=== PATIENT | male | born 1960 | race Caucasian/White ===

== ENCOUNTER → 2016-12-04 | Outpatient (CLI) | payer OTHER ==
[2016-12-04 13:47] LABS: Basophils % (A) 0 %; CH 30.4; Eosinophils # (A) 0.1 k/uL (0-0.7); Eosinophils % (A) 1 %; HDW 2.24; HGB 17.5 gm/dL (13.0-17.5); Luc # (Auto) 0.09; Luc % (Auto) 1; Lymphocytes # (A) 1.7 k/uL (1.0-4.8); Lymphocytes % (A) 19 %; MCH 29.3 pg (25.0-35.0); MCHC 31.7 g/dL (31.0-37.0); MCV 92.3 fL (80.0-100.0); Mean Platelet Volume 7.5; Monocytes # (A) 0.5 k/uL (0-1.0); Monocytes % (A) 5 %; Neutrophils # (A) 6.7 k/uL (1.3-7.7); Neutrophils % (A) 74 %; RBC 5.96 m/uL (4.30-5.90); RDW 13.3 % (11.5-15.5); WBC 9.1 k/uL (3.8-10.6); WBC (Perox) 8.59
[2016-12-04 14:00] LABS: Anion Gap 13 mmol/L; Blood Urea Nitrogen 24 mg/dL (9-20); Calcium 10.1 mg/dL (8.4-10.2); Carbon Dioxide 24 mmol/L (22-30); Chloride 101 mmol/L (98-107); Glucose 130 mg/dL (74-99); Non-African American GFR(MDRD) >60 (>60 ml/min/1.73 sqM); Potassium 4.6 mmol/L (3.5-5.1); Sodium 138 mmol/L (137-145)
[2016-12-04 14:17] LABS: Partial Thromboplastin Time 22.2 sec (22.0-30.0)
== END | disposition home or self-care (01) ==
LOC: LABWHC1 12:57
PROVIDERS: ATTEND Orthopaedic Surgery
DX: Z01.812 Encounter for preprocedural laboratory examination (principal); D61.3 Idiopathic aplastic anemia; N39.0 Urinary tract infection, site not specified; Z79.01 Long term (current) use of anticoagulants
CPT/HCPCS: 36415; 80048; 85025; 85610; 85730

== ENCOUNTER 2017-05-18 13:16 | Inpatient (IN) | payer OTHER ==
[2017-05-18] MEDS ORDERED: NITROGLYCERIN OINT 1 INCH/GM PACKET TOPICAL STA (13:33)
[2017-05-18] MEDS ORDERED: NITROGLYCERIN SL TABS 0.4 MG TAB SUBLINGUAL STA ×2 (13:33)
[2017-05-18] MEDS ORDERED: ASPIRIN 81 MG CHEW PO STA (13:33)
--- NOTE | 2017-05-18 13:35 | ED ---
General Adult HPI - General Chief complaint: Chest Pain Stated complaint: chest pain Time Seen by Provider: 05/18/17 13:26 Source: patient, family, EMS, RN notes reviewed Mode of arrival: EMS Limitations: no limitations - History of Present Illness Initial comments: Patient is a pleasant 56-year-old male presenting to the emergency Department with chest discomfort. Patient had some mild dyspnea yesterday. Patient has been exertion chest discomfort since Saturday. Discomfort as pressure. There is some radiation towards his arms and maybe some towards the back. Discomfort was rated at 8/10 and improved is currently 5/10. No associated nausea or diaphoresis. Patient did take 2 nitroglycerin with improvement of symptoms. Patient also took aspirin. - Related Data Home Medications Medication Instructions Recorded Confirmed Omeprazole [PriLOSEC] 20 mg PO AC-BRKFST 08/19/14 05/18/17 Celecoxib [CeleBREX] 200 mg PO BID PRN 03/31/16 05/18/17 Gabapentin [Neurontin] 300 mg PO TID 03/31/16 05/18/17 Acetaminophen Tab [Tylenol] 1,000 mg PO Q6H PRN 06/21/16 05/18/17 Fluticasone Nasal [place] [Flonase 2 sprays EA NOSTRIL BID PRN 06/21/16 05/18/17 Nasal [place]] Aspirin EC [Ecotrin] 325 mg PO DAILY 05/18/17 05/18/17 Metoprolol Succinate [Toprol XL] 25 mg PO DAILY 05/18/17 05/18/17 Olmesartan/Hydrochlorothiazide 1 tab PO DAILY 05/18/17 05/18/17 [Benicar Hct 40-25 mg Tablet] Allergies Allergy/AdvReac Type Severity Reaction Status Date / Time amlodipine Allergy Severe Unknown Verified 05/18/17 13:47 venom-honey bee Allergy Anaphylaxis Verified 05/18/17 13:47 [bee venom (honey bee)] vancomycin AdvReac Rash/Hives Verified 05/18/17 13:47 Review of Systems ROS Statement: Those systems with pertinent positive or pertinent negative responses have been documented in the HPI. ROS Other: All systems not noted in ROS Statement are negative. Constitutional: Denies: fever Eyes: Denies: eye pain ENT: Denies: ear pain Respiratory: Reports: dyspnea. Denies: cough Cardiovascular: Reports: chest pain Endocrine: Denies: fatigue Gastrointestinal: Denies: abdominal pain, vomiting Genitourinary: Denies: urgency Musculoskeletal: Denies: arthralgia Skin: Denies: rash Neurological: Denies: weakness Past Medical History Past Medical History: Atrial Fibrillation, Cancer, GERD/Reflux, Hyperlipidemia, Hypertension, Prostate Disorder Additional Past Medical History / Comment(s): irregular heart rate, seasonal allergies kidney stones, benign lesion on nose, diverticulitis, problem with starting urinary stream seen urology doc and they scoped by bladder and found a kidney stone History of Any Multi-Drug Resistant Organisms: None Reported Past Surgical History: Back Surgery, Bowel Resection, Cholecystectomy, Joint Replacement, Orthopedic Surgery, Tonsillectomy Additional Past Surgical History / Comment(s): Diverticulitis; Right hip replacement Past Anesthesia/Blood Transfusion Reactions: No Reported Reaction Past Psychological History: No Psychological Hx Reported Smoking Status: Former smoker Past Alcohol Use History: None Reported Past Drug Use History: None Reported - Past Family History Mother History Unknown: Yes Family Medical History: Cancer Additional Family Medical History / Comment(s): breast cancer General Exam Limitations: no limitations General appearance: alert, in no apparent distress Head exam: Present: atraumatic Eye exam: Present: normal appearance, PERRL ENT exam: Present: normal oropharynx Neck exam: Present: normal inspection Respiratory exam: Present: normal lung sounds bilaterally. Absent: chest wall tenderness Cardiovascular Exam: Present: regular rate, normal rhythm Expanded Peripheral pulses: 2+: Radial (R), Radial (L), Dorsalis Pedis (R), Dorsalis Pedis (L) GI/Abdominal exam: Present: soft. Absent: tenderness Extremities exam: Present: normal inspection. Absent: pedal edema, calf tenderness Neurological exam: Present: alert Psychiatric exam: Present: normal affect, normal mood Skin exam: Present: normal color Course Vital Signs 05/18/17 05/18/17 05/18/17 13:22 13:59 14:04 Temperature 97.5 F L Pulse Rate 70 68 77 Respiratory 18 18 18 Rate Blood Pressure 165/101 162/102 149/81 O2 Sat by Pulse 97 98 97 Oximetry EKG Findings - EKG Comments: EKG Findings:: Sinus bradycardia 58. Normal intervals. Normal axis. Normal QRS. Normal ST-T. Medical Decision Making - Medical Decision Making Patient reevaluated and resting comfortably in bed. Patient symptom-free following one nitroglycerin in the ER. Patient and family are updated on results and plan. Case was discussed in detail with Dr. Mckeon, who will admit for Dr. Anderson. - Lab Data Result diagrams: 05/18/17 13:26 05/18/17 13:26 Lab Results 05/18/17 05/18/17 05/18/17 Range/Units 13:26 13:26 13:26 WBC 11.7 H (3.8-10.6) k/uL RBC 5.14 (4.30-5.90) m/uL Hgb 14.6 (13.0-17.5) gm/dL Hct 44.3 (39.0-53.0) % MCV 86.2 (80.0-100.0) fL MCH 28.4 (25.0-35.0) pg MCHC 33.0 (31.0-37.0) g/dL RDW 14.0 (11.5-15.5) % Plt Count 226 (150-450) k/uL Neutrophils % 77 % Lymphocytes % 14 % Monocytes % 6 % Eosinophils % 1 % Basophils % 0 % Neutrophils # 9.0 H (1.3-7.7) k/uL Lymphocytes # 1.7 (1.0-4.8) k/uL Monocytes # 0.7 (0-1.0) k/uL Eosinophils # 0.1 (0-0.7) k/uL Basophils # 0.0 (0-0.2) k/uL PT (9.0-12.0) sec INR (<1.1) APTT (22.0-30.0) sec D-Dimer (<0.60) mg/L FEU Sodium 138 (137-145) mmol/L Potassium 4.2 (3.5-5.1) mmol/L Chloride 105 (98-107) mmol/L Carbon Dioxide 21 L (22-30) mmol/L Anion Gap 12 mmol/L BUN 27 H (9-20) mg/dL Creatinine 1.17 (0.66-1.25) mg/dL Est GFR (MDRD) Af Amer >60 (>60 ml/min/1.73 sqM) Est GFR (MDRD) Non-Af >60 (>60 ml/min/1.73 sqM) Glucose 123 H (74-99) mg/dL Calcium 9.3 (8.4-10.2) mg/dL Magnesium 1.8 (1.6-2.3) mg/dL Total Bilirubin 0.7 (0.2-1.3) mg/dL AST 27 (17-59) U/L ALT 39 (21-72) U/L Alkaline Phosphatase 83 (38-126) U/L Total Creatine Kinase 222 H (55-170) U/L CK-MB (CK-2) 6.5 H* (0.0-2.4) ng/mL CK-MB (CK-2) Rel Index 2.9 Troponin I 0.028 (0.000-0.034) ng/mL Total Protein 6.6 (6.3-8.2) g/dL Albumin 4.0 (3.5-5.0) g/dL 05/18/17 Range/Units 13:26 WBC (3.8-10.6) k/uL RBC (4.30-5.90) m/uL Hgb (13.0-17.5) gm/dL Hct (39.0-53.0) % MCV (80.0-100.0) fL MCH (25.0-35.0) pg MCHC (31.0-37.0) g/dL RDW (11.5-15.5) % Plt Count (150-450) k/uL Neutrophils % % Lymphocytes % % Monocytes % % Eosinophils % % Basophils % % Neutrophils # (1.3-7.7) k/uL Lymphocytes # (1.0-4.8) k/uL Monocytes # (0-1.0) k/uL Eosinophils # (0-0.7) k/uL Basophils # (0-0.2) k/uL PT 10.6 (9.0-12.0) sec INR 1.1 (<1.1) APTT 22.5 (22.0-30.0) sec D-Dimer 0.37 (<0.60) mg/L FEU Sodium (137-145) mmol/L Potassium (3.5-5.1) mmol/L Chloride (98-107) mmol/L Carbon Dioxide (22-30) mmol/L Anion Gap mmol/L BUN (9-20) mg/dL Creatinine (0.66-1.25) mg/dL Est GFR (MDRD) Af Amer (>60 ml/min/1.73 sqM) Est GFR (MDRD) Non-Af (>60 ml/min/1.73 sqM) Glucose (74-99) mg/dL Calcium (8.4-10.2) mg/dL Magnesium (1.6-2.3) mg/dL Total Bilirubin (0.2-1.3) mg/dL AST (17-59) U/L ALT (21-72) U/L Alkaline Phosphatase (38-126) U/L Total Creatine Kinase (55-170) U/L CK-MB (CK-2) (0.0-2.4) ng/mL CK-MB (CK-2) Rel Index Troponin I (0.000-0.034) ng/mL Total Protein (6.3-8.2) g/dL Albumin (3.5-5.0) g/dL - Radiology Data Radiology results: image reviewed (Chest x-ray shows no acute process) Critical Care Time Critical Care Time: Yes Total Critical Care Time: 32 Disposition Clinical Impression: Unstable angina pectoris Disposition: ADMITTED IP TO THIS HOSP Referrals: Kathie Anderson III, MD [Primary Care Provider] - 1-2 days Time of Disposition: 14:47
[2017-05-18 13:49] LABS: Basophils % (A) 0 %; CH 29.1; CHCM 33.9; Eosinophils # (A) 0.1 k/uL (0-0.7); Eosinophils % (A) 1 %; HCT 44.3 % (39.0-53.0); HDW 2.76; HGB 14.6 gm/dL (13.0-17.5); Luc # (Auto) 0.19; Luc % (Auto) 2; Lymphocytes # (A) 1.7 k/uL (1.0-4.8); Lymphocytes % (A) 14 %; MCH 28.4 pg (25.0-35.0); MCV 86.2 fL (80.0-100.0); Monocytes # (A) 0.7 k/uL (0-1.0); Monocytes % (A) 6 %; Neutrophils % (A) 77 %; RBC 5.14 m/uL (4.30-5.90); WBC 11.7 k/uL (3.8-10.6); WBC (Perox) 11.24
[2017-05-18 14:00] LABS: ALT 39 U/L (21-72); AST 27 U/L (17-59); Alkaline Phosphatase 83 U/L (38-126); Anion Gap 12 mmol/L; Blood Urea Nitrogen 27 mg/dL (9-20); Calcium 9.3 mg/dL (8.4-10.2); Carbon Dioxide 21 mmol/L (22-30); Chloride 105 mmol/L (98-107); Glucose 123 mg/dL (74-99); Magnesium 1.8 mg/dL (1.6-2.3); Non-African American GFR(MDRD) >60 (>60 ml/min/1.73 sqM); Potassium 4.2 mmol/L (3.5-5.1); Sodium 138 mmol/L (137-145); Total Bilirubin 0.7 mg/dL (0.2-1.3); Total Protein 6.6 g/dL (6.3-8.2)
[2017-05-18 14:02] LABS: INR 1.1 (<1.1); Partial Thromboplastin Time 22.5 sec (22.0-30.0); Prothrombin Time 10.6 sec (9.0-12.0)
--- NOTE | 2017-05-18 14:02 | XR ---
EXAMINATION TYPE: XR chest 2V DATE OF EXAM: 05/18/2017 COMPARISON: 10/09/2015 TECHNIQUE: PA and lateral views submitted. HISTORY: Pain FINDINGS: The lungs are clear and there is no pneumothorax, pleural effusion, or focal pneumonia. Prominence the upper mediastinum likely vascular. Technique also likely contributes to the finding. Hyperinflati on suggests COPD there is hypertrophic changes of the spine. IMPRESSION: 1. No acute process. Upper mediastinal prominence likely is vascular and partially technical of the i mages somewhat apical lordotic.
[2017-05-18 14:23] LABS: Troponin I 0.028 ng/mL (0.000-0.034)
[2017-05-18 14:25] LABS: Creatine Kinase MB 6.5 ng/mL (0.0-2.4)
[2017-05-18] MEDS ORDERED: NITROGLYCERIN SL TABS 0.4 MG TAB SUBLINGUAL PRN (14:48)
[2017-05-18] MEDS ORDERED: HEPARIN SODIUM,PORCINE 5,000 UNIT/ML 1 ML VIAL IV ONE (14:48)
[2017-05-18] MEDS ORDERED: HEPARIN SODIUM,PORCINE/D5W PMX 25,000 UNIT in DEXTROSE/WATER 1 500ML.BAG IV SCH (15:00)
--- NOTE | 2017-05-18 15:42 | P.HPIM ---
History of Present Illness H&P Date: 05/18/17 Chief Complaint: chest pain This is a 56-year-old gentleman with history of hypertension, atrial fibrillation comes in to the hospital with complaints of chest pain that started this morning. Patient stated that he was sitting down when he noted midsternal chest pain radiating to his bilateral arms. It is pressure-like lasted until he came into the hospital patient had significant relief with 3 nitroglycerin sublingual tablets Patient's blood pressure at the time of the chest pain was around 160/74 however he did not immediately take his blood pressure at home Patient denies having any headaches blurry vision palpitations nausea vomiting or diarrhea No recent illnesses are reported Patient last had a stress test 2 years ago patient sees Dr. Torres on outpatient basis Patient has not been physically active in the recent times EKG reveals sinus bradycardia with no ST-T wave changes Review of Systems All systems: negative (Return in HPI) Past Medical History Past Medical History: Atrial Fibrillation, Cancer, GERD/Reflux, Hyperlipidemia, Hypertension, Prostate Disorder Additional Past Medical History / Comment(s): irregular heart rate, seasonal allergies kidney stones, benign lesion on nose, diverticulitis, problem with starting urinary stream seen urology doc and they scoped by bladder and found a kidney stone History of Any Multi-Drug Resistant Organisms: None Reported Past Surgical History: Back Surgery, Bowel Resection, Cholecystectomy, Joint Replacement, Orthopedic Surgery, Tonsillectomy Additional Past Surgical History / Comment(s): Diverticulitis; Right hip replacement Past Anesthesia/Blood Transfusion Reactions: No Reported Reaction Past Psychological History: No Psychological Hx Reported Smoking Status: Former smoker Past Alcohol Use History: None Reported Past Drug Use History: None Reported - Past Family History Mother History Unknown: Yes Family Medical History: Cancer Additional Family Medical History / Comment(s): breast cancer Medications and Allergies Home Medications Medication Instructions Recorded Confirmed Type Omeprazole [PriLOSEC] 20 mg PO AC-BRKFST 08/19/14 05/18/17 History Celecoxib [CeleBREX] 200 mg PO BID PRN 03/31/16 05/18/17 History Gabapentin [Neurontin] 300 mg PO TID 03/31/16 05/18/17 History Acetaminophen Tab [Tylenol] 1,000 mg PO Q6H PRN 06/21/16 05/18/17 History Fluticasone Nasal [place] [Flonase 2 sprays EA NOSTRIL BID PRN 06/21/16 05/18/17 History Nasal [place]] Aspirin EC [Ecotrin] 325 mg PO DAILY 05/18/17 05/18/17 History Metoprolol Succinate [Toprol XL] 25 mg PO DAILY 05/18/17 05/18/17 History Olmesartan/Hydrochlorothiazide 1 tab PO DAILY 05/18/17 05/18/17 History [Benicar Hct 40-25 mg Tablet] Allergies Allergy/AdvReac Type Severity Reaction Status Date / Time amlodipine Allergy Severe Unknown Verified 05/18/17 13:47 venom-honey bee Allergy Anaphylaxis Verified 05/18/17 13:47 [bee venom (honey bee)] vancomycin AdvReac Rash/Hives Verified 05/18/17 13:47 Physical Exam Vitals: Vital Signs Temp Pulse Resp BP Pulse Ox 05/18/17 15:12 97.3 F L 68 18 129/79 97 05/18/17 14:04 77 18 149/81 97 05/18/17 13:59 68 18 162/102 98 05/18/17 13:22 97.5 F L 70 18 165/101 97 Intake and Output 05/18/17 05/18/17 05/18/17 06:59 14:59 22:59 Other: Weight 106.594 kg Patient Weight 05/19/17 06:59 Weight 106.594 kg Physical exam Gen. appearance oriented 3 in no distress Neck is supple no JVD Lungs good air entry clear to auscultation no rhonchi or wheezing Heart S1-S2 heard regular rate and rhythm no murmurs appreciated Abdomen is soft nontender no organomegaly bowel sounds are intact Neurologically cranial nerves II-12 grossly intact no focal motor or sensory deficits noted Skin no abnormalities appreciated Results CBC & Chem 7: 05/18/17 13:26 05/18/17 13:26 Labs: Abnormal Lab Results - Last 24 Hours (Table) 05/18/17 05/18/17 05/18/17 Range/Units 13:26 13:26 13:26 WBC 11.7 H (3.8-10.6) k/uL Neutrophils # 9.0 H (1.3-7.7) k/uL Carbon Dioxide 21 L (22-30) mmol/L BUN 27 H (9-20) mg/dL Glucose 123 H (74-99) mg/dL Total Creatine Kinase 222 H (55-170) U/L CK-MB (CK-2) 6.5 H* (0.0-2.4) ng/mL Assessment and Plan Plan: 1 chest pain with some typical features #2 hypertension, controlled #3 atrial fibrillation currently in sinus rhythm #4 dyslipidemia #5 previous bilateral Achilles tendon ruptures #6 osteoarthritis Plan Cardiac enzymes 3 will be done we'll obtain echocardiogram continue with nitro patch Patient would benefit from workup as he does have risk factors. Will have cardiology evaluate the patient depending on the echocardiogram result we'll defer in regards to have an stress tests versus an invasive angiogram Blood pressures are stable Medications were reconciled
[2017-05-18 16:01] VITALS: BMI 27.2
[2017-05-18] MEDS: GABAPENTIN 300 MG CAP PO SCH ×2 (17:06→20:48)
[2017-05-18] MEDS: NITROGLYCERIN OINT 1 INCH/GM PACKET TOPICAL SCH ×2 (18:10→23:31)
[2017-05-18 19:49] LABS: Creatine Kinase MB 6.7 ng/mL (0.0-2.4); Troponin I 0.299 ng/mL (0.000-0.034)
[2017-05-18] MEDS: HEPARIN SODIUM,PORCINE 5,000 UNIT/ML 1 ML VIAL IV PRN (21:36)
[2017-05-19 02:36] LABS: Mean Platelet Volume 7.3
[2017-05-19 02:55] LABS: Cholesterol 175 mg/dL (<200); HDL Cholesterol 36 mg/dL (40-60); Triglycerides 170 mg/dL (<150)
[2017-05-19 03:09] LABS: Creatine Kinase MB 7.4 ng/mL (0.0-2.4); Troponin I 0.609 ng/mL (0.000-0.034)
[2017-05-19] MEDS: PANTOPRAZOLE 40 MG TABLET PO SCH (05:59)
[2017-05-19] MEDS: NITROGLYCERIN OINT 1 INCH/GM PACKET TOPICAL SCH ×2 (06:22→15:22)
[2017-05-19] MEDS ORDERED: NITROGLYCERIN SL TABS 0.4 MG TAB SUBLINGUAL PRN ×2 (08:03→13:43)
[2017-05-19] MEDS ORDERED: SODIUM CHLORIDE 0.9% 1,000 ML in EMPTY BAG 1 BAG IV ONE (08:03)
[2017-05-19] MEDS ORDERED: ATORVASTATIN 80 MG TAB PO STA (08:03)
[2017-05-19] MEDS ORDERED: ALPRAZolam 0.25 MG TAB PO PRN (08:03)
[2017-05-19] MEDS: ASPIRIN 325 MG TAB PO STA (08:09)
[2017-05-19] MEDS: FLECAINIDE 50 MG TAB PO SCH (08:09)
[2017-05-19] MEDS: METOPROLOL SUCCINATE (ER) 25 MG TAB.ER.24H PO SCH (08:10)
[2017-05-19] MEDS: GABAPENTIN 300 MG CAP PO SCH ×3 (08:10→21:31)
[2017-05-19] MEDS ORDERED: ASPIRIN 325 MG TAB PO SCH (09:00)
[2017-05-19] MEDS: HEPARIN SODIUM,PORCINE 5,000 UNIT/ML 1 ML VIAL IV PRN (11:12)
[2017-05-19] MEDS: ALPRAZolam 0.5 MG TAB PO PRN ×2 (11:13→19:07)
[2017-05-19] MEDS ORDERED: ACETAMINOPHEN TAB 325 MG TAB PO PRN (11:22)
[2017-05-19 11:48] LABS: Glucose,Whole Blood 114 mg/dL (75-99)
[2017-05-19] MEDS ORDERED: HEPARIN SODIUM 1,000 UNIT/ML VIAL ONE ×2 (11:51)
[2017-05-19] MEDS ORDERED: VERAPAMIL 2.5 MG/ML 2 ML AMP ONE (11:51)
[2017-05-19] MEDS ORDERED: fentaNYL (PF) 50 MCG/ML 2 ML AMP ONE (11:52)
[2017-05-19] MEDS ORDERED: fentaNYL (PF) 50 MCG/ML 2 ML AMP IVP ONE (12:12)
[2017-05-19] MEDS: LIDOCAINE 2% INJ 20 MG/ML SQ ONE ×2 (12:12→12:40)
[2017-05-19] MEDS ORDERED: SODIUM CHLORIDE 0.9% 1,000 ML IV ONE (12:13)
[2017-05-19] MEDS: VERAPAMIL SYRINGE (5 MG/10 ML) INTRAARTER ONE ×2 (12:14→12:26)
[2017-05-19] MEDS ORDERED: BIVALIRUDIN BOLUS 250 MG/50 ML IV ONE (12:35)
[2017-05-19] MEDS ORDERED: BIVALIRUDIN 250 MG in SODIUM CHLORIDE 0.9% 50 ML IV ONE ×2 (12:35→13:04)
[2017-05-19] MEDS ORDERED: CLOPIDOGREL 75 MG TAB ONE ×2 (12:37)
[2017-05-19] MEDS ORDERED: CLOPIDOGREL 75 MG TAB PO ONE (12:42)
[2017-05-19] MEDS: NITROGLYCERIN 1000MCG/10ML SYRINGE INTRACORON ONE ×3 (12:50→13:27)
--- NOTE | 2017-05-19 13:03 | P.PN ---
Subjective his is a 56-year-old gentleman with history of hypertension, atrial fibrillation comes in to the hospital with complaints of chest pain that started this morning. Patient stated that he was sitting down when he noted midsternal chest pain radiating to his bilateral arms. It is pressure-like lasted until he came into the hospital patient had significant relief with 3 nitroglycerin sublingual tablets Patient's blood pressure at the time of the chest pain was around 160/74 however he did not immediately take his blood pressure at home Patient denies having any headaches blurry vision palpitations nausea vomiting or diarrhea No recent illnesses are reported Patient last had a stress test 2 years ago patient sees Dr. Torres on outpatient basis Patient has not been physically active in the recent times EKG reveals sinus bradycardia with no ST-T wave changes 05/19/2017 Patient states that his symptoms are resolved States that he has a headache with the nitroglycerin Objective - Vital Signs Vital signs: Vital Signs Temp 97.7 F 05/19/17 12:00 Pulse 77 05/19/17 08:03 Resp 18 05/19/17 12:00 BP 132/78 05/19/17 12:00 Pulse Ox 96 05/19/17 12:00 Intake & Output 05/18/17 05/19/17 05/19/17 18:59 06:59 18:59 Intake Total 360 286.447 213.553 Balance 360 286.447 213.553 Weight 101.6 kg 109.9 kg Intake: Intake, IV Titration 286.447 213.553 Amount Heparin Sodium,Porcine/ 286.447 213.553 D5w Pmx 25,000 unit In Dextrose/Water 1 500ml. bag @ 9.4 UNITS/KG/HR 20. 03 mls/hr IV .Q24H [facility] Rx #:[id number] Oral 360 Other: Voiding Method Toilet Toilet Urinal Urinal # Voids 1 3 - Exam Physical exam Gen. appearance oriented 3 in no distress Neck is supple no JVD Lungs good air entry clear to auscultation no rhonchi or wheezing Heart S1-S2 heard regular rate and rhythm no murmurs appreciated Abdomen is soft nontender no organomegaly bowel sounds are intact Neurologically cranial nerves II-12 grossly intact no focal motor or sensory deficits noted Skin no abnormalities appreciated - Labs CBC & Chem 7: 05/19/17 02:11 05/18/17 13:26 Labs: Abnormal Lab Results - Last 24 Hours (Table) 05/18/17 05/18/17 05/18/17 Range/Units 13:26 13:26 13:26 WBC 11.7 H (3.8-10.6) k/uL Neutrophils # 9.0 H (1.3-7.7) k/uL APTT (22.0-30.0) sec Carbon Dioxide 21 L (22-30) mmol/L BUN 27 H (9-20) mg/dL Glucose 123 H (74-99) mg/dL POC Glucose (mg/dL) (75-99) mg/dL Total Creatine Kinase 222 H (55-170) U/L CK-MB (CK-2) 6.5 H* (0.0-2.4) ng/mL Troponin I (0.000-0.034) ng/mL Triglycerides (<150) mg/dL LDL Cholesterol, Calc (0-99) mg/dL HDL Cholesterol (40-60) mg/dL 05/18/17 05/19/17 05/19/17 Range/Units 19:02 02:11 02:11 WBC (3.8-10.6) k/uL Neutrophils # (1.3-7.7) k/uL APTT 43.0 H (22.0-30.0) sec Carbon Dioxide (22-30) mmol/L BUN (9-20) mg/dL Glucose (74-99) mg/dL POC Glucose (mg/dL) (75-99) mg/dL Total Creatine Kinase 179 H (55-170) U/L CK-MB (CK-2) 6.7 H* 7.4 H* (0.0-2.4) ng/mL Troponin I 0.299 H* 0.609 H* (0.000-0.034) ng/mL Triglycerides (<150) mg/dL LDL Cholesterol, Calc (0-99) mg/dL HDL Cholesterol (40-60) mg/dL 05/19/17 05/19/17 05/19/17 Range/Units 02:11 09:31 11:34 WBC (3.8-10.6) k/uL Neutrophils # (1.3-7.7) k/uL APTT 34.7 H (22.0-30.0) sec Carbon Dioxide (22-30) mmol/L BUN (9-20) mg/dL Glucose (74-99) mg/dL POC Glucose (mg/dL) 114 H (75-99) mg/dL Total Creatine Kinase (55-170) U/L CK-MB (CK-2) (0.0-2.4) ng/mL Troponin I (0.000-0.034) ng/mL Triglycerides 170 H (<150) mg/dL LDL Cholesterol, Calc 105 H (0-99) mg/dL HDL Cholesterol 36 L (40-60) mg/dL Assessment and Plan Plan: 1 chest pain with some typical features #2 hypertension, controlled #3 atrial fibrillation currently in sinus rhythm #4 dyslipidemia #5 previous bilateral Achilles tendon ruptures #6 osteoarthritis Plan Await cardiac catheterization today Continue monitoring overnight blood pressures are stable Appears to be in sinus rhythm
[2017-05-19] MEDS ORDERED: HYDROmorphone 2 MG/ML 1 ML SYRINGE ONE (13:23)
[2017-05-19] MEDS ORDERED: HYDROmorphone 2 MG/ML 1 ML SYRINGE IV ONE (13:24)
[2017-05-19] MEDS ORDERED: IOHEXOL 350 MG/ML 100 ML BOTTLE INJ ONE (13:33)
[2017-05-19] MEDS ORDERED: ATROPINE SULFATE 0.1 MG/ML 10ML SYRINGE IV PRN (13:43)
[2017-05-19] MEDS ORDERED: RX INFO: IV CONTRAST WAS GIVEN 1 EACH MISC MISCELLANE PRN (13:43)
[2017-05-19] MEDS ORDERED: MAG HYDROX/AL HYDROX/SIMETH 30 ML CUP PO PRN (13:43)
[2017-05-19] MEDS ORDERED: ZOLPIDEM 5 MG TAB PO PRN (13:43)
[2017-05-19] MEDS ORDERED: SODIUM CHLORIDE 0.9% 1,000 ML IV SCH (13:45)
[2017-05-19] MEDS ORDERED: LOSARTAN 50 MG TAB PO STA (15:26)
--- NOTE | 2017-05-19 16:05 | CONS ---
DATE OF CONSULTATION: ATTENDING: Dr. Anderson Mr. Solitario is 56-year-old male with known history of hypertension, hyperlipidemia, paroxysmal atrial fibrillation who presented with symptoms of chest discomfort. The discomfort was across the chest going down to both arms, on and off, yesterday. It got worse, came into the emergency room and subsequently admitted. At the time of my evaluation, his pain has resolved. Patient has a history of atrial fibrillation and has been placed on Tambocor and has been stable on that. His reasonably active. He has no significant dyspnea on exertion. No prior history of coronary artery disease. No chest pain with activity in the past. No PND, orthopnea. No peripheral edema. He has not had any significant palpitation. No syncope. His coronary risk factors are remarkable for prior history of smoking. He stopped many years ago, history of hypertension, hyperlipidemia, but he is off treatment at this time. He is nondiabetic. His medications include aspirin, Celebrex, Neurontin 300 mg 3 times a day, Toprol-XL 25 mg daily, Benicar HCT 40 to 25 mg daily, Prilosec, Tambocor 50 mg daily and Flonase. REVIEW OF SYSTEMS: RESPIRATORY SYSTEM: He has no recent wheezing. No cough. No history of documented obstructive lung disease. GI SYSTEM: No recent GI bleeding. No peptic ulcer disease. SYSTEM: No dysuria or hematuria. NERVOUS SYSTEM: No stroke or seizure. PHYSICAL EXAMINATION: A 56-year-old male, alert, oriented, in no apparent distress. Blood pressure 125/60 with a heart rate 70. HEAD: Normocephalic. EYES: Sclerae anicteric. NECK: Good upstroke. No bruit. No jugular venous distention. LUNGS: Clear to auscultation. HEART: Regular rate and rhythm. S1, S2, no S3, no S4, no murmur or rub. ABDOMEN: Soft, nontender, positive bowel sounds. No organomegaly. EXTREMITIES: No edema. Intact distal pulses. LAB DATA: EKG sinus mechanism, rate of 58, normal axis and intervals, early transition with minimal ST segment depression in the anterolateral leads. Lab data revealed a troponin of 0.028, 0.299 and 0.609. BUN and creatinine 27 and 1.17. Potassium 4.2. Hemoglobin of 14.6. Cholesterol of 170, LDL of 105. Chest x-ray revealed no evidence of infiltrate. IMPRESSION: 1. Chest discomfort with abnormal troponin consistent with non- ST elevation myocardial infarction. 2. Prior history of paroxysmal atrial fibrillation, remains in sinus mechanism. 3. History of hypertension. 4. Hyperlipidemia. 5. Diabetes mellitus. 6. History of arthritis. RECOMMENDATION: I have recommended proceeding with coronary angiography to assess his status and guide his treatment. The rationale behind the procedure as well as risk and complications were discussed with the patient, who is in full understanding and agreement. Thank you for this consult. We will follow with you.
[2017-05-20 03:06] VITALS: TEMP 96.9
[2017-05-20 05:04] VITALS: RESP 18
[2017-05-20] MEDS: PANTOPRAZOLE 40 MG TABLET PO SCH (06:37)
[2017-05-20 06:48] LABS: Mean Platelet Volume 6.9
[2017-05-20 06:55] LABS: Anion Gap 10 mmol/L; Blood Urea Nitrogen 19 mg/dL (9-20); Calcium 9.4 mg/dL (8.4-10.2); Carbon Dioxide 25 mmol/L (22-30); Chloride 103 mmol/L (98-107); Glucose 131 mg/dL (74-99); Non-African American GFR(MDRD) >60 (>60 ml/min/1.73 sqM); Potassium 4.2 mmol/L (3.5-5.1); Sodium 138 mmol/L (137-145)
--- NOTE | 2017-05-20 07:12 | PTCA ---
DATE OF SERVICE: Mr. Solitario is 56-year-old male with known history of hypertension, history of paroxysmal atrial fibrillation who presented with non-ST segment elevation myocardial infarction, underwent cardiac catheterization, was found to have critical stenosis involving the proximal and mid right coronary artery as well as mid and distal left circumflex. In view of that, recommendation made regarding angioplasty and stenting. The procedure as well as risks and complications were discussed with the patient who is in full understanding and agreement. PROCEDURE: A 6 [place] FR4 guiding catheter was introduced into the system. After cannulating the left main, 0.014 balanced medium weight J-wire was advanced across the lesion, positioned distally then a 2.5 x 12 mm Trek balloon was advanced and inflations at distal and mid segment were performed. Following that, a 2.5 x 15 mm Xience Alpine stent was deployed distally. It was dilated at 14 atmospheres. Following that, the balloon was removed and a 3.0 x 15 mm Xience Alpine stent was deployed in the mid lesion and postdilated at 16 atmospheres. After the last inflation, after appropriate wait, the balloon and the guidewire were withdrawn back in the guiding catheter. Images were obtained repeated. Those images revealed stable successful stenting. At that point the guiding catheter, the balloon and the guidewire were removed, and a 6 [place] FR4 guiding catheter into the system. After cannulating the right coronary ostium 0.014 balanced medium J-wire was advanced across the lesion, positioned distally. Then the 2.5 x 12 mm Trek balloon was advanced and inflations at proximal and mid lesion were done at a maximum of 10 atmospheres. Following that, the balloon was removed and a 3.0 x 15 mm Xience Alpine stent was deployed in the mid lesion and it was dilated at 16 atmospheres. Following that, the balloon was removed and a 3.5 x 18 mm Xience Alpine stent was deployed in the proximal lesion and was dilated at 14 atmospheres. Following that, the balloon was removed and a 3.0 x 8 Xience Alpine stent was deployed distal to the proximal stent and dilated at 16 atmospheres. After the last inflation, after appropriate wait, the balloon and the guidewire were withdrawn in the guiding catheter. Images were obtained and repeated. Those images reveal stable successful stenting. At that point the guiding catheter, the balloon and the guidewire were removed. The sheath was removed. Hemostasis was obtained with the deployment of an Angio-Seal and deployment of `TR band in the right radial artery. The patient had chest discomfort and EKG changes with the inflation that resolved at the end of the procedure. He received Angiomax per protocol as well as oral loading dose of Clopidogrel and received intra-arterial verapamil. There was no immediate complication. Duration of the procedure: 84 minutes. 1. RESULTS: Successful stenting of the mid left circumflex with reduction in stenosis from 85% to 0%. 2. Successful stenting of the distal left circumflex with reduction in stenosis from 99% to 0%. 3. Successful stenting of the proximal right coronary artery with reduction in stenosis from 95% to 0%. 4. Successful stenting of the mid right coronary artery with reduction in stenosis from 85% to 0%. RECOMMENDATION: Patient will be continued on Aspirin, Plavix, beta blockers, and angiotensin receptor norberto and statin. The importance of dual antiplatelet treatment were discussed with the patient and his family who is in full understanding and agreement.
--- NOTE | 2017-05-20 07:14 | LTR ---
May 19, 2017 RE: John Solitario Dear Dr. Anderson: I had the pleasure of performing cardiac catheterization on Mr. Solitario on the may. A fully copy of procedure note will be forwarded to you. In brief, he was found to have significant stenosis involving the left circumflex and right coronary artery. He underwent stenting of the vessel using a drug-eluting stents. I am hopeful that this procedure will stabilize his status and I would recommend to continue on dual antiplatelet treatment for at least one year without any interruption. Thank you again for allowing me to participate in his care. Please feel free to call for any questions Sincerely, DEJA MANE MD
--- NOTE | 2017-05-20 07:17 | CC ---
DATE OF SERVICE: Mr. Solitario a 56-year-old male with known history of hypertension, paroxysmal atrial fibrillation who presented with symptoms of chest discomfort and evidence consistent with non- ST segment elevation myocardial infarction. In view of that, recommendation was made regarding cardiac catheterization. The procedure as well as the risks and the complications were discussed with the patient who is in full understanding and agreement. PROCEDURE: Patient was brought to the collaborative physician in a fasting semi-sedated state. After receiving fentanyl and Benadryl and achieving moderate conscious sedated state, a 6 Palauan sheath was introduced in the right radial artery. The right coronary angiography was performed using 5 Palauan 3-1/2 Bend right and left Tuan catheter. Images of the right coronary artery were performed. Multiple attempts to cannulate the left main using a 5 Palauan 3-1/2 Bend left Tuan. 5 Palauan 4 bend left Tuan , Jose 6 Palauan catheter and a multipurpose 5 Palauan were not successful because of tortuosity in the subclavian area. In view of that, using Xylocaine anesthesia and Seldinger technique, a 6 Palauan was introduced in the right femoral artery and selective left coronary angiography was performed using 5 Palauan 4 bend left Tuan catheter. Images of the coronary arteries were obtained. Following that, catheter was removed. Images were reviewed. FINDINGS: LEFT MAIN: This is a large-size vessel bifurcating into the left circumflex, left anterior descending artery. Left main coronary artery is without any obstructive disease. LEFT ANTERIOR DESCENDING ARTERY: This is a large-size vessel reaching toward the apex with a wrap around apex segment, giving rise to a diagonal branch. Proximally the diagonal branch has an area of stenosis of about 90%, but the vessel is small in caliber. The LAD has mild intimal disease of 20% to 30% in the proximal segment. LEFT CIRCUMFLEX: This is a nondominant large size vessel, giving rise to 3 obtuse marginal branch. The first one is the largest, has mild intimal disease of 20% to 30%. After the takeoff of the second obtuse marginal branch, there is an area of haziness with stenosis up to 85% to 90% and after the takeoff of the third obtuse marginal branch, there is a 99% stenosis. Beyond that, the fourth obtuse marginal branch is small in caliber. RIGHT CORONARY ARTERY: This is a large dominant vessel, bifurcating distally into PDA and posterolateral segment and branches. The right coronary artery proximally has a 99% stenosis and in the mid segment has a lesion with appearance of a ruptured plaque with area of stenosis up to 90%. The rest of the vessel has intimal disease without any evidence of high-grade stenosis. LEFT VENTRICULOGRAM: Left ventriculogram was not performed. HEMODYNAMICS: There was no gradient across the aortic valve. The left ventricular end-diastolic pressure was 12 mmHg. CONCLUSION: 1. Critical stenosis involving the mid and distal left circumflex. 2. Critical stenosis involving the proximal and mid right coronary artery. 3. Mild disease in the left anterior descending artery with significant disease in the first diagonal branch that is small in caliber. 4. Normal left ventricular end-diastolic pressure. RECOMMENDATION: In view of the findings and the anatomy, I have recommended proceeding with angioplasty and stenting of the left circumflex in the right coronary artery. The rationale beyond the procedure as well as the risks and the complications were discussed with the patient who is in full understanding and agreement. NALLELY
[2017-05-20] MEDS: GABAPENTIN 300 MG CAP PO SCH (08:39)
[2017-05-20] MEDS: METOPROLOL SUCCINATE (ER) 25 MG TAB.ER.24H PO SCH (08:39)
[2017-05-20] MEDS: FLECAINIDE 50 MG TAB PO SCH (08:40)
[2017-05-20] MEDS ORDERED: ATORVASTATIN 40 MG TAB PO SCH (09:00)
[2017-05-20] MEDS ORDERED: LOSARTAN 50 MG TAB PO SCH (09:00)
[2017-05-20] MEDS ORDERED: ASPIRIN 81 MG CHEW PO SCH (09:00)
[2017-05-20] MEDS ORDERED: CLOPIDOGREL 75 MG TAB PO SCH (09:00)
--- NOTE | 2017-05-20 09:37 | PN ---
Mr. Solitario is a 56-year-old male with prior history of paroxysmal atrial fibrillation, history of hypertension, who presented to the hospital with symptoms of chest discomfort was diagnosed with non-ST segment elevation myocardial infarction, underwent cardiac catheterization and was found to have significant stenosis involving the left circumflex and the right coronary artery as well as a small diagonal branch, underwent stenting of the circumflex and the right coronary artery. He is doing quite well this morning. He has no chest pain. His breathing has been stable. He denies any dizziness or palpitation. He denies any nausea. He continued to be on aspirin once a day, Lipitor 40 mg daily, Plavix 75 mg daily, gabapentin, losartan 50 mg daily, metoprolol succinate 25 mg daily. PHYSICAL EXAMINATION: Blood pressure running in the 130s to 160s with the heart in the 70s. LUNGS: Clear. HEART: Regular rate and rhythm. S1, S2, no S3, no rub. ABDOMEN: Soft, nontender. EXTREMITIES: No edema. Right radial pulse intact. RIGHT GROIN: No hematoma. Lab data revealed a BUN and creatinine of 19 and 0.8. Potassium 4.2. His peak troponin is 0.6. IMPRESSION: 1. Status post non- ST-segment elevation myocardial infarction with 2-vessel stenting and disease in a small diagonal branch. 2. History of hypertension. 3. Hyperlipidemia. 4. Paroxysmal atrial fibrillation. RECOMMENDATION: Patient should be able to be discharged home today. I will review the results of his echocardiogram. He will follow up on a regular basis with Dr. Fu. He will resume his Benicar at home.
--- NOTE | 2017-05-20 10:28 | ECHOF ---
Referral Reason:chest pain MEASUREMENTS -------- HEIGHT: 188.0 cm WEIGHT: 108.4 kg BP: 158/91 IVSd: 1.2 cm (0.6 - 1.1) LVIDd: 3.2 cm (3.9 - 5.3) LVPWd: 1.3 cm (0.6 - 1.1) IVSs: 1.8 cm LVIDs: 1.6 cm LVPWs: 1.7 cm Ao Diam: 3.9 cm (2.0 - 3.7) AV Cusp: 2.5 cm (1.5 - 2.6) LA Diam: 3.7 cm (2.7 - 3.8) MV EXCURSION: 13.536 mm (> 18.000) MV EF SLOPE: 59 mm/s (70 - 150) EPSS: 0.4 cm MV E Matt: 0.55 m/s MV DecT: 181 ms MV A Matt: 0.45 m/s MV E/A Ratio: 1.22 RAP: 5.00 mmHg RVSP: 10.57 mmHg FINDINGS -------- Sinus rhythm. This was a technically good study. There is mild concentric left ventricular hypertrophy. Overall left ventricular systolic function is normal with, an EF between 55 - 60 %. The right ventricle is normal in size and function. The left atrium is normal in size. The right atrium is normal in size. The aortic valve is trileaflet, and appears structurally normal. No aortic stenosis or regurgitation. The mitral valve leaflets are mildly thickened. Mild mitral regurgitation is present. Mild tricuspid regurgitation present. The right ventricular systolic pressure, as measured by Doppler, is 10.57mmHg. Pulmonic valve appears structurally normal. The aortic root size is normal. The pericardium is normal. CONCLUSIONS -------- 1. Sinus rhythm. 2. Mild mitral regurgitation is present. 3. Mild tricuspid regurgitation present. 4. The right ventricular systolic pressure, as measured by Doppler, is 10.57mmHg. 5. Pulmonic valve appears structurally normal. 6. The aortic root size is normal. 7. The pericardium is normal. 8. This was a technically good study. 9. There is mild concentric left ventricular hypertrophy. 10. Overall left ventricular systolic function is normal with, an EF between 55 - 60 %. 11. The right ventricle is normal in size and function. 12. The left atrium is normal in size. 13. The right atrium is normal in size. 14. The aortic valve is trileaflet, and appears structurally normal. No aortic stenosis or regurgitation. 15. The mitral valve leaflets are mildly thickened. CARDIOLOGY FELLOW: Lata Dubon RDCS
[2017-05-20 11:22] VITALS: BP 141/83; PULSE 66
--- NOTE | 2017-05-20 18:19 | P.DS ---
Providers Date of admission: 05/19/17 16:13 Attending physician: Jalen Mckeon MD Consults: 05/18/17 14:48 Consult Physician Urgent Consulting Provider: Philip Fu Consult Reason/Comments: ua Do you want consulting provider notified?: Yes 05/19/17 13:44 Consult Physician Routine Consulting Provider: [facility] Consult Reason/Comments: Post Interventional patient Do you want consulting provider notified?: Already Contacted [facility]: ddendum entered and electronically signed by Jalen Mckeon MD 05/19/17 13:03: Non-Q wave RI , acute Original Note: Subjective his is a 56-year-old gentleman with history of hypertension, atrial fibrillation comes in to the hospital with complaints of chest pain that started this morning. Patient stated that he was sitting down when he noted midsternal chest pain radiating to his bilateral arms. It is pressure-like lasted until he came into the hospital patient had significant relief with 3 nitroglycerin sublingual tablets Patient's blood pressure at the time of the chest pain was around 160/74 however he did not immediately take his blood pressure at home Patient denies having any headaches blurry vision palpitations nausea vomiting or diarrhea No recent illnesses are reported Patient last had a stress test 2 years ago patient sees Dr. Torres on outpatient basis Patient has not been physically active in the recent times EKG reveals sinus bradycardia with no ST-T wave changes 05/19/2017 Patient states that his symptoms are resolved States that he has a headache with the nitroglycerin 05/20/17 doing well right wrist and right groin are appropriate no significant tenderness is appreciated no cp, melinda, nausea, vomiting, diarrhea reported - Exam Physical exam Gen. appearance oriented 3 in no distress Neck is supple no JVD Lungs good air entry clear to auscultation no rhonchi or wheezing Heart S1-S2 heard regular rate and rhythm no murmurs appreciated Abdomen is soft nontender no organomegaly bowel sounds are intact Neurologically cranial nerves II-12 grossly intact no focal motor or sensory deficits noted Skin no abnormalities appreciated Assessment and Plan Plan: 1 Non q wave RI, s/p PTCA to the RCA and left circumflex 5 stents #2 hypertension, controlled #3 atrial fibrillation currently in sinus rhythm #4 dyslipidemia #5 previous bilateral Achilles tendon ruptures #6 osteoarthritis DAPT, b- norberto continue flecainide losartan/HCTZ Plan - Discharge Summary New Discharge Prescriptions: New Clopidogrel [Plavix] 75 mg PO DAILY #30 tab Atorvastatin [Lipitor] 40 mg PO DAILY #30 tab Nitroglycerin Sl Tabs [Nitrostat] 0.4 mg SUBLINGUAL Q5M PRN #25 tab PRN Reason: Chest Pain Continue Omeprazole [PriLOSEC] 20 mg PO AC-BRKFST Gabapentin [Neurontin] 300 mg PO TID Acetaminophen Tab [Tylenol] 1,000 mg PO Q6H PRN PRN Reason: Pain Fluticasone Nasal Mesa [Flonase Nasal Mesa] 2 sprays EA NOSTRIL BID PRN PRN Reason: Allergy Symptoms Olmesartan/Hydrochlorothiazide [Benicar Hct 40-25 mg Tablet] 1 tab PO DAILY Aspirin EC [Ecotrin] 325 mg PO DAILY Metoprolol Succinate [Toprol XL] 25 mg PO DAILY Flecainide [Tambocor] 50 mg PO DAILY Discontinued Celecoxib [CeleBREX] 200 mg PO BID PRN PRN Reason: Pain Discharge Medication List Omeprazole [PriLOSEC] 20 mg PO AC-BRKFST 08/19/14 [History] Gabapentin [Neurontin] 300 mg PO TID 03/31/16 [History] Acetaminophen Tab [Tylenol] 1,000 mg PO Q6H PRN 06/21/16 [History] Fluticasone Nasal [place]a [Flonase Nasal [place]] 2 sprays EA NOSTRIL BID PRN [History] Aspirin EC [Ecotrin] 325 mg PO DAILY 05/18/17 [History] Flecainide [Tambocor] 50 mg PO DAILY 05/18/17 [History] Metoprolol Succinate [Toprol XL] 25 mg PO DAILY 05/18/17 [History] Olmesartan/Hydrochlorothiazide [Benicar Hct 40-25 mg Tablet] 1 tab PO DAILY [History] Atorvastatin [Lipitor] 40 mg PO DAILY #30 tab 05/20/17 [Rx] Clopidogrel [Plavix] 75 mg PO DAILY #30 tab 05/20/17 [Rx] Nitroglycerin Sl Tabs [Nitrostat] 0.4 mg SUBLINGUAL Q5M PRN #25 tab 05/20/17 [Rx ] Follow up Appointment(s)/Referral(s): Kathie Anderson III, MD [Primary Care Provider] - 05/22/17 8:45 am Philip Fu MD [STAFF PHYSICIAN] - 05/28/17 8:15 am Patient Instructions/Handouts: *Surgery [facility] - After Heart Catheterization - Head Of Sales Instructions Discharge Disposition: HOME SELF-CARE
== END 2017-05-20 13:53 | disposition home or self-care (01) | DRG 246 ==
LOC: EC 13:16 → 3OBS 14:48 → 6SEL 16:50 → OBSVTOIN 05-19 16:13
PROVIDERS: ADMIT Internal Medicine; ATTEND Internal Medicine
PROC: B2111ZZ Fluoroscopy of Multiple Coronary Arteries using Low Osmolar Contrast (ICD-10-PCS; principal; 2017-05-19 12:02)
PROC: 027137Z Dilation of Coronary Artery, Two Arteries with Four or More Drug-eluting Intraluminal Devices, Percutaneous Approach (ICD-10-PCS; 2017-05-19 12:02)
DX: I21.4 Non-ST elevation (NSTEMI) myocardial infarction (principal); I10 Essential (primary) hypertension; E11.9 Type 2 diabetes mellitus without complications; I48.0 Paroxysmal atrial fibrillation; E78.5 Hyperlipidemia, unspecified; J30.2 Other seasonal allergic rhinitis; M19.91 Primary osteoarthritis, unspecified site; N42.9 Disorder of prostate, unspecified; K21.9 Gastro-esophageal reflux disease without esophagitis; Z87.442 Personal history of urinary calculi; Z90.49 Acquired absence of other specified parts of digestive tract; Z96.641 Presence of right artificial hip joint; Z87.891 Personal history of nicotine dependence; Z79.82 Long term (current) use of aspirin; Z79.1 Long term (current) use of non-steroidal anti-inflammatories (NSAID); Z79.899 Other long term (current) drug therapy; Z88.8 Allergy status to other drugs, medicaments and biological substances; Z88.1 Allergy status to other antibiotic agents; Z91.030 Bee allergy status
CPT/HCPCS: 36415; 71020; 80048; 80053; 80061; 82550; 82553; 83735; 84484; 85025; 85049; 85347; 85379; 85610; 85730; 93005; 93306; 93458; 96365; 96366; 96374; 96375; 96376; 99291

== ENCOUNTER → 2017-06-05 | Outpatient (CLI) | payer OTHER | END | disposition home or self-care (01) | LOC: CPPFTMAIN 13:26 | PROVIDERS: ATTEND Family Medicine | DX: R06.02 Shortness of breath (principal); R06.2 Wheezing | CPT/HCPCS: 94060; 94726; 94729 ==

== ENCOUNTER → 2017-06-26 | Outpatient (CLI) | payer OTHER ==
--- NOTE | 2017-06-26 12:58 | US ---
EXAMINATION TYPE: US scrotum with doppler. Grayscale and color Doppler Duplex imaging performed of t he scrotum. DATE OF EXAM: 06/26/2017 COMPARISON: NONE CLINICAL HISTORY: N50.81 TESTICULAR PAIN. Left tenderness with palp exam by EXAM MEASUREMENTS: TESTICLES: Right Testicle: 5.4 x 2.5 x 4.0 cm Left Testicle: 4.5 x 1.9 x 3.3 cm EPIDIDYMIS HEAD: Right Epididymis: 3.3 x 1.3 cm Left Epididymis: 3.0 x 1.4 cm Doppler performed to assess for testicular vascularity; good bilateral color flow and waveforms are s een. There is no evidence of testicular torsion. Presence of hydroceles: no Presence of varicoceles: no Bilateral epididymis head cysts, right measuring 2.6 x 1.2 x 1.7cm and left measuring 2.9 x 1.8 x 1.2 cm. Diffusely heterogeneous echo pattern within the left testicle. ?Etiology Bilateral symmetrical color flow. The right testicle is a normal appearance. The left testicle is heterogenous but has normal flow. Thi s may represent edema. There are large, bilateral epididymal cysts. IMPRESSION: 1. DIFFUSELY HETEROGENOUS LEFT TESTICLE. UROLOGIC CONSULT WOULD BE SUGGESTED. 2. LARGE, BILATERAL EPIDIDYMAL CYSTS.
== END | disposition home or self-care (01) ==
LOC: RADUSWWP 12:18
PROVIDERS: ATTEND Family Medicine
DX: N50.3 Cyst of epididymis (principal)
CPT/HCPCS: 76870; 93975

== ENCOUNTER → 2017-07-02 | Outpatient (CLI) | payer OTHER ==
--- NOTE | 2017-07-02 21:28 | PN ---
This patient is 57 -year-old male patient coming in for yearly follow-up regarding obstructive sleep apnea. The patient has a mild obstructive sleep apnea with an AHI of 13 and the patient is using auto CPAP unit with minimal pressure of 5, maximum pressure of 15. On todays evaluation, the patient is still doing very good. His interval history is positive for an acute myocardial infarction back in May 2017. The patient had cardiac catheterization and five stents inserted. Since then, he has been doing well. No nocturnal chest pain. No nocturnal shortness of breath. His compliance data shows excellent CPAP use approaching 100% of the days over the past 30 days. His CPAP use for more than 4 hours is 27 out of 30. His average CPAP use is 5.6 hours per night. His P90 pressure is at 8.2. Leak factor is at 16. AHI while on treatment is down to 3.6. He is using a Dreamware nose pillow and he is interested in an alternative mask and I offered him the AirFit P10 which he liked. He is also interested in obtaining a portable CPAP unit knowing that he travels a lot and he is interested in obtaining one. BP is 109/70. Pulse 64. Respirations 16. Temperature 98.5. Saturation 95% on room air. BMI 28.8. Weight is 231. Height is 6 foot 3 inches. General appearance, calm, comfortable. HEENT: Short neck, crowding of posterior pharynx. There is no goiter. No neck masses. Lungs clear to auscultation. Heart sounds regular rate and rhythm. Normal S1, S2. Abdomen soft. Nontender. No organomegaly. Extremities no cyanosis, clubbing or edema. IMPRESSION: 1. Symptomatic obstructive sleep apnea, AHI 13. Still on CPAP. Auto CPAP with a minimum pressure of 5, maximum pressure of 15. 2. Hypersomnia, improved. 3. Coronary artery disease with recent myocardial infarction requiring coronary intervention and stenting. 4. Hypertension. PLAN: 1. Keep CPAP therapy with the same level of pressure. 2. Offer the patient AirFit P10 medium size. 3. Order for this patient a portable CPAP unit which will be set at a pressure of 9 cm water. 4. See me back in a years time or earlier if needed. Tight control of cardiovascular risk factors recommended. WALDEMARD
== END | disposition home or self-care (01) ==
LOC: SLEEP 14:16
PROVIDERS: ATTEND Internal Medicine Critical Care Medicine
DX: G47.33 Obstructive sleep apnea (adult) (pediatric) (principal); I25.10 Atherosclerotic heart disease of native coronary artery without angina pectoris; I10 Essential (primary) hypertension

== ENCOUNTER → 2018-02-10 | Outpatient (CLI) | payer OTHER ==
--- NOTE | 2018-02-10 23:27 | MR ---
EXAMINATION TYPE: MR lumbar spine wo/w con DATE OF EXAM: 02/10/2018 COMPARISON: NONE HISTORY: Low back pain previous surgery 2013, Gadavist 11.5 milliliters TECHNIQUE: Multiplanar, multisequence images of the lumbar spine were acquired utilizing 11.5 mL intravenous Jesse avist gadolinium contrast. Lumbar vertebra have fairly normal alignment. There is narrowing of the disc spaces throughout the natalie mbar spine more severe at L2-3 L4-5. There is no compression fracture. There is spurring of endplates throughout the lumbar spine. There is a few millimeter anterior subluxation of L4 in relation L5. I see no spondylolysis. There are small posterior disc herniations at L4-5 and L2-3 L1-2 and T12-L1. I see no focal bone destruction. There is apparent laminectomy of L2-L3 on the left side. The contrast images show no pathologic enhancement. There is no lumbar paraspinal mass. The visualize d sacroiliac joints appear intact. IMPRESSION: Multilevel spondylosis and multilevel posterior small disc herniations. No significant spinal stenos is. No fracture. Previous surgery. Mild degenerative first degree L4-5 spondylolisthesis.
== END | disposition home or self-care (01) ==
LOC: RADMRIMAIN 20:32
PROVIDERS: ATTEND Psychiatry & Neurology Neurology
DX: M51.26 Other intervertebral disc displacement, lumbar region (principal); M47.816 Spondylosis without myelopathy or radiculopathy, lumbar region; M43.16 Spondylolisthesis, lumbar region; Z88.1 Allergy status to other antibiotic agents; Z88.6 Allergy status to analgesic agent; Z88.8 Allergy status to other drugs, medicaments and biological substances; Z91.030 Bee allergy status
CPT/HCPCS: 72158; A9581

== ENCOUNTER → 2018-08-14 | Outpatient (CLI) | payer OTHER ==
--- NOTE | 2018-08-14 08:14 | US ---
EXAMINATION TYPE: US abdomen complete DATE OF EXAM: 08/14/2018 COMPARISON: Gallbladder ultrasound April 23, [address] abdomen and pelvis April 22, 2015 CLINICAL HISTORY: R74.8 ELEVATED LIVER ENZYMES. Gallbladder removed 2016, Hx Renal stones. EXAM MEASUREMENTS: Liver Length: 17.8 cm Gallbladder Wall: Surgically absent cm CBD: 0.4 cm Spleen: 10.0 cm Right Kidney: 13.1 x 5.1 x 4.3 cm Left Kidney: 13.4 x 6.0 x 4.7 cm Pancreas: Obscured by bowel gas Liver: Increased attenuation Gallbladder: Surgically absent Evidence for sonographic Reese's sign: No CBD: wnl Spleen: wnl Right Kidney: wnl Left Kidney: 7mm echogenic, nonshadowing area mid pole. Upper IVC: wnl Abd Aorta: wnl The visualized liver remains heterogeneously hyperechoic. No worrisome intrahepatic mass or hepatic d uctal dilatation is seen. The intrahepatic portion of the IVC and visualized abdominal aorta are with in normal limits. Gallbladder is surgically absent. Common bile duct is unremarkable. The pancreas is suboptimally evaluated on images saved secondary to shadowing from overlying bowel gas. The splee n is unremarkable. Kidneys are symmetric and free of hydronephrosis. No suspicious renal lesions ar e seen. Nonspecific 7 mm hyperechoic focus mid pole level left kidney can not rule out new nonobstruc ting calculus. IMPRESSION: Persistent heterogeneous hyperechoic appearance of liver is felt to reflect mild diffuse fatty infiltration not significantly changed from 2015 studies
== END | disposition home or self-care (01) ==
LOC: RADUSWWP 06:54
PROVIDERS: ATTEND Internal Medicine Rheumatology
DX: R74.8 Abnormal levels of other serum enzymes (principal)
CPT/HCPCS: 76700

== ENCOUNTER 2019-02-28 19:26 | Inpatient (IN) | payer OTHER ==
[~2019-02-28 19:26] MED LIST: SODIUM CHLORIDE 0.9% (PF) 10 ML VIAL ONE; niCARdipine 25 MG/10 ML VIAL ONE
[2019-02-28] MEDS: METOPROLOL TARTRATE 5 MG/5 ML VIAL IVP SCH ×5 (19:39→23:22)
[2019-02-28] MEDS ORDERED: NALOXONE 0.4 MG/ML 1 ML VIAL IV PRN (19:43)
[2019-02-28] MEDS: MORPHINE SULFATE 4 MG/ML SYRINGE IVP STA ×2 (19:48→23:20)
[2019-02-28 19:58] LABS: Basophils % (A) 1 %; Eosinophils # (A) 0.2 k/uL (0-0.7); Eosinophils % (A) 2 %; HCT 46.3 % (39.0-53.0); HGB 15.7 gm/dL (13.0-17.5); Lymphocytes # (A) 1.8 k/uL (1.0-4.8); Lymphocytes % (A) 23 %; MCH 30.3 pg (25.0-35.0); MCHC 33.8 g/dL (31.0-37.0); MCV 89.6 fL (80.0-100.0); Mean Platelet Volume 6.8; Monocytes # (A) 0.5 k/uL (0-1.0); Monocytes % (A) 6 %; Neutrophils # (A) 5.2 k/uL (1.3-7.7); Neutrophils % (A) 67 %; Platelet Count 231 k/uL (150-450); RBC 5.17 m/uL (4.30-5.90); RDW 13.3 % (11.5-15.5); WBC 7.9 k/uL (3.8-10.6)
--- NOTE | 2019-02-28 19:58 | ED ---
General Adult HPI - General Chief complaint: Chest Pain Stated complaint: Chest Pain Time Seen by Provider: 02/28/19 19:33 Source: patient, RN notes reviewed, old records reviewed Mode of arrival: ambulatory Limitations: no limitations - History of Present Illness Initial comments: 58-year-old male presenting with chief complaint of chest pain. Prehospital ventricular fibrillation arrest. EMS was initially called for patient with central chest pain after chasing a dog. Patient was ambulatory, awake and alert on scene. Upon arrival EMS placed patient in the ambulance and patient had ventricular fibrillation arrest. He was defibrillated with 200 J. He had return of spontaneous circulation, return to normal respirations and mentation. He is alert and oriented time my evaluation. He is complaining of central chest pain. He will take an aspirin and nitroglycerin at home prior to arrival. He is currently on second, metoprolol and Plavix. He was previous CAD with 5 stents. He has history of atrial fibrillation. - Related Data Home Medications Medication Instructions Recorded Confirmed Omeprazole [PriLOSEC] 20 mg PO AC-BRKFST 08/19/14 05/18/17 Gabapentin [Neurontin] 300 mg PO TID 03/31/16 05/18/17 Acetaminophen Tab [Tylenol] 1,000 mg PO Q6H PRN 06/21/16 05/18/17 Fluticasone Nasal [place] [Flonase 2 sprays EA NOSTRIL BID PRN 06/21/16 05/18/17 Nasal [place]] Aspirin EC [Ecotrin] 325 mg PO DAILY 05/18/17 05/18/17 Flecainide [Tambocor] 50 mg PO DAILY 05/18/17 05/18/17 Metoprolol Succinate [Toprol XL] 25 mg PO DAILY 05/18/17 05/18/17 Olmesartan/Hydrochlorothiazide 1 tab PO DAILY 05/18/17 05/18/17 [Benicar Hct 40-25 mg Tablet] Previous Rx's Medication Instructions Recorded Atorvastatin [Lipitor] 40 mg PO DAILY #30 tab 05/20/17 Clopidogrel [Plavix] 75 mg PO DAILY #30 tab 05/20/17 Nitroglycerin Sl Tabs [Nitrostat] 0.4 mg SUBLINGUAL Q5M PRN #25 tab 05/20/17 Allergies Allergy/AdvReac Type Severity Reaction Status Date / Time amlodipine Allergy Severe Unknown Verified 02/28/19 20:05 venom-honey bee Allergy Anaphylaxis Verified 02/28/19 20:05 [bee venom (honey bee)] vancomycin AdvReac Rash/Hives Verified 02/28/19 20:05 Review of Systems ROS Statement: Those systems with pertinent positive or pertinent negative responses have been documented in the HPI. ROS Other: All systems not noted in ROS Statement are negative. Past Medical History Past Medical History: Atrial Fibrillation, Cancer, Diabetes Mellitus, GERD/Reflux, Hyperlipidemia, Hypertension, Myocardial Infarction ([place]), Prostate Disorder Additional Past Medical History / Comment(s): irregular heart rate, seasonal allergies kidney stones, benign lesion on nose, diverticulitis, problem with starting urinary stream seen urology doc and they scoped by bladder and found a kidney stone History of Any Multi-Drug Resistant Organisms: None Reported Past Surgical History: Back Surgery, Bowel Resection, Cholecystectomy, Heart Catheterization With Stent, Joint Replacement, Orthopedic Surgery, Tonsillectomy Additional Past Surgical History / Comment(s): Diverticulitis; Right hip replacement Past Anesthesia/Blood Transfusion Reactions: No Reported Reaction Past Psychological History: No Psychological Hx Reported Smoking Status: Former smoker Past Alcohol Use History: None Reported Past Drug Use History: None Reported - Past Family History Father Family Medical History: Hypertension Mother History Unknown: Yes Family Medical History: Cancer Additional Family Medical History / Comment(s): breast cancer General Exam Limitations: no limitations General appearance: lethargic, in distress Head exam: Present: atraumatic, normocephalic Eye exam: Present: normal appearance, PERRL ENT exam: Present: mucous membranes dry Neck exam: Present: normal inspection. Absent: tenderness, meningismus Respiratory exam: Present: normal lung sounds bilaterally. Absent: respiratory distress, wheezes, rhonchi Cardiovascular Exam: Present: tachycardia, irregular rhythm GI/Abdominal exam: Present: soft. Absent: distended, tenderness, guarding Extremities exam: Present: normal inspection, normal capillary refill, other (Distal pulses intact) Neurological exam: Present: alert. Absent: motor sensory deficit Psychiatric exam: Present: anxious Skin exam: Present: warm, dry, intact. Absent: cyanosis, diaphoretic, pallor Course Vital Signs 02/28/19 02/28/19 02/28/19 19:27 19:28 19:30 Pulse Rate 126 H 121 H 117 H Respiratory 24 Rate Blood Pressure 130/108 130/108 130/108 O2 Sat by Pulse 96 96 Oximetry 02/28/19 02/28/19 19:40 19:50 Pulse Rate 101 H 106 H Respiratory Rate Blood Pressure 144/114 157/110 O2 Sat by Pulse 96 97 Oximetry EKG Findings - EKG Comments: EKG Findings:: EKG, poor baseline secondary to significant trauma on this patient. Atrial fibrillation with RVR, rate of 123, ST segment elevation in the inferior leads with depression in the precordial leads. QRS duration 122, QTC 498. Medical Decision Making - Medical Decision Making 58-year-old male presenting with V. fib arrest, acute inferior ST segment elevation with depression. Patient is in A. fib with rapid ventricular resp onse. He is given heparin, morphine, and metoprolol IV push in the emergency department. He has improved rate control with metoprolol. At the time of initial EKG, Music Therapy Specialist was activated. Discussed the case with Dr. Pruett, will take patient to the heart catheterization lab. All labs, x-ray pending Case discussed with Dr. Peña, will accept admission. - Lab Data Result diagrams: 02/28/19 19:36 02/28/19 19:36 Lab Results 02/28/19 02/28/19 02/28/19 Range/Units 19:36 19:36 19:36 WBC 7.9 (3.8-10.6) k/uL RBC 5.17 (4.30-5.90) m/uL Hgb 15.7 (13.0-17.5) gm/dL Hct 46.3 (39.0-53.0) % MCV 89.6 (80.0-100.0) fL MCH 30.3 (25.0-35.0) pg MCHC 33.8 (31.0-37.0) g/dL RDW 13.3 (11.5-15.5) % Plt Count 231 (150-450) k/uL Neutrophils % 67 % Lymphocytes % 23 % Monocytes % 6 % Eosinophils % 2 % Basophils % 1 % Neutrophils # 5.2 (1.3-7.7) k/uL Lymphocytes # 1.8 (1.0-4.8) k/uL Monocytes # 0.5 (0-1.0) k/uL Eosinophils # 0.2 (0-0.7) k/uL Basophils # 0.0 (0-0.2) k/uL PT 10.0 (9.0-12.0) sec INR 0.9 (<1.2) APTT 21.3 L (22.0-30.0) sec Sodium 138 (137-145) mmol/L Potassium 4.0 (3.5-5.1) mmol/L Chloride 106 (98-107) mmol/L Carbon Dioxide 23 (22-30) mmol/L Anion Gap 9 mmol/L BUN 25 H (9-20) mg/dL Creatinine 1.12 (0.66-1.25) mg/dL Est GFR (CKD-EPI)AfAm 82 (>60 ml/min/1.73 sqM) Est GFR (CKD-EPI)NonAf 71 (>60 ml/min/1.73 sqM) Glucose 158 H (74-99) mg/dL Calcium 9.5 (8.4-10.2) mg/dL Magnesium 1.5 L (1.6-2.3) mg/dL Total Bilirubin 0.6 (0.2-1.3) mg/dL AST 36 (17-59) U/L ALT 44 (21-72) U/L Alkaline Phosphatase 83 (38-126) U/L Troponin I (0.000-0.034) ng/mL Total Protein 5.9 L (6.3-8.2) g/dL Albumin 3.8 (3.5-5.0) g/dL 02/28/19 Range/Units 19:36 WBC (3.8-10.6) k/uL RBC (4.30-5.90) m/uL Hgb (13.0-17.5) gm/dL Hct (39.0-53.0) % MCV (80.0-100.0) fL MCH (25.0-35.0) pg MCHC (31.0-37.0) g/dL RDW (11.5-15.5) % Plt Count (150-450) k/uL Neutrophils % % Lymphocytes % % Monocytes % % Eosinophils % % Basophils % % Neutrophils # (1.3-7.7) k/uL Lymphocytes # (1.0-4.8) k/uL Monocytes # (0-1.0) k/uL Eosinophils # (0-0.7) k/uL Basophils # (0-0.2) k/uL PT (9.0-12.0) sec INR (<1.2) APTT (22.0-30.0) sec Sodium (137-145) mmol/L Potassium (3.5-5.1) mmol/L Chloride (98-107) mmol/L Carbon Dioxide (22-30) mmol/L Anion Gap mmol/L BUN (9-20) mg/dL Creatinine (0.66-1.25) mg/dL Est GFR (CKD-EPI)AfAm (>60 ml/min/1.73 sqM) Est GFR (CKD-EPI)NonAf (>60 ml/min/1.73 sqM) Glucose (74-99) mg/dL Calcium (8.4-10.2) mg/dL Magnesium (1.6-2.3) mg/dL Total Bilirubin (0.2-1.3) mg/dL AST (17-59) U/L ALT (21-72) U/L Alkaline Phosphatase (38-126) U/L Troponin I <0.012 (0.000-0.034) ng/mL Total Protein (6.3-8.2) g/dL Albumin (3.5-5.0) g/dL Critical Care Time Critical Care Time: Yes Total Critical Care Time: 35 Disposition Clinical Impression: ST elevation myocardial infarction (STEMI), Ventricular fibrillation Disposition: ADMITTED IP TO THIS [facility] Condition: Serious Is patient prescribed a controlled substance at d/c from ED?: No Decision to Admit Reason: Admit from EC Decision Date: 02/28/19 Decision Time: 19:58
[2019-02-28 20:02] LABS: Albumin 3.8 g/dL (3.5-5.0); Calcium 9.5 mg/dL (8.4-10.2); Magnesium 1.5 mg/dL (1.6-2.3); Total Bilirubin 0.6 mg/dL (0.2-1.3); Total Protein 5.9 g/dL (6.3-8.2)
[2019-02-28] MEDS ORDERED: LIDOCAINE 1% INJ 10MG/ML (20 ML MDV) ONE (20:07)
[2019-02-28] MEDS ORDERED: IV FLUID CONTINUATION 1,000 ML IV ONE ×2 (20:10)
[2019-02-28 20:15] LABS: INR 0.9 (<1.2)
[2019-02-28] MEDS ORDERED: MIDAZOLAM 2 MG/2 ML VIAL IV ONE (20:17)
[2019-02-28] MEDS ORDERED: LIDOCAINE 1% INJ 10MG/ML (20 ML MDV) SQ ONE (20:18)
[2019-02-28] MEDS: LIDOCAINE 1% INJ 10MG/ML (20 ML MDV) SQ ONE ×2 (20:18→20:57)
[2019-02-28] MEDS ORDERED: fentaNYL (PF) 50 MCG/ML 2 ML AMP IV ONE (20:19)
[2019-02-28 20:20] LABS: Partial Thromboplastin Time 21.3 sec (22.0-30.0)
[2019-02-28] MEDS ORDERED: fentaNYL (PF) 50 MCG/ML 2 ML AMP ONE (20:23)
[2019-02-28] MEDS ORDERED: TICAGRELOR 90 MG TAB PO ONE (20:24)
[2019-02-28] MEDS ORDERED: BIVALIRUDIN BOLUS 250 MG/50 ML IV ONE (20:26)
[2019-02-28] MEDS ORDERED: BIVALIRUDIN 250 MG in SODIUM CHLORIDE 0.9% 50 ML IV ONE (20:27)
[2019-02-28] MEDS ORDERED: DILTIAZEM 125 MG in SODIUM CHLORIDE 0.9% 100 ML IV SCH ×4 (20:30)
[2019-02-28] MEDS ORDERED: TICAGRELOR 90 MG TAB ONE (20:31)
[2019-02-28] MEDS ORDERED: LORazepam 2 MG/ML INJ IV STA (20:36)
[2019-02-28] MEDS ORDERED: HEPARIN SODIUM,PORCINE 5,000 UNIT/ML 1 ML VIAL IV STA (20:36)
[2019-02-28] MEDS ORDERED: NITROGLYCERIN 1000MCG/10ML SYRINGE INTRACORON ONE (20:37)
[2019-02-28] MEDS ORDERED: IOPAMIDOL-370 150ML BTL INJ ONE (20:55)
[2019-02-28] MEDS ORDERED: FLUTICASONE 50MCG/SPRAY NASAL 16GM EA NOSTRIL PRN (21:14)
[2019-02-28] MEDS ORDERED: NITROGLYCERIN SL TABS 0.4 MG TAB SUBLINGUAL PRN ×2 (21:14→21:15)
[2019-02-28] MEDS ORDERED: ACETAMINOPHEN TAB 500 MG TAB PO PRN (21:14)
[2019-02-28] MEDS ORDERED: SODIUM CHLORIDE 0.9% 1,000 ML IV SCH (21:15)
[2019-02-28] MEDS ORDERED: RX INFO: IV CONTRAST WAS GIVEN 1 EACH MISC MISCELLANE PRN (21:15)
[2019-02-28] MEDS ORDERED: ZOLPIDEM 5 MG TAB PO PRN (21:15)
[2019-02-28] MEDS ORDERED: MAG HYDROX/AL HYDROX/SIMETH 30 ML CUP PO PRN (21:15)
[2019-02-28] MEDS ORDERED: ATROPINE SULFATE 0.1 MG/ML 10ML SYRINGE IV PRN (21:15)
--- NOTE | 2019-02-28 21:28 | P.CRDCN ---
History of Present Illness Consult date: 02/28/19 Chief complaint: Chest pain History of present illness: This is a 58-year-old gentleman who sees Dr. Torres in the office as an outpatient with a past medical history significant for coronary artery disease and prior stenting of the right coronary artery as well as left circumflex coronary artery in 2017, hypertension, and dyslipidemia, was brought to the emergency room by ambulance after he sustained a cardiac arrest at home. The patient initially called EMS for chest discomfort. The chest discomfort started after he was chasing abdominal. EMS arrived and found the patient unresponsive was Nai lucas. He was shocked with 200 J and was brought into atrial fibrillation with RVR. The EKG at that point revealed inferior ST patient myocardial infarction and because of that an emergent heart catheterization was advised. The patient underwent a heart catheterization which revealed acute total occlusion of the right coronary artery which seems to be very late stent thrombosis. He underwent successful stenting of the RCA with a good ang iographic results and without any complication. Also he was found to have patent stents in the mid and distal left circumflex as well as severe disease involving the ramus intermedius and critical disease involving the first diagonal branch of the LAD. By the end of the procedure, the patient was chest pain-free and he was in normal sinus mechanism after he was converted from atrial fibrillation. No ST or T-wave abnormalities noted. Past Medical History Past Medical History: Atrial Fibrillation, Cancer, Diabetes Mellitus, GERD/Reflux, Hyperlipidemia, Hypertension, Myocardial Infarction ([place]), Prostate Disorder Additional Past Medical History / Comment(s): irregular heart rate, seasonal allergies kidney stones, benign lesion on nose, diverticulitis, problem with starting urinary stream seen urology doc and they scoped by bladder and found a kidney stone History of Any Multi-Drug Resistant Organisms: None Reported Past Surgical History: Back Surgery, Bowel Resection, Cholecystectomy, Heart Catheterization With Stent, Joint Replacement, Orthopedic Surgery, Tonsillectomy Additional Past Surgical History / Comment(s): Diverticulitis; Right hip r eplacement Past Anesthesia/Blood Transfusion Reactions: No Reported Reaction Past Psychological History: No Psychological Hx Reported Smoking Status: Former smoker Past Alcohol Use History: None Reported Past Drug Use History: None Reported - Past Family History Father Family Medical History: Hypertension Mother History Unknown: Yes Family Medical History: Cancer Additional Family Medical History / Comment(s): breast cancer Medications and Allergies Home Medications Medication Instructions Recorded Confirmed Type Omeprazole [PriLOSEC] 20 mg PO AC-BRKFST 08/19/14 05/18/17 History Gabapentin [Neurontin] 300 mg PO TID 03/31/16 05/18/17 History Acetaminophen Tab [Tylenol] 1,000 mg PO Q6H PRN 06/21/16 05/18/17 History Fluticasone Nasal [place] [Flonase 2 sprays EA NOSTRIL BID PRN 06/21/16 05/18/17 History Nasal [place]] Aspirin EC [Ecotrin] 325 mg PO DAILY 05/18/17 05/18/17 History Flecainide [Tambocor] 50 mg PO DAILY 05/18/17 05/18/17 History Metoprolol Succinate [Toprol XL] 25 mg PO DAILY 05/18/17 05/18/17 History Olmesartan/Hydrochlorothiazide 1 tab PO DAILY 05/18/17 05/18/17 History [Benicar Hct 40-25 mg Tablet] Atorvastatin [Lipitor] 40 mg PO DAILY #30 tab 05/20/17 Rx Clopidogrel [Plavix] 75 mg PO DAILY #30 tab 05/20/17 Rx Nitroglycerin Sl Tabs [Nitrostat] 0.4 mg SUBLINGUAL Q5M PRN #25 tab 05/20/17 Rx Allergies Allergy/AdvReac Type Severity Reaction Status Date / Time amlodipine Allergy Severe Unknown Verified 02/28/19 20:05 venom-honey bee Allergy Anaphylaxis Verified 02/28/19 20:05 [bee venom (honey bee)] vancomycin AdvReac Rash/Hives Verified 02/28/19 20:05 Physical Exam Vitals: Vital Signs Pulse Resp BP Pulse Ox 02/28/19 19:50 106 H 157/110 97 02/28/19 19:40 101 H 144/114 96 02/28/19 19:30 117 H 130/108 96 02/28/19 19:28 121 H 130/108 02/28/19 19:27 126 H 24 130/108 96 Intake and Output 02/28/19 02/28/19 02/28/19 06:59 14:59 22:59 Intake Total 236 Balance 236 Intake: IV 236 Other: Weight 102.058 kg - Constitutional General appearance: no acute distress - Respiratory Respiratory: bilateral: CTA - Cardiovascular Rhythm: regular Heart sounds: normal: S1, S2 Results 02/28/19 19:36 02/28/19 19:36 Cardiac Enzymes 02/28/19 02/28/19 Range/Units 19:36 19:36 AST 36 (17-59) U/L Troponin I <0.012 (0.000-0.034) ng/mL Coagulation 02/28/19 Range/Units 19:36 PT 10.0 (9.0-12.0) sec APTT 21.3 L (22.0-30.0) sec CBC 02/28/19 Range/Units 19:36 WBC 7.9 (3.8-10.6) k/uL RBC 5.17 (4.30-5.90) m/uL Hgb 15.7 (13.0-17.5) gm/dL Hct 46.3 (39.0-53.0) % Plt Count 231 (150-450) k/uL Comprehensive Metabolic Panel 02/28/19 Range/Units 19:36 Sodium 138 (137-145) mmol/L Potassium 4.0 (3.5-5.1) mmol/L Chloride 106 (98-107) mmol/L Carbon Dioxide 23 (22-30) mmol/L BUN 25 H (9-20) mg/dL Creatinine 1.12 (0.66-1.25) mg/dL Glucose 158 H (74-99) mg/dL Calcium 9.5 (8.4-10.2) mg/dL AST 36 (17-59) U/L ALT 44 (21-72) U/L Alkaline Phosphatase 83 (38-126) U/L Total Protein 5.9 L (6.3-8.2) g/dL Albumin 3.8 (3.5-5.0) g/dL Current Medications Generic Name Dose Route Start Last Admin Trade Name Freq PRN Reason Stop Dose Admin Acetaminophen 1,000 mg 02/28/19 21:14 Tylenol Tab PO Q6H PRN Pain Al Hydroxide/Mg Hydroxide 30 ml 02/28/19 21:15 Maalox PO Q4HR PRN Heartburn Aspirin 81 mg 03/01/19 09:00 Aspirin PO DAILY [facility] Atorvastatin Calcium 40 mg 03/01/19 09:00 Lipitor PO DAILY [facility] Atropine Sulfate 0.5 mg 02/28/19 21:15 Atropine IV ONCE PRN Symptomatic Bradycardia Flecainide Acetate 50 mg 03/01/19 09:00 Tambocor PO DAILY [facility] Fluticasone Propionate 2 spray 02/28/19 21:14 Flonase Nasal [place] EA NOSTRIL BID PRN Allergy Symptoms Gabapentin 300 mg 02/28/19 22:00 Neurontin PO TID [facility] Diltiazem HCl 125 mg/ Sodium 125 mls @ 5 mls/hr 02/28/19 20:30 Chloride IV .Q24H CADY 5 MG/HR Sodium Chloride 1,000 mls @ 100 mls/hr 02/28/19 21:15 Saline 0.9% IV 03/01/19 03:16 .Q10H [facility] Metoprolol Succinate 25 mg 03/01/19 09:00 Toprol Xl PO DAILY [facility] Miscellaneous Information 1 each 02/28/19 21:15 Rx Info: Iv Contrast Was Given MISCELLANE 03/02/19 21:16 DAILY PRN Per Protocol Naloxone HCl 0.2 mg 02/28/19 19:43 Narcan IV Q2M PRN Opioid Reversal Nitroglycerin 0.4 mg 02/28/19 21:14 Nitrostat SUBLINGUAL Q5M PRN Chest Pain Nitroglycerin 0.4 mg 02/28/19 21:15 Nitrostat SUBLINGUAL Q5M PRN Chest Pain Non-Formulary Medication 1 tab 03/01/19 09:00 Olmesartan/Hydrochlorothiazide [Benicar Hct 40-25 Mg Tablet] PO DAILY [facility] Non-Formulary Medication 20 mg 03/01/19 07:30 Omeprazole [Prilosec] PO AC-BRKFST [facility] Ticagrelor 90 mg 03/01/19 09:00 Brilinta PO BID [facility] Zolpidem Tartrate 5 mg 02/28/19 21:15 Ambien PO HS PRN Insomnia Intake and Output 02/28/19 02/28/19 02/28/19 06:59 14:59 22:59 Intake Total 236 Balance 236 Intake: IV 236 Other: Weight 102.058 kg Patient Weight 03/01/19 06:59 Weight 102.058 kg 02/28/19 19:36 02/28/19 19:36 Assessment and Plan Assessment: Assessment #[address] patient myocardial infarction #2 cardiac arrest secondary to the above #3 paroxysmal atrial fibrillation #4 known CAD and prior stenting as described above #5 multiple comorbid conditions Plan #1 DC Plavix and start the patient on Brilinta #2 aggressive cholesterol control #3 standard groin care #4 obtain an echocardiogram was Doppler #5 ICU admission #6 follow-up with the patient. Thank you for allowing us participate in his care
[2019-02-28 21:59] LABS: Glucose,Whole Blood 182 mg/dL (75-99)
[2019-02-28] MEDS: GABAPENTIN 300 MG CAP PO SCH (23:24)
[2019-02-28 23:50] LABS: Glucose,Whole Blood 111 mg/dL (75-99)
[2019-02-28] MEDS: INSULIN ASPART (NovoLOG) 100 UNIT/ML VIAL SQ SCH (23:53)
--- NOTE | 2019-03-01 01:12 | LTR ---
February 28, 2019 Enrique Anderson M.D. RE: John Shepardaryan Dear Dr. Anderson: Mr. John Solitario had a cardiac arrest at home and he was diagnosed subsequently with acute inferior ST-elevation myocardial infarction. He underwent an emergent heart catheterization and was found to have an acute total occlusion of the right coronary artery which was stented with good angiographic results. Thank you for allowing us for allowing us to participate in his care and please do not hesitate to call if you have any questions or concerns. Sincerely, Ramos Pruett M.D. ZONIA / KEVIN: [id number] /
--- NOTE | 2019-03-01 01:12 | CC ---
CARDIAC CATHETERIZATION REPORT DATE OF SERVICE: February 28, 2019. PERFORMING PHYSICIAN: Ramos Pruett MD, supervisor microbiology technologists. PROCEDURE PERFORMED: 1. Selective right and left coronary angiogram. 2. Aspiration thrombectomy from the right coronary artery. 3. Successful stenting of the mid right coronary artery using 3.25 x 15 mm Xience drug- eluting stent which was post dilated using 3.5 mm noncompliant balloon with an excellent angiographic result and reduction of stenosis from 100% to 0%. 4. Left heart catheterization. INDICATIONS: This is 58-year-old gentleman who sees Dr. Fu in the office as an outpatient with known history of coronary artery disease and prior stenting of the right coronary artery as well as left circumflex back in 2017. Did have a cardiac arrest at home was VFib. He was shocked and brought to normal sinus mechanism. Subsequently, he was found to have an acute inferior ST-elevation myocardial infarction and because of that an emergent heart catheterization was advised. APPROACH: Right common femoral artery. COMPLICATIONS: None. LEVEL OF SEDATION: Moderate with sedation length of 40 minutes. Door to balloon is 68 minutes. PROCEDURE DESCRIPTION: After obtaining an informed consent, the patient was brought to cardiac cathode maker. The right common femoral artery was cannulated using micropuncture technique and a micropuncture wire passed easily. Then I placed a 6-Gh[place]ian sheath in the right common femoral artery. I did selective right and left coronary angiogram using JR4 and JL4 catheters. Subsequently I did intervene on the right coronary artery. Please see a separate paragraph for that. After that I did left heart catheterization using 6-[place]ian pigtail catheter. The procedure was completed without any complication. SELECTIVE CORONARY ANGIOGRAM: 1. The right coronary artery is a large caliber vessel and it is a dominant vessel. The proximal RCA is angiographically normal. The mid RCA is stented with a very late stent thrombosis. The RCA has no flow distally. 2. The left main is a large caliber vessel and appeared to be angiographically normal. It bifurcates into left circumflex, ramus intermedius, and left anterior descending artery. 3. The left circumflex is a large caliber vessel and is a nondominant vessel. The proximal left circumflex appeared to have mild disease only with eccentric plaque. It gives rise into the first OM branch which has mild to moderate disease in the proximal portion. The mid left circumflex appeared to be stented and the stent is patent. The circumflex distally is stented and the stent is patent as well. The left circumflex distally gives rise into a second OM branch which appeared to be normal. 4. The ramus intermedius is a large caliber vessel with hazy plaque, appears to be in the range of 70%. 5. The proximal LAD appeared to have mild disease only and gives rise into the first diagonal branch which is a large caliber vessel with a critical lesion appeared to be in the range of 90 to 95 percent. The mid LAD appeared to have mild disease only. The mid to distal LAD has a long tubular lesion, seems to be in the range of 60%. PCI OF THE RCA: Anticoagulation was initiated using Angiomax. Subsequently I did engage the RCA using JR4 guide. I did cross the acute total occlusion using a run-through wire. After that I did aspiration thrombectomy with extraction of red thrombus from the RCA. After that, I did direct stenting of the lesion using 3.25 x 15 mm Xience drug-eluting stent where the stent was positioned under fluoroscopy guidance in the lesion and deployed under 16 atmospheres for 20 seconds. I post-dilated the stent using 3.5 mm NC balloon. The final angiogram showed good angiographic results with AMBER-3 flow. The procedure was completed without any complication. HEMODYNAMICS: The left ventricular end-diastolic pressure was 8 mmHg without significant gradient across the aortic valve. CONCLUSION: 1. Acute anterior ST-elevation myocardial infarction. 2. Very late stent thrombosis of the mid RCA. 3. Patent stent in the in the mid and distal left circumflex coronary artery. 4. Severe disease involving the proximal ramus intermedius. 5. Critical disease involving the first diagonal of the LAD. 6. Intermediate disease involving the mid to distal LAD. POSTPROCEDURE MANAGEMENT: 1. Dual anti-platelet therapy. I am going to change the patient from Plavix to Brilinta. 2. Aggressive cholesterol control. 3. An echocardiogram with Doppler. 4. Follow up with the patient. MMODL / IJN: [id number] /
[2019-03-01 05:30] LABS: Basophils % (A) 0 %; Eosinophils # (A) 0.1 k/uL (0-0.7); Eosinophils % (A) 2 %; HCT 46.6 % (39.0-53.0); HGB 15.6 gm/dL (13.0-17.5); Lymphocytes # (A) 1.4 k/uL (1.0-4.8); Lymphocytes % (A) 16 %; MCH 30.3 pg (25.0-35.0); MCHC 33.5 g/dL (31.0-37.0); MCV 90.4 fL (80.0-100.0); Mean Platelet Volume 7.1; Monocytes # (A) 0.6 k/uL (0-1.0); Monocytes % (A) 7 %; Neutrophils # (A) 6.3 k/uL (1.3-7.7); Neutrophils % (A) 74 %; Platelet Count 188 k/uL (150-450); RBC 5.16 m/uL (4.30-5.90); RDW 13.5 % (11.5-15.5); WBC 8.5 k/uL (3.8-10.6)
[2019-03-01 05:43] LABS: Anion Gap 8 mmol/L; Blood Urea Nitrogen 22 mg/dL (9-20); Calcium 9.3 mg/dL (8.4-10.2); Carbon Dioxide 22 mmol/L (22-30); Chloride 109 mmol/L (98-107); Glucose 127 mg/dL (74-99); Potassium 3.9 mmol/L (3.5-5.1); Sodium 139 mmol/L (137-145)
[2019-03-01] MEDS: INSULIN ASPART (NovoLOG) 100 UNIT/ML VIAL SQ SCH ×4 (07:16→20:43)
--- NOTE | 2019-03-01 08:46 | P.HPIM ---
History of Present Illness This is a pleasant 58 years old male with past medical history of coronary artery disease, status post 4 stents in 2017, diabetes mellitus, atrial fibrillation, hypertension, hyperlipidemia, kidney stones. Presents because of cardiac arrest. Patient developed chest pain for 15 minutes while he was walking his dog and sure after he became unresponsive with ventricular fibrillation, EMS arrived and they did cardiac shock . Multicompartment into atrial fibrillation's with RVR. EKG showed inferior ST elevation myocardial infarction. Patient underwent emergent cardiac cath showing acute total occlusion of the right coronary artery, patient underwent successful stenting of the RCA. Further patient has further blockages in the diagonal branch of the LAD and ramus intermedius. Patient transferred to the intensive care unit where he be further monitored Currently patient filling only mild chest discomfort, no dyspnea. No abdominal pain. No fever Review of Systems CONSTITUTIONAL: No fever, no malaise, no fatigue. HEENT: No recent visual problems or hearing problems. Denied any sore throat. CARDIOVASCULAR: No orthopnea, PND, no palpitations, no syncope. PULMONARY: No shortness of breath, no cough, no hemoptysis. GASTROINTESTINAL: No diarrhea, no nausea, no vomiting, no abdominal pain. Normoactive bowel sounds. NEUROLOGICAL: No headaches, no weakness, no numbness. HEMATOLOGICAL: Denies any bleeding or petechiae. GENITOURINARY: Denies any burning micturition, frequency, or urgency. MUSCULOSKELETAL/RHEUMATOLOGICAL: Denies any joint pain, swelling, or any muscle pain. ENDOCRINE: Denies any polyuria or polydipsia. Past Medical History Past Medical History: Atrial Fibrillation, Cancer, Diabetes Mellitus, GERD/Reflux, Hyperlipidemia, Hypertension, Myocardial Infarction ([place]), Prostate Disorder Additional Past Medical History / Comment(s): irregular heart rate, seasonal allergies kidney stones, benign lesion on nose, diverticulitis, problem with starting urinary stream seen urology doc and they scoped by bladder and found a kidney stone Last Myocardial Infarction Date:: 02/28/19 History of Any Multi-Drug Resistant Organisms: None Reported Past Surgical History: Back Surgery, Bowel Resection, Cholecystectomy, Heart Catheterization With Stent, Joint Replacement, Orthopedic Surgery, Tonsillectomy Additional Past Surgical History / Comment(s): Diverticulitis; Right hip replacement Past Anesthesia/Blood Transfusion Reactions: No Reported Reaction Date of Last Stent Placement:: 02/28/19 Past Psychological History: No Psychological Hx Reported Smoking Status: Former smoker Past Alcohol Use History: None Reported Past Drug Use History: None Reported - Past Family History Father Family Medical History: Hypertension Mother History Unknown: Yes Family Medical History: Cancer Additional Family Medical History / Comment(s): breast cancer Medications and Allergies Home Medications Medication Instructions Recorded Confirmed Type Omeprazole [PriLOSEC] 20 mg PO AC-BRKFST 08/19/14 05/18/17 History Gabapentin [Neurontin] 300 mg PO TID 03/31/16 05/18/17 History Acetaminophen Tab [Tylenol] 1,000 mg PO Q6H PRN 06/21/16 05/18/17 History Fluticasone Nasal [place] [Flonase 2 sprays EA NOSTRIL BID PRN 06/21/16 05/18/17 History Nasal [place]] Aspirin EC [Ecotrin] 325 mg PO DAILY 05/18/17 05/18/17 History Flecainide [Tambocor] 50 mg PO DAILY 05/18/17 05/18/17 History Metoprolol Succinate [Toprol XL] 25 mg PO DAILY 05/18/17 05/18/17 History Olmesartan/Hydrochlorothiazide 1 tab PO DAILY 05/18/17 05/18/17 History [Benicar Hct 40-25 mg Tablet] Atorvastatin [Lipitor] 40 mg PO DAILY #30 tab 05/20/17 Rx Clopidogrel [Plavix] 75 mg PO DAILY #30 tab 05/20/17 Rx Nitroglycerin Sl Tabs [Nitrostat] 0.4 mg SUBLINGUAL Q5M PRN #25 tab 05/20/17 Rx Allergies Allergy/AdvReac Type Severity Reaction Status Date / Time amlodipine Allergy Severe Unknown Verified 02/28/19 20:05 venom-honey bee Allergy Anaphylaxis Verified 02/28/19 20:05 [bee venom (honey bee)] vancomycin AdvReac Rash/Hives Verified 02/28/19 20:05 Physical Exam Vitals: Vital Signs Temp Pulse Resp BP Pulse Ox 03/01/19 07:00 67 15 147/98 98 03/01/19 06:00 69 14 160/97 98 03/01/19 05:00 66 16 151/99 98 03/01/19 04:00 98 F 67 17 148/95 98 03/01/19 03:00 70 19 136/98 98 03/01/19 02:00 79 12 143/91 98 03/01/19 01:00 71 17 140/89 97 03/01/19 00:01 71 14 146/100 97 02/28/19 23:00 77 18 148/100 97 02/28/19 22:00 98.1 F 94 18 124/85 97 02/28/19 19:50 106 H 157/110 97 02/28/19 19:40 101 H 144/114 96 02/28/19 19:30 117 H 130/108 96 02/28/19 19:28 121 H 130/108 02/28/19 19:27 126 H 24 130/108 96 Intake and Output 02/28/19 03/01/19 03/01/19 22:59 06:59 14:59 Intake Total 336 800 0 Output Total 850 750 0 Balance -514 50 0 Intake: IV 336 800 0 Sodium Chloride 0.9% 1, 100 800 0 000 ml @ 100 mls/hr IV . Q10H CADY Rx#:[id number] Output: Urine 850 750 0 Other: # Voids 2 1 0 Weight 102.058 kg 104.4 kg GENERAL: The patient is alert and oriented x3, not in any acute distress. Well developed, well nourished. HEENT: Pupils are round and equally reacting to light. EOMI. No scleral icterus. No conjunctival pallor. Normocephalic, atraumatic. No pharyngeal erythema. No thyromegaly. CARDIOVASCULAR: S1 and S2 present. No murmurs, rubs, or gallops. PULMONARY: Chest is clear to auscultation, no wheezing or crackles. ABDOMEN: Soft, nontender, nondistended, normoactive bowel sounds. No palpable organomegaly. MUSCULOSKELETAL: No joint swelling or deformity. EXTREMITIES: No cyanosis, clubbing, or pedal edema. NEUROLOGICAL: Gross neurological examination did not reveal any focal deficits. SKIN: No rashes. Results CBC & Chem 7: 03/01/19 04:41 03/01/19 04:41 Labs: Abnormal Lab Results - Last 24 Hours (Table) 02/28/19 02/28/19 02/28/19 Range/Units 19:36 19:36 21:58 APTT 21.3 L (22.0-30.0) sec Chloride (98-107) mmol/L BUN 25 H (9-20) mg/dL Glucose 158 H (74-99) mg/dL POC Glucose (mg/dL) 182 H (75-99) mg/dL Magnesium 1.5 L (1.6-2.3) mg/dL Total Protein 5.9 L (6.3-8.2) g/dL 02/28/19 03/01/19 Range/Units 23:49 04:41 APTT (22.0-30.0) sec Chloride 109 H (98-107) mmol/L BUN 22 H (9-20) mg/dL Glucose 127 H (74-99) mg/dL POC Glucose (mg/dL) 111 H (75-99) mg/dL Magnesium (1.6-2.3) mg/dL Total Protein (6.3-8.2) g/dL Thrombosis Risk Factor Assmnt - Choose All That Apply Any of the Below Risk Factors Present?: Yes Each Factor Represents 1 point: Acute AK, Age 41-60 years, Obesity (BMI >25) Other Risk Factors: No Other congenital or acquired thrombophilia - If yes, enter type in comment: No Thrombosis Risk Factor Assessment Total Risk Factor Score: 3 Thrombosis Risk Factor Assessment Level: Moderate Risk Assessment and Plan Assessment: ST elevation myocardial infarction, status post successful stenting of the right coronary artery. With further blockages of the diagonal branch of the LAD and ramus intermedius. Atrial fibrillation with RVR History of coronary artery disease, status post 4 stents in 2017 Diabetes mellitus Hypertension Hyperlipidemia Kidney stones Plan: This is a pleasant 58 years old male who presents with ST elevation myocardial infarction. Status post stenting of the RCA. Continue with aspirin, heart rate controlled with Cardizem. Continue with insulin. Labs and medication were reviewed.. Continue same treatment. Continue with symptomatic treatment. Resume home medication. Monitor lytes and vitals. DVT and GI prophylaxis. Further recommendations of the clinical course of the patient GI Prophylaxis:ppi Prognosis is guarded
[2019-03-01] MEDS ORDERED: FLECAINIDE 50 MG TAB PO SCH (09:00)
[2019-03-01] MEDS ORDERED: METOPROLOL SUCCINATE (ER) 25 MG TAB.ER.24H PO SCH (09:00)
[2019-03-01] MEDS ORDERED: ATORVASTATIN 40 MG TAB PO SCH (09:00)
[2019-03-01] MEDS ORDERED: LOSARTAN 50 MG TAB PO SCH (09:00)
[2019-03-01] MEDS ORDERED: METOPROLOL SUCCINATE (ER) 50 MG TAB.ER.24H PO SCH (09:15)
[2019-03-01] MEDS: TICAGRELOR 90 MG TAB PO SCH ×2 (09:20→20:44)
[2019-03-01] MEDS: PANTOPRAZOLE 40 MG TABLET PO SCH (09:21)
[2019-03-01] MEDS: GABAPENTIN 300 MG CAP PO SCH ×3 (09:21→20:43)
[2019-03-01] MEDS: ASPIRIN 81 MG PO SCH (09:23)
[2019-03-01] MEDS: HYDROCHLOROTHIAZIDE 25 MG TAB PO SCH (09:24)
[2019-03-01] MEDS: SPIRONOLACTONE 25 MG TAB PO SCH (10:02)
--- NOTE | 2019-03-01 10:57 | P.PN ---
Subjective Patient looks well. He is resting comfortably in bed. Yesterday he started experiencing angina and in the EMS when he had ventricular fibrillation and was successfully resuscitated. Subsequently coronary angiography revealed an occluded RCA and he underwent coronary stenting for this. However he also has multivessel coronary artery disease with significant stenosis in the LAD He presented with ST elevation RI anterior At this time he has no chest discomfort. No shortness of breath is not dizzy or lightheaded rhythm is regular. Occasional PVCs noted in sinus rhythm Blood pressure 160/97 and 147/98 mmHg pulse rate in the 80s Breath sounds are clear no rhonchi no crackles Normal heart sounds normal S1 normal S2 no murmurs or gallops or rub Labs are reviewed hemoglobin 15.6 BUN 22 creatinine 0.89 magnesium [address] Pruett Cardiac cath report reviewed Detailed discussion with the patient and his Impression VF arrest in the setting of an acute RI successfully resuscitated and successful Akil stenting of the RCA performed He does a multivessel coronary artery disease Hypertension History of atrial fibrillation Plan Stop flecainide completely. No more class I antiarrhythmic drug therapy Continue dual antiplatelet therapy and atorvastatin, increase atorvastatin to 80 mg by mouth daily. His home dose is 40 mg daily Lipid panel Add spironolactone 25 mg by mouth daily In view of the elevated blood pressures and was switched from metoprolol to carvedilol today Continue losartan 115 g by mouth daily Will discuss with Dr. Brian Rudd regarding further interventions Objective - Vital Signs Vital signs: Vital Signs Temp 97.7 F 03/01/19 09:00 Pulse 81 03/01/19 09:00 Resp 25 H 03/01/19 09:00 BP 165/104 03/01/19 09:00 Pulse Ox 99 03/01/19 09:00 Intake & Output 02/28/19 03/01/19 03/01/19 18:59 06:59 18:59 Intake Total 1136 0 Output Total 1600 0 Balance -464 0 Weight 104.4 kg Intake: IV 1136 0 Sodium Chloride 0.9% 1, 900 0 000 ml @ 100 mls/hr IV . Q10H CADY Rx#:[id number] Output: Urine 1600 0 Other: # Voids 1 0 - Labs CBC & Chem 7: 03/01/19 04:41 03/01/19 04:41 Labs: Abnormal Lab Results - Last 24 Hours (Table) 02/28/19 02/28/19 02/28/19 Range/Units 19:36 19:36 21:58 APTT 21.3 L (22.0-30.0) sec Chloride (98-107) mmol/L BUN 25 H (9-20) mg/dL Glucose 158 H (74-99) mg/dL POC Glucose (mg/dL) 182 H (75-99) mg/dL Magnesium 1.5 L (1.6-2.3) mg/dL Total Protein 5.9 L (6.3-8.2) g/dL 02/28/19 03/01/19 Range/Units 23:49 04:41 APTT (22.0-30.0) sec Chloride 109 H (98-107) mmol/L BUN 22 H (9-20) mg/dL Glucose 127 H (74-99) mg/dL POC Glucose (mg/dL) 111 H (75-99) mg/dL Magnesium (1.6-2.3) mg/dL Total Protein (6.3-8.2) g/dL
[2019-03-01 11:52] LABS: Glucose,Whole Blood 132 mg/dL (75-99)
[2019-03-01 16:52] LABS: Glucose,Whole Blood 116 mg/dL (75-99)
[2019-03-01] MEDS: CARVEDILOL 6.25 MG TAB PO SCH (18:12)
[2019-03-01 20:23] LABS: Glucose,Whole Blood 134 mg/dL (75-99)
[2019-03-02 06:02] LABS: Anion Gap 9 mmol/L; Blood Urea Nitrogen 14 mg/dL (9-20); Calcium 10.1 mg/dL (8.4-10.2); Carbon Dioxide 23 mmol/L (22-30); Chloride 105 mmol/L (98-107); Glucose 109 mg/dL (74-99); Sodium 137 mmol/L (137-145)
[2019-03-02 06:08] LABS: Basophils % (A) 0 %; Eosinophils # (A) 0.1 k/uL (0-0.7); Eosinophils % (A) 2 %; HCT 49.5 % (39.0-53.0); HGB 16.3 gm/dL (13.0-17.5); Lymphocytes # (A) 1.7 k/uL (1.0-4.8); Lymphocytes % (A) 18 %; MCH 29.7 pg (25.0-35.0); Mean Platelet Volume 6.9; Monocytes # (A) 0.7 k/uL (0-1.0); Monocytes % (A) 7 %; Neutrophils # (A) 6.8 k/uL (1.3-7.7); Neutrophils % (A) 72 %; Platelet Count 176 k/uL (150-450); RDW 13.4 % (11.5-15.5); WBC 9.5 k/uL (3.8-10.6)
[2019-03-02] MEDS: INSULIN ASPART (NovoLOG) 100 UNIT/ML VIAL SQ SCH ×4 (06:23→21:21)
[2019-03-02] MEDS: CARVEDILOL 6.25 MG TAB PO SCH ×2 (09:13→18:30)
[2019-03-02] MEDS: ASPIRIN 81 MG PO SCH (09:13)
[2019-03-02] MEDS: PANTOPRAZOLE 40 MG TABLET PO SCH (09:13)
[2019-03-02] MEDS: HYDROCHLOROTHIAZIDE 25 MG TAB PO SCH (09:14)
[2019-03-02] MEDS: ATORVASTATIN 80 MG TAB PO SCH (09:14)
[2019-03-02] MEDS: TICAGRELOR 90 MG TAB PO SCH ×2 (09:14→21:23)
[2019-03-02] MEDS: SPIRONOLACTONE 25 MG TAB PO SCH (09:14)
[2019-03-02] MEDS: GABAPENTIN 300 MG CAP PO SCH ×3 (09:14→21:23)
--- NOTE | 2019-03-02 09:43 | P.PN ---
Subjective This is a pleasant 58 years old male with past medical history of coronary artery disease, status post 4 stents in 2017, diabetes mellitus, atrial f ibrillation, hypertension, hyperlipidemia, kidney stones. Presents because of cardiac arrest. Patient developed chest pain for 15 minutes while he was walking his dog and sure after he became unresponsive with ventricular fibrillation, EMS arrived and they did cardiac shock . Multicompartment into atrial fibrillation's with RVR. EKG showed inferior ST elevation myocardial infarction. Patient underwent emergent cardiac cath showing acute total occlusion of the right coronary artery, patient underwent successful stenting of the RCA. Further patient has further blockages in the diagonal branch of the LAD and ramus intermedius. Patient transferred to the intensive care unit where he be further monitored Currently patient filling only mild chest discomfort, no dyspnea. No abdominal pain. No fever 03/02/2019 Patient remains in the ICU, is a stable currently. Patient denies chest balaji n/discomfort. No dyspnea. Vital signs stable and lives with no significant abnormality. Patient been followed closely by cardiology team may going to decide about of coronary artery disease like narrowing and LAD. Patient is status post stenting of the right coronary artery. However he has further blockage in the diagonal branch of the LAD and ramus intermedius. Objective - Vital Signs Vital signs: Vital Signs Temp 97.7 F 03/02/19 08:00 Pulse 83 03/02/19 08:00 Resp 16 03/02/19 08:00 BP 117/78 03/02/19 09:00 Pulse Ox 94 L 03/02/19 09:00 Intake & Output 03/01/19 03/02/19 03/02/19 18:59 06:59 18:59 Intake Total 1350 400 Output Total 2150 750 0 Balance -800 -350 0 Weight 104.4 kg 98.8 kg Intake: IV 0 100 Sodium Chloride 0.9% 1, 0 100 000 ml @ 100 mls/hr IV . Q10H CADY Rx#:[id number] Oral 1350 300 Output: Urine 2150 750 0 Other: # Voids 1 0 # Bowel Movements 1 - Exam GENERAL: The patient is alert and oriented x3, not in any acute distress. Well developed, well nourished. HEENT: Pupils are round and equally reacting to light. EOMI. No scleral icterus. No conjunctival pallor. Normocephalic, atraumatic. No pharyngeal erythema. No thyromegaly. CARDIOVASCULAR: S1 and S2 present. No murmurs, rubs, or gallops. PULMONARY: Chest is clear to auscultation, no wheezing or crackles. ABDOMEN: Soft, nontender, nondistended, normoactive bowel sounds. No palpable organomegaly. MUSCULOSKELETAL: No joint swelling or deformity. EXTREMITIES: No cyanosis, clubbing, or pedal edema. NEUROLOGICAL: Gross neurological examination did not reveal any focal deficits. SKIN: No rashes. - Labs CBC & Chem 7: 03/02/19 05:32 03/02/19 05:32 Labs: Abnormal Lab Results - Last 24 Hours (Table) 03/01/19 03/01/19 03/01/19 Range/Units 11:49 16:50 20:08 Glucose (74-99) mg/dL POC Glucose (mg/dL) 132 H 116 H 134 H (75-99) mg/dL 03/02/19 Range/Units 05:32 Glucose 109 H (74-99) mg/dL POC Glucose (mg/dL) (75-99) mg/dL Assessment and Plan Assessment: ST elevation myocardial infarction, status post successful stenting of the right coronary artery. With further blockages of the diagonal branch of the LAD and ramus intermedius. Atrial fibrillation with RVR History of coronary artery disease, status post 4 stents in 2017 Diabetes mellitus Hypertension Hyperlipidemia Kidney stones Plan: This is a pleasant 58 years old male who presents with ST elevation myocardial infarction. Status post stenting of the RCA. Continue with aspirin, heart rate controlled with Cardizem. Continue with insulin. Labs and medication were reviewed.. Continue same treatment. Continue with symptomatic treatment. Resume home medication. Monitor lytes and vitals. DVT and GI prophylaxis. Further recommendations of the clinical course of the patient GI Prophylaxis:ppi Prognosis is guarded
--- NOTE | 2019-03-02 10:32 | ECHOF ---
Referral Reason:Recent STEMI MEASUREMENTS -------- HEIGHT: 188.0 cm WEIGHT: 104.3 kg BP: RVIDd: 3.1 cm (< 3.3) IVSd: 1.3 cm (0.6 - 1.1) LVIDd: 3.4 cm (3.9 - 5.3) LVPWd: 1.4 cm (0.6 - 1.1) IVSs: 2.1 cm LVIDs: 2.5 cm LVPWs: 2.1 cm LAESV Index (A-L): 32.92 ml/m Ao Diam: 3.9 cm (2.0 - 3.7) AV Cusp: 2.0 cm (1.5 - 2.6) LA Diam: 3.5 cm (2.7 - 3.8) MV EXCURSION: 17.354 mm (> 18.000) MV EF SLOPE: 87 mm/s (70 - 150) EPSS: 0.4 cm MV E Matt: 0.69 m/s MV DecT: 229 ms MV A Matt: 0.45 m/s MV E/A Ratio: 1.51 RAP: 15.00 mmHg RVSP: 20.74 mmHg FINDINGS -------- Sinus rhythm. This was a technically good study. The left ventricular size is normal. There is mild concentric left ventricular hypertrophy. Overa ll left ventricular systolic function is normal with, an EF between 55 - 60 %. The right ventricle is normal in size. Normal LA size by volume 22+/-6 ml/m2. The right atrial size is normal. The aortic valve is trileaflet and appears structurally normal. The mitral valve leaflets are mildly thickened. Mild mitral regurgitation is present. Mild tricuspid regurgitation present. The right ventricular systolic pressure, as measured by Doppl er, is 20.74mmHg. Pulmonic valve appears structurally normal. The aortic root is dilated measuring 3.9 to 4.0 cm. The inferior vena cava is mildly dilated. There is no pericardial effusion. CONCLUSIONS -------- 1. Sinus rhythm. 2. This was a technically good study. 3. The left ventricular size is normal. 4. There is mild concentric left ventricular hypertrophy. 5. Overall left ventricular systolic function is normal with, an EF between 55 - 60 %. 6. The right ventricle is normal in size. 7. Normal LA size by volume 22+/-6 ml/m2. 8. The right atrial size is normal. 9. The aortic valve is trileaflet and appears structurally normal. 10. The mitral valve leaflets are mildly thickened. 11. Mild mitral regurgitation is present. 12. Mild tricuspid regurgitation present. 13. The right ventricular systolic pressure, as measured by Doppler, is 20.74mmHg. 14. Pulmonic valve appears structurally normal. 15. The aortic root is dilated measuring 3.9 to 4.0 cm. 16. The inferior vena cava is mildly dilated. 17. There is no pericardial effusion. CHURN DRILLER: Lata Dubon RDCS
[2019-03-02 11:53] LABS: Glucose,Whole Blood 105 mg/dL (75-99)
[2019-03-02] MEDS: LOSARTAN 50 MG TAB PO SCH (12:26)
[2019-03-02 17:44] LABS: Glucose,Whole Blood 105 mg/dL (75-99)
--- NOTE | 2019-03-02 17:50 | P.PN ---
Subjective Patient is doing well. His resting comfortably in bed. However she is very anxious about what happened and I spoke to him about it and try to calm him down He has no chest discomfort no dizziness lightheadedness very occasional PVCs 2-D echo shows mild left total hypertrophy with preserved systolic function ejection fraction 55-60% normal RV size mild MR and mild TR normal RVSP Spawning his blood pressure was low normal and therefore I reduced the dose of losartan to 100 mg daily while continuing carvedilol I called Dr. Rudd last electrical workers coronary angiography films to address his LAD stenosis and intermediate vessel stenosis Afebrile 98.1F pulse rate in the 80s, blood pressure 102/77 mmHg normal respirations Breath sounds are clear no rhonchi no crackles Abdomen soft nontender Normal S1 normal S2 no murmurs or gallop or rub No lower extremity edema No orthopnea Labs are reviewed at [facility] and normal renal functions normal hemoglobin 16.3 Impression Acute myocardial infarctions status post stenting and aspiration thrombectomy of the RCA lesion He also has multivessel coronary artery disease involving the LAD which is 9095% stenosis as well as the intermediate vessel which is a 70% hazy stenosis Dr. Rudd will evaluate this and get back to me In the interim antiplatelet therapy statins beta blockers and antihypertensive therapy to continue as outlined above Discussed with patient Objective - Vital Signs Vital signs: Vital Signs Temp 98.1 F 03/02/19 16:00 Pulse 81 03/02/19 16:00 Resp 16 03/02/19 16:00 BP 102/77 03/02/19 16:00 Pulse Ox 94 L 03/02/19 16:00 Intake & Output 03/01/19 03/02/19 03/02/19 18:59 06:59 18:59 Intake Total 1350 400 Output Total 2150 750 620 Balance -800 -350 -620 Weight 104.4 kg 98.8 kg Intake: IV 0 100 Sodium Chloride 0.9% 1, 0 100 000 ml @ 100 mls/hr IV . Q10H CADY Rx#:[id number] Oral 1350 300 Output: Urine 2150 750 620 Other: # Voids 1 0 # Bowel Movements 1 - Labs CBC & Chem 7: 03/02/19 05:32 03/02/19 05:32 Labs: Abnormal Lab Results - Last 24 Hours (Table) 03/01/19 03/02/19 03/02/19 Range/Units 20:08 05:32 11:42 Glucose 109 H (74-99) mg/dL POC Glucose (mg/dL) 134 H 105 H (75-99) mg/dL 03/02/19 Range/Units 17:32 Glucose (74-99) mg/dL POC Glucose (mg/dL) 105 H (75-99) mg/dL
[2019-03-02 23:19] LABS: Glucose,Whole Blood 159 mg/dL (75-99)
[2019-03-03 05:07] LABS: HCT 47.1 % (39.0-53.0); HGB 16.1 gm/dL (13.0-17.5); MCH 30.8 pg (25.0-35.0); MCHC 34.1 g/dL (31.0-37.0); MCV 90.5 fL (80.0-100.0); Mean Platelet Volume 7.1; Platelet Count 185 k/uL (150-450); RBC 5.21 m/uL (4.30-5.90); RDW 13.5 % (11.5-15.5); WBC 8.3 k/uL (3.8-10.6)
[2019-03-03 05:16] LABS: Anion Gap 8 mmol/L; Blood Urea Nitrogen 20 mg/dL (9-20); Calcium 9.9 mg/dL (8.4-10.2); Carbon Dioxide 23 mmol/L (22-30); Chloride 104 mmol/L (98-107); Glucose 114 mg/dL (74-99); Magnesium 1.4 mg/dL (1.6-2.3); Phosphorus 4.7 mg/dL (2.5-4.5); Potassium 3.9 mmol/L (3.5-5.1); Sodium 135 mmol/L (137-145)
[2019-03-03] MEDS ORDERED: Potassium Replacement Protocol 1 EACH MISC MISCELLANE PRN (05:42)
[2019-03-03] MEDS ORDERED: Magnesium Replacement Protocol 1 EACH MISC MISCELLANE PRN ×2 (05:42→17:25)
[2019-03-03] MEDS ORDERED: POTASSIUM CHLORIDE ER 20 MEQ TAB.ER PO SCH (06:00)
[2019-03-03] MEDS: MAGNESIUM SULFATE-D5W PMX 1 GM in DEXTROSE/WATER 1 100ML.BAG IVPB SCH ×5 (06:18→20:13)
[2019-03-03] MEDS: CARVEDILOL 6.25 MG TAB PO SCH ×2 (06:55→17:21)
[2019-03-03] MEDS: PANTOPRAZOLE 40 MG TABLET PO SCH (06:55)
[2019-03-03] MEDS: INSULIN ASPART (NovoLOG) 100 UNIT/ML VIAL SQ SCH ×4 (06:55→20:28)
[2019-03-03 07:06] LABS: Glucose,Whole Blood 115 mg/dL (75-99)
[2019-03-03] MEDS ORDERED: NITROGLYCERIN SL TABS 0.4 MG TAB SUBLINGUAL PRN (08:30)
[2019-03-03] MEDS ORDERED: ASPIRIN 325 MG TAB PO STA (08:30)
[2019-03-03] MEDS ORDERED: ATORVASTATIN 80 MG TAB PO STA (08:30)
[2019-03-03] MEDS ORDERED: SODIUM CHLORIDE 0.9% 1,000 ML in EMPTY BAG 1 BAG IV ONE (08:30)
[2019-03-03] MEDS ORDERED: ALPRAZolam 0.5 MG TAB PO PRN (08:30)
[2019-03-03] MEDS ORDERED: ALPRAZolam 0.25 MG TAB PO PRN (08:30)
[2019-03-03] MEDS: ASPIRIN 81 MG PO SCH (09:22)
[2019-03-03] MEDS: ATORVASTATIN 80 MG TAB PO SCH (09:22)
[2019-03-03] MEDS: GABAPENTIN 300 MG CAP PO SCH ×3 (09:23→22:15)
[2019-03-03] MEDS: TICAGRELOR 90 MG TAB PO SCH ×2 (09:24→20:16)
[2019-03-03] MEDS: LOSARTAN 50 MG TAB PO SCH (09:24)
[2019-03-03] MEDS: SPIRONOLACTONE 25 MG TAB PO SCH (09:24)
[2019-03-03] MEDS: HYDROCHLOROTHIAZIDE 25 MG TAB PO SCH (09:24)
--- NOTE | 2019-03-03 09:25 | P.PN ---
Subjective This is a pleasant 58 years old male with past medical history of coronary artery disease, status post 4 stents in 2017, diabetes mellitus, atrial f ibrillation, hypertension, hyperlipidemia, kidney stones. Presents because of cardiac arrest. Patient developed chest pain for 15 minutes while he was walking his dog and sure after he became unresponsive with ventricular fibrillation, EMS arrived and they did cardiac shock . Multicompartment into atrial fibrillation's with RVR. EKG showed inferior ST elevation myocardial infarction. Patient underwent emergent cardiac cath showing acute total occlusion of the right coronary artery, patient underwent successful stenting of the RCA. Further patient has further blockages in the diagonal branch of the LAD and ramus intermedius. Patient transferred to the intensive care unit where he be further monitored Currently patient filling only mild chest discomfort, no dyspnea. No abdominal pain. No fever 03/02/2019 Patient remains in the ICU, is a stable currently. Patient denies chest balaji n/discomfort. No dyspnea. Vital signs stable and lives with no significant abnormality. Patient been followed closely by cardiology team may going to decide about of coronary artery disease like narrowing and LAD. Patient is status post stenting of the right coronary artery. However he has further blockage in the diagonal branch of the LAD and ramus intermedius. 03/03/2019 Patient remains in the ICU, comfortable in bed, no more chest pain or dyspnea. Patient is not in distress. Cardiology team R following the patient and possible repeat cardiac cath for his other nodes coronary arteries and their branches. Patient also complaining of from right toe ulcers over the last 2 weeks. Patient states it started as a wart and he treated it locally and now it looks like an ulcer, patient does not feel it, there is shows some ulcers with surrounding callus tissue, but no pertinent discharge and or surrounding cellulitis. We will do x-ray of his right foot. Vitals monitored. Patient is hemodynamically stable Review of systems CONSTITUTIONAL: No fever, no malaise, no fatigue. HEENT: No recent visual problems or hearing problems. Denied any sore throat. CARDIOVASCULAR: No orthopnea, PND, no palpitations, no syncope. PULMONARY: No shortness of breath, no cough, no hemoptysis. GASTROINTESTINAL: No diarrhea, no nausea, no vomiting, no abdominal pain. Normoactive bowel sounds. NEUROLOGICAL: No headaches, no weakness, no numbness. HEMATOLOGICAL: Denies any bleeding or petechiae. GENITOURINARY: Denies any burning micturition, frequency, or urgency. MUSCULOSKELETAL/RHEUMATOLOGICAL: Denies any joint pain, swelling, or any muscle pain. ENDOCRINE: Denies any polyuria or polydipsia. Medication: Tylenol, Maalox, Xanax, aspirin, Lipitor, atropine, Coreg, Flonase, Neurontin, hydroureter cell, NovoLog insulin, Cozaar, nitroglycerin, Protonix, Aldactone, Ambien. Objective - Vital Signs Vital signs: Vital Signs Temp 97.8 F 03/03/19 08:00 Pulse 81 03/03/19 09:00 Resp 20 03/03/19 09:00 BP 101/72 03/03/19 09:00 Pulse Ox 94 L 03/03/19 09:00 Intake & Output 03/02/19 03/03/19 03/03/19 18:59 06:59 18:59 Intake Total 400 320 Output Total 620 1800 Balance -620 -1400 320 Weight 98.7 kg Intake: IV 200 Magnesium Sulfate-D5w Pmx 200 1 gm In Dextrose/Water 1 100ml.bag @ 100 mls/hr IVPB Q1H [facility] Rx#: [id number] Intake, IV Titration 100 Amount Magnesium Sulfate-D5w Pmx 100 1 gm In Dextrose/Water 1 100ml.bag @ 100 mls/hr IVPB Q1H [facility] Rx#: [id number] Oral 300 120 Output: Urine 620 1800 Other: Voiding Method Urinal - Exam GENERAL: The patient is alert and oriented x3, not in any acute distress. Well developed, well nourished. HEENT: Pupils are round and equally reacting to light. EOMI. No scleral icterus. No conjunctival pallor. Normocephalic, atraumatic. No pharyngeal erythema. No thyromegaly. CARDIOVASCULAR: S1 and S2 present. No murmurs, rubs, or gallops. PULMONARY: Chest is clear to auscultation, no wheezing or crackles. ABDOMEN: Soft, nontender, nondistended, normoactive bowel sounds. No palpable organomegaly. MUSCULOSKELETAL: No joint swelling or deformity. EXTREMITIES: No cyanosis, clubbing, or pedal edema. NEUROLOGICAL: Gross neurological examination did not reveal any focal deficits. SKIN: No rashes. - Labs CBC & Chem 7: 03/03/19 04:49 03/03/19 04:49 Labs: Abnormal Lab Results - Last 24 Hours (Table) 03/02/19 03/02/19 03/02/19 Range/Units 11:42 17:32 21:18 Sodium (137-145) mmol/L Glucose (74-99) mg/dL POC Glucose (mg/dL) 105 H 105 H 159 H (75-99) mg/dL Phosphorus (2.5-4.5) mg/dL Magnesium (1.6-2.3) mg/dL 03/03/19 03/03/19 Range/Units 04:49 06:54 Sodium 135 L (137-145) mmol/L Glucose 114 H (74-99) mg/dL POC Glucose (mg/dL) 115 H (75-99) mg/dL Phosphorus 4.7 H (2.5-4.5) mg/dL Magnesium 1.4 L (1.6-2.3) mg/dL Assessment and Plan Assessment: ST elevation myocardial infarction, status post successful stenting of the right coronary artery. With further blockages of the diagonal branch of the LAD and ramus intermedius. Atrial fibrillation with RVR Right toe ulcer, mostly diabetic foot ulcer History of coronary artery disease, status post 4 stents in 2017 Diabetes mellitus Hypertension Hyperlipidemia Kidney stones Plan: This is a pleasant 58 years old male who presents with ST elevation myocardial infarction. Status post stenting of the RCA. Continue with aspirin, heart rate controlled with Cardizem. Continue with insulin. X-ray of the right foods Labs and medication were reviewed.. Continue same treatment. Continue with symptomatic treatment. Resume home medication. Monitor lytes and vitals. DVT and GI prophylaxis. Further recommendations of the clinical course of the patient GI Prophylaxis:ppi Prognosis is guarded
--- NOTE | 2019-03-03 10:19 | XR ---
First toe right foot HISTORY: Nonhealing ulcer, diabetic foot ulcer 3 views of the first digit of the right foot There is soft tissue defect compatible with patient's history of nonhealing wound. Osteoarthritic makayla nges are noted incidentally. No evident periostitis. No radiopaque foreign body. IMPRESSION: Correlate for cellulitis. Bone scan or MRI may be of increased sensitivity to assess for osteomyelitis.
--- NOTE | 2019-03-03 11:59 | P.PN ---
Subjective Mr. Solitario is resting comfortably in bed. He has no chest discomfort dizziness lightheadedness or palpitations Vitals are stable blood pressure 104/67 mmHg pulse rate in the 70s afebrile 97.8F Sounds are clear no rhonchi no crackles Heart sounds S1 and S2 are normal no murmurs or gallop Abdomen soft Next 70s warm no edema Impression Patient presented with acute ST elevation [place] stress post stenting to the RCA He has multivessel coronary artery disease and is awaiting further interventions during this admission He had a VF arrest in the setting of ST elevation FL His LV function in follow-up is preserved on 2-D echo History of paroxysmal atrial fibrillation Impression Discussed with Dr. Dr. Rudd. He will proceed with coronary stenting within the next 24-48 hours History of dual antiplatelet therapy Continue beta blockers Continue losartan Stop hydrochlorothiazide since his blood pressure is low normal Since his LV function is normal I will also stop spironolactone Continue atorvastatin 80 mg by mouth daily Objective - Vital Signs Vital signs: Vital Signs Temp 97.8 F 03/03/19 08:00 Pulse 80 03/03/19 10:00 Resp 22 03/03/19 10:00 BP 104/71 03/03/19 10:00 Pulse Ox 93 L 03/03/19 10:00 Intake & Output 03/02/19 03/03/19 03/03/19 18:59 06:59 18:59 Intake Total 400 320 Output Total 620 1800 0 Balance -620 -1400 320 Weight 98.7 kg Intake: IV 200 Magnesium Sulfate-D5w Pmx 200 1 gm In Dextrose/Water 1 100ml.bag @ 100 mls/hr IVPB Q1H [facility] Rx#: [id number] Intake, IV Titration 100 Amount Magnesium Sulfate-D5w Pmx 100 1 gm In Dextrose/Water 1 100ml.bag @ 100 mls/hr IVPB Q1H [facility] Rx#: [id number] Oral 300 120 Output: Urine 620 1800 0 Other: Voiding Method Urinal - Labs CBC & Chem 7: 03/03/19 04:49 03/03/19 04:49 Labs: Abnormal Lab Results - Last 24 Hours (Table) 03/02/19 03/02/19 03/03/19 Range/Units 17:32 21:18 04:49 Sodium 135 L (137-145) mmol/L Glucose 114 H (74-99) mg/dL POC Glucose (mg/dL) 105 H 159 H (75-99) mg/dL Phosphorus 4.7 H (2.5-4.5) mg/dL Magnesium 1.4 L (1.6-2.3) mg/dL 03/03/19 Range/Units 06:54 Sodium (137-145) mmol/L Glucose (74-99) mg/dL POC Glucose (mg/dL) 115 H (75-99) mg/dL Phosphorus (2.5-4.5) mg/dL Magnesium (1.6-2.3) mg/dL
[2019-03-03 12:23] LABS: Glucose,Whole Blood 118 mg/dL (75-99)
[2019-03-03 16:41] LABS: Glucose,Whole Blood 137 mg/dL (75-99)
[2019-03-03 16:43] LABS: Magnesium 1.8 mg/dL (1.6-2.3); Potassium 4.3 mmol/L (3.5-5.1)
[2019-03-03] MEDS: METOPROLOL TARTRATE 25 MG TAB PO SCH ×2 (18:58→22:15)
[2019-03-03 20:22] LABS: Glucose,Whole Blood 155 mg/dL (75-99)
[2019-03-04 06:12] LABS: HCT 47.6 % (39.0-53.0); HGB 15.8 gm/dL (13.0-17.5); MCH 30.3 pg (25.0-35.0); MCHC 33.3 g/dL (31.0-37.0); MCV 90.9 fL (80.0-100.0); Mean Platelet Volume 7.4; Platelet Count 193 k/uL (150-450); RBC 5.24 m/uL (4.30-5.90); RDW 13.4 % (11.5-15.5); WBC 9.3 k/uL (3.8-10.6)
[2019-03-04 06:32] LABS: Potassium 4.1 mmol/L (3.5-5.1)
[2019-03-04 06:33] LABS: Calcium 9.8 mg/dL (8.4-10.2); Magnesium 1.9 mg/dL (1.6-2.3); Phosphorus 4.4 mg/dL (2.5-4.5)
[2019-03-04] MEDS: MAGNESIUM SULFATE-D5W PMX 1 GM in DEXTROSE/WATER 1 100ML.BAG IVPB SCH ×2 (06:53→08:00)
[2019-03-04] MEDS: PANTOPRAZOLE 40 MG TABLET PO SCH (06:53)
[2019-03-04] MEDS: INSULIN ASPART (NovoLOG) 100 UNIT/ML VIAL SQ SCH ×4 (07:14→20:38)
[2019-03-04 07:19] LABS: Glucose,Whole Blood 117 mg/dL (75-99)
[2019-03-04] MEDS: GABAPENTIN 300 MG CAP PO SCH ×3 (08:02→20:39)
[2019-03-04] MEDS: ASPIRIN 81 MG PO SCH (08:02)
[2019-03-04] MEDS: TICAGRELOR 90 MG TAB PO SCH ×2 (08:02→20:40)
[2019-03-04] MEDS: ATORVASTATIN 80 MG TAB PO SCH (08:02)
[2019-03-04] MEDS: METOPROLOL TARTRATE 25 MG TAB PO SCH ×2 (08:03→20:39)
[2019-03-04] MEDS: LOSARTAN 50 MG TAB PO SCH (11:56)
[2019-03-04 12:38] LABS: Glucose,Whole Blood 111 mg/dL (75-99)
[2019-03-04] MEDS ORDERED: SODIUM CHLORIDE 0.9% 1,000 ML in EMPTY BAG 1 BAG IV ONE (13:00)
[2019-03-04] MEDS ORDERED: LIDOCAINE 1% INJ 10MG/ML (20 ML MDV) ONE (13:52)
[2019-03-04] MEDS ORDERED: fentaNYL (PF) 50 MCG/ML 2 ML AMP ONE (13:52)
[2019-03-04] MEDS ORDERED: fentaNYL (PF) 50 MCG/ML 2 ML AMP IVP ONE (14:11)
[2019-03-04] MEDS ORDERED: LIDOCAINE 1% INJ 10MG/ML (20 ML MDV) SQ ONE (14:11)
[2019-03-04] MEDS ORDERED: BIVALIRUDIN BOLUS 250 MG/50 ML IV ONE (14:17)
[2019-03-04] MEDS ORDERED: BIVALIRUDIN 250 MG in SODIUM CHLORIDE 0.9% 38 ML IV ONE (14:18)
[2019-03-04] MEDS ORDERED: IV FLUID CONTINUATION 450 ML IV ONE (14:20)
[2019-03-04] MEDS ORDERED: IOPAMIDOL-370 100ML BTL INJ ONE ×2 (14:27→14:41)
[2019-03-04] MEDS ORDERED: RX INFO: IV CONTRAST WAS GIVEN 1 EACH MISC MISCELLANE PRN (14:50)
[2019-03-04] MEDS ORDERED: ATROPINE SULFATE 0.1 MG/ML 10ML SYRINGE IV PRN (14:50)
[2019-03-04] MEDS ORDERED: MAG HYDROX/AL HYDROX/SIMETH 30 ML CUP PO PRN (14:50)
[2019-03-04] MEDS ORDERED: NITROGLYCERIN SL TABS 0.4 MG TAB SUBLINGUAL PRN (14:50)
[2019-03-04] MEDS ORDERED: ZOLPIDEM 5 MG TAB PO PRN (14:50)
[2019-03-04] MEDS ORDERED: SODIUM CHLORIDE 0.9% 1,000 ML IV SCH (15:00)
[2019-03-04 17:06] LABS: Glucose,Whole Blood 94 mg/dL (75-99)
[2019-03-04 20:27] LABS: Glucose,Whole Blood 172 mg/dL (75-99)
[2019-03-04] MEDS: AMIODARONE 200 MG TAB PO SCH (20:39)
--- NOTE | 2019-03-04 20:44 | PTCA ---
PERCUTANEOUSTRANS CORORONARY ANGIOGRAPHY Mr. Solitario is a 58-year-old male with a known history of coronary artery disease status post percutaneous revascularization in 2017 who presented this past weekend with cardiac arrest and evidence of an acute inferior myocardial infarction, underwent stenting of his right coronary artery. At the same time, he was found to have significant obstructive disease involving the obtuse marginal branch 1 and the first diagonal branch. In view of that, he was brought in today electively to undergo stenting of those vessels. The procedure as well as risks and complications were discussed with the patient who is in full understanding and agreement. 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 Selective left coronary angiography was performed using 6-Kosovan 4 bend left Tuan catheter. After cannulating the left main, a 0.014 balanced medium weight J- wire was advanced across the first obtuse marginal branch and positioned distally. Following that a 2.25 x 12 mm Trek balloon was advanced and one inflation at 10 atmospheres was done. Following that, the balloon was removed and a 2.25 x 15 mm Xience Olesya stent was deployed, postdilated at 16 atmospheres. Following that, the balloon was removed. Images were obtained and repeated. Those images reveal stable successful stenting. At that point, the wire was introduced into the first diagonal branch and positioned distally. Then a 2.25 x 12 mm Trek balloon was advanced and one inflation at 10 atmospheres was done. Following that, the balloon was removed and a 2.25 x 15 mm Xience Olesya stent was advanced, deployed and was dilated at 16 atmospheres. After the last inflation, after appropriate wait, the balloon and the guidewire were withdrawn back in the guiding catheter. Images were obtained and repeated. Those images revealed stable successful stenting. At that point, the guiding catheter, the balloon and the guidewire were removed. The sheath was removed. Hemostasis was obtained with deployment of a TR band. There was no immediate complication. Patient is returned to his room in stable condition. Of note, the patient received Angiomax per protocol and was continued on Brilinta. RESULTS: 1. Successful stenting of the first obtuse marginal branch with reduction of stenosis from 99% to 0%. 2. Successful stenting of the first diagonal branch with reduction of stenosis from 99% to 0%. RECOMMENDATIONS: Patient will be continued on aspirin, Brilinta, beta norberto and statin. He will be evaluated regarding the need to undergo anticoagulation because of his episode of atrial fibrillation and if that is the case then Brilinta will be switched to Plavix and he will be initiated on anticoagulation. Those findings and recommendation were discussed with the patient and his family and they are in full understanding and agreement. Duration of procedure is 48 minutes. LIGIAL / DIOGENESN: [id number] / MTDSterling
--- NOTE | 2019-03-04 20:46 | P.PN ---
Subjective This is a pleasant 58 years old male with past medical history of coronary artery disease, status post 4 stents in 2017, diabetes mellitus, atrial f ibrillation, hypertension, hyperlipidemia, kidney stones. Presents because of cardiac arrest. Patient developed chest pain for 15 minutes while he was walking his dog and sure after he became unresponsive with ventricular fibrillation, EMS arrived and they did cardiac shock . Multicompartment into atrial fibrillation's with RVR. EKG showed inferior ST elevation myocardial infarction. Patient underwent emergent cardiac cath showing acute total occlusion of the right coronary artery, patient underwent successful stenting of the RCA. Further patient has further blockages in the diagonal branch of the LAD and ramus intermedius. Patient transferred to the intensive care unit where he be further monitored Currently patient filling only mild chest discomfort, no dyspnea. No abdominal pain. No fever 03/02/2019 Patient remains in the ICU, is a stable currently. Patient denies chest balaji n/discomfort. No dyspnea. Vital signs stable and lives with no significant abnormality. Patient been followed closely by cardiology team may going to decide about of coronary artery disease like narrowing and LAD. Patient is status post stenting of the right coronary artery. However he has further blockage in the diagonal branch of the LAD and ramus intermedius. 03/03/2019 Patient remains in the ICU, comfortable in bed, no more chest pain or dyspnea. Patient is not in distress. Cardiology team R following the patient and possible repeat cardiac cath for his other coronary arteries and their branches. Patient also complaining of from right toe ulcers over the last 2 weeks. Patient states it started as a wart and he treated it locally and now it looks like an ulcer, patient does not feel it, there is shows some ulcers with surrounding callus tissue, but no pertinent discharge and or surrounding cellulitis. We will do x-ray of his right foot. Vitals monitored. Patient is hemodynamically stable 03/04/2019 pt comfortable in bed , fully awake, no chest pain or dyspnea, cardiology are following the case , plan for repeat cardiac cath. for his right toe ulcer , his xray: suspicous osteomyiltis , called ID disease consult. pt little tachypneic and he is monitored in the icu, critical care pulmonary consult are following the case. Review of systems CONSTITUTIONAL: No fever, no malaise, no fatigue. HEENT: No recent visual problems or hearing problems. Denied any sore throat. CARDIOVASCULAR: No orthopnea, PND, no palpitations, no syncope. PULMONARY: No shortness of breath, no cough, no hemoptysis. GASTROINTESTINAL: No diarrhea, no nausea, no vomiting, no abdominal pain. Normoactive bowel sounds. NEUROLOGICAL: No headaches, no weakness, no numbness. HEMATOLOGICAL: Denies any bleeding or petechiae. GENITOURINARY: Denies any burning micturition, frequency, or urgency. MUSCULOSKELETAL/RHEUMATOLOGICAL: Denies any joint pain, swelling, or any muscle pain. ENDOCRINE: Denies any polyuria or polydipsia. Medication: Tylenol, Maalox, Xanax, aspirin, Lipitor, atropine, Coreg, Flonase, Neurontin, hydroureter cell, NovoLog insulin, Cozaar, nitroglycerin, Protonix, Aldactone, Ambien. Objective - Vital Signs Vital signs: Vital Signs Temp 97.8 F 03/04/19 20:00 Pulse 73 03/04/19 20:00 Resp 18 03/04/19 20:00 BP 111/72 03/04/19 20:00 Pulse Ox 95 03/04/19 20:00 Intake & Output 03/04/19 03/04/19 03/05/19 06:59 18:59 06:59 Intake Total 100 828 200 Output Total 825 0 Balance 100 3 200 Weight 100 kg Intake: IV 100 828 200 Magnesium Sulfate-D5w Pmx 100 100 1 gm In Dextrose/Water 1 100ml.bag @ 100 mls/hr IVPB Q1H [facility] Rx#: [id number] Magnesium Sulfate-D5w Pmx 100 1 gm In Dextrose/Water 1 100ml.bag @ 100 mls/hr IVPB Q1H [facility] Rx#: [id number] Sodium Chloride 0.9% 1, 400 200 000 ml @ 100 mls/hr IV . Q10H [facility] Rx#:[id number] Output: Urine 825 0 Other: Voiding Method Urinal Urinal Urinal # Voids 0 1 0 - Exam GENERAL: The patient is alert and oriented x3, not in any acute distress. Well developed, well nourished. HEENT: Pupils are round and equally reacting to light. EOMI. No scleral icterus. No conjunctival pallor. Normocephalic, atraumatic. No pharyngeal erythema. No thyromegaly. CARDIOVASCULAR: S1 and S2 present. No murmurs, rubs, or gallops. PULMONARY: Chest is clear to auscultation, no wheezing or crackles. ABDOMEN: Soft, nontender, nondistended, normoactive bowel sounds. No palpable organomegaly. MUSCULOSKELETAL: No joint swelling or deformity. EXTREMITIES: No cyanosis, clubbing, or pedal edema. NEUROLOGICAL: Gross neurological examination did not reveal any focal deficits. SKIN: No rashes. - Labs CBC & Chem 7: 03/04/19 05:16 03/04/19 05:16 Labs: Abnormal Lab Results - Last 24 Hours (Table) 03/04/19 03/04/19 03/04/19 Range/Units 05:16 07:07 12:26 Sodium 135 L (137-145) mmol/L BUN 24 H (9-20) mg/dL Glucose 126 H (74-99) mg/dL POC Glucose (mg/dL) 117 H 111 H (75-99) mg/dL 03/04/19 Range/Units 20:16 Sodium (137-145) mmol/L BUN (9-20) mg/dL Glucose (74-99) mg/dL POC Glucose (mg/dL) 172 H (75-99) mg/dL Assessment and Plan Assessment: ST elevation myocardial infarction, status post successful stenting of the right coronary artery. With further blockages of the diagonal branch of the LAD and ramus intermedius. Atrial fibrillation with RVR Right toe ulcer, mostly diabetic foot ulcer History of coronary artery disease, status post 4 stents in 2017 Diabetes mellitus Hypertension Hyperlipidemia Kidney stones Plan: This is a pleasant 58 years old male who presents with ST elevation myocardial infarction. Status post stenting of the RCA. Continue with aspirin, heart rate controlled with Cardizem. Continue with insulin. X-ray of the right foods Labs and medication were reviewed.. Continue same treatment. Continue with symptomatic treatment. Resume home medication. Monitor lytes and vitals. DVT and GI prophylaxis. Further recommendations of the clinical course of the patient GI Prophylaxis:ppi Prognosis is guarded
[2019-03-05 06:28] LABS: Basophils % (A) 0 %; Eosinophils # (A) 0.2 k/uL (0-0.7); Eosinophils % (A) 2 %; HGB 15.1 gm/dL (13.0-17.5); Lymphocytes # (A) 1.7 k/uL (1.0-4.8); Lymphocytes % (A) 19 %; MCH 30.2 pg (25.0-35.0); MCHC 33.7 g/dL (31.0-37.0); MCV 89.7 fL (80.0-100.0); Mean Platelet Volume 7.8; Monocytes # (A) 0.6 k/uL (0-1.0); Monocytes % (A) 6 %; Neutrophils # (A) 6.6 k/uL (1.3-7.7); Neutrophils % (A) 72 %; Platelet Count 201 k/uL (150-450); RBC 5.01 m/uL (4.30-5.90); RDW 13.7 % (11.5-15.5); WBC 9.2 k/uL (3.8-10.6)
[2019-03-05 06:52] LABS: Anion Gap 10 mmol/L; Blood Urea Nitrogen 24 mg/dL (9-20); Calcium 9.3 mg/dL (8.4-10.2); Carbon Dioxide 24 mmol/L (22-30); Chloride 104 mmol/L (98-107); Glucose 121 mg/dL (74-99); Potassium 4.3 mmol/L (3.5-5.1); Sodium 138 mmol/L (137-145)
[2019-03-05 07:12] LABS: Glucose,Whole Blood 143 mg/dL (75-99)
[2019-03-05] MEDS: INSULIN ASPART (NovoLOG) 100 UNIT/ML VIAL SQ SCH ×4 (08:18→21:12)
[2019-03-05] MEDS: PANTOPRAZOLE 40 MG TABLET PO SCH (08:19)
[2019-03-05] MEDS: TICAGRELOR 90 MG TAB PO SCH (08:19)
[2019-03-05] MEDS: ATORVASTATIN 80 MG TAB PO SCH (08:19)
[2019-03-05] MEDS: METOPROLOL TARTRATE 25 MG TAB PO SCH ×2 (08:19→21:15)
[2019-03-05] MEDS: ASPIRIN 81 MG PO SCH (08:19)
[2019-03-05] MEDS: GABAPENTIN 300 MG CAP PO SCH ×3 (08:19→21:18)
[2019-03-05] MEDS: LOSARTAN 50 MG TAB PO SCH (08:19)
[2019-03-05] MEDS: AMIODARONE 200 MG TAB PO SCH ×2 (08:19→21:15)
--- NOTE | 2019-03-05 09:38 | P.CONS ---
History of Present Illness - Reason for Consult Consult date: 03/05/19 Cellulitis right great toe - History of Present Illness This is a 58-year-old male known to ID service as he was treated in the past in 2009 requiring IV antibiotics. Patient presented to the hospital due to chest discomfort, had cardiac arrest in the ambulance and has been treated for acute ST elevated myocardial infarction with stenting of the RCA and a return to the labor economics teacher yesterday underwent stenting of the first obtuse marginal branch and first diagonal branch. Patient is also has episode of atrial fibrillation. This consult was requested regarding cellulitis of the right great toe. Patient states that he has been following at [facility] for several weeks with Dr. Dorantes. He states he had a toenail problem and a callus and then it was thought that he had a plantar wart and medication was applied to the area but then he had a blistering. He states his been open and raw for the past 1-2 weeks and has been applying antibiotic cream. He went back and had a debridement done and he has been using Betadine for the past 10 days. He has not had significant improvement and is now noted to have bleeding from the wound. Review of Systems All systems: negative Constitutional: Denies anorexia, Denies chills, Denies fatigue, Denies fever, Denies lethargy, Denies malaise, Denies poor appetite, Denies weakness Eyes: denies blurred vision, denies pain Ears, nose, mouth and throat: Denies dental pain, Denies headache, Denies mouth pain, Denies nasal congestion, Denies sore throat, Denies vertigo Cardiovascular: Denies chest pain, Denies dyspnea on exertion, Denies edema, Denies leg edema, Denies lightheadedness, Denies palpitations, Denies shortness of breath, Denies syncope Respiratory: Denies cough, Denies cough with sputum, Denies dyspnea, Denies excessive sputum, Denies hemoptysis, Denies home oxygen, Denies wheezing Gastrointestinal: Denies abdominal pain, Denies diarrhea, Denies loss of appetite, Denies nausea, Denies vomiting Genitourinary: Denies dysuria, Denies urinary retention Musculoskeletal: Denies frequent falls, Denies gait dysfunction, Denies muscle weakness, Denies myalgias Integumentary: Reports color changes, Reports darkening of skin, Reports wounds, Denies pruritus, Denies rash Neurological: Denies aphasia, Denies change in mentation, Denies confusion, Den ies gait dysfunction, Denies numbness, Denies weakness Psychiatric: Denies anxiety, Denies depression Endocrine: Denies fatigue, Denies weight change Past Medical History Past Medical History: Atrial Fibrillation, Cancer, Diabetes Mellitus, GERD/Reflux, Hyperlipidemia, Hypertension, Myocardial Infarction ([place]), Prostate Disorder Additional Past Medical History / Comment(s): irregular heart rate, seasonal allergies kidney stones, benign lesion on nose, diverticulitis, problem with s tarting urinary stream seen urology doc and they scoped by bladder and found a kidney stone Last Myocardial Infarction Date:: 02/28/19 History of Any Multi-Drug Resistant Organisms: None Reported Past Surgical History: Back Surgery, Bowel Resection, Cholecystectomy, Heart Catheterization With Stent, Joint Replacement, Orthopedic Surgery, Tonsillectomy Additional Past Surgical History / Comment(s): Diverticulitis; Right hip replacement Past Anesthesia/Blood Transfusion Reactions: No Reported Reaction Date of Last Stent Placement:: 02/28/19 Past Psychological History: No Psychological Hx Reported Smoking Status: Former smoker Past Alcohol Use History: None Reported Additional Past Alcohol Use History / Comment(s): Patient smokes cigars in the p ast but quit 20 years ago. He has used marijuana and street drugs in the past. He drinks alcohol rarely. 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 He lives home with his and 8-year-old adopted grandson. They have 3 dogs in the home. Past Drug Use History: None Reported - Past Family History Father Family Medical History: Hypertension Mother History Unknown: Yes Family Medical History: Cancer Additional Family Medical History / Comment(s): breast cancer Medications and Allergies Home Medications Medication Instructions Recorded Confirmed Type Olmesartan/Hydrochlorothiazide 1 tab PO DAILY 05/18/17 03/01/19 History [Benicar Hct 40-25 mg Tablet] Atorvastatin [Lipitor] 40 mg PO DAILY #30 tab 05/20/17 03/01/19 Rx Clopidogrel [Plavix] 75 mg PO DAILY #30 tab 05/20/17 03/01/19 Rx Allopurinol [Zyloprim] 300 mg PO DAILY 03/01/19 03/01/19 History Celecoxib [CeleBREX] 200 mg PO BID 03/01/19 03/01/19 History Aspirin [Adult Low Dose Aspirin EC] 81 mg PO DAILY 03/03/19 03/03/19 History Omeprazole Magnesium [PriLOSEC OTC] 20 mg PO DAILY 03/03/19 03/03/19 History Allergies Allergy/AdvReac Type Severity Reaction Status Date / Time amlodipine Allergy Severe Unknown Verified 02/28/19 20:05 venom-honey bee Allergy Anaphylaxis Verified 02/28/19 20:05 [bee venom (honey bee)] vancomycin AdvReac Rash/Hives Verified 02/28/19 20:05 Physical Exam Vitals: Vital Signs Temp Pulse Resp BP Pulse Ox 03/05/19 08:00 97.9 F 64 16 120/78 03/05/19 07:00 64 18 112/75 96 03/05/19 06:00 56 L 18 118/79 96 03/05/19 05:00 69 16 109/78 96 03/05/19 04:00 98.3 F 59 L 16 104/66 96 03/05/19 03:00 64 18 110/73 96 03/05/19 02:00 69 14 111/75 96 03/05/19 01:00 58 L 15 109/76 96 03/05/19 00:07 68 96 03/05/19 00:00 98 F 62 18 106/77 96 03/04/19 23:00 67 18 101/74 95 03/04/19 22:00 69 16 121/81 95 03/04/19 21:00 69 18 96 03/04/19 20:00 97.8 F 73 18 111/72 95 03/04/19 19:00 74 18 123/77 97 03/04/19 18:00 69 17 111/85 97 03/04/19 17:00 62 16 108/74 98 03/04/19 16:30 55 L 19 110/80 98 03/04/19 16:15 61 03/04/19 16:00 60 17 99/69 98 03/04/19 15:45 63 19 105/73 97 03/04/19 15:30 58 L 17 106/69 98 03/04/19 15:15 57 L 16 104/68 98 03/04/19 15:01 60 03/04/19 13:45 66 03/04/19 13:00 64 18 102/65 97 03/04/19 12:00 98.3 F 61 18 105/70 98 03/04/19 11:00 65 19 116/76 96 03/04/19 10:00 63 17 111/81 97 03/04/19 09:00 64 16 101/67 96 Intake and Output 03/04/19 03/05/19 03/05/19 22:59 06:59 14:59 Intake Total 800 300 100 Output Total 950 300 0 Balance -150 0 100 Intake: IV 800 300 0 Sodium Chloride 0.9% 1, 800 300 0 000 ml @ 100 mls/hr IV . Q10H [facility] Rx#:[id number] Oral 100 Output: Urine 950 300 0 Other: Voiding Method Urinal Urinal # Voids 1 0 0 # Bowel Movements 1 Weight 100.8 kg Gen: This is a 58-year-old male. He is sitting up in the ICU bed and appears to be comfortable and in no acute distress. HEENT: Head is atraumatic, normocephalic. Pupils equal, round. Sclerae is anicteric. Oral mucous members are moist. Oropharynx shows no erythema or edema. NECK: Supple. No JVD. No lymphadenopathy. No thyromegaly. LUNGS: Clear to auscultation. No wheezes or rhonchi. No intercostal retr actions. HEART: Regular rate and rhythm. No murmur. ABDOMEN: Soft. Bowel sounds are present. No masses. No tenderness. EXTREMITIES: No pedal edema. No calf tenderness. Dorsalis pedis +2 bilaterall y. There is an ulcer on the distal right great toe with mild sanguinous drainage. Mild erythema and edema. No foul odor. NEUROLOGICAL: Patient is awake, alert and oriented x3. Cranial nerves 2 through 12 are grossly intact. Results Results: Laboratory Results WBC 9.2 k/uL (3.8-10.6) 03/05/19 04:57 RBC 5.01 m/uL (4.30-5.90) 03/05/19 04:57 Hgb 15.1 gm/dL (13.0-17.5) 03/05/19 04:57 Hct 45.0 % (39.0-53.0) 03/05/19 04:57 MCV 89.7 fL (80.0-100.0) 03/05/19 04:57 MCH 30.2 pg (25.0-35.0) 03/05/19 04:57 MCHC 33.7 g/dL (31.0-37.0) 03/05/19 04:57 RDW 13.7 % (11.5-15.5) 03/05/19 04:57 Plt Count 201 k/uL (150-450) 03/05/19 04:57 Neutrophils % 72 % 03/05/19 04:57 Lymphocytes % 19 % 03/05/19 04:57 Monocytes % 6 % 03/05/19 04:57 Eosinophils % 2 % 03/05/19 04:57 Basophils % 0 % 03/05/19 04:57 Neutrophils # 6.6 k/uL (1.3-7.7) 03/05/19 04:57 Lymphocytes # 1.7 k/uL (1.0-4.8) 03/05/19 04:57 Monocytes # 0.6 k/uL (0-1.0) 03/05/19 04:57 Eosinophils # 0.2 k/uL (0-0.7) 03/05/19 04:57 Basophils # 0.0 k/uL (0-0.2) 03/05/19 04:57 PT 10.0 sec (9.0-12.0) 02/28/19 19:36 INR 0.9 (<1.2) 02/28/19 19:36 APTT 21.3 sec (22.0-30.0) L 02/28/19 19:36 Sodium 138 mmol/L (137-145) 03/05/19 04:57 Potassium 4.3 mmol/L (3.5-5.1) 03/05/19 04:57 Chloride 104 mmol/L (98-107) 03/05/19 04:57 Carbon Dioxide 24 mmol/L (22-30) 03/05/19 04:57 Anion Gap 10 mmol/L 03/05/19 04:57 BUN 24 mg/dL (9-20) H 03/05/19 04:57 Creatinine 1.04 mg/dL (0.66-1.25) 03/05/19 04:57 Est GFR (CKD-EPI)AfAm >90 (>60 ml/min/1.73 sqM) 03/05/19 04:57 Est GFR (CKD-EPI)NonAf 78 (>60 ml/min/1.73 sqM) 03/05/19 04:57 Glucose 121 mg/dL (74-99) H 03/05/19 04:57 POC Glucose (mg/dL) 143 mg/dL (75-99) H 03/05/19 07:00 POC Glu Linux Admin ID Rae Velez 03/05/19 07:00 Calcium 9.3 mg/dL (8.4-10.2) 03/05/19 04:57 Phosphorus 4.4 mg/dL (2.5-4.5) 03/04/19 05:16 Magnesium 1.9 mg/dL (1.6-2.3) 03/04/19 05:16 Total Bilirubin 0.6 mg/dL (0.2-1.3) 02/28/19 19:36 AST 36 U/L (17-59) 02/28/19 19:36 ALT 44 U/L (21-72) 02/28/19 19:36 Alkaline Phosphatase 83 U/L (38-126) 02/28/19 19:36 Troponin I <0.012 ng/mL (0.000-0.034) 02/28/19 19:36 Total Protein 5.9 g/dL (6.3-8.2) L 02/28/19 19:36 Albumin 3.8 g/dL (3.5-5.0) 02/28/19 19:36 CBC & Chem 7: 03/05/19 04:57 03/05/19 04:57 Labs: Abnormal Lab Results - Last 24 Hours (Table) 03/04/19 03/04/19 03/05/19 Range/Units 12:26 20:16 04:57 BUN 24 H (9-20) mg/dL Glucose 121 H (74-99) mg/dL POC Glucose (mg/dL) 111 H 172 H (75-99) mg/dL 03/05/19 Range/Units 07:00 BUN (9-20) mg/dL Glucose (74-99) mg/dL POC Glucose (mg/dL) 143 H (75-99) mg/dL Assessment and Plan Plan: This is a 58-year-old male presented to the hospital with acute myocardial infarction, status post cardiac arrest. Patient has had ongoing problem with ulcer to the distal right toe. Wound culture to be obtained. Local wound care and antibiotics will be addressed. Follow-up will be arranged. Continue supportive care. Further recommendations as patient presses. The above dictated assessment and findings were discussed with Dr. Keith. The impression and plan of care have been directed as dictated. Lavern Biggs nurse practitioner acting as scribe for Dr. Keith.
[2019-03-05] MEDS: CLOPIDOGREL 75 MG TAB PO SCH (11:15)
[2019-03-05 12:09] LABS: Glucose,Whole Blood 102 mg/dL (75-99)
[2019-03-05 13:17] VITALS: BMI 27.0
--- NOTE | 2019-03-05 16:25 | P.PN ---
Subjective This is a pleasant 58 years old male with past medical history of coronary artery disease, status post 4 stents in 2017, diabetes mellitus, atrial f ibrillation, hypertension, hyperlipidemia, kidney stones. Presents because of cardiac arrest. Patient developed chest pain for 15 minutes while he was walking his dog and sure after he became unresponsive with ventricular fibrillation, EMS arrived and they did cardiac shock . Multicompartment into atrial fibrillation's with RVR. EKG showed inferior ST elevation myocardial infarction. Patient underwent emergent cardiac cath showing acute total occlusion of the right coronary artery, patient underwent successful stenting of the RCA. Further patient has further blockages in the diagonal branch of the LAD and ramus intermedius. Patient transferred to the intensive care unit where he be further monitored Currently patient filling only mild chest discomfort, no dyspnea. No abdominal pain. No fever 03/02/2019 Patient remains in the ICU, is a stable currently. Patient denies chest balaji n/discomfort. No dyspnea. Vital signs stable and lives with no significant abnormality. Patient been followed closely by cardiology team may going to decide about of coronary artery disease like narrowing and LAD. Patient is status post stenting of the right coronary artery. However he has further blockage in the diagonal branch of the LAD and ramus intermedius. 03/03/2019 Patient remains in the ICU, comfortable in bed, no more chest pain or dyspnea. Patient is not in distress. Cardiology team R following the patient and possible repeat cardiac cath for his other coronary arteries and their branches. Patient also complaining of from right toe ulcers over the last 2 weeks. Patient states it started as a wart and he treated it locally and now it looks like an ulcer, patient does not feel it, there is shows some ulcers with surrounding callus tissue, but no pertinent discharge and or surrounding cellulitis. We will do x-ray of his right foot. Vitals monitored. Patient is hemodynamically stable 03/04/2019 pt comfortable in bed , fully awake, no chest pain or dyspnea, cardiology are following the case , plan for repeat cardiac cath. for his right toe ulcer , his xray: suspicous osteomyiltis , called ID disease consult. pt little tachypneic and he is monitored in the icu, critical care pulmonary consult are following the case. 03/05/19 pt is lying in bed , not in distress or chest pain , no change in urine or bowel habits, pt had carediac cath today ( second one) , where he underwent successful stenting of the first obtuse marginal branch and the diagonal branch. He's also been evaluated by infectious disease team for possible toe osteomyelitis. And the recommended bone scan which is pending results. Review of systems CONSTITUTIONAL: No fever, no malaise, no fatigue. HEENT: No recent visual problems or hearing problems. Denied any sore throat. CARDIOVASCULAR: No orthopnea, PND, no palpitations, no syncope. PULMONARY: No shortness of breath, no cough, no hemoptysis. GASTROINTESTINAL: No diarrhea, no nausea, no vomiting, no abdominal pain. Nor moactive bowel sounds. NEUROLOGICAL: No headaches, no weakness, no numbness. HEMATOLOGICAL: Denies any bleeding or petechiae. GENITOURINARY: Denies any burning micturition, frequency, or urgency. MUSCULOSKELETAL/RHEUMATOLOGICAL: Denies any joint pain, swelling, or any muscle pain. ENDOCRINE: Denies any polyuria or polydipsia. Medication: Tylenol, Maalox, Xanax, aspirin, Lipitor, atropine, Coreg, Flonase, Neurontin, hydroureter cell, NovoLog insulin, Cozaar, nitroglycerin, Protonix, Aldactone, Ambien. Objective - Vital Signs Vital signs: Vital Signs Temp 97.9 F 03/05/19 08:00 Pulse 57 L 03/05/19 12:00 Resp 16 03/05/19 12:00 BP 117/81 03/05/19 12:00 Pulse Ox 99 03/05/19 12:00 Intake & Output 03/04/19 03/05/19 03/05/19 18:59 06:59 18:59 Intake Total 828 700 200 Output Total 825 1250 0 Balance 3 -550 200 Weight 100.8 kg 100.8 kg Intake: IV 828 700 0 Magnesium Sulfate-D5w Pmx 100 1 gm In Dextrose/Water 1 100ml.bag @ 100 mls/hr IVPB Q1H [facility] Rx#: [id number] Magnesium Sulfate-D5w Pmx 100 1 gm In Dextrose/Water 1 100ml.bag @ 100 mls/hr IVPB Q1H [facility] Rx#: [id number] Sodium Chloride 0.9% 1, 400 700 0 000 ml @ 100 mls/hr IV . Q10H [facility] Rx#:[id number] Oral 200 Output: Urine 825 1250 0 Other: Voiding Method Urinal Urinal Urinal # Voids 1 0 2 # Bowel Movements 1 - Exam GENERAL: The patient is alert and oriented x3, not in any acute distress. Well developed, well nourished. HEENT: Pupils are round and equally reacting to light. EOMI. No scleral icterus. No conjunctival pallor. Normocephalic, atraumatic. No pharyngeal erythema. No thyromegaly. CARDIOVASCULAR: S1 and S2 present. No murmurs, rubs, or gallops. PULMONARY: Chest is clear to auscultation, no wheezing or crackles. ABDOMEN: Soft, nontender, nondistended, normoactive bowel sounds. No palpable organomegaly. MUSCULOSKELETAL: No joint swelling or deformity. EXTREMITIES: No cyanosis, clubbing, or pedal edema. NEUROLOGICAL: Gross neurological examination did not reveal any focal deficits. SKIN: No rashes. - Labs CBC & Chem 7: 03/05/19 04:57 03/05/19 04:57 Labs: Abnormal Lab Results - Last 24 Hours (Table) 03/04/19 03/05/19 03/05/19 Range/Units 20:16 04:57 07:00 BUN 24 H (9-20) mg/dL Glucose 121 H (74-99) mg/dL POC Glucose (mg/dL) 172 H 143 H (75-99) mg/dL 03/05/19 Range/Units 11:57 BUN (9-20) mg/dL Glucose (74-99) mg/dL POC Glucose (mg/dL) 102 H (75-99) mg/dL Microbiology - Last 24 Hours (Table) 03/05/19 10:00 Wound Culture - Preliminary Toe - Right First Assessment and Plan Assessment: ST elevation myocardial infarction, status post successful stenting of the right coronary artery. With further blockages of the diagonal branch of the LAD and ramus intermedius. Atrial fibrillation with RVR Right toe ulcer, mostly diabetic foot ulcer History of coronary artery disease, status post 4 stents in 2017 Diabetes mellitus Hypertension Hyperlipidemia Kidney stones Plan: This is a pleasant 58 years old male who presents with ST elevation myocardial infarction. Status post stenting of the RCA. Continue with aspirin, heart rate controlled with Cardizem. Continue with insulin. X-ray of the right foods Labs and medication were reviewed.. Continue same treatment. Continue with symptomatic treatment. Resume home medication. Monitor lytes and vitals. DVT and GI prophylaxis. Further recommendations of the clinical course of the patient GI Prophylaxis:ppi Prognosis is guarded
[2019-03-05 16:40] LABS: Glucose,Whole Blood 101 mg/dL (75-99)
[2019-03-05] MEDS ORDERED: RIVAROXABAN 15 MG TAB PO SCH (17:30)
[2019-03-05] MEDS: MUPIROCIN 2% OINT 22 GM TUBE TOPICAL SCH ×2 (17:41→21:15)
--- NOTE | 2019-03-05 17:59 | NM ---
EXAMINATION TYPE: NM bone 3 phase DATE OF EXAM: 03/05/2019 COMPARISON: Right great toe radiographs for 03/03/2019 at 9:39 AM HISTORY: Pain, symptoms and signs of infection TECHNIQUE: Department protocol. Triple phase bone scintigraphy was performed following the injection of 21.5 mCi Tc 99m MDP. Immediate images and 3 hours post injection images acquired. FINDINGS: The radionuclide angiogram phase of imaging demonstrates ipsilateral hyperperfusion to the right foot and ankle and, specifically, the right great toe. The soft tissue blood pool phase of imaging demonstrates ipsilateral increased radiopharmaceutical ac tivity throughout the soft tissues of the great toe, with distal great toe activity being greater alexander n proximal activity. The delayed bone phase of imaging demonstrates persistent increased activity throughout the right gre at toe, extending from the distal phalanx to the first MTP. IMPRESSION: SCINTIGRAPHIC FINDINGS CONSISTENT WITH OSTEOMYELITIS. Note: Further anatomic specificity can be provided with CT or forefoot MRI without and with contrast
--- NOTE | 2019-03-05 19:04 | P.PN ---
Subjective Patient is doing well. Yesterday he underwent stenting of the LAD as well as to the intermediate vessel. He has not had any further chest discomfort no dizziness lightheadedness or palpitations This morning he was switched from [place] Plavix since he has atrial fibrillation, paroxysmal and needs anticoagulation. No chest discomfort dizziness lightheadedness or palpitations resting comfortably in bed Blood pressure 112/85 mmHg pulse rate in the 50s and 60s Heart sounds S1 and S2 are normal no murmurs or gallops no rub Breath sounds are clear no rhonchi no crackles Groins of healed well no hematoma No edema in the lower extremities No JVD Impression Patient presented with a VF arrest in the setting of an acute ST elevation LA he underwent Akil stenting to the RCA Subsequently Akil stenting to the intermedius vessel and the diagonal vessel was performed yesterday but Dr. Rudd for significant lesions History of paroxysmal atrial fibrillation Suggest No more flecainide Short-term oral amiodarone to suppress atrial fibrillation for the next month to 6 weeks Xarelto 15 mg by mouth daily Aspirin and Plavix at this time After one month we will discontinue triple therapy and switch to dual therapy with 15 mg Xarelto and 75 mg of Plavix Electrolytes and normal renal function is normal hemoglobin is normal Discharge planning for tomorrow Objective - Vital Signs Vital signs: Vital Signs Temp 97.9 F 03/05/19 08:00 Pulse 67 03/05/19 16:00 Resp 16 03/05/19 16:00 BP 112/85 03/05/19 16:00 Pulse Ox 98 03/05/19 16:00 Intake & Output 03/05/19 03/05/19 03/06/19 06:59 18:59 06:59 Intake Total 700 400 Output Total 1250 0 Balance -550 400 Weight 100.8 kg 100.8 kg Intake: IV 700 0 Sodium Chloride 0.9% 1, 700 0 000 ml @ 100 mls/hr IV . Q10H [facility] Rx#:[id number] Oral 400 Output: Urine 1250 0 Other: Voiding Method Urinal Urinal # Voids 0 2 # Bowel Movements 1 - Labs CBC & Chem 7: 03/05/19 04:57 03/05/19 04:57 Labs: Abnormal Lab Results - Last 24 Hours (Table) 04/03/19 04/04/19 04/04/19 Range/Units 20:16 04:57 07:00 BUN 24 H (9-20) mg/dL Glucose 121 H (74-99) mg/dL POC Glucose (mg/dL) 172 H 143 H (75-99) mg/dL 03/05/19 03/05/19 Range/Units 11:57 16:29 BUN (9-20) mg/dL Glucose (74-99) mg/dL POC Glucose (mg/dL) 102 H 101 H (75-99) mg/dL Microbiology - Last 24 Hours (Table) 03/05/19 10:00 Wound Culture - Preliminary Toe - Right First
[2019-03-05 19:49] LABS: Hemoglobin A1C 6.4 % (4.0-6.0)
[2019-03-05 20:38] LABS: Glucose,Whole Blood 111 mg/dL (75-99)
--- NOTE | 2019-03-05 22:27 | P.CON ---
Consult Note - . Consult date: 03/05/19 Assessment/Plan:: This is a 58-year-old male known to ID service as he was treated in the past in 2009 requiring IV antibiotics. 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 Patient is also has episode of atrial fibrillation. This consult was requested regarding cellulitis of the right great toe. Patient states that he has been following at [place] [facility] for several weeks with Dr. Dorantes. He states he had a toenail problem and a callus and then it was thought that he had a plantar wart and medication was applied to the area but then he had a blistering. He states his been open and raw for the past 1-2 weeks and has been applying antibiotic cream. He went back and had a debridement done and he has been using Betadine for the past 10 days. He has not had significant improvement and is now noted to have bleeding from the wound. Please see the consult note is dictated by nurse practitioner Mrs. Lavern Biggs. 58-year-old male who presents to hospital with acute myocardial infarction and what appears to be cardiac arrest in route. Acute ST elevated myocardial infarction was noted and he has had stenting. 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 At this time further evaluations will be performed to ensure there is not underlying osteomyelitis. Bone scan is requested. Local wound care requested with sloane that can be changed daily for now. Elevate the limb at rest. Wound culture is in process. Baseline inflammatory laboratories also requested. Findings of the imaging studies will help determine the course of antibiotic therapy at the time of this discharge. She is having a significant improvement of his cardiac status. I agree with evaluation, assessment and plan is dictated by nurse practitioner Mrs. Lavern Biggs.
[2019-03-06 05:03] VITALS: PULSE 51
[2019-03-06] MEDS: INSULIN ASPART (NovoLOG) 100 UNIT/ML VIAL SQ SCH ×2 (07:11→12:16)
[2019-03-06 07:22] LABS: Glucose,Whole Blood 120 mg/dL (75-99)
[2019-03-06] MEDS: LOSARTAN 50 MG TAB PO SCH (09:33)
[2019-03-06] MEDS: PANTOPRAZOLE 40 MG TABLET PO SCH (09:33)
[2019-03-06] MEDS: ATORVASTATIN 80 MG TAB PO SCH (09:33)
[2019-03-06] MEDS: METOPROLOL TARTRATE 25 MG TAB PO SCH (09:33)
[2019-03-06] MEDS: AMIODARONE 200 MG TAB PO SCH (09:34)
[2019-03-06] MEDS: MUPIROCIN 2% OINT 22 GM TUBE TOPICAL SCH (09:34)
[2019-03-06] MEDS: ASPIRIN 81 MG PO SCH (09:34)
[2019-03-06] MEDS: CLOPIDOGREL 75 MG TAB PO SCH (09:34)
[2019-03-06] MEDS: GABAPENTIN 300 MG CAP PO SCH (09:34)
[2019-03-06] MEDS ORDERED: AMPICILLIN-SULBACTAM 3 GM in SODIUM CHLORIDE 0.9% 100 ML IVPB SCH (10:00)
[2019-03-06 12:12] LABS: Glucose,Whole Blood 92 mg/dL (75-99)
[2019-03-06 12:15] VITALS: BP 117/70; RESP 18; TEMP 97.6
--- NOTE | 2019-03-06 13:52 | P.PN ---
Subjective Patient is doing well from a chronic standpoint he has no chest discomfort dizziness lightheadedness or palpitations Breath sounds are clear no rhonchi no crackles Heart sounds are normal normal S1 normal S2 no murmur gallop or rub Abdomen soft nontender extended is warm He has a stimulators in his toe and is being treated with IV antibiotics Procardia standpoint he's been very well following intervention for a non-ST elevation LA on the RCA followed by interventions on the diagonal vessel as well as intermedius vessel subsequently Groins of healed well Impression Acute anterior wall LA Coronary artery disease status post stenting, multivessel, stage procedures Paroxysmal atrial fibrillation RVR Suggest Continue current cardiac medications including statins Continue aspirin and Plavix and anticoagulant and later switched to Plavix +15 mg Xarelto after one month Continue beta blockers continue antihypertensive therapy From a cardiac standpoint patient to go home Discontinue class I antiarrhythmic drug therapy. Discussed the patient Objective - Vital Signs Vital signs: Vital Signs Temp 97.6 F 03/06/19 12:00 Pulse 51 L 03/06/19 12:00 Resp 18 03/06/19 12:00 BP 117/70 03/06/19 12:00 Pulse Ox 97 03/06/19 12:00 Intake & Output 03/05/19 03/06/19 03/06/19 18:59 06:59 18:59 Intake Total 400 115 Output Total 0 Balance 400 115 Weight 100.8 kg Intake: IV 0 Sodium Chloride 0.9% 1, 0 000 ml @ 100 mls/hr IV . Q10H CADY Rx#:[id number] Oral 400 115 Output: Urine 0 Other: Voiding Method Urinal Toilet Toilet # Voids 2 1 1 - Labs CBC & Chem 7: 03/05/19 04:57 03/05/19 04:57 Labs: Abnormal Lab Results - Last 24 Hours (Table) 03/05/19 03/05/19 03/05/19 Range/Units 04:47 16:29 20:25 POC Glucose (mg/dL) 101 H 111 H (75-99) mg/dL Hemoglobin A1c 6.4 H (4.0-6.0) % C-Reactive Protein (<10.0) mg/L 03/06/19 03/06/19 Range/Units 04:10 07:09 POC Glucose (mg/dL) 120 H (75-99) mg/dL Hemoglobin A1c (4.0-6.0) % C-Reactive Protein 12.7 H (<10.0) mg/L Microbiology - Last 24 Hours (Table) 03/05/19 10:00 Gram Stain - Preliminary Toe - Right First Wound Culture - Preliminary
--- NOTE | 2019-03-19 07:47 | P.DS ---
Providers Date of admission: 02/28/19 19:43 Expected date of discharge: 03/06/19 Attending physician: Guilherme Farias Consults: 02/28/19 19:43 Consult Physician Stat Consulting Provider: Ramos Pruett Consult Reason/Comments: Acute WA, V. fib arrest Do you want consulting provider notified?: Already Contacted 02/28/19 21:16 Consult Physician Routine Consulting Provider: [facility] Consult Reason/Comments: Post Interventional patient Do you want consulting provider notified?: Already Contacted 03/04/19 14:50 Consult Physician Routine Consulting Provider: [facility] Consult Reason/Comments: Post Interventional patient Do you want consulting provider notified?: Already Contacted 03/04/19 17:05 Consult Physician Urgent Consulting Provider: Dannie Keith Consult Reason/Comments: cellulitis R Great toe Do you want consulting provider notified?: Yes Primary care physician: Kathie [facility] Course: 58 years old male with past medical history of coronary artery disease, status post 4 stents in 2017, diabetes mellitus, atrial fibrillation, hypertension, hyperlipidemia, kidney stones. Presents because of cardiac arrest. Patient developed chest pain for 15 minutes while he was walking his dog and sure after he became unresponsive with ventricular fibrillation, EMS arrived and they did cardiac shock . Multicompartment into atrial fibrillation's with RVR. EKG showed inferior ST elevation myocardial infarction. Patient underwent emergent cardiac cath showing acute total occlusion of the right coronary artery, patient underwent successful stenting of the RCA. Further patient has further blockages in the diagonal branch of the LAD and ramus intermedius. Patient transferred to the intensive care unit where he be further monitored Currently patient filling only mild chest discomfort, no dyspnea. No abdominal pain. No fever 03/02/2019 Patient remains in the ICU, is a stable currently. Patient denies chest pain/discomfort. No dyspnea. Vital signs stable and lives with no significant abnormality. Patient been followed closely by cardiology team may going to decide about of coronary artery disease like narrowing and LAD. Patient is status post stenting of the right coronary artery. However he has further blockage in the diagonal branch of the LAD and ramus intermedius. 03/03/2019 Patient remains in the ICU, comfortable in bed, no more chest pain or dyspnea. Patient is not in distress. Cardiology team R following the patient and possible repeat cardiac cath for his other coronary arteries and their br anches. Patient also complaining of from right toe ulcers over the last 2 weeks. Patient states it started as a wart and he treated it locally and now it looks like an ulcer, patient does not feel it, there is shows some ulcers with surrounding callus tissue, but no pertinent discharge and or surrounding cellulitis. We will do x-ray of his right foot. Vitals monitored. Patient is hemodynamically stable 03/04/2019 pt comfortable in bed , fully awake, no chest pain or dyspnea, cardiology are following the case , plan for repeat cardiac cath. for his right toe ulcer , his xray: suspicous osteomyiltis , called ID disease consult. pt little tachypneic and he is monitored in the icu, critical care pulmonary consult are following the case. 03/05/19 pt is lying in bed , not in distress or chest pain , no change in urine or bowel habits, pt had carediac cath today ( second one) , where he underwent successful stenting of the first obtuse marginal branch and the diagonal branch. He's also been evaluated by infectious disease team for possible toe osteomyelitis. And the recommended bone scan which is pending results. Patient is doing well from a chronic standpoint he has no chest discomfort dizziness lightheadedness or palpitations Breath sounds are clear no rhonchi no crackles Heart sounds are normal normal S1 normal S2 no murmur gallop or rub Abdomen soft nontender extended is warm He has a stimulators in his toe and is being treated with IV antibiotics Procardia standpoint he's been very well following intervention for a non-ST elevation WA on the RCA followed by interventions on the diagonal vessel as well as intermedius vessel subsequently Groins of healed well Impression Acute anterior wall WA Coronary artery disease status post stenting, multivessel, stage procedures Paroxysmal atrial fibrillation RVR Suggest Continue current cardiac medications including statins Continue aspirin and Plavix and anticoagulant and later switched to Plavix +15 mg Xarelto after one month Continue beta blockers continue antihypertensive therapy From a cardiac standpoint patient to go home Discontinue class I antiarrhythmic drug therapy. Patient Condition at Discharge: Serious Plan - Discharge Summary Discharge Rx Participant: Yes New Discharge Prescriptions: New Ertapenem [INVanz] 1 gm IM DAILY #42 vial Amiodarone [Cordarone] 400 mg PO BID #60 tab Metoprolol Tartrate [Lopressor] 25 mg PO BID #60 tab Rivaroxaban [Xarelto] 15 mg PO W/SUPPER #30 tab Losartan [Cozaar] 100 mg PO DAILY #30 tab Nitroglycerin Sl Tabs [Nitrostat] 0.4 mg SUBLINGUAL Q5M PRN #30 tab PRN Reason: Chest Pain Continue Clopidogrel [Plavix] 75 mg PO DAILY #30 tab Atorvastatin [Lipitor] 40 mg PO DAILY #30 tab Allopurinol [Zyloprim] 300 mg PO DAILY Aspirin [Adult Low Dose Aspirin EC] 81 mg PO DAILY Omeprazole Magnesium [PriLOSEC OTC] 20 mg PO DAILY Discontinued Olmesartan/Hydrochlorothiazide [Benicar Hct 40-25 mg Tablet] 1 tab PO DAILY Celecoxib [CeleBREX] 200 mg PO BID Discharge Medication List Atorvastatin [Lipitor] 40 mg PO DAILY #30 tab 05/20/17 [Rx] Clopidogrel [Plavix] 75 mg PO DAILY #30 tab 05/20/17 [Rx] Allopurinol [Zyloprim] 300 mg PO DAILY 03/01/19 [History] Aspirin [Adult Low Dose Aspirin EC] 81 mg PO DAILY 03/03/19 [History] Omeprazole Magnesium [PriLOSEC OTC] 20 mg PO DAILY 03/03/19 [History] Amiodarone [Cordarone] 400 mg PO BID #60 tab 03/06/19 [Rx] Ertapenem [INVanz] 1 gm IM DAILY #42 vial 03/06/19 [Rx] Losartan [Cozaar] 100 mg PO DAILY #30 tab 03/06/19 [Rx] Metoprolol Tartrate [Lopressor] 25 mg PO BID #60 tab 03/06/19 [Rx] Nitroglycerin Sl Tabs [Nitrostat] 0.4 mg SUBLINGUAL Q5M PRN #30 tab 03/06/19 [Rx] Rivaroxaban [Xarelto] 15 mg PO W/SUPPER #30 tab 03/06/19 [Rx] Follow up Appointment(s)/Referral(s): Kathie Anderson III, MD [Primary Care Provider] - 1-2 days Dannie Keith MD [STAFF PHYSICIAN] - 1 Week (in Wound Center) [facility] [NON-STAFF] - 03/07/19 10:00 am Philip Fu MD [STAFF PHYSICIAN] - 2 Weeks Ambulatory/Diagnostic Orders: Basic Metabolic Panel [LAB.AMB] Location: None Selected C Reactive Protein [LAB.AMB] Location: None Selected Complete Blood Count w/diff [LAB.AMB] Location: None Selected Erythrocyte Sedimentation Rate [LAB.AMB] Location: None Selected Patient Instructions/Handouts: Heart Attack (DC), Osteomyelitis (DC), Coronary Intravascular Stent Placement (DC) Activity/Diet/Wound Care/Special Instructions: [employer] is the company insurance requires patient to go through for diabetic supplies, they can be reached at . Discharge Disposition: HOME SELF-CARE
== END 2019-03-06 18:21 | disposition home or self-care (01) | DRG 246 ==
LOC: EC 19:26 → 2SICU 19:43
PROVIDERS: ADMIT Hospitalist; ATTEND Hospitalist
PROC: 027034Z Dilation of Coronary Artery, One Artery with Drug-eluting Intraluminal Device, Percutaneous Approach (ICD-10-PCS; 2019-02-28)
PROC: B2111ZZ Fluoroscopy of Multiple Coronary Arteries using Low Osmolar Contrast (ICD-10-PCS; 2019-02-28)
PROC: B2151ZZ Fluoroscopy of Left Heart using Low Osmolar Contrast (ICD-10-PCS; 2019-02-28)
PROC: 4A023N7 Measurement of Cardiac Sampling and Pressure, Left Heart, Percutaneous Approach (ICD-10-PCS; principal; 2019-02-28 20:03)
PROC: 027135Z Dilation of Coronary Artery, Two Arteries with Two Drug-eluting Intraluminal Devices, Percutaneous Approach (ICD-10-PCS; 2019-03-04)
PROC: 05HF33Z Insertion of Infusion Device into Left Cephalic Vein, Percutaneous Approach (ICD-10-PCS; 2019-03-06)
DX: I21.19 ST elevation (STEMI) myocardial infarction involving other coronary artery of inferior wall (principal); I49.01 Ventricular fibrillation; M86.171 Other acute osteomyelitis, right ankle and foot; E11.621 Type 2 diabetes mellitus with foot ulcer; E11.69 Type 2 diabetes mellitus with other specified complication; I08.1 Rheumatic disorders of both mitral and tricuspid valves; L97.519 Non-pressure chronic ulcer of other part of right foot with unspecified severity; Z95.5 Presence of coronary angioplasty implant and graft; I48.0 Paroxysmal atrial fibrillation; K21.9 Gastro-esophageal reflux disease without esophagitis; I25.2 Old myocardial infarction; I10 Essential (primary) hypertension; E78.5 Hyperlipidemia, unspecified; N42.9 Disorder of prostate, unspecified; I25.10 Atherosclerotic heart disease of native coronary artery without angina pectoris; J30.2 Other seasonal allergic rhinitis; E66.9 Obesity, unspecified; L03.031 Cellulitis of right toe; Z68.27 Body mass index [BMI] 27.0-27.9, adult; Z79.899 Other long term (current) drug therapy; Z79.82 Long term (current) use of aspirin; Z79.02 Long term (current) use of antithrombotics/antiplatelets; Z90.49 Acquired absence of other specified parts of digestive tract; Z87.442 Personal history of urinary calculi; Z96.641 Presence of right artificial hip joint; Z87.891 Personal history of nicotine dependence; Z86.74 Personal history of sudden cardiac arrest; Z85.9 Personal history of malignant neoplasm, unspecified; Z88.8 Allergy status to other drugs, medicaments and biological substances; Z88.1 Allergy status to other antibiotic agents; Z91.030 Bee allergy status; Z82.49 Family history of ischemic heart disease and other diseases of the circulatory system; Z80.3 Family history of malignant neoplasm of breast
CPT/HCPCS: 36410; 36415; 76937; 78315; 80048; 80053; 83036; 83735; 84100; 84132; 84484; 85025; 85027; 85347; 85610; 85652; 85730; 86140; 87070; 87205; 93005; 93306; 93458; 96374; 96375; 99291; C1874

== ENCOUNTER → 2019-04-07 | Outpatient (CLI) | payer OTHER | END | disposition home or self-care (01) | LOC: LABWHC1 11:21 | PROVIDERS: ATTEND Internal Medicine Cardiovascular Disease | DX: E78.2 Mixed hyperlipidemia (principal) | CPT/HCPCS: 36415; 80061; 84443; 84450; 84460 ==

== ENCOUNTER 2019-07-04 15:41 | Emergency (ER) | payer OTHER ==
[2019-07-04 15:45] VITALS: BP 128/78; PULSE 65; RESP 16; TEMP 97.5
[2019-07-04] MEDS ORDERED: RABIES IMMUNE GLOB 300 UNIT/ML 5 ML VIAL IM ONE (16:19)
[2019-07-04] MEDS ORDERED: RABIES VACCINE (PCEC) 2.5 UNIT KIT IM ONE (16:19)
--- NOTE | 2019-07-04 16:28 | ED ---
Animal Bite HPI - General Chief Complaint: Animal Bite Stated Complaint: bat bite Time Seen by Provider: 07/04/19 15:54 Source: patient Mode of arrival: ambulatory Limitations: no limitations - History of Present Illness Initial Comments: Patient is a 59-year-old male presenting to emergency Department with a chief complaint of a bat bite. Patient reports that he attempted to displace and injured bat, he covered it with a cloth but it bit him on the distal phalanges of his right second digit. Patient denies pain, bleeding or limited range of motion in the finger. Patient is concern for rabies and wants to get immunized. Patient reports his tetanus is up-to-date. Patient did not take any medication to alleviate the symptoms. - Related Data Home Medications Medication Instructions Recorded Confirmed Allopurinol [Zyloprim] 300 mg PO DAILY 03/01/19 03/20/19 Aspirin [Adult Low Dose Aspirin EC] 81 mg PO DAILY 03/03/19 03/20/19 Omeprazole Magnesium [PriLOSEC OTC] 20 mg PO DAILY 03/03/19 03/20/19 Amiodarone [Cordarone] 200 mg PO BID 03/20/19 03/20/19 Previous Rx's Medication Instructions Recorded Atorvastatin [Lipitor] 40 mg PO DAILY #30 tab 05/20/17 Clopidogrel [Plavix] 75 mg PO DAILY #30 tab 05/20/17 Ertapenem [INVanz] 1 gm IM DAILY #42 vial 03/06/19 Losartan [Cozaar] 100 mg PO DAILY #30 tab 03/06/19 Metoprolol Tartrate [Lopressor] 25 mg PO BID #60 tab 03/06/19 Nitroglycerin Sl Tabs [Nitrostat] 0.4 mg SUBLINGUAL Q5M PRN #30 tab 03/06/19 Rivaroxaban [Xarelto] 15 mg PO W/SUPPER #30 tab 03/06/19 Allergies Allergy/AdvReac Type Severity Reaction Status Date / Time amlodipine Allergy Severe LEG Verified 07/04/19 15:45 SWELLING AND RUPTURE OF ACHILLES venom-honey bee Allergy Anaphylaxis Verified 07/04/19 15:45 [bee venom (honey bee)] vancomycin AdvReac RED MAN Verified 07/04/19 15:45 SYNDROME Review of Systems ROS Statement: Those systems with pertinent positive or pertinent negative responses have been documented in the HPI. ROS Other: All systems not noted in ROS Statement are negative. Past Medical History Past Medical History: Atrial Fibrillation, Coronary Artery Disease (CAD), Cancer, GERD/Reflux, Hyperlipidemia, Hypertension, Myocardial Infarction (HI), Prostate Disorder Additional Past Medical History / Comment(s): RT BIG TOE WOUND, seasonal allergies, kidney stones, benign lesion on nose, diverticulitis, GOUT Last Myocardial Infarction Date:: 02/28/19 History of Any Multi-Drug Resistant Organisms: None Reported Past Surgical History: Back Surgery, Bowel Resection, Cholecystectomy, Heart Catheterization With Stent, Joint Replacement, Orthopedic Surgery, Tonsillectomy Additional Past Surgical History / Comment(s): TOTAL OF 8 STENTS, Diverticulitis; Right hip replacement Past Anesthesia/Blood Transfusion Reactions: No Reported Reaction Date of Last Stent Placement:: [id number] Past Psychological History: No Psychological Hx Reported Smoking Status: Former smoker - Past Family History Father Family Medical History: Hypertension Mother History Unknown: Yes Family Medical History: Cancer Additional Family Medical History / Comment(s): breast cancer General Exam - General Exam Comments Initial Comments: General: Well-developed well-nourished distress HEENT: Normocephalic/atraumatic, PERLL, pharynx erythema, swallowing well, EAC no erythema, no exudates, TM clear, no cervical lymph nodes Neck: Supple, nontender, trachea midline Chest/Lungs: Normal respirations, no signs of respiratory distress clear to auscultation bilaterally no wheezes, rales, rhonchi Cardiac: Regular rate and rhythm, normal S1-S2, no murmurs rubs or gallops Abdomen/GI: Soft nontender, bowel sounds equal or quadrant x4, no guarding, no rebound no CVA tenderness Musculoskeletal: Bite to the distal end of the right second digit, limited range of motion in the right index finger, the bite site could not be visualized, no active bleeding, +2 ulnar radial pulses bilaterally, normal capillary refill. Skin: Warmth, no rashes or lesions, no cyanosis or diaphoresis Neurologic: AAO x 3, CN 2-12 intact, Psychiatric: Mood and affect normal, judgment normal Limitations: no limitations Course Vital Signs 07/04/19 15:43 Temperature 97.5 F L Pulse Rate 65 Respiratory 16 Rate Blood Pressure 128/78 O2 Sat by Pulse 97 Oximetry Medical Decision Making - Medical Decision Making Patient is 59-year-old male presenting to emergency Department with a chief complaint of a bat bite. Patient given immunoglobulin and rabies vaccine. Patient advised to return for additional vaccinations on days 3, 7 and 14. Patient advised to follow-up with primary care. Strict return parameters were thoroughly discussed the patient was understanding and agreeable. Case discussed with physician. Disposition Clinical Impression: Bat bite of finger Disposition: HOME SELF-CARE Condition: Stable Instructions (If sedation given, give patient instructions): Animal Bite (ED) Additional Instructions: Please follow up for repeat vaccinations a day 3, 7 and 11. Please follow with primary care. Please return to emergency department if symptoms worsen. Is patient prescribed a controlled substance at d/c from ED?: No Referrals: Kathie Anderson III, MD [Primary Care Provider] - 1-2 days Time of Disposition: 16:28
== END 2019-07-04 17:16 | disposition home or self-care (01) ==
LOC: EC 15:41
DX: S61.250A Open bite of right index finger without damage to nail, initial encounter (principal); K21.9 Gastro-esophageal reflux disease without esophagitis; I25.10 Atherosclerotic heart disease of native coronary artery without angina pectoris; I48.91 Unspecified atrial fibrillation; M10.9 Gout, unspecified; I25.2 Old myocardial infarction; Z23 Encounter for immunization; Z20.3 Contact with and (suspected) exposure to rabies; Z87.891 Personal history of nicotine dependence; Z79.82 Long term (current) use of aspirin; Z79.899 Other long term (current) drug therapy; Z88.8 Allergy status to other drugs, medicaments and biological substances; Z88.1 Allergy status to other antibiotic agents; Z91.030 Bee allergy status; Z95.5 Presence of coronary angioplasty implant and graft; Z96.641 Presence of right artificial hip joint; W55.81XA Bitten by other mammals, initial encounter
CPT/HCPCS: 90375; 90471; 90675; 96372; 99283

== ENCOUNTER → 2019-07-22 | Outpatient (CLI) | payer OTHER ==
--- NOTE | 2019-07-22 08:05 | MR ---
EXAMINATION TYPE: MR lumbar spine wo con DATE OF EXAM: 07/22/2019 COMPARISON: Prior MRI lumbar spine February 10, 2018 HISTORY: Spondylolisthesis and other intervertebral disc degeneration per order. Back pain for 1.5 ye ars into right buttocks and thigh per patient. TECHNIQUE: Multiplanar, multisequence imaging of the lumbar spine is performed without IV contrast. FINDINGS: Coronal images redemonstrate dextroconvex scoliosis centered upper to mid lumbar spine. The re is persistent multilevel spondylolisthesis or grade 1 retrolisthesis T12 on L1, L1 on L2, and L2 o n L3 are all redemonstrated. Sagittal images of the lumbar spine show vertebral body height to remain satisfactory. Multilevel disc desiccation is redemonstrated with multilevel disc space narrowing alexander t is advanced in appearance left L2-L3 level. Moderate multilevel anterior spurring redemonstrated pr ominent upper to mid lumbar spine. The conus medullaris remains normal in position and signal. The b one marrow signal intensity is within normal limits. Axial images at T12-L1 level redemonstrates mild/moderate broad-based disc bulge effacing the anterio r thecal sac, bilateral neural foramina are patent. Axial images at L1-L2 level redemonstrated [id number] broad disc bulge with right paracentral/f oraminal disc protrusion component effacing anterior thecal sac and causing mild right-sided inferior neural foraminal narrowing. No significant change from prior. Axial images at L2-L3 level shows severe broad disc bulge with right paracentral disc protrusion comp onent effacing the anterior thecal sac with mild facet degenerative changes bilaterally causing moder ate to severe left-sided neural foraminal narrowing seen by sagittal image 6. No significant change f rom prior. Axial images at the L3-L4 level show moderate to advanced facet degenerative changes bilaterally. The re is moderate broad-based disc bulge effacing anterior thecal sac. There is moderate left greater th an right bilateral inferior neural foraminal narrowing. Axial images at the L4-L5 level show moderate to advanced facet degenerative changes bilaterally. The re is vacuum disc phenomenon with moderate to advanced broad-based disc bulge that has prominent righ t foraminal disc protrusion component. There is effacement anterior thecal sac. There is moderate lef t-sided inferior neural foraminal narrowing encroaching along the inferior margin left L4 nerve sagit maicol image 3 and moderate to severe right-sided neural foraminal narrowing encroaching inferior right L4 nerve sagittal image 14. Subtle spondylolisthesis is redemonstrated. Axial images at L5-S1 level show moderate facet degenerative changes and ligamentum flavum hypertroph y. Mild broad disc bulge is seen with spinal canal is preserved. Bilateral neural foramina are patent . IMPRESSION: Multilevel spondylolisthesis and fairly significant degenerative changes as detailed abov e most prominent L4-L5 level.
== END | disposition home or self-care (01) ==
LOC: RADMRIMAIN 06:14
PROVIDERS: ATTEND Family Medicine
DX: M43.16 Spondylolisthesis, lumbar region (principal); M47.816 Spondylosis without myelopathy or radiculopathy, lumbar region
CPT/HCPCS: 72148

== ENCOUNTER 2019-08-20 00:10 | Emergency (ER) | payer OTHER ==
[2019-08-20 00:16] VITALS: RESP 18
--- NOTE | 2019-08-20 01:09 | XR ---
EXAMINATION TYPE: XR chest 2V DATE OF EXAM: 08/20/2019 COMPARISON: 05/18/2017 HISTORY: Chest pain TECHNIQUE: Frontal and lateral views of the chest are obtained. FINDINGS: Heart and mediastinum are normal. Lungs are clear. Diaphragm is normal. There are chest le ads. Bony thorax is intact. IMPRESSION: No active cardiopulmonary disease. Normal heart. No change.
[2019-08-20 01:15] LABS: Basophils % (A) 0 %; Eosinophils # (A) 0.3 k/uL (0-0.7); Eosinophils % (A) 4 %; HCT 45.3 % (39.0-53.0); HGB 14.6 gm/dL (13.0-17.5); Lymphocytes # (A) 1.7 k/uL (1.0-4.8); Lymphocytes % (A) 25 %; MCH 27.7 pg (25.0-35.0); MCHC 32.3 g/dL (31.0-37.0); MCV 85.8 fL (80.0-100.0); Mean Platelet Volume 7.5; Monocytes # (A) 0.5 k/uL (0-1.0); Monocytes % (A) 7 %; Neutrophils # (A) 4.2 k/uL (1.3-7.7); Neutrophils % (A) 62 %; Platelet Count 165 k/uL (150-450); RBC 5.29 m/uL (4.30-5.90); RDW 13.6 % (11.5-15.5); WBC 6.9 k/uL (3.8-10.6)
[2019-08-20 01:26] LABS: ALT 39 U/L (21-72); AST 40 U/L (17-59); African American GFR (CKD) >90 (>60 ml/min/1.73 sqM); Alkaline Phosphatase 100 U/L (38-126); Anion Gap 11 mmol/L; Blood Urea Nitrogen 27 mg/dL (9-20); Calcium 9.5 mg/dL (8.4-10.2); Carbon Dioxide 22 mmol/L (22-30); Chloride 105 mmol/L (98-107); Glucose 154 mg/dL (74-99); Magnesium 1.9 mg/dL (1.6-2.3); Potassium 3.4 mmol/L (3.5-5.1); Sodium 138 mmol/L (137-145); Total Bilirubin 0.5 mg/dL (0.2-1.3); Total Protein 6.4 g/dL (6.3-8.2)
[2019-08-20 01:30] LABS: D-Dimer 0.27 mg/L FEU (<0.60); INR 1.1 (<1.2); Partial Thromboplastin Time 29.1 sec (22.0-30.0); Prothrombin Time 11.5 sec (9.0-12.0)
--- NOTE | 2019-08-20 02:05 | ED ---
Chest Pain HPI - General Chief Complaint: Chest Pain Stated Complaint: Chest Pain Time Seen by Provider: 08/20/19 00:17 Source: patient Mode of arrival: wheelchair Limitations: physical limitation - History of Present Illness Initial Comments: This patient is a 59-year-old man who presents to be evaluated for pain located at the right anterior axillary line. He noticed it while he was lying down, attempting to sleep. The patient denies any associated symptoms. He describes it as dull, mild to moderate, and he had not noted worsening or relieving factors. The patient states that the symptoms lasted probably around 5 minutes and have resolved. Patient states he has had previous stents, but states this pain does not remind him of the chest pain he was having at that time. MD Complaint: chest pain -: hour(s) Onset: during rest Pain Location: right chest Pain Radiation: none Severity: moderate Quality: dull Consistency: constant Improves With: nothing Worsens With: nothing Treatments Prior to Arrival: none - Related Data Home Medications Medication Instructions Recorded Confirmed Allopurinol [Zyloprim] 300 mg PO DAILY 03/01/19 07/17/19 Aspirin [Adult Low Dose Aspirin EC] 81 mg PO DAILY 03/03/19 07/17/19 Omeprazole Magnesium [PriLOSEC OTC] 20 mg PO DAILY 03/03/19 07/17/19 Amiodarone [Cordarone] 200 mg PO BID 03/20/19 07/17/19 Previous Rx's Medication Instructions Recorded Atorvastatin [Lipitor] 40 mg PO DAILY #30 tab 05/20/17 Clopidogrel [Plavix] 75 mg PO DAILY #30 tab 05/20/17 Ertapenem [INVanz] 1 gm IM DAILY #42 vial 03/06/19 Losartan [Cozaar] 100 mg PO DAILY #30 tab 03/06/19 Metoprolol Tartrate [Lopressor] 25 mg PO BID #60 tab 03/06/19 Nitroglycerin Sl Tabs [Nitrostat] 0.4 mg SUBLINGUAL Q5M PRN #30 tab 03/06/19 Rivaroxaban [Xarelto] 15 mg PO W/SUPPER #30 tab 03/06/19 Allergies Allergy/AdvReac Type Severity Reaction Status Date / Time amlodipine Allergy Severe LEG Verified 08/20/19 00:16 SWELLING AND RUPTURE OF ACHILLES venom-honey bee Allergy Anaphylaxis Verified 08/20/19 00:16 [bee venom (honey bee)] vancomycin AdvReac RED MAN Verified 08/20/19 00:16 SYNDROME Review of Systems ROS Statement: Those systems with pertinent positive or pertinent negative responses have been documented in the HPI. ROS Other: All systems not noted in ROS Statement are negative. Constitutional: Denies: fever, chills Respiratory: Denies: cough, dyspnea Cardiovascular: Reports: as per HPI, chest pain. Denies: palpitations, dyspnea on exertion, orthopnea, edema, syncope Gastrointestinal: Denies: abdominal pain, nausea, vomiting Genitourinary: Denies: dysuria, hematuria Musculoskeletal: Denies: back pain Skin: Denies: rash Neurological: Denies: headache, weakness, numbness Past Medical History Past Medical History: Atrial Fibrillation, Coronary Artery Disease (CAD), Cancer, GERD/Reflux, Hyperlipidemia, Hypertension, Myocardial Infarction (MS), Prostate Disorder Additional Past Medical History / Comment(s): RT BIG TOE WOUND, seasonal allergies, kidney stones, benign lesion on nose, diverticulitis, GOUT Last Myocardial Infarction Date:: 02/28/19 History of Any Multi-Drug Resistant Organisms: None Reported Past Surgical History: Back Surgery, Bowel Resection, Cholecystectomy, Heart Catheterization With Stent, Joint Replacement, Orthopedic Surgery, Tonsillectomy Additional Past Surgical History / Comment(s): TOTAL OF 8 STENTS, Diverticulitis; Right hip replacement Past Anesthesia/Blood Transfusion Reactions: No Reported Reaction Date of Last Stent Placement:: [id number] Past Psychological History: No Psychological Hx Reported Smoking Status: Former smoker - Past Family History Father Family Medical History: Hypertension Mother History Unknown: Yes Family Medical History: Cancer Additional Family Medical History / Comment(s): breast cancer General Exam Limitations: physical limitation General appearance: alert, in no apparent distress Head exam: Present: atraumatic, normocephalic Eye exam: Present: normal appearance. Absent: scleral icterus, conjunctival injection ENT exam: Present: normal oropharynx Neck exam: Present: normal inspection Respiratory exam: Present: normal lung sounds bilaterally. Absent: respiratory distress, wheezes, rales, rhonchi, stridor, chest wall tenderness, accessory muscle use Cardiovascular Exam: Present: regular rate, normal rhythm, normal heart sounds. Absent: systolic murmur, diastolic murmur, rubs, gallop GI/Abdominal exam: Present: soft. Absent: distended, tenderness, guarding, rebound, rigid, mass Extremities exam: Present: normal inspection, normal capillary refill. Absent: pedal edema, calf tenderness Back exam: Present: normal inspection Skin exam: Present: warm, dry, intact, normal color. Absent: rash Course Vital Signs 08/20/19 08/20/19 08/20/19 00:13 00:29 02:26 Temperature 97.7 F 98 F Pulse Rate 62 50 L Pulse Rate [ 57 L Pulse Oximetery ] Respiratory 18 18 Rate Blood Pressure 132/79 110/65 O2 Sat by Pulse 97 97 Oximetry Chest Pain [facility] Patient is 59-year-old man presenting with some atypical right-sided chest pain. His workup here is negative. Given his previous history did recommend that he have second set of troponin at least, and preferably admission for monitoring as well as serial troponins with cardiology consult. The patient states that he understands the importance of this but he cannot stay now. He does agree to return should the symptoms recur, or should he develop any other chest symptoms. Disposition Clinical Impression: Chest pain Disposition: HOME SELF-CARE Instructions (If sedation given, give patient instructions): Chest Pain (ED) Is patient prescribed a controlled substance at d/c from ED?: No Referrals: Kathie Anderson III, MD [Primary Care Provider] - 1-2 days
[2019-08-20 02:27] VITALS: BP 110/65; PULSE 50; TEMP 98
== END 2019-08-20 02:28 | disposition home or self-care (01) ==
LOC: EC 00:10
DX: R07.89 Other chest pain (principal); I25.10 Atherosclerotic heart disease of native coronary artery without angina pectoris; K21.9 Gastro-esophageal reflux disease without esophagitis; I25.2 Old myocardial infarction; I48.91 Unspecified atrial fibrillation; M10.9 Gout, unspecified; Z79.82 Long term (current) use of aspirin; Z79.899 Other long term (current) drug therapy; Z88.8 Allergy status to other drugs, medicaments and biological substances; Z88.1 Allergy status to other antibiotic agents; Z91.030 Bee allergy status; Z87.891 Personal history of nicotine dependence; Z95.5 Presence of coronary angioplasty implant and graft; Z96.641 Presence of right artificial hip joint
CPT/HCPCS: 36415; 71046; 80053; 83735; 84484; 85025; 85379; 85610; 85730; 93005; 99285

== ENCOUNTER → 2019-11-16 | Outpatient (CLI) | payer OTHER ==
[2019-11-16 08:10] LABS: Basophils # (A) 0.1 k/uL (0-0.2); Basophils % (A) 1 %; Eosinophils # (A) 0.2 k/uL (0-0.7); Eosinophils % (A) 3 %; HCT 50.9 % (39.0-53.0); HGB 16.7 gm/dL (13.0-17.5); Lymphocytes # (A) 1.7 k/uL (1.0-4.8); Lymphocytes % (A) 24 %; MCH 28.3 pg (25.0-35.0); MCHC 32.9 g/dL (31.0-37.0); MCV 86.1 fL (80.0-100.0); Mean Platelet Volume 7.7; Monocytes # (A) 0.5 k/uL (0-1.0); Monocytes % (A) 7 %; Neutrophils # (A) 4.6 k/uL (1.3-7.7); Neutrophils % (A) 63 %; Platelet Count 201 k/uL (150-450); RBC 5.91 m/uL (4.30-5.90); RDW 13.3 % (11.5-15.5); WBC 7.3 k/uL (3.8-10.6)
[2019-11-16 13:04] LABS: Hemoglobin A1C 6.3 % (4.0-6.0)
[2019-11-16 17:47] LABS: Chol/HDL Ratio 4.84; LDL Cholesterol,Calculated 78.2 mg/dL (0.0-131.0); VLDL Calculation 40.8 mg/dL (5.00-40.00)
[2019-11-16 17:48] LABS: African American GFR (CKD) 68.3 (60.0-200.0); Albumin 4.4 g/dL (3.80-4.90); Albumin/Globulin Ratio 2.75 (1.60-3.17); Anion Gap 8.9 mmol/L (4.00-12.00); BUN/Creat Ratio 16.92 Ratio (12.00-20.00); Calcium 9.5 mg/dL (8.7-10.3); Carbon Dioxide 25.1 mmol/L (21.6-31.8); Globulin 1.6 g/dL (1.6-3.3); Non-African American GFR(CKD) 58.9 (60.0-200.0); Potassium 3.8 mmol/L (3.5-5.5); Total Bilirubin 1.2 mg/dL (0.2-1.2)
== END ==
LOC: LABWHC1 07:57
PROVIDERS: ATTEND Family Medicine
DX: I10 Essential (primary) hypertension (principal); I25.10 Atherosclerotic heart disease of native coronary artery without angina pectoris; E11.9 Type 2 diabetes mellitus without complications; E78.2 Mixed hyperlipidemia; I48.0 Paroxysmal atrial fibrillation
CPT/HCPCS: 36415; 80053; 80061; 83036; 85025

== ENCOUNTER 2020-02-07 22:46 | Inpatient (IN) | payer OTHER ==
--- NOTE | 2020-02-07 23:35 | ED ---
General Adult HPI - General Chief complaint: Chest Pain Stated complaint: CVA issues Time Seen by Provider: 02/07/20 22:59 Source: patient, RN notes reviewed, old records reviewed Mode of arrival: ambulatory Limitations: no limitations - History of Present Illness Initial comments: 59-year-old male history of atrial fibrillation, history of CAD with multiple stents. Patient is currently on Xarelto, Plavix, amiodarone. Patient is presenting today with chest tightness. This is central and left-sided chest tightness. No associated diaphoresis. No cough. Mild dyspnea. Patient denies vomiting. Denies abdominal pain. He has been compliant with his medications. He has history of hypercholesterolemia and is currently on statin therapy. He is a nonsmoker. He is a borderline diabetic. - Related Data Home Medications Medication Instructions Recorded Confirmed Allopurinol [Zyloprim] 300 mg PO DAILY 03/01/19 07/17/19 Aspirin [Adult Low Dose Aspirin EC] 81 mg PO DAILY 03/03/19 07/17/19 Omeprazole Magnesium [PriLOSEC OTC] 20 mg PO DAILY 03/03/19 07/17/19 Amiodarone [Cordarone] 200 mg PO BID 03/20/19 07/17/19 Previous Rx's Medication Instructions Recorded Atorvastatin [Lipitor] 40 mg PO DAILY #30 tab 05/20/17 Clopidogrel [Plavix] 75 mg PO DAILY #30 tab 05/20/17 Ertapenem [INVanz] 1 gm IM DAILY #42 vial 03/06/19 Losartan [Cozaar] 100 mg PO DAILY #30 tab 03/06/19 Metoprolol Tartrate [Lopressor] 25 mg PO BID #60 tab 03/06/19 Nitroglycerin Sl Tabs [Nitrostat] 0.4 mg SUBLINGUAL Q5M PRN #30 tab 03/06/19 Rivaroxaban [Xarelto] 15 mg PO W/SUPPER #30 tab 03/06/19 Allergies Allergy/AdvReac Type Severity Reaction Status Date / Time amlodipine Allergy Severe LEG Verified 02/07/20 22:52 SWELLING AND RUPTURE OF ACHILLES venom-honey bee Allergy Anaphylaxis Verified 02/07/20 22:52 [bee venom (honey bee)] vancomycin AdvReac RED MAN Verified 02/07/20 22:52 SYNDROME Review of Systems ROS Statement: Those systems with pertinent positive or pertinent negative responses have been documented in the HPI. ROS Other: All systems not noted in ROS Statement are negative. Past Medical History Past Medical History: Atrial Fibrillation, Coronary Artery Disease (CAD), Cancer, GERD/Reflux, Hyperlipidemia, Hypertension, Myocardial Infarction ([place]), Prostate Disorder Additional Past Medical History / Comment(s): RT BIG TOE WOUND, seasonal allergies, kidney stones, benign lesion on nose, diverticulitis, GOUT Last Myocardial Infarction Date:: 02/28/19 History of Any Multi-Drug Resistant Organisms: None Reported Past Surgical History: Back Surgery, Bowel Resection, Cholecystectomy, Heart Catheterization With Stent, Joint Replacement, Orthopedic Surgery, Tonsillectomy Additional Past Surgical History / Comment(s): TOTAL OF 8 STENTS, Diverticulitis; Right hip replacement Past Anesthesia/Blood Transfusion Reactions: No Reported Reaction Date of Last Stent Placement:: [id number] Past Psychological History: No Psychological Hx Reported Smoking Status: Former smoker Past Alcohol Use History: None Reported Past Drug Use History: None Reported - Past Family History Father Family Medical History: Hypertension Mother History Unknown: Yes Family Medical History: Cancer Additional Family Medical History / Comment(s): breast cancer General Exam Limitations: no limitations General appearance: alert, in no apparent distress Head exam: Present: atraumatic, normocephalic Eye exam: Present: normal appearance, PERRL ENT exam: Present: normal exam Neck exam: Present: normal inspection. Absent: tenderness, meningismus Respiratory exam: Present: normal lung sounds bilaterally. Absent: respiratory distress, wheezes Cardiovascular Exam: Present: regular rate, normal rhythm GI/Abdominal exam: Present: soft. Absent: distended, tenderness Extremities exam: Present: normal inspection, normal capillary refill. Absent: pedal edema Neurological exam: Present: alert, oriented X3, CN II-XII intact. Absent: motor sensory deficit Psychiatric exam: Present: normal affect, normal mood Skin exam: Present: warm, dry, intact. Absent: cyanosis, diaphoretic Course Vital Signs 02/07/20 02/08/20 22:50 00:00 Temperature 97.5 F L Pulse Rate 68 60 Respiratory 20 16 Rate Blood Pressure 156/86 136/85 O2 Sat by Pulse 99 Oximetry EKG Findings - EKG Comments: EKG Findings:: EKG: Sinus bradycardia, with sinus arrhythmia, rate of 59, DE interval 164, QRS duration 102, QTC 419, no ST segment elevation. Medical Decision Making - Medical Decision Making 59-year-old male history of CAD presenting with chest tightness, fatigue. No active chest pain at the time my evaluation. EKG is sinus with no ST segment elevation. Chest x-ray negative for acute cardiopulmonary disease. Patient has a normal CBC, normal CMP, negative initial troponin. Given the patient's risk factors history of significant coronary artery disease and will be kept for serial cardiac enzymes, cardiology consultation. He is anticoagulated on Xarelto, this medication will be continued. - Lab Data Result diagrams: 02/07/20 23:20 02/07/20 23:20 Lab Results 02/07/20 02/07/20 02/07/20 Range/Units 23:20 23:20 23:20 WBC 6.3 (3.8-10.6) k/uL RBC 5.22 (4.30-5.90) m/uL Hgb 15.2 (13.0-17.5) gm/dL Hct 44.3 (39.0-53.0) % MCV 84.9 (80.0-100.0) fL MCH 29.1 (25.0-35.0) pg MCHC 34.3 (31.0-37.0) g/dL RDW 13.6 (11.5-15.5) % Plt Count 189 (150-450) k/uL Neutrophils % 56 % Lymphocytes % 28 % Monocytes % 8 % Eosinophils % 5 % Basophils % 0 % Neutrophils # 3.5 (1.3-7.7) k/uL Lymphocytes # 1.8 (1.0-4.8) k/uL Monocytes # 0.5 (0-1.0) k/uL Eosinophils # 0.3 (0-0.7) k/uL Basophils # 0.0 (0-0.2) k/uL PT 10.2 (9.0-12.0) sec INR 1.0 (<1.2) APTT 25.1 (22.0-30.0) sec Sodium 136 L (137-145) mmol/L Potassium 3.7 (3.5-5.1) mmol/L Chloride 105 (98-107) mmol/L Carbon Dioxide 25 (22-30) mmol/L Anion Gap 6 mmol/L BUN 23 H (9-20) mg/dL Creatinine 1.06 (0.66-1.25) mg/dL Est GFR (CKD-EPI)AfAm 88 (>60 ml/min/1.73 sqM) Est GFR (CKD-EPI)NonAf 76 (>60 ml/min/1.73 sqM) Glucose 168 H (74-99) mg/dL Calcium 9.3 (8.4-10.2) mg/dL Magnesium 1.6 (1.6-2.3) mg/dL Total Bilirubin 0.5 (0.2-1.3) mg/dL AST 39 (17-59) U/L ALT 31 (4-49) U/L Alkaline Phosphatase 102 (38-126) U/L Troponin I (0.000-0.034) ng/mL NT-Pro-B Natriuret Pep pg/mL Total Protein 6.3 (6.3-8.2) g/dL Albumin 3.9 (3.5-5.0) g/dL Lipase 318 H (23-300) U/L 02/07/20 02/07/20 Range/Units 23:20 23:20 WBC (3.8-10.6) k/uL RBC (4.30-5.90) m/uL Hgb (13.0-17.5) gm/dL Hct (39.0-53.0) % MCV (80.0-100.0) fL MCH (25.0-35.0) pg MCHC (31.0-37.0) g/dL RDW (11.5-15.5) % Plt Count (150-450) k/uL Neutrophils % % Lymphocytes % % Monocytes % % Eosinophils % % Basophils % % Neutrophils # (1.3-7.7) k/uL Lymphocytes # (1.0-4.8) k/uL Monocytes # (0-1.0) k/uL Eosinophils # (0-0.7) k/uL Basophils # (0-0.2) k/uL PT (9.0-12.0) sec INR (<1.2) APTT (22.0-30.0) sec Sodium (137-145) mmol/L Potassium (3.5-5.1) mmol/L Chloride (98-107) mmol/L Carbon Dioxide (22-30) mmol/L Anion Gap mmol/L BUN (9-20) mg/dL Creatinine (0.66-1.25) mg/dL Est GFR (CKD-EPI)AfAm (>60 ml/min/1.73 sqM) Est GFR (CKD-EPI)NonAf (>60 ml/min/1.73 sqM) Glucose (74-99) mg/dL Calcium (8.4-10.2) mg/dL Magnesium (1.6-2.3) mg/dL Total Bilirubin (0.2-1.3) mg/dL AST (17-59) U/L ALT (4-49) U/L Alkaline Phosphatase (38-126) U/L Troponin I 0.012 (0.000-0.034) ng/mL NT-Pro-B Natriuret Pep 70 pg/mL Total Protein (6.3-8.2) g/dL Albumin (3.5-5.0) g/dL Lipase (23-300) U/L Disposition Clinical Impression: Chest pain Disposition: ADMITTED IP TO THIS [facility] Condition: Stable Is patient prescribed a controlled substance at d/c from ED?: No Decision to Admit Reason: Admit from EC Decision Date: 02/08/20 Decision Time: 00:13
[2020-02-07 23:43] LABS: Basophils % (A) 0 %; Eosinophils # (A) 0.3 k/uL (0-0.7); Eosinophils % (A) 5 %; HCT 44.3 % (39.0-53.0); HGB 15.2 gm/dL (13.0-17.5); Lymphocytes # (A) 1.8 k/uL (1.0-4.8); Lymphocytes % (A) 28 %; MCH 29.1 pg (25.0-35.0); MCHC 34.3 g/dL (31.0-37.0); MCV 84.9 fL (80.0-100.0); Mean Platelet Volume 7.7; Monocytes # (A) 0.5 k/uL (0-1.0); Monocytes % (A) 8 %; Neutrophils # (A) 3.5 k/uL (1.3-7.7); Neutrophils % (A) 56 %; Platelet Count 189 k/uL (150-450); RBC 5.22 m/uL (4.30-5.90); RDW 13.6 % (11.5-15.5); WBC 6.3 k/uL (3.8-10.6)
[2020-02-07 23:58] LABS: Partial Thromboplastin Time 25.1 sec (22.0-30.0); Prothrombin Time 10.2 sec (9.0-12.0)
[2020-02-08 00:03] LABS: Albumin 3.9 g/dL (3.5-5.0); Calcium 9.3 mg/dL (8.4-10.2); Magnesium 1.6 mg/dL (1.6-2.3); Potassium 3.7 mmol/L (3.5-5.1); Total Bilirubin 0.5 mg/dL (0.2-1.3); Total Protein 6.3 g/dL (6.3-8.2)
[2020-02-08] MEDS ORDERED: NALOXONE 0.4 MG/ML 1 ML VIAL IV PRN (00:17)
[2020-02-08] MEDS ORDERED: MORPHINE SULFATE 4 MG/ML SYRINGE IV PRN (00:17)
[2020-02-08] MEDS ORDERED: NITROGLYCERIN SL TABS 0.4 MG TAB SUBLINGUAL PRN (00:21)
--- NOTE | 2020-02-08 00:26 | XR ---
EXAMINATION TYPE: XR chest 2V DATE OF EXAM: 02/07/2020 COMPARISON: 08/20/2019 HISTORY: Wrist pain TECHNIQUE: FINDINGS: Heart is normal. Lungs are clear. Costophrenic angles are clear. There are no hilar masses. There are chest leads. Bony thorax is intact. IMPRESSION: Normal chest. No change.
[2020-02-08] MEDS: CLOPIDOGREL 75 MG TAB PO SCH (08:00)
[2020-02-08] MEDS: ASPIRIN 81 MG PO SCH (08:00)
[2020-02-08] MEDS ORDERED: AMIODARONE 200 MG TAB PO SCH (09:00)
[2020-02-08] MEDS ORDERED: ATORVASTATIN 40 MG TAB PO SCH (09:00)
[2020-02-08] MEDS: LOSARTAN 50 MG TAB PO SCH (09:44)
[2020-02-08] MEDS: METOPROLOL TARTRATE 25 MG TAB PO SCH ×2 (09:44→19:57)
--- NOTE | 2020-02-08 10:07 | CONS ---
CONSULTATION CHIEF COMPLAINT: Chest pain. This is a 59-year-old gentleman with history of coronary artery disease, status post prior multivessel angioplasty including circumflex coronary artery and right coronary artery, paroxysmal atrial fibrillation, who presented to hospital complaining of chest pain. He complains of intermittent episodes of precordial chest pressure associated with shortness of breath. The symptoms are similar to the symptoms he had prior to his cardiac arrest last year. There is no history of leg edema, PND or orthopnea. His predominant symptom is in the form of chest tightness which is mild to moderate intensity related to exertion, but there is no diaphoresis. At the time of my evaluation, he is comfortable at rest and is free of symptoms. An EKG on him shows sinus rhythm with evidence of prior inferior wall myocardial infarction. Since being admitted he is pain-free and hemodynamically stable. Has had 2 sets of cardiac enzymes that are negative. His hemoglobin is normal at 15.2, platelet count is 189, potassium is 3.7 creatinine is 1. Patient has atrial fibrillation and has last taken Xarelto yesterday. Given his symptoms of unstable angina, I am advising the patient to undergo cardiac catheterization for further evaluation. He had a stress test in November that did not reveal any ischemia, but showed evidence of prior inferior wall myocardial infarction. PAST MEDICAL HISTORY: Significant for CAD, status post multivessel angioplasty, paroxysmal atrial fibrillation, dyslipidemia. CURRENT MEDICATIONS: Include Narcan, Lopressor, Plavix, Lipitor, aspirin, Cordarone, and Tylenol. ALLERGIES: To AMLODIPINE. FAMILY HISTORY: Negative for premature coronary artery disease. SOCIAL HISTORY: Negative for current smoking, EtOH abuse, or drug abuse. REVIEW OF SYSTEMS: HEENT: Unremarkable. CARDIAC: As described above. RESPIRATORY: As described above. GI: Negative. GENITOURINARY: Negative. ALLERGY/IMMUNOLOGY: Negative. SKIN: Negative. MUSCULOSKELETAL: Significant for arthritis. PSYCHOSOCIAL: Negative. ENDOCRINE: Negative. DERM: Negative. CONSTITUTIONAL: Negative. ONCOLOGICAL: Negative. CRUSHER FEEDER: Negative. Rest of the system review is not relevant. PHYSICAL EXAMINATION: On exam, patient is afebrile. Heart rate is 50 beats per minute. Blood pressure is 126/70, respirations 18, O2 sat is 97% on room air. There is no jugular venous distention. Carotid upstroke is normal. There is no bruit. Chest exam reveals good air entry bilaterally. Heart exam reveals first and second heart sounds. No gallop. No murmur. No rub. Abdomen is soft, nontender. Exam of the extremities did not reveal any edema. Peripheral pulses are felt. CRUSHER FEEDER exam did not reveal focal neurological deficits. ASSESSMENT: 1. Unstable angina. 2. Paroxysmal atrial fibrillation. PLAN: I advised the patient to undergo cardiac catheterization tomorrow. I will decide on further course of action based on cath findings. MMODL / IJN: [id number] /
[2020-02-08] MEDS: ACETAMINOPHEN TAB 325 MG TAB PO PRN (11:17)
--- NOTE | 2020-02-08 16:37 | P.HPIM ---
History of Present Illness This is a pleasant 59 years old male with past medical history of coronary artery disease, atrial fibrillation, GERD, hyperlipidemia, hypertension, prostate disorder. Presents because of chest pain for 2 weeks on and off, felt like mild discomfort rather than pain, central, nonradiating it like down with no associated cough or dyspnea He denies smoking, alcohol or illicit tracts, he drinks alcohol occasionally. He follows with Dr. Fu as an outpatient Patient hemodynamically stable, unremarkable cbc, bmp, inr is 1.0, serial cardiac troponins were negative. chest x-ray: no acute process. ekg showing sinus bradycardia at [address]-t changes, Patient has been evaluated by fruit raiser with plan for cardiac cath tomorrow Review of Systems CONSTITUTIONAL: No fever, no malaise, no fatigue. HEENT: No recent visual problems or hearing problems. Denied any sore throat. CARDIOVASCULAR: No orthopnea, PND, no palpitations, no syncope. PULMONARY: No shortness of breath, no cough, no hemoptysis. GASTROINTESTINAL: No diarrhea, no nausea, no vomiting, no abdominal pain. Nor moactive bowel sounds. NEUROLOGICAL: No headaches, no weakness, no numbness. HEMATOLOGICAL: Denies any bleeding or petechiae. GENITOURINARY: Denies any burning micturition, frequency, or urgency. MUSCULOSKELETAL/RHEUMATOLOGICAL: Denies any joint pain, swelling, or any muscle pain. ENDOCRINE: Denies any polyuria or polydipsia. Past Medical History Past Medical History: Atrial Fibrillation, Coronary Artery Disease (CAD), Cancer, GERD/Reflux, Hyperlipidemia, Hypertension, Myocardial Infarction ([place]), Prostate Disorder Additional Past Medical History / Comment(s): RT BIG TOE WOUND, seasonal allergies, kidney stones, benign lesion on nose, diverticulitis, GOUT Last Myocardial Infarction Date:: 02/28/19 History of Any Multi-Drug Resistant Organisms: None Reported Past Surgical History: Back Surgery, Bowel Resection, Cholecystectomy, Heart Catheterization With Stent, Joint Replacement, Orthopedic Surgery, Tonsillectomy Additional Past Surgical History / Comment(s): TOTAL OF 8 STENTS, Diverticulitis; Right hip replacement Past Anesthesia/Blood Transfusion Reactions: No Reported Reaction Date of Last Stent Placement:: 03/2019 Past Psychological History: No Psychological Hx Reported Smoking Status: Former smoker Past Alcohol Use History: None Reported Additional Past Alcohol Use History / Comment(s): QUIT SMOKING 1998, SMOKED CIGARS. Past Drug Use History: None Reported - Past Family History Father Family Medical History: Hypertension Mother History Unknown: Yes Family Medical History: Cancer Additional Family Medical History / Comment(s): breast cancer Medications and Allergies Home Medications Medication Instructions Recorded Confirmed Type Atorvastatin [Lipitor] 40 mg PO DAILY #30 tab 05/20/17 02/08/20 Rx Clopidogrel [Plavix] 75 mg PO DAILY #30 tab 05/20/17 02/08/20 Rx Allopurinol [Zyloprim] 300 mg PO DAILY 03/01/19 02/08/20 History Aspirin [Adult Low Dose Aspirin EC] 81 mg PO DAILY 03/03/19 02/08/20 History Omeprazole Magnesium [PriLOSEC OTC] 20 mg PO DAILY 03/03/19 02/08/20 History Metoprolol Tartrate [Lopressor] 25 mg PO BID #60 tab 03/06/19 02/08/20 Rx Nitroglycerin Sl Tabs [Nitrostat] 0.4 mg SUBLINGUAL Q5M PRN #30 tab 03/06/19 02/08/20 Rx Rivaroxaban [Xarelto] 15 mg PO W/SUPPER #30 tab 03/06/19 02/08/20 Rx Amiodarone [Cordarone] 50 mg PO DAILY 02/08/20 02/08/20 History EPINEPHrine (Auto Inject) [Epipen] 0.3 mg IM ONCE PRN 02/08/20 02/08/20 History Fluticasone Nasal [place] [Flonase 1 spr EA NOSTRIL BID PRN 02/08/20 02/08/20 History Nasal [place]] Hydrochlorothiazide 25 mg PO DAILY 02/08/20 02/08/20 History Losartan Potassium [Cozaar] 50 mg PO BID 02/08/20 02/08/20 History Allergies Allergy/AdvReac Type Severity Reaction Status Date / Time amlodipine Allergy Severe LEG Verified 02/08/20 11:48 SWELLING AND RUPTURE OF ACHILLES venom-honey bee Allergy Anaphylaxis Verified 02/08/20 11:48 [bee venom (honey bee)] vancomycin AdvReac RED MAN Verified 02/08/20 11:48 SYNDROME Physical Exam Vitals: Vital Signs Temp Pulse Pulse Resp BP BP Pulse Ox 02/08/20 16:00 18 02/08/20 12:00 18 02/08/20 11:18 98 F 50 L 18 156/78 98 02/08/20 08:00 18 02/08/20 07:48 97.4 F L 51 L 18 151/75 96 02/08/20 06:00 97.6 F 16 L 16 126/72 97 02/08/20 02:00 98.1 F 59 L 18 127/75 97 02/08/20 00:00 60 16 136/85 02/07/20 22:50 97.5 F L 68 20 156/86 99 Intake and Output 02/08/20 02/08/20 02/08/20 06:59 14:59 22:59 Intake Total 480 Balance 480 Intake: Oral 480 Other: # Voids 2 Weight 106.594 kg GENERAL: The patient is alert and oriented x3, not in any acute distress. Well developed, well nourished. HEENT: Pupils are round and equally reacting to light. EOMI. No scleral icterus. No conjunctival pallor. Normocephalic, atraumatic. No pharyngeal erythema. No thyromegaly. CARDIOVASCULAR: S1 and S2 present. No murmurs, rubs, or gallops. PULMONARY: Chest is clear to auscultation, no wheezing or crackles. ABDOMEN: Soft, nontender, nondistended, normoactive bowel sounds. No palpable organomegaly. MUSCULOSKELETAL: No joint swelling or deformity. EXTREMITIES: No cyanosis, clubbing, or pedal edema. NEUROLOGICAL: Gross neurological examination did not reveal any focal deficits. SKIN: No rashes. No petechiae Results CBC & Chem 7: 02/07/20 23:20 02/07/20 23:20 Labs: Abnormal Lab Results - Last 24 Hours (Table) 02/07/20 Range/Units 23:20 Sodium 136 L (137-145) mmol/L BUN 23 H (9-20) mg/dL Glucose 168 H (74-99) mg/dL Lipase 318 H (23-300) U/L Thrombosis Risk Factor Assmnt - Choose All That Apply Any of the Below Risk Factors Present?: No Each Risk Factor Represents 2 Points: Age 61-74 years Thrombosis Risk Factor Assessment Total Risk Factor Score: 2 Thrombosis Risk Factor Assessment Level: Low Risk Assessment and Plan Assessment: Chest pain, suspicious for unstable angina. Paroxysmal atrial fibrillation GERD Hypertension Hyperlipidemia Prostate disorder Plan: This is a pleasant 59 years old male who presents with chest pain suspicious for unstable angina, fruit raiser recommended cardiac cath tomorrow Labs and medication were reviewed.. Continue same treatment. Continue with symptomatic treatment. Resume home medication. Monitor lytes and vitals. DVT and GI prophylaxis. Further recommendations of the clinical course of the patient DVT prophylaxis: Subcutaneous heparin GI Prophylaxis: Pepcid Prognosis is guarded
[2020-02-08] MEDS ORDERED: FLUTICASONE 50MCG/SPRAY NASAL 16GM EA NOSTRIL PRN (16:44)
[2020-02-08] MEDS ORDERED: RIVAROXABAN 15 MG TAB PO SCH (17:30)
[2020-02-08] MEDS: ALLOPURINOL 300 MG TAB PO SCH (18:38)
[2020-02-08] MEDS: FAMOTIDINE 20 MG/2 ML VIAL IV SCH (19:57)
[2020-02-08] MEDS: HEPARIN SODIUM,PORCINE 5,000 UNIT/ML 1 ML VIAL SQ SCH (19:57)
[2020-02-08] MEDS: ATORVASTATIN 40 MG TAB PO SCH (19:57)
[2020-02-09] MEDS: ASPIRIN 81 MG PO SCH (05:59)
[2020-02-09] MEDS ORDERED: SODIUM CHLORIDE 0.9% 1,000 ML in EMPTY BAG 1 BAG IV ONE (06:00)
[2020-02-09] MEDS: FAMOTIDINE 20 MG/2 ML VIAL IV SCH (06:00)
[2020-02-09] MEDS ORDERED: ASPIRIN 325 MG TAB PO ONE (06:00)
[2020-02-09] MEDS: LOSARTAN 50 MG TAB PO SCH (06:01)
[2020-02-09] MEDS: AMIODARONE 50 MG TAB PO SCH (06:01)
[2020-02-09] MEDS: HYDROCHLOROTHIAZIDE 25 MG TAB PO SCH (06:02)
[2020-02-09] MEDS: PANTOPRAZOLE 40 MG TABLET PO SCH (06:02)
[2020-02-09] MEDS: CLOPIDOGREL 75 MG TAB PO SCH (06:02)
[2020-02-09] MEDS: HEPARIN SODIUM,PORCINE 5,000 UNIT/ML 1 ML VIAL SQ SCH ×3 (06:02→20:08)
[2020-02-09] MEDS: ALLOPURINOL 300 MG TAB PO SCH (06:02)
[2020-02-09] MEDS: METOPROLOL TARTRATE 25 MG TAB PO SCH ×2 (06:06→20:08)
--- NOTE | 2020-02-09 06:55 | P.PN ---
Subjective This is a pleasant 59 years old male with past medical history of coronary artery disease, atrial fibrillation, GERD, hyperlipidemia, hypertension, prostate disorder. Presents because of chest pain for 2 weeks on and off, felt like mild discomfort rather than pain, central, nonradiating it like down with no associated cough or dyspnea He denies smoking, alcohol or illicit tracts, he drinks alcohol occasionally. He follows with Dr. Fu as an outpatient Patient hemodynamically stable, unremarkable cbc, bmp, inr is 1.0, serial cardiac troponins were negative. chest x-ray: no acute process. ekg showing sinus bradycardia at [address]-t changes, Patient has been evaluated by soft work wrapper layer and examiner with plan for cardiac cath tomorrow 02/09/2020 Patient lying comfortable in bed, no chest pain or dyspnea. His heparin drip was stopped this morning for coronary angiogram by cardiology team today. Blood pressure 135/79, heart rate 56, afebrile. Review of Systems CONSTITUTIONAL: No fever, no malaise, no fatigue. HEENT: No recent visual problems or hearing problems. Denied any sore throat. CARDIOVASCULAR: No orthopnea, PND, no palpitations, no syncope. PULMONARY: No shortness of breath, no cough, no hemoptysis. GASTROINTESTINAL: No diarrhea, no nausea, no vomiting, no abdominal pain. Normoactive bowel sounds. NEUROLOGICAL: No headaches, no weakness, no numbness. HEMATOLOGICAL: Denies any bleeding or petechiae. GENITOURINARY: Denies any burning micturition, frequency, or urgency. MUSCULOSKELETAL/RHEUMATOLOGICAL: Denies any joint pain, swelling, or any muscle pain. ENDOCRINE: Denies any polyuria or polydipsia. Objective - Vital Signs Vital signs: Vital Signs Temp 98.1 F 02/09/20 04:00 Pulse 56 L 02/09/20 04:00 Resp 18 02/09/20 04:00 BP 135/79 02/09/20 04:00 Pulse Ox 99 02/09/20 04:00 Intake & Output 02/08/20 02/08/20 02/09/20 06:59 18:59 06:59 Intake Total 480 800 Balance 480 800 Weight 106.594 kg Intake: Intake, IV Titration 800 Amount Sodium Chloride 0.9% 1, 800 000 ml In Empty Bag 1 bag @ 1 ML/KG/HR 106.594 mls /hr IV .[id number] ONE Rx#: [id number] Oral 480 Other: # Voids 2 1 - Labs CBC & Chem 7: 02/07/20 23:20 02/07/20 23:20 Assessment and Plan Assessment: Chest pain, suspicious for unstable angina. Paroxysmal atrial fibrillation GERD Hypertension Hyperlipidemia Prostate disorder Plan: This is a pleasant 59 years old male who presents with chest pain suspicious for unstable angina, soft work wrapper layer and examiner recommended cardiac cath this morning Labs and medication were reviewed.. Continue same treatment. Continue with symptomatic treatment. Resume home medication. Monitor lytes and vitals. DVT and GI prophylaxis. Further recommendations of the clinical course of the patient DVT prophylaxis: Subcutaneous heparin GI Prophylaxis: Pepcid Prognosis is guarded
[2020-02-09] MEDS ORDERED: fentaNYL (PF) 50 MCG/ML 2 ML AMP ONE (07:30)
[2020-02-09] MEDS ORDERED: LIDOCAINE 1% INJ 10MG/ML (20 ML MDV) ONE (07:30)
[2020-02-09] MEDS ORDERED: MIDAZOLAM 2 MG/2 ML VIAL IVP ONE (07:46)
[2020-02-09] MEDS ORDERED: IV FLUID CONTINUATION 200 ML IV ONE (07:46)
[2020-02-09] MEDS ORDERED: fentaNYL (PF) 50 MCG/ML 2 ML AMP IV ONE (07:46)
[2020-02-09] MEDS ORDERED: LIDOCAINE 1% INJ 10MG/ML (20 ML MDV) SQ ONE (07:49)
[2020-02-09] MEDS ORDERED: BIVALIRUDIN BOLUS 250 MG/50 ML IV ONE (08:17)
[2020-02-09] MEDS ORDERED: BIVALIRUDIN 250 MG in SODIUM CHLORIDE 0.9% 50 ML IV ONE (08:18)
[2020-02-09] MEDS ORDERED: IOPAMIDOL-370 125ML BTL INJ ONE (08:38)
[2020-02-09] MEDS ORDERED: IOPAMIDOL-370 50ML BTL INJ ONE (08:39)
[2020-02-09] MEDS ORDERED: MAG HYDROX/AL HYDROX/SIMETH 30 ML CUP PO PRN (08:49)
[2020-02-09] MEDS ORDERED: NITROGLYCERIN SL TABS 0.4 MG TAB SUBLINGUAL PRN (08:49)
[2020-02-09] MEDS ORDERED: ZOLPIDEM 5 MG TAB PO PRN (08:49)
[2020-02-09] MEDS ORDERED: ATROPINE SULFATE 0.1 MG/ML 10ML SYRINGE IV PRN (08:49)
[2020-02-09] MEDS ORDERED: RX INFO: IV CONTRAST WAS GIVEN 1 EACH MISC MISCELLANE PRN (08:49)
[2020-02-09] MEDS ORDERED: SODIUM CHLORIDE 0.9% 1,000 ML IV SCH (09:00)
--- NOTE | 2020-02-09 09:23 | PTCA ---
PERCUTANEOUSTRANS CORORONARY ANGIOGRAPHY Mr. Solitario is a 59-year-old male with a known history of coronary artery disease status post multivessel stenting in the past who presented with symptoms of angina pectoris without any significant enzymatic changes. In view of that, he underwent cardiac catheterization by Dr. Fu and was found to have critical in-stent restenosis of very proximal first obtuse marginal branch. Recommendation was made regarding coronary angioplasty and stenting. The procedure as well as the risks and complications were discussed with the patient who is in full understanding and agreement. PROCEDURE: A 6-[place] FR4 guiding catheter introduced in the system. After cannulating the left main, a 0.014 balanced medium weight J-wire was advanced in the first obtuse marginal branch and positioned distally. Subsequently another 0.014 balanced medium weight J- wire was advanced and positioned distal left circumflex. Subsequently, a 2.5 x 12 mm Trek balloon was advanced and inflation in the obtuse marginal branch stent were performed. Following that, the balloon was removed and a 2.5 x 15 mm Xience Olesya stent was deployed postdilated at 16 atmospheres. After the last inflation, after appropriate wait, the balloon and the guidewire were withdrawn back in the guiding catheter. Images were obtained, repeated. Those images reveal stable successful stenting. At that point, the guiding catheter, the balloon and the guidewire were removed. The sheath was removed. Hemostasis was obtained by deployment of an Angio- Seal. There was no immediate complication. Patient was returned to his room in stable condition. Of note, the patient had mild chest discomfort with the inflation without significant EKG changes. He received Angiomax per protocol and continued on Plavix. RESULTS: Successful stenting of the first obtuse marginal branch with reduction of stenosis from 99% to 0%. RECOMMENDATION: Patient will be continued on aspirin, Plavix, beta blockers, PATTI inhibitor and statin. The aspirin can be dropped in 4 weeks and he will be continued on the Plavix and Xarelto. Those findings and recommendation were discussed with the patient and in full understanding and agreement. Duration of procedure is 20 minutes. MMKENYONL / DIOGENESN: [id number] /
--- NOTE | 2020-02-09 09:26 | LTR ---
February 09, 2020 Re: John Shepardmichel Dear Dr. Anderson: I had the opportunity to perform coronary angioplasty and stenting on Mr. Solitario at [facility] on the 08 of February and a full copy of the procedure note will be forwarded to you. In brief, he underwent successful stenting of his first obtuse marginal branch using a drug-eluting stent. I am hopeful that this procedure will stabilize his status. Thank you again for allowing me the opportunity to participate in his care. Please feel free to call for any questions. Sincerely yours, MD LIGIA JainL / DIOGENESN: [id number] /
[2020-02-09] MEDS: ACETAMINOPHEN TAB 325 MG TAB PO PRN (16:21)
[2020-02-09 17:11] LABS: Glucose,Whole Blood 103 mg/dL (75-99)
[2020-02-09] MEDS: ATORVASTATIN 40 MG TAB PO SCH (20:08)
[2020-02-09 21:13] LABS: Glucose,Whole Blood 111 mg/dL (75-99)
[2020-02-10] MEDS: ACETAMINOPHEN TAB 325 MG TAB PO PRN ×2 (00:31→06:55)
[2020-02-10 06:11] LABS: Glucose,Whole Blood 138 mg/dL (75-99)
[2020-02-10] MEDS: PANTOPRAZOLE 40 MG TABLET PO SCH (06:56)
[2020-02-10 07:26] LABS: African American GFR (CKD) >90 (>60 ml/min/1.73 sqM); Anion Gap 8 mmol/L; Blood Urea Nitrogen 18 mg/dL (9-20); Calcium 9.2 mg/dL (8.4-10.2); Carbon Dioxide 24 mmol/L (22-30); Chloride 103 mmol/L (98-107); Glucose 136 mg/dL (74-99); Non-African American GFR(CKD) 84 (>60 ml/min/1.73 sqM); Potassium 3.9 mmol/L (3.5-5.1); Sodium 135 mmol/L (137-145)
[2020-02-10 08:32] VITALS: RESP 16; TEMP 97.3
[2020-02-10] MEDS: ALLOPURINOL 300 MG TAB PO SCH (08:44)
[2020-02-10] MEDS: METOPROLOL TARTRATE 25 MG TAB PO SCH (08:44)
[2020-02-10] MEDS: ASPIRIN 81 MG PO SCH (08:44)
[2020-02-10] MEDS: HYDROCHLOROTHIAZIDE 25 MG TAB PO SCH (08:44)
[2020-02-10] MEDS: CLOPIDOGREL 75 MG TAB PO SCH (08:44)
[2020-02-10] MEDS: LOSARTAN 50 MG TAB PO SCH (08:44)
[2020-02-10] MEDS: HEPARIN SODIUM,PORCINE 5,000 UNIT/ML 1 ML VIAL SQ SCH (08:44)
[2020-02-10] MEDS: AMIODARONE 50 MG TAB PO SCH (08:44)
--- NOTE | 2020-02-10 10:52 | PN ---
PROGRESS NOTE Mr. Solitario is a 59-year-old male with known history of coronary artery disease, paroxysmal atrial fibrillation, status post multivessel stenting, who presented with symptoms of chest discomfort, underwent cardiac catheterization by Dr. Fu and was found to have significant restenosis involving the obtuse marginal branch one. He underwent stenting of that vessel. He is doing well this morning. His breathing is stable. He is denying any dizziness or palpitation. He denies any nausea. He is ambulating without difficulty. He continues to be on amiodarone 50 mg daily, aspirin 81 mg daily. Lipitor 40 mg daily, Plavix 75 mg daily, hydrochlorothiazide 25 mg daily, losartan 100 mg daily, metoprolol tartrate 25 mg twice a day. PHYSICAL EXAMINATION: Blood pressure 132/80 with a heart rate in the 60s. LUNGS: Clear. HEART: Regular rate and rhythm. S1, S2. No S3 with systolic murmur. No diastolic murmur. No rub. ABDOMEN: Soft, nontender. Right groin, no hematoma. LAB DATA: Lab data revealed BUN creatinine 18 and 0.98, potassium 3.9. EKG revealed no acute changes. IMPRESSION: 1. Status post stenting of the first obtuse marginal branch. 2. Multivessel stenting. 3. Hyperlipidemia. 4. Paroxysmal atrial fibrillation. RECOMMENDATIONS: Patient should be able to be discharged home today. I will continue on the aspirin and Plavix and Xarelto for 4 weeks, then I will stop the aspirin and continue on Xarelto and Plavix. He will follow with Dr. Fu next week. MMODL / IJN: [id number] /
[2020-02-10 11:25] VITALS: BMI 28.4
[2020-02-10 12:22] LABS: Glucose,Whole Blood 104 mg/dL (75-99)
[2020-02-10 12:25] VITALS: BP 139/83; PULSE 55
--- NOTE | 2020-02-10 16:02 | P.DS ---
Providers Date of admission: 02/09/20 13:50 Attending physician: Guilherme Farias Consults: 02/08/20 00:18 Consult Physician Routine Consulting Provider: Theresa Rudd Consult Reason/Comments: CP Do you want consulting provider notified?: Yes 02/09/20 08:49 Consult Physician Routine Consulting Provider: Cardiology Pavan Consult Reason/Comments: Post Interventional patient Do you want consulting provider notified?: Already Contacted Primary care physician: Kathie Anderson [place] Hospital Course: Diagnoses: Chest pain, secondary to unstable angina. Status post coronary angiogram on 02/08 and status post stent placement in the first obtuse marginal artery Paroxysmal atrial fibrillation GERD Chronic left shoulder pain Hypertension Hyperlipidemia Prostate disorder Hospital course: This is a pleasant 59 years old male with past medical history of coronary artery disease, atrial fibrillation, GERD, hyperlipidemia, hypertension, prostate disorder. Presents because of chest pain for 2 weeks on and off, felt like mild discomfort rather than pain, central, nonradiating it like down with no associated cough or dyspnea. Patient has been evaluated by knitting demonstrator and he underwent cardiac cath with status post stent placement in the first obtuse marginal artery Post-procedure patient feels better with no chest pain or dyspnea, he has still chronic left shoulder pain. Patient is continued on aspirin and Plavix as before and also is on Zestril. For his paroxysmal atrial fibrillation, risk of bleeding explained for him including but not limited to bleeding into the brain or formal testing and he verbalized understanding and acceptance to continue with the medication as recommended Day of discharge. Denies other symptoms, no chest pain or dyspnea, no abdominal pain, no nausea vomiting, no change in urine or bowel habits. No fever Patient was cleared by cardiology team for discharge Problems and management plan were discussed with the patient and he verbalized understanding and acceptance Patient was found stable and can be discharged home however he needs follow-up as an outpatient. Patient was instructed to follow up with PCP within one week and patient agrees Patient was instructed to take aspirin , plavix and xarelto for one month or 4 weeks and then stop aspirin and continue with xarelto and plavix , pt agrees and states he is been taking aspirin Plavix and Xarelto for long time and is going to discuss it again with his knitting demonstrator Dr. Fu, patient agrees with Dr. Fu's appointment on 02/[address] Anderson appointment on 02/14 and their timing and stated he will follow-up patient states that he has is on medicines of aspirin, Plavix and Xarelto and he did not want scripts Gen: patient is a AAOx3, no distress CVS: S1-S2, RRR, no murmur Lungs: B/L CTA, no wheezing Abdomen: soft, no distention, no tenderness, positive bowel sounds Extremity: no leg edema or induration Time spent more than 35 minutes Patient Condition at Discharge: Stable Plan - Discharge Summary Discharge Rx Participant: No New Discharge Prescriptions: New Acetaminophen Tab [Tylenol] 650 mg PO Q6HR PRN tab PRN Reason: Mild Pain Or Fever > 100.5 Continue Clopidogrel [Plavix] 75 mg PO DAILY #30 tab Atorvastatin [Lipitor] 40 mg PO DAILY #30 tab Allopurinol [Zyloprim] 300 mg PO DAILY Omeprazole Magnesium [PriLOSEC OTC] 20 mg PO DAILY Metoprolol Tartrate [Lopressor] 25 mg PO BID #60 tab Rivaroxaban [Xarelto] 15 mg PO W/SUPPER #30 tab Amiodarone [Cordarone] 50 mg PO DAILY Fluticasone Nasal [place] [Flonase Nasal [place]] 1 spr EA NOSTRIL BID PRN PRN Reason: Allergy Symptoms Hydrochlorothiazide 25 mg PO DAILY Losartan Potassium [Cozaar] 50 mg PO BID Aspirin [Adult Low Dose Aspirin EC] 81 mg PO DAILY 30 Days #30 Nitroglycerin Sl Tabs [Nitrostat] 0.4 mg SUBLINGUAL Q5M PRN #30 tab PRN Reason: Chest Pain Discontinued EPINEPHrine (Auto Inject) [Epipen] 0.3 mg IM ONCE PRN PRN Reason: Anaphylaxis Discharge Medication List Atorvastatin [Lipitor] 40 mg PO DAILY #30 tab 05/20/17 [Rx] Clopidogrel [Plavix] 75 mg PO DAILY #30 tab 05/20/17 [Rx] Allopurinol [Zyloprim] 300 mg PO DAILY 03/01/19 [History] Omeprazole Magnesium [PriLOSEC OTC] 20 mg PO DAILY 03/03/19 [History] Metoprolol Tartrate [Lopressor] 25 mg PO BID #60 tab 03/06/19 [Rx] Rivaroxaban [Xarelto] 15 mg PO W/SUPPER #30 tab 03/06/19 [Rx] Amiodarone [Cordarone] 50 mg PO DAILY 02/08/20 [History] Fluticasone Nasal [place] [Flonase Nasal [place]] 1 spr EA NOSTRIL BID PRN 02/08/20 [History] Hydrochlorothiazide 25 mg PO DAILY 02/08/20 [History] Losartan Potassium [Cozaar] 50 mg PO BID 02/08/20 [History] Acetaminophen Tab [Tylenol] 650 mg PO Q6HR PRN tab 02/10/20 [Rx] Aspirin [Adult Low Dose Aspirin EC] 81 mg PO DAILY 30 Days #30 02/10/20 [Rx] Nitroglycerin Sl Tabs [Nitrostat] 0.4 mg SUBLINGUAL Q5M PRN #30 tab 02/10/20 [Rx] Follow up Appointment(s)/Referral(s): [facility],Cardiac [NON-STAFF] - 1 Week (After discharge, you will follow- up with your knitting demonstrator. Once you have obtained a prescription for cardiac rehab, please call [phone] to set up an evaluation.) Kahtie Anderson III, MD [Primary Care Provider] - 02/15/20 10:30 am (Saturday) Philip Fu MD [STAFF PHYSICIAN] - 02/16/20 4:30 pm (Saturday) Patient Instructions/Handouts: *Surgery [facility] - After Heart Catheterization - Hands Assembler Instructions, Heart Healthy Diet (DC), Cardiac Rehabilitation (DC) Activity/Diet/Wound Care/Special Instructions: Cardiac diet, heart healthy diet Limited activity until you see your doctor Discharge instructions: take aspirin , plavix and xarelto for one month or 4 weeks and then stop aspirin and continue with xarelto and plavix Discharge Disposition: HOME SELF-CARE
--- NOTE | 2020-03-17 15:53 | CC ---
CARDIAC CATHETERIZATION REPORT INDICATION: Unstable angina. PROCEDURE NOTE: After obtaining informed consent, left heart catheterization, coronary angiogram are performed via the right femoral artery using standard Tuan catheters. Patient tolerated the procedure well without any obvious immediate complications. FINDINGS: 1. HEMODYNAMICS: Left ventricular end-diastolic pressure is 14 mm. There is no significant gradient across the aortic valve. 2. LEFT VENTRICULOGRAM: Left ventriculogram is not performed. 3. ANGIOGRAPHIC DATA: LEFT MAIN CORONARY ARTERY: Left main coronary artery is a normal-sized vessel and is free of stenosis. Divides into left anterior descending coronary artery and circumflex coronary artery. LAD shows mild nonobstructive disease involving mid portion. CIRCUMFLEX CORONARY ARTERY: Circumflex coronary artery also shows mild disease. A high OM branch shows a 95% stenosis. Right coronary artery shows a patent stent. CONCLUSION: Patent stent within the right coronary artery, high OM branch has a 95% stenosis. PLAN: Patient will undergo angioplasty with stent placement of the same. MMODL / IJN: [id number] /
== END 2020-02-10 16:34 | disposition home or self-care (01) | DRG 247 ==
LOC: EC 22:46 → 1SOBS 02-08 00:17 → 3SCARD 02-09 08:35 → OBSVTOIN 02-09 13:50 → 3SCARD 02-09 15:03
PROVIDERS: ADMIT Hospitalist; ATTEND Hospitalist
PROC: 027034Z Dilation of Coronary Artery, One Artery with Drug-eluting Intraluminal Device, Percutaneous Approach (ICD-10-PCS; principal; 2020-02-09 07:30)
PROC: 4A023N7 Measurement of Cardiac Sampling and Pressure, Left Heart, Percutaneous Approach (ICD-10-PCS; 2020-02-09 07:30)
PROC: B2111ZZ Fluoroscopy of Multiple Coronary Arteries using Low Osmolar Contrast (ICD-10-PCS; 2020-02-09 07:30)
DX: T82.855A Stenosis of coronary artery stent, initial encounter (principal); I25.110 Atherosclerotic heart disease of native coronary artery with unstable angina pectoris; E78.00 Pure hypercholesterolemia, unspecified; I48.0 Paroxysmal atrial fibrillation; K21.9 Gastro-esophageal reflux disease without esophagitis; E78.5 Hyperlipidemia, unspecified; I10 Essential (primary) hypertension; I25.2 Old myocardial infarction; R73.03 Prediabetes; G89.29 Other chronic pain; M25.512 Pain in left shoulder; N42.9 Disorder of prostate, unspecified; M10.9 Gout, unspecified; Z79.82 Long term (current) use of aspirin; Z79.02 Long term (current) use of antithrombotics/antiplatelets; Z79.01 Long term (current) use of anticoagulants; Z79.899 Other long term (current) drug therapy; Z95.5 Presence of coronary angioplasty implant and graft; Z86.74 Personal history of sudden cardiac arrest; Z87.891 Personal history of nicotine dependence; Z87.19 Personal history of other diseases of the digestive system; Z90.49 Acquired absence of other specified parts of digestive tract; Z96.641 Presence of right artificial hip joint; Z87.442 Personal history of urinary calculi; Z86.018 Personal history of other benign neoplasm; Z98.890 Other specified postprocedural states; Z88.8 Allergy status to other drugs, medicaments and biological substances; Z88.1 Allergy status to other antibiotic agents; Z91.030 Bee allergy status; Z91.048 Other nonmedicinal substance allergy status; Z82.49 Family history of ischemic heart disease and other diseases of the circulatory system; Z80.3 Family history of malignant neoplasm of breast; Y84.0 Cardiac catheterization as the cause of abnormal reaction of the patient, or of later complication, without mention of misadventure at the time of the procedure
CPT/HCPCS: 36415; 71046; 80048; 80053; 83690; 83735; 83880; 84484; 85025; 85610; 85730; 93005; 93458; 99285

== ENCOUNTER 2020-06-22 21:34 | Emergency (ER) | payer OTHER ==
[2020-06-22 21:46] VITALS: RESP 18; TEMP 97.8
--- NOTE | 2020-06-22 22:24 | ED ---
Chest Pain HPI - General Chief Complaint: Chest Pain Stated Complaint: Chest Pain Time Seen by Provider: 06/22/20 22:00 Source: patient, RN notes reviewed Mode of arrival: ambulatory Limitations: no limitations - History of Present Illness Initial Comments: This is a 60-year-old male history of heart disease and 8 stents with the last one being placed in January of this year who states he had the onset of sharp left-sided chest pain after moving a heavy basketball net earlier today. He states it was intermittent perhaps as bad as 2-3/10 severity he did take 2 aspirins and nitro without any relief. He believes it may get somewhat worse with movement or deep breathing. He points to the left costochondral region. MD Complaint: chest pain - Related Data Home Medications Medication Instructions Recorded Confirmed allopurinoL [Zyloprim] 300 mg PO DAILY 03/01/19 02/08/20 Omeprazole Magnesium [PriLOSEC OTC] 20 mg PO DAILY 03/03/19 02/08/20 Amiodarone [Cordarone] 50 mg PO DAILY 02/08/20 02/08/20 Fluticasone Nasal [place] [Flonase 1 spr EA NOSTRIL BID PRN 02/08/20 02/08/20 Nasal [place]] Losartan Potassium [Cozaar] 50 mg PO BID 02/08/20 02/08/20 hydroCHLOROthiazide 25 mg PO DAILY 02/08/20 02/08/20 [Hydrochlorothiazide] Previous Rx's Medication Instructions Recorded Atorvastatin [Lipitor] 40 mg PO DAILY #30 tab 05/20/17 Clopidogrel [Plavix] 75 mg PO DAILY #30 tab 05/20/17 Metoprolol Tartrate [Lopressor] 25 mg PO BID #60 tab 03/06/19 Rivaroxaban [Xarelto] 15 mg PO W/SUPPER #30 tab 03/06/19 Acetaminophen Tab [Tylenol] 650 mg PO Q6HR PRN tab 02/10/20 Aspirin [Adult Low Dose Aspirin EC] 81 mg PO DAILY 30 Days #30 02/10/20 Nitroglycerin Sl Tabs [Nitrostat] 0.4 mg SUBLINGUAL Q5M PRN #30 tab 02/10/20 Allergies Allergy/AdvReac Type Severity Reaction Status Date / Time amlodipine Allergy Severe LEG Verified 06/22/20 21:46 SWELLING AND RUPTURE OF ACHILLES venom-honey bee Allergy Anaphylaxis Verified 06/22/20 21:46 [bee venom (honey bee)] vancomycin AdvReac RED MAN Verified 06/22/20 21:46 SYNDROME Review of Systems ROS Statement: Those systems with pertinent positive or pertinent negative responses have been documented in the HPI. ROS Other: All systems not noted in ROS Statement are negative. EKG Findings - EKG Results: EKG: interpreted by ERMD, sinus rhythm (Sinus rhythm rate of 43 IL interval 158 QRS duration 112 QT since QTC 476/402) Past Medical History Past Medical History: Atrial Fibrillation, Coronary Artery Disease (CAD), Cancer, GERD/Reflux, Hyperlipidemia, Hypertension, Myocardial Infarction (DC), Prostate Disorder Additional Past Medical History / Comment(s): RT BIG TOE WOUND, seasonal allergies, kidney stones, benign lesion on nose, diverticulitis, GOUT Last Myocardial Infarction Date:: 02/28/19 History of Any Multi-Drug Resistant Organisms: None Reported Past Surgical History: Back Surgery, Bowel Resection, Cholecystectomy, Heart Catheterization With Stent, Joint Replacement, Orthopedic Surgery, Tonsillectomy Additional Past Surgical History / Comment(s): TOTAL OF 8 STENTS, Diverticulitis; Left hip replacement, Right knee Past Anesthesia/Blood Transfusion Reactions: No Reported Reaction Date of Last Stent Placement:: 03/2019 Past Psychological History: No Psychological Hx Reported Smoking Status: Current some day smoker Past Alcohol Use History: None Reported Past Drug Use History: Marijuana - Past Family History Father Family Medical History: Hypertension Mother History Unknown: Yes Family Medical History: Cancer Additional Family Medical History / Comment(s): breast cancer General Exam - General Exam Comments Initial Comments: This is a well-developed well-nourished awake alert oriented 3 male Limitations: no limitations General appearance: alert, in no apparent distress Head exam: Present: atraumatic, normocephalic, normal inspection Eye exam: Present: normal appearance, PERRL, EOMI. Absent: scleral icterus, conjunctival injection, periorbital swelling ENT exam: Present: normal exam, mucous membranes moist Neck exam: Present: normal inspection. Absent: tenderness, meningismus, lymphadenopathy Respiratory exam: Present: normal lung sounds bilaterally. Absent: respiratory distress, wheezes, rales, rhonchi, stridor Cardiovascular Exam: Present: normal rhythm, bradycardia, normal heart sounds. Absent: systolic murmur, diastolic murmur, rubs, gallop, clicks GI/Abdominal exam: Present: soft, normal bowel sounds. Absent: distended, tenderness, guarding, rebound, rigid Extremities exam: Present: normal inspection, full ROM, normal capillary refill. Absent: tenderness, pedal edema, joint swelling, calf tenderness Back exam: Present: normal inspection Neurological exam: Present: alert, oriented X3, CN II-XII intact Psychiatric exam: Present: normal affect, normal mood Skin exam: Present: warm, dry, intact, normal color. Absent: rash Course Vital Signs 06/22/20 06/22/20 06/22/20 21:40 22:01 23:00 Temperature 97.8 F Pulse Rate 51 L 47 L 48 L Respiratory 18 18 18 Rate Blood Pressure 131/81 130/82 133/98 O2 Sat by Pulse 98 97 98 Oximetry Chest Pain MDM - MDM I did review the imaging and report no acute findings. The patient was reevaluated he is had no further issues. He again reiterated that the pain was easily with certain movements or deep breathing. This juncture the pain appears be musculoskeletal origin. We did have a long discussion he would like to go home and will follow-up if any problems we did discuss return parameters. Disposition Clinical Impression: Costochondritis, Chest wall syndrome Disposition: HOME SELF-CARE Condition: Good Instructions (If sedation given, give patient instructions): Costochondritis (ED) Is patient prescribed a controlled substance at d/c from ED?: No Referrals: Kathie Anderson III, MD [Primary Care Provider] - 1-2 days
[2020-06-22 22:26] LABS: Basophils % (A) 1 %; Eosinophils # (A) 0.2 k/uL (0-0.7); Eosinophils % (A) 3 %; HCT 49.6 % (39.0-53.0); HGB 16.2 gm/dL (13.0-17.5); Lymphocytes # (A) 1.9 k/uL (1.0-4.8); Lymphocytes % (A) 26 %; MCH 29.7 pg (25.0-35.0); MCHC 32.7 g/dL (31.0-37.0); MCV 90.9 fL (80.0-100.0); Mean Platelet Volume 7.4; Monocytes # (A) 0.5 k/uL (0-1.0); Monocytes % (A) 7 %; Neutrophils # (A) 4.6 k/uL (1.3-7.7); Neutrophils % (A) 62 %; Platelet Count 184 k/uL (150-450); RBC 5.45 m/uL (4.30-5.90); RDW 13.2 % (11.5-15.5); WBC 7.4 k/uL (3.8-10.6)
[2020-06-22 22:32] LABS: Albumin 4.4 g/dL (3.5-5.0); Calcium 9.9 mg/dL (8.4-10.2); INR 1.2 (<1.2); Partial Thromboplastin Time 30.2 sec (22.0-30.0); Potassium 3.8 mmol/L (3.5-5.1); Prothrombin Time 12.4 sec (9.0-12.0); Total Bilirubin 0.8 mg/dL (0.2-1.3); Total Protein 6.5 g/dL (6.3-8.2)
--- NOTE | 2020-06-22 22:42 | XR ---
EXAMINATION TYPE: XR chest 2V DATE OF EXAM: 06/22/2020 COMPARISON: 02/07/2020 HISTORY: Chest pain TECHNIQUE: FINDINGS: Heart is normal. Lungs are clear of infiltrate. There are chest leads. Costophrenic angles are clear. There are no hilar masses. Bony thorax appears intact. IMPRESSION: No active cardiopulmonary disease. Normal heart. No change.
[2020-06-22 22:44] LABS: Magnesium 1.9 mg/dL (1.6-2.3)
[2020-06-22 23:02] VITALS: BP 133/98; PULSE 48
== END 2020-06-22 23:31 | disposition home or self-care (01) ==
LOC: EC 21:34
DX: M94.0 Chondrocostal junction syndrome [Tietze] (principal); I48.91 Unspecified atrial fibrillation; I25.2 Old myocardial infarction; I25.10 Atherosclerotic heart disease of native coronary artery without angina pectoris; K21.9 Gastro-esophageal reflux disease without esophagitis; I10 Essential (primary) hypertension; F17.200 Nicotine dependence, unspecified, uncomplicated; Z79.899 Other long term (current) drug therapy; Z88.1 Allergy status to other antibiotic agents; Z88.8 Allergy status to other drugs, medicaments and biological substances; Z91.030 Bee allergy status; Z95.5 Presence of coronary angioplasty implant and graft; Z96.642 Presence of left artificial hip joint
CPT/HCPCS: 36415; 71046; 80053; 82550; 83735; 84484; 85025; 85610; 85730; 93005; 99285

== ENCOUNTER → 2020-09-14 | Outpatient (CLI) | payer OTHER ==
[2020-09-14 21:56] LABS: Chol/HDL Ratio 3.7
== END | disposition home or self-care (01) ==
LOC: LABWHC1 11:17
PROVIDERS: ATTEND Internal Medicine Cardiovascular Disease
DX: E78.2 Mixed hyperlipidemia (principal)
CPT/HCPCS: 36415; 80061; 84450; 84460

== ENCOUNTER 2021-04-06 23:02 | Observation (INO) | payer OTHER ==
--- NOTE | 2021-04-06 23:46 | ED ---
Chest Pain HPI - General Chief Complaint: Chest Pain Stated Complaint: Chest Pain Time Seen by Provider: 04/06/21 23:10 Source: patient Mode of arrival: wheelchair Limitations: no limitations - History of Present Illness Initial Comments: 60-year-old male with history of A. fib, hypertension, dyslipidemia, CAD, CO presenting to the emergency department with chief complaint of chest pain. States his symptoms began last night while he was sitting. States he has midsternal sharp pains last few seconds with occasional radiation to the left upper extremity. States they have periodically throughout the day. Usually they occur while he is resting. He denies any associated shortness of breath, lightheadedness but he does report some dizziness. Denies any diaphoretic episodes. Patient states he took 4 tablets of baby aspirin and 1 sublingual nitro prior to ED arrival. - Related Data Home Medications Medication Instructions Recorded Confirmed allopurinoL [Zyloprim] 300 mg PO DAILY 03/01/19 02/08/20 Omeprazole Magnesium [PriLOSEC OTC] 20 mg PO DAILY 03/03/19 02/08/20 Amiodarone [Cordarone] 50 mg PO DAILY 02/08/20 02/08/20 Fluticasone Nasal [place] [Flonase 1 spr EA NOSTRIL BID PRN 02/08/20 02/08/20 Nasal [place]] Losartan Potassium [Cozaar] 50 mg PO BID 02/08/20 02/08/20 hydroCHLOROthiazide 25 mg PO DAILY 02/08/20 02/08/20 Previous Rx's Medication Instructions Recorded Atorvastatin [Lipitor] 40 mg PO DAILY #30 tab 05/20/17 Clopidogrel [Plavix] 75 mg PO DAILY #30 tab 05/20/17 Metoprolol Tartrate [Lopressor] 25 mg PO BID #60 tab 03/06/19 Rivaroxaban [Xarelto] 15 mg PO W/SUPPER #30 tab 03/06/19 Acetaminophen Tab [Tylenol] 650 mg PO Q6HR PRN tab 02/10/20 Aspirin [Adult Low Dose Aspirin EC] 81 mg PO DAILY 30 Days #30 02/10/20 Nitroglycerin Sl Tabs [Nitrostat] 0.4 mg SUBLINGUAL Q5M PRN #30 tab 02/10/20 Allergies Allergy/AdvReac Type Severity Reaction Status Date / Time amlodipine Allergy Severe LEG Verified 04/06/21 23:06 SWELLING AND RUPTURE OF ACHILLES venom-honey bee Allergy Anaphylaxis Verified 04/06/21 23:06 [bee venom (honey bee)] vancomycin AdvReac RED MAN Verified 04/06/21 23:06 SYNDROME Review of Systems ROS Statement: Those systems with pertinent positive or pertinent negative responses have been documented in the HPI. ROS Other: All systems not noted in ROS Statement are negative. Past Medical History Past Medical History: Atrial Fibrillation, Coronary Artery Disease (CAD), Cancer, GERD/Reflux, Hyperlipidemia, Hypertension, Myocardial Infarction ([place]), Prostate Disorder Additional Past Medical History / Comment(s): RT BIG TOE WOUND, seasonal allergies, kidney stones, benign lesion on nose, diverticulitis, GOUT Last Myocardial Infarction Date:: 02/28/19 History of Any Multi-Drug Resistant Organisms: None Reported Past Surgical History: Back Surgery, Bowel Resection, Cholecystectomy, Heart Catheterization With Stent, Joint Replacement, Orthopedic Surgery, Tonsillectomy Additional Past Surgical History / Comment(s): TOTAL OF 8 STENTS, Diverticulitis; Left hip replacement, Right knee Past Anesthesia/Blood Transfusion Reactions: No Reported Reaction Date of Last Stent Placement:: 03/2019 Past Psychological History: No Psychological Hx Reported Smoking Status: Current some day smoker Past Alcohol Use History: None Reported Past Drug Use History: Marijuana - Past Family History Father Family Medical History: Hypertension Mother History Unknown: Yes Family Medical History: Cancer Additional Family Medical History / Comment(s): breast cancer General Exam Limitations: no limitations General appearance: alert, in no apparent distress Head exam: Present: atraumatic, normocephalic, normal inspection Eye exam: Present: normal appearance, PERRL, EOMI Pupils: Present: normal accommodation ENT exam: Present: normal exam, normal oropharynx, mucous membranes moist, TM's normal bilaterally, normal external ear exam Neck exam: Present: normal inspection, full ROM. Absent: tenderness Respiratory exam: Present: normal lung sounds bilaterally. Absent: respiratory distress Cardiovascular Exam: Present: regular rate, normal rhythm, normal heart sounds. Absent: systolic murmur Extremities exam: Present: normal inspection, full ROM, normal capillary refill. Absent: tenderness, pedal edema, joint swelling Back exam: Present: normal inspection, full ROM. Absent: tenderness, CVA tenderness (R), CVA tenderness (L) Neurological exam: Present: alert, oriented X3 Psychiatric exam: Present: normal affect, normal mood Skin exam: Present: warm, dry, intact, normal color Course Vital Signs 04/06/21 23:03 Temperature 97.8 F Pulse Rate 51 L Respiratory 16 Rate Blood Pressure 140/81 O2 Sat by Pulse 98 Oximetry Chest Pain MDM - MDM 60-year-old male with history of A. fib, hypertension, dyslipidemia, CAD, CO presenting to the emergency department with chief complaint of chest pain. CBC unremarkable. Elevated INR of 1.3.CMP reveals mild hypokalemia of 3.4. He was given a dinner 20 meq. Chest x-ray is unremarkable. Considering the patient's history, he will be admitted for cardiac observation. Information was discussed with patient. He is understanding and agreeable. Case discussed with Admitting Dr Peña Cardiology on consult Disposition Clinical Impression: Chest pain Disposition: ADMITTED IP TO THIS HOSP Condition: Stable Instructions (If sedation given, give patient instructions): Chest Pain (ED) Is patient prescribed a controlled substance at d/c from ED?: No Referrals: Kathie Anderson III, MD [Primary Care Provider] - 1-2 days Time of Disposition: 01:35
--- NOTE | 2021-04-07 00:13 | XR ---
EXAMINATION TYPE: XR chest 2V DATE OF EXAM: 04/07/2021 COMPARISON: 06/22/2020 HISTORY: Chest pain TECHNIQUE: FINDINGS: Heart is normal. Lungs are clear of consolidation. There are no hilar masses. Thoracic aort a is tortuous. There is no pleural effusion. There are chest leads. Bony thorax is intact. IMPRESSION: No active cardiopulmonary disease. No change.
[2021-04-07 00:18] LABS: Basophils % (A) 0 %; Eosinophils # (A) 0.2 k/uL (0-0.7); Eosinophils % (A) 2 %; HCT 50.3 % (39.0-53.0); HGB 16.9 gm/dL (13.0-17.5); Lymphocytes # (A) 2.1 k/uL (1.0-4.8); Lymphocytes % (A) 26 %; MCH 29.9 pg (25.0-35.0); MCHC 33.5 g/dL (31.0-37.0); MCV 89.2 fL (80.0-100.0); Mean Platelet Volume 7.6; Monocytes # (A) 0.4 k/uL (0-1.0); Monocytes % (A) 5 %; Neutrophils # (A) 5.2 k/uL (1.3-7.7); Neutrophils % (A) 65 %; Platelet Count 159 k/uL (150-450); RBC 5.65 m/uL (4.30-5.90); RDW 13.4 % (11.5-15.5)
[2021-04-07 00:29] LABS: Albumin 3.8 g/dL (3.5-5.0); Calcium 9.7 mg/dL (8.4-10.2); Magnesium 1.7 mg/dL (1.6-2.3); Potassium 3.4 mmol/L (3.5-5.1); Total Bilirubin 0.8 mg/dL (0.2-1.3)
[2021-04-07 00:35] LABS: INR 1.3 (<1.2); Partial Thromboplastin Time 29.4 sec (22.0-30.0); Prothrombin Time 13.4 sec (9.0-12.0)
[2021-04-07] MEDS ORDERED: POTASSIUM CHLORIDE ER 20 MEQ TAB.ER PO STA (01:32)
[2021-04-07] MEDS ORDERED: NITROGLYCERIN SL TABS 0.4 MG TAB SUBLINGUAL PRN ×2 (01:35→08:04)
[2021-04-07] MEDS ORDERED: methocarbamoL 500 MG TAB PO PRN (08:04)
[2021-04-07] MEDS ORDERED: FLUTICASONE 50MCG/SPRAY NASAL 16GM EA NOSTRIL PRN (08:04)
--- NOTE | 2021-04-07 08:59 | P.HPIM ---
History of Present Illness Patient is 60-year-old male came in with comments of chest pain on the left side of the chest started last night nonexertional midsternal and left-sided of the chest radiating to the left upper extremity moderate severity on and off throughout the day denied any associated shortness of breath lightheadedness or dizziness. Patient denied any diaphoresis patient chest pain is nonpleuritic not associated with food. Patient did take 4 tablets of baby aspirin sublingual nitroglycerin. Patient had a history of coronary disease multiple stents in the past. any fever chills, chest x-ray did not show any significant abnormal ity EKG showed sinus rhythm with no new acute ST-T wave changes. Patient had stress test in month of July which was negative. Patient is presently on dual antiplatelet therapy. Review of Systems REVIEW OF SYSTEMS: CONSTITUTIONAL: No fever, no malaise, no fatigue. HEENT: No recent visual problems or hearing problems. Denied any sore throat. CARDIOVASCULAR: No orthopnea, PND, no palpitations, no syncope. PULMONARY: No shortness of breath, no cough, no hemoptysis. GASTROINTESTINAL: No diarrhea, no nausea, no vomiting, no abdominal pain. NEUROLOGICAL: No headaches, no weakness, no numbness. HEMATOLOGICAL: Denies any bleeding or petechiae. GENITOURINARY: Denies any burning micturition, frequency, or urgency. MUSCULOSKELETAL/RHEUMATOLOGICAL: Denies any joint pain, swelling, or any muscle pain. ENDOCRINE: Denies any polyuria or polydipsia. The rest of the 14-point review of systems is negative. Past Medical History Past Medical History: Atrial Fibrillation, Coronary Artery Disease (CAD), Cancer, GERD/Reflux, Hyperlipidemia, Hypertension, Myocardial Infarction ([place]), Prostate Disorder Additional Past Medical History / Comment(s): rt toe issues(gout?), skin cancer seasonal allergies, kidney stones, benign lesion on nose, diverticulitis, covid in october Last Myocardial Infarction Date:: 02/28/19 History of Any Multi-Drug Resistant Organisms: None Reported Past Surgical History: Back Surgery, Bowel Resection, Cholecystectomy, Heart Catheterization With Stent, Joint Replacement, Orthopedic Surgery, Tonsillectomy Additional Past Surgical History / Comment(s): TOTAL OF 8 STENTS, Diverticulitis; Left hip replacement, Right knee Past Anesthesia/Blood Transfusion Reactions: No Reported Reaction Date of Last Stent Placement:: 03/2019 Past Psychological History: No Psychological Hx Reported Smoking Status: Former smoker Past Alcohol Use History: None Reported Additional Past Alcohol Use History / Comment(s): QUIT SMOKING 1998, SMOKED CIGARS. Past Drug Use History: Marijuana - Past Family History Father Family Medical History: Hypertension Mother History Unknown: Yes Family Medical History: Cancer Additional Family Medical History / Comment(s): breast cancer Medications and Allergies Home Medications Medication Instructions Recorded Confirmed Type Clopidogrel [Plavix] 75 mg PO DAILY #30 tab 05/20/17 04/07/21 Rx allopurinoL [Zyloprim] 300 mg PO DAILY 03/01/19 04/07/21 History Metoprolol Tartrate [Lopressor] 25 mg PO BID #60 tab 03/06/19 04/07/21 Rx Amiodarone [Cordarone] 50 mg PO DAILY 02/08/20 04/07/21 History Fluticasone Nasal [place] [Flonase 1 spr EA NOSTRIL BID PRN 02/08/20 04/07/21 History Nasal [place]] Losartan Potassium [Cozaar] 50 mg PO BID 02/08/20 04/07/21 History hydroCHLOROthiazide 25 mg PO DAILY 02/08/20 04/07/21 History Nitroglycerin Sl Tabs [Nitrostat] 0.4 mg SUBLINGUAL Q5M PRN #30 tab 02/10/20 04/07/21 Rx Atorvastatin [Lipitor] 80 mg PO HS 04/07/21 04/07/21 History Cholecalciferol (Vitamin D3) 125 mcg PO DAILY 04/07/21 04/07/21 History [Vitamin D3 (5000 Iu)] Empagliflozin [Jardiance] 10 mg PO DAILY 04/07/21 04/07/21 History Fenofibrate 54 mg PO DAILY 04/07/21 04/07/21 History Pantoprazole Sodium [Protonix] 40 mg PO DAILY 04/07/21 04/07/21 History Rivaroxaban [Xarelto] 20 mg PO W/SUPPER 04/07/21 04/07/21 History methocarbamoL [Methocarbamol] 500 mg PO TID PRN 04/07/21 04/07/21 History Allergies Allergy/AdvReac Type Severity Reaction Status Date / Time amlodipine Allergy Severe LEG Verified 04/07/21 07:20 SWELLING AND RUPTURE OF ACHILLES venom-honey bee Allergy Anaphylaxis Verified 04/07/21 07:20 [bee venom (honey bee)] vancomycin AdvReac RED MAN Verified 04/07/21 07:20 SYNDROME Physical Exam Vitals: Vital Signs Temp Pulse Pulse Resp BP BP Pulse Ox 04/07/21 04:04 97.7 F 54 L 17 120/76 97 04/07/21 03:42 98.0 F 66 18 118/69 98 04/07/21 01:45 64 18 119/73 99 04/06/21 23:03 97.8 F 51 L 16 140/81 98 Intake and Output 04/06/21 04/07/21 04/07/21 22:59 06:59 14:59 Other: Voiding Method Toilet Weight 96.1 kg PHYSICAL EXAMINATION: GENERAL: The patient is alert and oriented x3, not in any acute distress. Well developed, well nourished. HEENT: Pupils are round and equally reacting to light. EOMI. No scleral icterus. No conjunctival pallor. Normocephalic, atraumatic. No pharyngeal erythema. No thyromegaly. CARDIOVASCULAR: S1 and S2 present. No murmurs, rubs, or gallops. PULMONARY: Chest is clear to auscultation, no wheezing or crackles. ABDOMEN: Soft, nontender, nondistended, normoactive bowel sounds. No palpable organomegaly. MUSCULOSKELETAL: No joint swelling or deformity. EXTREMITIES: No cyanosis, clubbing, or pedal edema. NEUROLOGICAL: Gross neurological examination did not reveal any focal deficits. SKIN: No rashes. Results CBC & Chem 7: 04/06/21 23:39 04/06/21 23:39 Labs: Abnormal Lab Results - Last 24 Hours (Table) 04/06/21 04/06/21 Range/Units 23:39 23:39 PT 13.4 H (9.0-12.0) sec INR 1.3 H (<1.2) Sodium 134 L (137-145) mmol/L Potassium 3.4 L (3.5-5.1) mmol/L BUN 29 H (9-20) mg/dL Glucose 124 H (74-99) mg/dL Total Protein 6.0 L (6.3-8.2) g/dL Thrombosis Risk Factor Assmnt - Choose All That Apply Each Risk Factor Represents 2 Points: Age 61-74 years Thrombosis Risk Factor Assessment Total Risk Factor Score: 2 Thrombosis Risk Factor Assessment Level: Low Risk Assessment and Plan Plan: Chest pain: Rule out a concurrent syndromes, patient has significant history of coronary artery disease patient is presently in dual antiplatelet therapy. Cardiology will evaluate the patient further decision regarding stress test or cardiac catheterization as per the patient and cardiology. -Proximal atrial fibrillation: Patient is probably sinus rhythm patient is an immigrant metoprolol which will continue patient is on Xarelto which is being held at this time until evaluated by cardiology -Coronary artery disease -gastroesophageal reflux disease -Hyperlipidemia -Hypertension next and-benign prostatic hypertrophy Above-mentioned chronic medical problems patient will be resumed on appropriate home medications.
[2021-04-07] MEDS ORDERED: AMIODARONE 50 MG TAB PO SCH (09:00)
[2021-04-07] MEDS ORDERED: METOPROLOL TARTRATE 25 MG TAB PO SCH (09:00)
[2021-04-07] MEDS ORDERED: FENOFIBRATE 54 MG TAB PO SCH (09:00)
[2021-04-07] MEDS ORDERED: CHOLECALCIFEROL 25 MCG (1000 IU) TABLET PO SCH (09:00)
[2021-04-07] MEDS ORDERED: allopurinoL 300 MG TAB PO SCH (09:00)
[2021-04-07] MEDS ORDERED: CLOPIDOGREL 75 MG TAB PO SCH (09:00)
[2021-04-07] MEDS ORDERED: AMIODARONE 100 MG TAB PO SCH (09:00)
[2021-04-07] MEDS ORDERED: PATIENT'S OWN (Empagliflozin [Jardiance] 10 MG Tablet) PO SCH (09:00)
[2021-04-07] MEDS ORDERED: LOSARTAN 50 MG TAB PO SCH (09:00)
[2021-04-07] MEDS ORDERED: PANTOPRAZOLE 40 MG TABLET PO SCH (09:00)
--- NOTE | 2021-04-07 09:38 | P.DS ---
Providers Date of admission: 04/07/21 03:20 Attending physician: Irais Peña Consults: 04/07/21 01:35 Consult Physician Urgent Consulting Provider: Theresa Rudd Consult Reason/Comments: Chest pain Do you want consulting provider notified?: Yes Primary care physician: Kathie Anderson [facility] Course: Patient was later evaluated by ext js developer. 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 Cardiology did not recommend any cardiac catheterization or stress test at this time patient will be discharged today. Patient blood pressure is fairly stable and normal without had a thiazide because of the hyponatremia and discontinue hydrocodone thiazide patient will be discharged home and follow with his ext js developer and Dr. Andersno, PCP as an outpatient. The please refer to HPI for further details Patient Condition at Discharge: Stable Plan - Discharge Summary Discharge Rx Participant: No New Discharge Prescriptions: Continue Clopidogrel [Plavix] 75 mg PO DAILY #30 tab allopurinoL [Zyloprim] 300 mg PO DAILY Metoprolol Tartrate [Lopressor] 25 mg PO BID #60 tab Amiodarone [Cordarone] 50 mg PO DAILY Fluticasone Nasal [place] [Flonase Nasal [place]] 1 spr EA NOSTRIL BID PRN PRN Reason: Allergy Symptoms Losartan Potassium [Cozaar] 50 mg PO BID Nitroglycerin Sl Tabs [Nitrostat] 0.4 mg SUBLINGUAL Q5M PRN #30 tab PRN Reason: Chest Pain Pantoprazole Sodium [Protonix] 40 mg PO DAILY Atorvastatin [Lipitor] 80 mg PO HS Rivaroxaban [Xarelto] 20 mg PO W/SUPPER Fenofibrate 54 mg PO DAILY Empagliflozin [Jardiance] 10 mg PO DAILY methocarbamoL [Methocarbamol] 500 mg PO TID PRN PRN Reason: Muscle Pain Cholecalciferol (Vitamin D3) [Vitamin D3 (5000 Iu)] 125 mcg PO DAILY Discontinued hydroCHLOROthiazide 25 mg PO DAILY Discharge Medication List Clopidogrel [Plavix] 75 mg PO DAILY #30 tab 05/20/17 [Rx] allopurinoL [Zyloprim] 300 mg PO DAILY 03/01/19 [History] Metoprolol Tartrate [Lopressor] 25 mg PO BID #60 tab 03/06/19 [Rx] Amiodarone [Cordarone] 50 mg PO DAILY 02/08/20 [History] Fluticasone Nasal [place] [Flonase Nasal [place]] 1 spr EA NOSTRIL BID PRN 02/08/20 [History] Losartan Potassium [Cozaar] 50 mg PO BID 02/08/20 [History] Nitroglycerin Sl Tabs [Nitrostat] 0.4 mg SUBLINGUAL Q5M PRN #30 tab 02/10/20 [Rx] Atorvastatin [Lipitor] 80 mg PO HS 04/07/21 [History] Cholecalciferol (Vitamin D3) [Vitamin D3 (5000 Iu)] 125 mcg PO DAILY 04/07/21 [History] Empagliflozin [Jardiance] 10 mg PO DAILY 04/07/21 [History] Fenofibrate 54 mg PO DAILY 04/07/21 [History] Pantoprazole Sodium [Protonix] 40 mg PO DAILY 04/07/21 [History] Rivaroxaban [Xarelto] 20 mg PO W/SUPPER 04/07/21 [History] methocarbamoL [Methocarbamol] 500 mg PO TID PRN 04/07/21 [History] Follow up Appointment(s)/Referral(s): Kathie Anderson III, MD [Primary Care Provider] - 3 Days Philip Fu MD [STAFF PHYSICIAN] - 1 Week Patient Instructions/Handouts: Chest Pain (ED) Discharge Disposition: HOME SELF-CARE
[2021-04-07 11:00] VITALS: BP 107/71; PULSE 58; RESP 16; TEMP 97.8
--- NOTE | 2021-04-07 12:22 | P.CRDCN ---
History of Present Illness History of present illness: HISTORY OF PRESENTING ILLNESS This is a pleasant 60-year-old male past medical history significant for myocardial infarction 2018, coronary artery disease s/p multiple stent placements, paroxysmal atrial fibrillation on Xarelto, hypertention, type 2 diabetes, chronic tobacco use. He follows in the office with Dr. Fu. We have been asked to see in consultation for chest pain. Patient is seen and examined at bedside, no acute distress. States he started having sharp left sided chest pain Saturday night that continued into . Pain started when he was sleeping in the chair, woke him up. Pain is nonexertional. Radiating to left arm and left shoulder. Shoulder pain is throbbing. Arm pain does not worsen with activity and movement. States it only lasts a few seconds. Became more frequent so he decided to present to the emergency department. Left arm pain is reprodu cible. He denies palpitations, lower extremity edema, fatigue, lightheadedness or syncope. He took 4 aspirins and a nitroglycerin and it did not relieve his pain fully. Resting makes the pain better. Moving his left arm makes the pain worse. He does have not have symptoms of PND or orthopnea. EKG revealed sinus bradycardia, heart rate 59, no significant ST-T wave abnormalities, no significant changes from previous EKGs. Laboratory data reviewed,CBC unremarkable, troponin negative 3, sodium 134, potassium 3.4 (has been replaced), serum creatinine 1.12, BUN 29, COVID-19 negative Vital signs blood pressure 107/71, heart rate 58, afebrile, oxygen saturation is 99% on room air. Current home cardiac medications include Xarelto 20 mg daily, metoprolol tartrate 25 mg twice a day, losartan 50 mg twice a day, fenofibrate 54 mg daily, Plavix 75 mg daily, statin 80 mg nightly, amiodarone 50 mg daily. DIAGNOSTICS Lexiscan Stress Test- 07/28/2020: revealed a normal EF, no reversible ischemia. 05/2017- Patient presented with NSTEMI underwent cardiac cath with PCI x 4 to mid left circumflex, distal left circumflex, proximal RCA, and mid RCA 03/2019- Patient presented with cardiac arrest evidence of acute inferior myocardial infarction with PCI x 2 of the first obtuse marginal branch, and fi rst diagonal branch 01/2020- Patient presented with NSTEMI underwent cardiac cath which revealed re -stenosis and PCI of the first obtuse marginal branch Telemetry tracings indicate sinus mechanism HR 50-60s Chest xray no acute cardiopulmonary process REVIEW OF SYSTEMS At the time of my exam: CONSTITUTIONAL: Denies fever or chills. CARDIOVASCULAR: +left sided chest pain, +left sided arm pain Denies shortness of breath, orthopnea, PND or palpitations. RESPIRATORY: Denies cough. GASTROINTESTINAL: Denies abdominal pain, diarrhea, constipation, nausea or vomiting. MUSCULOSKELETAL: Denies myalgias. NEUROLOGIC: Denies numbness, tingling, headacbe or weakness. ENDOCRINE: Denies fatigue, weight change, polydipsia or polyurina. GENITOURINARY: Denies burning, hematuria or urgency with micturation. HEMATOLOGIC: Denies history of anemia or bleeding. PHYSICAL EXAMINATION CONSTITUTIONAL: No apparent distress. HEENT: Head is normocephalic. Pupils are equal, round. Sclerae anicteric. Mucous membranes of the mouth are moist. No JVD. No carotid bruit. CHEST EXAMINATION: Lungs are clear to auscultation. +Tenderness to left side of chest with palpation and movement HEART EXAMINATION: Regular rate and rhythm. S1, S2 heard. No murmurs, gallops or rub. ABDOMEN: Soft, nontender. Positive bowel sounds. EXTREMITIES: 2+ peripheral pulses, no lower extremity edema and no calf tenderness. MSK: Left shoulder and arm pain with movement and against resistance SKIN: intact NEUROLOGIC EXAMINATION: Patient is awake, alert and oriented x3. ASSESSMENT Chest pain, atypical. Left arm pain and chest pain is reproducible. Appears musculoskeletal in nature. Acute coronary syndrome has been ruled out, with negative cardiac enzymes and no signs of ischemia on EKG. Patient with a negative stress test in 07/28/2020. Coronary artery disease s/p multiple stent placements with details noted above Paroxysmal atrial fibrillation on Xarelto Hypertention Type 2 diabetes Chronic tobacco use PLAN An acute coronary event has been ruled out with no EKG evidence of ischemia and negative cardiac enzymes. From cardiology perspective, no need for further testing at this time. Continue home cardiac medications Smoking cessation discussed and highly recommended. Follow up with Dr. Fu within 2 weeks Thank you kindly for this consultation. Nurse Practitioner note has been reviewed, I agree with a documented findings and plan of care. Patient was seen and examined. Past Medical History Past Medical History: Atrial Fibrillation, Coronary Artery Disease (CAD), Cancer, GERD/Reflux, Hyperlipidemia, Hypertension, Myocardial Infarction ([place]), Prostate Disorder Additional Past Medical History / Comment(s): rt toe issues(gout?), skin cancer seasonal allergies, kidney stones, benign lesion on nose, diverticulitis, covid in october Last Myocardial Infarction Date:: 02/28/19 History of Any Multi-Drug Resistant Organisms: None Reported Past Surgical History: Back Surgery, Bowel Resection, Cholecystectomy, Heart Catheterization With Stent, Joint Replacement, Orthopedic Surgery, Tonsillectomy Additional Past Surgical History / Comment(s): TOTAL OF 8 STENTS, Diverticulitis; Left hip replacement, Right knee Past Anesthesia/Blood Transfusion Reactions: No Reported Reaction Date of Last Stent Placement:: 03/2019 Past Psychological History: No Psychological Hx Reported Smoking Status: Former smoker Past Alcohol Use History: None Reported Additional Past Alcohol Use History / Comment(s): QUIT SMOKING 1998, SMOKED CIGARS. Past Drug Use History: Marijuana - Past Family History Father Family Medical History: Hypertension Mother History Unknown: Yes Family Medical History: Cancer Additional Family Medical History / Comment(s): breast cancer Medications and Allergies Home Medications Medication Instructions Recorded Confirmed Type Clopidogrel [Plavix] 75 mg PO DAILY #30 tab 05/20/17 04/07/21 Rx allopurinoL [Zyloprim] 300 mg PO DAILY 03/01/19 04/07/21 History Metoprolol Tartrate [Lopressor] 25 mg PO BID #60 tab 03/06/19 04/07/21 Rx Amiodarone [Cordarone] 50 mg PO DAILY 02/08/20 04/07/21 History Fluticasone Nasal [place] [Flonase 1 spr EA NOSTRIL BID PRN 02/08/20 04/07/21 History Nasal [place]] Losartan Potassium [Cozaar] 50 mg PO BID 02/08/20 04/07/21 History Nitroglycerin Sl Tabs [Nitrostat] 0.4 mg SUBLINGUAL Q5M PRN #30 tab 02/10/20 04/07/21 Rx Atorvastatin [Lipitor] 80 mg PO HS 04/07/21 04/07/21 History Cholecalciferol (Vitamin D3) 125 mcg PO DAILY 04/07/21 04/07/21 History [Vitamin D3 (5000 Iu)] Empagliflozin [Jardiance] 10 mg PO DAILY 04/07/21 04/07/21 History Fenofibrate 54 mg PO DAILY 04/07/21 04/07/21 History Pantoprazole Sodium [Protonix] 40 mg PO DAILY 04/07/21 04/07/21 History Rivaroxaban [Xarelto] 20 mg PO W/SUPPER 04/07/21 04/07/21 History methocarbamoL [Methocarbamol] 500 mg PO TID PRN 04/07/21 04/07/21 History Allergies Allergy/AdvReac Type Severity Reaction Status Date / Time amlodipine Allergy Severe LEG Verified 04/07/21 07:20 SWELLING AND RUPTURE OF ACHILLES venom-honey bee Allergy Anaphylaxis Verified 04/07/21 07:20 [bee venom (honey bee)] vancomycin AdvReac RED MAN Verified 04/07/21 07:20 SYNDROME Physical Exam Vitals: Vital Signs Temp Pulse Pulse Resp BP BP Pulse Ox 04/07/21 04:04 97.7 F 54 L 17 120/76 97 04/07/21 03:42 98.0 F 66 18 118/69 98 04/07/21 01:45 64 18 119/73 99 04/06/21 23:03 97.8 F 51 L 16 140/81 98 Intake and Output 04/06/21 04/07/21 04/07/21 22:59 06:59 14:59 Other: Voiding Method Toilet Weight 96.1 kg Results 04/06/21 23:39 04/06/21 23:39 Cardiac Enzymes 04/06/21 04/06/21 04/07/21 Range/Units 23:39 23:39 02:31 AST 40 (17-59) U/L Troponin I <0.012 <0.012 (0.000-0.034) ng/mL 04/07/21 Range/Units 05:09 AST (17-59) U/L Troponin I <0.012 (0.000-0.034) ng/mL Coagulation 04/06/21 Range/Units 23:39 PT 13.4 H (9.0-12.0) sec APTT 29.4 (22.0-30.0) sec CBC 04/06/21 Range/Units 23:39 WBC 8.0 (3.8-10.6) k/uL RBC 5.65 (4.30-5.90) m/uL Hgb 16.9 (13.0-17.5) gm/dL Hct 50.3 (39.0-53.0) % Plt Count 159 (150-450) k/uL Comprehensive Metabolic Panel 04/06/21 Range/Units 23:39 Sodium 134 L (137-145) mmol/L Potassium 3.4 L (3.5-5.1) mmol/L Chloride 105 (98-107) mmol/L Carbon Dioxide 22 (22-30) mmol/L BUN 29 H (9-20) mg/dL Creatinine 1.12 (0.66-1.25) mg/dL Glucose 124 H (74-99) mg/dL Calcium 9.7 (8.4-10.2) mg/dL AST 40 (17-59) U/L ALT 34 (4-49) U/L Alkaline Phosphatase 90 (38-126) U/L Total Protein 6.0 L (6.3-8.2) g/dL Albumin 3.8 (3.5-5.0) g/dL Current Medications Generic Name Dose Route Start Last Admin Trade Name Freq PRN Reason Stop Dose Admin Aspirin 325 mg 04/08/21 09:00 Aspirin 325 Mg Tab PO DAILY CADY Nitroglycerin 0.4 mg 04/07/21 01:35 Nitroglycerin Sl Tabs 0.4 Mg Tab SUBLINGUAL Q5M PRN Chest Pain Intake and Output 04/06/21 04/07/21 04/07/21 22:59 06:59 14:59 Other: Voiding Method Toilet Weight 96.1 kg 04/06/21 23:39 04/06/21 23:39
[2021-04-07] MEDS ORDERED: ATORVASTATIN 80 MG TAB PO SCH (21:00)
[2021-04-08] MEDS ORDERED: ASPIRIN 325 MG TAB PO SCH (09:00)
[2021-04-08] MEDS ORDERED: ASPIRIN 81 MG PO SCH (09:00)
== END 2021-04-07 11:34 | disposition home or self-care (01) ==
LOC: EC 23:02 → 3SCARD 04-07 03:20
PROVIDERS: ADMIT Internal Medicine; ATTEND Internal Medicine
DX: R07.9 Chest pain, unspecified (principal); I48.0 Paroxysmal atrial fibrillation; I25.10 Atherosclerotic heart disease of native coronary artery without angina pectoris; K21.9 Gastro-esophageal reflux disease without esophagitis; E78.5 Hyperlipidemia, unspecified; I10 Essential (primary) hypertension; I25.2 Old myocardial infarction; N42.9 Disorder of prostate, unspecified; E87.6 Hypokalemia; E87.1 Hypo-osmolality and hyponatremia; E11.9 Type 2 diabetes mellitus without complications; R79.1 Abnormal coagulation profile; F17.200 Nicotine dependence, unspecified, uncomplicated; K57.92 Diverticulitis of intestine, part unspecified, without perforation or abscess without bleeding; M25.512 Pain in left shoulder; M79.602 Pain in left arm; M10.9 Gout, unspecified; N40.0 Benign prostatic hyperplasia without lower urinary tract symptoms; Z79.899 Other long term (current) drug therapy; Z79.84 Long term (current) use of oral hypoglycemic drugs; Z79.82 Long term (current) use of aspirin; Z79.02 Long term (current) use of antithrombotics/antiplatelets; Z79.01 Long term (current) use of anticoagulants; Z91.030 Bee allergy status; Z88.1 Allergy status to other antibiotic agents; Z88.8 Allergy status to other drugs, medicaments and biological substances; Z20.822 Contact with and (suspected) exposure to COVID-19; Z86.16 Personal history of COVID-19; Z87.442 Personal history of urinary calculi; Z90.49 Acquired absence of other specified parts of digestive tract; Z85.828 Personal history of other malignant neoplasm of skin; Z96.642 Presence of left artificial hip joint; Z95.5 Presence of coronary angioplasty implant and graft; Z80.3 Family history of malignant neoplasm of breast; Z82.49 Family history of ischemic heart disease and other diseases of the circulatory system
CPT/HCPCS: 99285; 36415; 93005; 80053; 83735; 84484; 85025; 85610; 85730; 87636; 71046; G0378

== ENCOUNTER 2021-04-26 05:43 | Day surgery (SDC) | payer OTHER ==
[2021-04-26] MEDS ORDERED: SODIUM CHLORIDE 0.9% 1,000 ML in EMPTY BAG 1 BAG IV ONE (05:52)
[2021-04-26] MEDS ORDERED: NITROGLYCERIN SL TABS 0.4 MG TAB SUBLINGUAL PRN ×2 (05:52→09:24)
[2021-04-26] MEDS ORDERED: ALPRAZolam 0.5 MG TAB PO PRN (05:52)
[2021-04-26] MEDS ORDERED: ALPRAZolam 0.25 MG TAB PO PRN (05:52)
[2021-04-26 06:42] LABS: Glucose,Whole Blood 101 mg/dL (75-99)
[2021-04-26] MEDS ORDERED: ASPIRIN 325 MG TAB PO ONE (07:00)
[2021-04-26] MEDS ORDERED: HEPARIN SODIUM,PORCINE 2,500 UNIT in SODIUM CHLORIDE 0.9% 250 ML IRRIGATION PRN (07:00)
[2021-04-26] MEDS ORDERED: ATORVASTATIN 80 MG TAB PO ONE (07:00)
[2021-04-26] MEDS ORDERED: HEPARIN SODIUM,PORCINE 10,000 UNIT in SODIUM CHLORIDE 0.9% 1,000 ML IRRIGATION PRN (07:00)
[2021-04-26] MEDS ORDERED: fentaNYL (PF) 50 MCG/ML 2 ML AMP ONE (07:25)
[2021-04-26] MEDS ORDERED: LIDOCAINE 1% INJ 10MG/ML (20 ML MDV) ONE (07:26)
[2021-04-26] MEDS ORDERED: MIDAZOLAM 2 MG/2 ML VIAL IV ONE (07:30)
[2021-04-26] MEDS ORDERED: fentaNYL (PF) 50 MCG/ML 2 ML AMP IV ONE (07:30)
[2021-04-26] MEDS ORDERED: LIDOCAINE 1% INJ 10MG/ML (20 ML MDV) SQ ONE (07:39)
[2021-04-26] MEDS ORDERED: HEPARIN SODIUM 1,000 UN/ML (10ML VL) ONE ×2 (07:58→08:42)
[2021-04-26] MEDS ORDERED: IOPAMIDOL-370 125ML BTL INJ ONE (08:38)
[2021-04-26] MEDS ORDERED: IOPAMIDOL-370 100ML BTL INJ ONE (09:04)
--- NOTE | 2021-04-26 09:09 | LTR ---
April 26, 2021 Re: John Solitario Dear Abilio: I performed cardiac catheterization on John Solitario. A detailed catheterization note is enclosed for your records. He developed significant restenoses in the circumflex coronary artery and right coronary artery and we will attempt angioplasty of both these vessels. Thank you as always for giving us the privilege to participate in the care of your patient. Sincerely, MD ZONIA Deleon / KEVIN: [id number] /
--- NOTE | 2021-04-26 09:09 | CC ---
CARDIAC CATHETERIZATION REPORT INDICATION: Unstable angina. This is a 60-year-old gentleman with history of coronary artery disease, status post prior multivessel angioplasty, who presented to me with symptoms of unstable angina and was advised to undergo cardiac catheterization. He has been explained of risks, benefits and alternatives, understood and accepted. PROCEDURE NOTE: After obtaining informed consent, left heart catheterization and coronary angiogram were performed via the right femoral artery using standard Tuan catheters. The patient tolerated the procedure well without any obvious immediate complications. Patient received moderate conscious sedation and total sedation time was 14 minutes. FINDINGS: 1. HEMODYNAMICS: Left ventricular end-diastolic pressure is 10 mm. There is no significant gradient across the aortic valve. 2. LEFT VENTRICULOGRAM: Left ventriculogram is not performed. 3. ANGIOGRAPHIC DATA: Left Main Coronary Artery: Left main coronary artery appears calcified but is free of significant stenosis. Divides into left anterior descending coronary artery, ramus intermedius and circumflex coronary artery. There is a 95% focal stenosis in the circumflex coronary artery that involves an area that is in between 2 stents. The previously stented ramus intermedius appears patent. The LAD was previously stented and the stents appear patent. Right coronary artery is a large dominant vessel that has a 70% to 80% in-stent restenosis in the proximal part. CONCLUSIONS: Multivessel coronary artery disease with critical stenosis involving circumflex coronary artery and right coronary artery. PLAN: Patient will undergo angioplasty of these [address] Rudd. MMESTRELLA / KEVIN: [id number] /
[2021-04-26] MEDS ORDERED: RX INFO: IV CONTRAST WAS GIVEN 1 EACH MISC MISCELLANE PRN (09:24)
[2021-04-26] MEDS ORDERED: ATROPINE SULFATE 0.1 MG/ML 10ML SYRINGE IV PRN (09:24)
[2021-04-26] MEDS ORDERED: MAG HYDROX/AL HYDROX/SIMETH 30 ML CUP PO PRN (09:24)
[2021-04-26] MEDS ORDERED: ZOLPIDEM 5 MG TAB PO PRN (09:24)
[2021-04-26] MEDS ORDERED: FLUTICASONE 50MCG/SPRAY NASAL 16GM EA NOSTRIL PRN (09:25)
[2021-04-26] MEDS ORDERED: methocarbamoL 500 MG TAB PO PRN (09:25)
[2021-04-26] MEDS ORDERED: GABAPENTIN 300 MG CAP PO PRN (09:25)
[2021-04-26] MEDS ORDERED: SODIUM CHLORIDE 0.9% 1,000 ML IV SCH (09:30)
--- NOTE | 2021-04-26 09:54 | LTR ---
April 26, 2021 Re: John Kassi Dear Dr. Anderson: I had opportunity to perform angioplasty and stenting on Mr. Solitario at [facility] on the 26 of April and a full copy of the procedure note will be forwarded to you. In brief, he underwent successful stenting of his mid left circumflex and mid right coronary artery. I am hopeful that this procedure will stabilize his status. Thank you again for allowing me the opportunity to participate in his care. Please feel free to call for any questions. Sincerely yours, Theresa Rudd MD [email or web address] / DIOGENESN: [id number] /
--- NOTE | 2021-04-26 09:54 | PTCA ---
PERCUTANEOUSTRANS CORORONARY ANGIOGRAPHY Mr. Solitario is a 60-year-old male with a known history of coronary artery disease, status post multivessel stenting in the past who presents with symptoms of angina pectoris. He was evaluated by Dr. Fu and was found to have critical stenosis in the mid left circumflex and the right coronary artery. In view of that, recommendation was made regarding angioplasty and stenting, the procedure as well as the risks and the complications were discussed with the patient who is in full understanding and agreement. PROCEDURE: A 6-Thai FR4 guiding catheter introduced in the system. After cannulating the left main a 0.014 balanced medium weight J-wire was advanced across the lesion, positioned distal left circumflex. Attempts to advance a 2.5 x 12 mm NC Trek balloon were unsuccessful. That balloon was removed and another 0.014 balanced medium weight J-wire was advanced next to the first one in a fabiola fashion and positioned distally. Subsequently a 1.5 x 8 mm Trek balloon was advanced and 2 inflations at 14 atmospheres in the proximal segment of the left circumflex were performed. Following that, the balloon was removed and a 2.5 x 12 mm NC Trek balloon was advanced and one inflation in the mid left circumflex was performed at 12 atmospheres. Following that, the balloon was removed and a 2.75 x 15 mm Xience Olesya stent was advanced, deployed and post dilated at 16 atmospheres. After the last inflation, after appropriate wait, the balloon and the guidewire were withdrawn back in the guiding catheter. Images were obtained and repeated. Those images reveal stable successful stenting. At that point, the guiding catheter, the balloon and the guidewire were removed and a 6-Thai FR4 guiding catheter introduced in the system. After cannulating the right coronary ostium a 0.014 balanced medium weight J-wire was advanced across the lesion, positioned distally then a 3.0 x 15 mm NC Trek balloon was advanced and 2 inflations maximum of 12 atmospheres were done. Following that, the balloon was removed and a 3.25 x 23 mm Xience Olesya stent was deployed, post dilated at 16 atmospheres. Following that the balloon was removed and a 3.5 x 15 mm NC Trek balloon was advanced and multiple inflations in the right coronary artery were performed at maximum 14 atmospheres. After the last inflation, after appropriate wait, the balloon and the guidewire were withdrawn back in the guiding catheter. Images were obtained and repeated. Those images reveal successful stenting. At that point, the guiding catheter, the balloon and the guidewire removed. The sheath was removed. Hemostasis was obtained with deployment of Angio-Seal. There was no immediate complication. Patient was returned to his room in stable condition. Of note, the patient received a total of 9000 units of intravenous heparin throughout the procedure, his ACT was followed. He was continued on clopidogrel. He had chest discomfort with the inflation that resolved at the end of the procedure. He had no EKG changes. RESULTS: 1. Successful stenting of the mid left circumflex with reduction of stenosis from 99% to 0%. 2. Successful stenting of the mid right coronary artery with reduction of stenosis from 90% to 0%. RECOMMENDATION: Patient will be continued on aspirin, Plavix and statin. The importance of dual antiplatelet treatment were discussed with the patient and his family and they are in full understanding and agreement. Duration of procedure is 50 minutes. MMESTRELLA / DIOGENESN: [id number] / NALLELY
[2021-04-26] MEDS: METOPROLOL TARTRATE 25 MG TAB PO SCH (20:20)
[2021-04-26] MEDS: LOSARTAN 50 MG TAB PO SCH (20:20)
[2021-04-26] MEDS ORDERED: ATORVASTATIN 80 MG TAB PO SCH (21:00)
[2021-04-27 06:22] LABS: African American GFR (CKD) 81 (>60 ml/min/1.73 sqM); Anion Gap 7 mmol/L; Blood Urea Nitrogen 19 mg/dL (9-20); Calcium 9.6 mg/dL (8.4-10.2); Carbon Dioxide 28 mmol/L (22-30); Chloride 103 mmol/L (98-107); Glucose 85 mg/dL (74-99); Non-African American GFR(CKD) 70 (>60 ml/min/1.73 sqM); Sodium 138 mmol/L (137-145)
[2021-04-27 07:54] VITALS: BP 123/73; PULSE 54; RESP 18; TEMP 97.5
[2021-04-27] MEDS: METOPROLOL TARTRATE 25 MG TAB PO SCH (08:19)
[2021-04-27] MEDS: LOSARTAN 50 MG TAB PO SCH (08:19)
[2021-04-27] MEDS ORDERED: allopurinoL 300 MG TAB PO SCH (09:00)
[2021-04-27] MEDS ORDERED: AMIODARONE 50 MG TAB PO SCH (09:00)
[2021-04-27] MEDS ORDERED: ASPIRIN 81 MG PO SCH (09:00)
[2021-04-27] MEDS ORDERED: NON FORMULARY DRUG (Empagliflozin [Jardiance] 10 MG Tablet) PO SCH (09:00)
[2021-04-27] MEDS ORDERED: FENOFIBRATE 54 MG TAB PO SCH (09:00)
[2021-04-27] MEDS ORDERED: PANTOPRAZOLE 40 MG TABLET PO SCH (09:00)
[2021-04-27 13:28] VITALS: BMI 25.7
[2021-04-28] MEDS ORDERED: CLOPIDOGREL 75 MG TAB PO SCH (09:00)
== END 2021-04-27 11:20 | disposition home or self-care (01) ==
LOC: CATHCVL 05:43 → 6NMEDSUR 09:05 → CATHCVL 04-27 11:20
PROVIDERS: ATTEND Internal Medicine Cardiovascular Disease
DX: I25.110 Atherosclerotic heart disease of native coronary artery with unstable angina pectoris (principal); T82.855A Stenosis of coronary artery stent, initial encounter; Y83.9 Surgical procedure, unspecified as the cause of abnormal reaction of the patient, or of later complication, without mention of misadventure at the time of the procedure; E78.5 Hyperlipidemia, unspecified; I10 Essential (primary) hypertension; Z82.49 Family history of ischemic heart disease and other diseases of the circulatory system; Z79.899 Other long term (current) drug therapy; Z79.02 Long term (current) use of antithrombotics/antiplatelets; Z79.01 Long term (current) use of anticoagulants; Z79.82 Long term (current) use of aspirin; Z88.8 Allergy status to other drugs, medicaments and biological substances; Z88.1 Allergy status to other antibiotic agents; Z91.030 Bee allergy status; Z20.822 Contact with and (suspected) exposure to COVID-19
CPT/HCPCS: 93458; 80048; 84132; 87635; C9600 ×2; C1769 ×3; C1760; C1887 ×2; C1725 ×3; C1894; C1874; J2250; J2001; J3010; J1644; Q9967 ×2

== ENCOUNTER 2021-11-04 12:15 | Observation (INO) | payer OTHER ==
[2021-11-04 13:31] LABS: Basophils % (A) 1 %; Eosinophils # (A) 0.4 k/uL (0-0.7); Eosinophils % (A) 8 %; HCT 50.1 % (39.0-53.0); HGB 17.1 gm/dL (13.0-17.5); Lymphocytes # (A) 1.3 k/uL (1.0-4.8); Lymphocytes % (A) 23 %; MCH 31.1 pg (25.0-35.0); MCHC 34.1 g/dL (31.0-37.0); MCV 91.1 fL (80.0-100.0); Mean Platelet Volume 7.8; Monocytes # (A) 0.4 k/uL (0-1.0); Monocytes % (A) 7 %; Neutrophils # (A) 3.4 k/uL (1.3-7.7); Neutrophils % (A) 60 %; Platelet Count 160 k/uL (150-450); RDW 12.8 % (11.5-15.5); WBC 5.6 k/uL (3.8-10.6)
[2021-11-04 13:41] LABS: Partial Thromboplastin Time 24.9 sec (22.0-30.0); Prothrombin Time 10.7 sec (9.0-12.0)
[2021-11-04 13:43] LABS: Albumin 4.1 g/dL (3.5-5.0); Magnesium 1.8 mg/dL (1.6-2.3); Potassium 4.4 mmol/L (3.5-5.1); Total Bilirubin 0.7 mg/dL (0.2-1.3); Total Protein 6.7 g/dL (6.3-8.2)
--- NOTE | 2021-11-04 14:16 | ED ---
General Adult HPI - General Chief complaint: Chest Pain Stated complaint: shoulder & chest pain Time Seen by Provider: 11/04/21 14:02 Source: patient, RN notes reviewed, old records reviewed Mode of arrival: ambulatory Limitations: no limitations - History of Present Illness Initial comments: 61-year-old male presenting for evaluation of intermittent chest pain and left shoulder pain. Patient has multiple stents. He is currently on ELIQUIS. He had a heart catheterization in April requiring 2 stents of thrombosed previous stents. He states his pain today is similar to those episodes. This is left- sided chest pain described as a sharp in nature. He had left shoulder pain but states he does have osteoarthritis in the left shoulder and this was worse with movement. No diaphoresis. No vomiting. - Related Data Home Medications Medication Instructions Recorded Confirmed allopurinoL [Zyloprim] 300 mg PO QAM 03/01/19 04/26/21 Amiodarone [Cordarone] 50 mg PO QAM 02/08/20 04/26/21 Fluticasone Nasal [place] [Flonase 1 spr EA NOSTRIL BID PRN 02/08/20 04/26/21 Nasal [place]] Losartan Potassium [Cozaar] 50 mg PO BID 02/08/20 04/26/21 Atorvastatin [Lipitor] 80 mg PO HS 04/07/21 04/26/21 Empagliflozin [Jardiance] 10 mg PO QAM 04/07/21 04/26/21 Fenofibrate 54 mg PO QAM 04/07/21 04/26/21 Pantoprazole Sodium [Protonix] 40 mg PO QAM 04/07/21 04/26/21 Rivaroxaban [Xarelto] 20 mg PO W/SUPPER 04/07/21 04/26/21 methocarbamoL [Methocarbamol] 500 mg PO TID PRN 04/07/21 04/26/21 Gabapentin 300 mg PO TID PRN 04/21/21 04/26/21 Multivitamins, Thera [Multivitamin 1 tab PO DAILY 04/21/21 04/26/21 (formulary)] hydroCHLOROthiazide 25 mg PO QAM 04/21/21 04/26/21 Previous Rx's Medication Instructions Recorded Clopidogrel [Plavix] 75 mg PO DAILY #30 tab 05/20/17 Metoprolol Tartrate [Lopressor] 25 mg PO BID #60 tab 03/06/19 Nitroglycerin Sl Tabs [Nitrostat] 0.4 mg SUBLINGUAL Q5M PRN #30 tab 02/10/20 Allergies Allergy/AdvReac Type Severity Reaction Status Date / Time amlodipine Allergy Severe LEG Verified 11/04/21 12:23 SWELLING AND RUPTURE OF ACHILLES venom-honey bee Allergy Anaphylaxis Verified 11/04/21 12:23 [bee venom (honey bee)] Review of Systems ROS Statement: Those systems with pertinent positive or pertinent negative responses have been documented in the HPI. ROS Other: All systems not noted in ROS Statement are negative. Past Medical History Past Medical History: Atrial Fibrillation, Coronary Artery Disease (CAD), Cancer, GERD/Reflux, Hyperlipidemia, Hypertension, Myocardial Infarction (SC), Prostate Disorder Additional Past Medical History / Comment(s): CURRENT: TIGHTNESS IN CHEST. Rt toe issues(gout?). skin cancer. seasonal allergies. kidney stones. diverticulitis. covid in october. PFIZER VACCINE. Last Myocardial Infarction Date:: 02/28/19 History of Any Multi-Drug Resistant Organisms: None Reported Past Surgical History: Back Surgery, Bowel Resection, Cholecystectomy, Heart Catheterization With Stent, Joint Replacement, Orthopedic Surgery, Tonsillectomy Additional Past Surgical History / Comment(s): TOTAL OF 11 STENTS Left hip replacement. Right knee Past Anesthesia/Blood Transfusion Reactions: No Reported Reaction Date of Last Stent Placement:: 03/2019 Past Psychological History: No Psychological Hx Reported Smoking Status: Former smoker Past Alcohol Use History: None Reported Past Drug Use History: None Reported - Past Family History Father Family Medical History: Hypertension Mother History Unknown: Yes Family Medical History: Cancer Additional Family Medical History / Comment(s): breast cancer General Exam Limitations: no limitations General appearance: alert, in no apparent distress Head exam: Present: atraumatic, normocephalic Eye exam: Present: normal appearance, PERRL ENT exam: Present: normal exam Neck exam: Present: normal inspection. Absent: tenderness, meningismus Respiratory exam: Present: normal lung sounds bilaterally. Absent: respiratory distress, wheezes Cardiovascular Exam: Present: regular rate, normal rhythm GI/Abdominal exam: Present: soft. Absent: distended, tenderness, guarding Extremities exam: Present: normal inspection, normal capillary refill. Absent: pedal edema Neurological exam: Present: alert, oriented X3, CN II-XII intact. Absent: motor sensory deficit Psychiatric exam: Present: normal affect, normal mood Skin exam: Present: warm, dry, intact. Absent: cyanosis, diaphoretic Course Vital Signs 11/04/21 12:23 Temperature 98 F Pulse Rate 59 L Respiratory 17 Rate Blood Pressure 150/98 O2 Sat by Pulse 99 Oximetry EKG Findings - EKG Comments: EKG Findings:: EKG: Sinus bradycardia, rate 51, NV interval 166, QRS duration 108, QTC 423, no ST segment elevation. Medical Decision Making - Medical Decision Making 61-year-old male history of CAD presenting with chest pain. Pain is atypical but the patient states similar to previous SC. 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 Patient will be placed in observation for serial cardiac enzymes, telemetry, cardiology consultation. Dr. Peña who will accept the admission. Initial workup including EKG, chest x-ray, laboratory testing is unremarkable. First troponin is negative. - Lab Data Result diagrams: 11/04/21 12:38 11/04/21 12:38 Lab Results 11/04/21 11/04/21 11/04/21 Range/Units 12:38 12:38 12:38 WBC 5.6 (3.8-10.6) k/uL RBC 5.50 (4.30-5.90) m/uL Hgb 17.1 (13.0-17.5) gm/dL Hct 50.1 (39.0-53.0) % MCV 91.1 (80.0-100.0) fL MCH 31.1 (25.0-35.0) pg MCHC 34.1 (31.0-37.0) g/dL RDW 12.8 (11.5-15.5) % Plt Count 160 (150-450) k/uL MPV 7.8 Neutrophils % 60 % Lymphocytes % 23 % Monocytes % 7 % Eosinophils % 8 % Basophils % 1 % Neutrophils # 3.4 (1.3-7.7) k/uL Lymphocytes # 1.3 (1.0-4.8) k/uL Monocytes # 0.4 (0-1.0) k/uL Eosinophils # 0.4 (0-0.7) k/uL Basophils # 0.0 (0-0.2) k/uL PT 10.7 (9.0-12.0) sec INR 1.0 (<1.2) APTT 24.9 (22.0-30.0) sec Sodium 139 (137-145) mmol/L Potassium 4.4 (3.5-5.1) mmol/L Chloride 107 (98-107) mmol/L Carbon Dioxide 24 (22-30) mmol/L Anion Gap 8 mmol/L BUN 38 H (9-20) mg/dL Creatinine 1.39 H (0.66-1.25) mg/dL Est GFR (CKD-EPI)AfAm 62 (>60 ml/min/1.73 sqM) Est GFR (CKD-EPI)NonAf 54 (>60 ml/min/1.73 sqM) Glucose 102 H (74-99) mg/dL Calcium 10.0 (8.4-10.2) mg/dL Magnesium 1.8 (1.6-2.3) mg/dL Total Bilirubin 0.7 (0.2-1.3) mg/dL AST 51 (17-59) U/L ALT 45 (4-49) U/L Alkaline Phosphatase 84 (38-126) U/L Troponin I (0.000-0.034) ng/mL Total Protein 6.7 (6.3-8.2) g/dL Albumin 4.1 (3.5-5.0) g/dL 11/04/21 Range/Units 12:38 WBC (3.8-10.6) k/uL RBC (4.30-5.90) m/uL Hgb (13.0-17.5) gm/dL Hct (39.0-53.0) % MCV (80.0-100.0) fL MCH (25.0-35.0) pg MCHC (31.0-37.0) g/dL RDW (11.5-15.5) % Plt Count (150-450) k/uL MPV Neutrophils % % Lymphocytes % % Monocytes % % Eosinophils % % Basophils % % Neutrophils # (1.3-7.7) k/uL Lymphocytes # (1.0-4.8) k/uL Monocytes # (0-1.0) k/uL Eosinophils # (0-0.7) k/uL Basophils # (0-0.2) k/uL PT (9.0-12.0) sec INR (<1.2) APTT (22.0-30.0) sec Sodium (137-145) mmol/L Potassium (3.5-5.1) mmol/L Chloride (98-107) mmol/L Carbon Dioxide (22-30) mmol/L Anion Gap mmol/L BUN (9-20) mg/dL Creatinine (0.66-1.25) mg/dL Est GFR (CKD-EPI)AfAm (>60 ml/min/1.73 sqM) Est GFR (CKD-EPI)NonAf (>60 ml/min/1.73 sqM) Glucose (74-99) mg/dL Calcium (8.4-10.2) mg/dL Magnesium (1.6-2.3) mg/dL Total Bilirubin (0.2-1.3) mg/dL AST (17-59) U/L ALT (4-49) U/L Alkaline Phosphatase (38-126) U/L Troponin I <0.012 (0.000-0.034) ng/mL Total Protein (6.3-8.2) g/dL Albumin (3.5-5.0) g/dL Disposition Clinical Impression: Chest pain Disposition: ADMITTED IP TO THIS [facility] Condition: Stable Is patient prescribed a controlled substance at d/c from ED?: No Referrals: Kathie Anderson III, MD [Primary Care Provider] - 1-2 days Decision to Admit Reason: Admit from EC Decision Date: 11/04/21 Decision Time: 15:26
--- NOTE | 2021-11-04 14:28 | XR ---
INDICATION: Patient age:Male; 61 years old; Reason for study: Chest Pain; PHH. COMPARISON: Multiple radiographs, with the most recent on 04/07/2021. TECHNIQUE: Frontal and lateral views of the chest. FINDINGS: Lungs/Pleura: There is no evidence of pleural effusion, focal consolidation, or pneumothorax. Pulmonary vascularity: Unremarkable. Heart/mediastinum: Cardiomediastinal silhouette is unremarkable. Musculoskeletal: No acute osseous pathology. IMPRESSION: No acute cardiopulmonary disease/process.
[2021-11-04] MEDS ORDERED: MORPHINE SULFATE 4 MG/ML SYRINGE IV PRN (15:24)
[2021-11-04] MEDS ORDERED: NALOXONE 0.4 MG/ML 1 ML VIAL IV PRN (15:24)
[2021-11-04] MEDS ORDERED: ACETAMINOPHEN TAB 325 MG TAB PO PRN (15:24)
[2021-11-04] MEDS ORDERED: NITROGLYCERIN SL TABS 0.4 MG TAB SUBLINGUAL PRN (15:25)
[2021-11-04] MEDS ORDERED: methocarbamoL 500 MG TAB PO PRN (18:42)
[2021-11-04] MEDS ORDERED: GABAPENTIN 300 MG CAP PO PRN (18:42)
[2021-11-04] MEDS: METOPROLOL TARTRATE 25 MG TAB PO SCH (20:28)
[2021-11-04] MEDS: APIXABAN 5 MG TAB PO SCH (20:28)
[2021-11-04] MEDS ORDERED: ATORVASTATIN 80 MG TAB PO SCH (21:00)
[2021-11-04] MEDS ORDERED: allopurinoL 100 MG TAB PO SCH (21:00)
[2021-11-04] MEDS ORDERED: SODIUM CHLORIDE 0.9% 1,000 ML IV SCH (22:15)
[2021-11-04] MEDS: HYDROXYCHLOROQUINE SULFATE 200 MG TAB PO SCH (22:40)
[2021-11-04] MEDS: CHOLECALCIFEROL 125 MCG (5000 IU) TABLET PO SCH (22:45)
--- NOTE | 2021-11-04 23:50 | P.HPIM ---
History of Present Illness H&P Date: 11/04/21 Chief Complaint: Chest Pain Patient is a 61-year-old male with a known history of coronary artery disease with multiple stent placement most recent in April 2021, atrial fibrillation paroxysmal on anticoagulation with Eliquis, hypertension, hyperlipidemia, GERD, history of MN/cardiopulmonary stent 2019, previous history of smoking and other multiple medical problems came to ER with complaints of chest pain. Patient states that for the past 2 to 4 weeks patient has been having sharp pains in the left retrosternal region and resolving by itself. For the last 2 days patient has been having left shoulder pain and also jaw pain also felt numbness in the left upper extremity. Patient had similar symptoms of back pain when she had stent placement previously. Patient's advised him to come to ER. Patient took aspirin which seemed to relieve his pain. Denied any dizziness or lightheadedness. No cough or sputum production. No nausea vomiting abdominal pain or diarrhea. No dysuria. No diaphoresis. 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 Patient states that he does have history of bone spurs in the shoulder. Chest x-ray showed no acute cardiopulmonary process EKG showed sinus bradycardia. Laboratory data showed WBC 5.6 hemoglobin 17.1, platelets 160 Sodium 139 potassium 4.4 chloride 107 BUN 38 and creatinine 1.39, previous creatinine was 1.1 in April 2021. Troponin x3 -. Review of Systems Constitutional: Patient denies any fever or chills . No generalized weakness or weight loss. Abdomen: Patient denied nausea vomiting and diarrhea and abdominal pain. Cardiovascular: Patient denies any chest pain or short of breath no palpitations. Respiratory: patient denied any cough or sputum production. No shortness of breath Neurologic: Patient denied any numbness or tingling headache. Musculoskeletal: Patient denies any complaints of joint swelling or deformity. Skin: Negative Psychiatric: Negative Endocrine: No heat or cold intolerance. No recent weight gain. Genitourinary: No dysuria or hematuria. All other 14 point ROS negative except the above Past Medical History Past Medical History: Atrial Fibrillation, Coronary Artery Disease (CAD), Cancer, GERD/Reflux, Hyperlipidemia, Hypertension, Myocardial Infarction (MN), Prostate Disorder Additional Past Medical History / Comment(s): CURRENT: TIGHTNESS IN CHEST. Rt toe issues(gout?). skin cancer. seasonal allergies. kidney stones. dive rticulitis. covid in october. PFIZER VACCINE. Last Myocardial Infarction Date:: 02/28/19 History of Any Multi-Drug Resistant Organisms: None Reported Past Surgical History: Back Surgery, Bowel Resection, Cholecystectomy, Heart Catheterization With Stent, Joint Replacement, Orthopedic Surgery, Tonsillectomy Additional Past Surgical History / Comment(s): TOTAL OF 11 STENTS Left hip replacement. Right knee Past Anesthesia/Blood Transfusion Reactions: No Reported Reaction Date of Last Stent Placement:: 03/2019 Past Psychological History: No Psychological Hx Reported Smoking Status: Former smoker Past Alcohol Use History: None Reported Additional Past Alcohol Use History / Comment(s): QUIT SMOKING 1998, SMOKED CIGARS. Past Drug Use History: None Reported - Past Family History Father Family Medical History: Hypertension Mother History Unknown: Yes Family Medical History: Cancer Additional Family Medical History / Comment(s): breast cancer Medications and Allergies Home Medications Medication Instructions Recorded Confirmed Type Clopidogrel [Plavix] 75 mg PO DAILY #30 tab 05/20/17 11/04/21 Rx allopurinoL [Zyloprim] 300 mg PO DAILY 03/01/19 11/04/21 History Metoprolol Tartrate [Lopressor] 25 mg PO BID #60 tab 03/06/19 11/04/21 Rx Amiodarone [Cordarone] 50 mg PO DAILY 02/08/20 11/04/21 History Fluticasone Nasal [place] [Flonase 2 spr EA NOSTRIL DAILY 02/08/20 11/04/21 History Nasal [place]] Nitroglycerin Sl Tabs [Nitrostat] 0.4 mg SUBLINGUAL Q5M PRN #30 tab 02/10/20 11/04/21 Rx Atorvastatin [Lipitor] 80 mg PO HS 04/07/21 11/04/21 History Empagliflozin [Jardiance] 10 mg PO DAILY 04/07/21 11/04/21 History Fenofibrate 54 mg PO DAILY 04/07/21 11/04/21 History Pantoprazole Sodium [Protonix] 40 mg PO DAILY 04/07/21 11/04/21 History methocarbamoL [Methocarbamol] 500 mg PO TID PRN 04/07/21 11/04/21 History Gabapentin 300 mg PO BID PRN 04/21/21 11/04/21 History hydroCHLOROthiazide 25 mg PO DAILY 04/21/21 11/04/21 History Allopurinol [Zyloprim] 100 mg PO HS 11/04/21 11/04/21 History Apixaban [Eliquis] 5 mg PO BID 11/04/21 11/04/21 History Aspirin EC [Ecotrin Low Dose] 324 mg PO ONCE PRN 11/04/21 11/04/21 History Cholecalciferol [Vitamin D3 (125 125 mcg PO SUTUTHSA 11/04/21 11/04/21 History Mcg = 5000 Iu)] EPINEPHrine (Auto Inject) [Epipen] 0.3 mg IM ONCE PRN 11/04/21 11/04/21 History Hydroxychloroquine Sulfate 200 mg PO BID 11/04/21 11/04/21 History [Plaquenil] Olmesartan Medoxomil 40 mg PO DAILY 11/04/21 11/04/21 History Allergies Allergy/AdvReac Type Severity Reaction Status Date / Time amlodipine Allergy Severe LEG Verified 11/04/21 15:54 SWELLING AND RUPTURE OF ACHILLES venom-honey bee Allergy Anaphylaxis Verified 11/04/21 15:54 [bee venom (honey bee)] Physical Exam Vitals: Vital Signs Temp Pulse Pulse Resp BP BP Pulse Ox 11/04/21 20:00 97.8 F 54 L 18 147/75 100 11/04/21 17:52 97.6 F 51 L 16 149/87 98 11/04/21 15:54 57 L 18 140/97 99 11/04/21 15:00 54 L 18 11/04/21 12:23 98 F 59 L 17 150/98 99 Intake and Output 11/04/21 11/04/21 11/04/21 06:59 14:59 22:59 Intake Total 460 Balance 460 Intake: Oral 460 Other: Weight 97.522 kg 97.522 kg PHYSICAL EXAMINATION: Patient is lying in the bed comfortably, no acute distress, awake alert and oriented.. HEENT: Normocephalic. Neck is supple. Pupils reactive. Nostrils clear. Oral cavity is moist. Neck reveals no JVD, carotid bruits, or thyromegaly. CHEST EXAMINATION: Trachea is central. Symmetrical expansion. Lung tony clear to auscultation and percussion. CARDIAC: Normal S1, S2 with no gallops. No murmurs ABDOMEN: Soft. Bowel sounds normal. No organomegaly. No abdominal bruits. Extremities: reveal no edema. No clubbing or cyanosis Neurologically awake, alert, oriented x3 with well-coordinated movements. No focal deficits noted Skin: No rash or skin lesions. Psychiatric: Cooperative. Nonsuicidal Musculoskeletal: No joint swelling or deformity. Normal range of motion. Results CBC & Chem 7: 11/04/21 12:38 11/04/21 12:38 Labs: Abnormal Lab Results - Last 24 Hours (Table) 11/04/21 Range/Units 12:38 BUN 38 H (9-20) mg/dL Creatinine 1.39 H (0.66-1.25) mg/dL Glucose 102 H (74-99) mg/dL Thrombosis Risk Factor Assmnt - DVT/VTE Prophylaxis DVT/VTE Prophylaxis: Pharmacologic Prophylaxis ordered - Choose All That Apply Each Factor Represents 1 point: Acute MN Other Risk Factors: Yes Each Risk Factor Represents 2 Points: Age 61-74 years Thrombosis Risk Factor Assessment Total Risk Factor Score: 3 Thrombosis Risk Factor Assessment Level: Moderate Risk Assessment and Plan Assessment: Chest pain with history of severe coronary artery disease multiple stents. Rule out ACS. Acute kidney injury with creatinine level 1.39. Baseline 1.1 Paroxysmal atrial fibrillation on anticoagulation with Eliquis and also on amiodarone. GERD Hypertension Hyperlipidemia History of MN Previous history of smoking DVT prophylaxis patient is already on Eliquis Plan: Patient will be continued on telemetry monitoring. Serial EKG and troponin x3. Continue with anticoagulation with Eliquis and other home blood pressure medications including amiodarone. Cardiology was consulted for evaluation. Pain management. Continue to follow closely. Time with Patient: Greater than 30
[2021-11-05] MEDS ORDERED: PANTOPRAZOLE 40 MG TABLET PO SCH (07:30)
[2021-11-05 07:57] VITALS: BP 139/78; PULSE 55; RESP 15; TEMP 97.6
[2021-11-05] MEDS ORDERED: AMIODARONE 100 MG TAB PO SCH (09:00)
[2021-11-05] MEDS ORDERED: LOSARTAN 50 MG TAB PO SCH (09:00)
[2021-11-05] MEDS ORDERED: FENOFIBRATE 54 MG TAB PO SCH (09:00)
[2021-11-05] MEDS ORDERED: NON FORMULARY DRUG (Empagliflozin [Jardiance] 10 MG Tablet) PO SCH (09:00)
[2021-11-05] MEDS ORDERED: allopurinoL 300 MG TAB PO SCH (09:00)
[2021-11-05] MEDS ORDERED: CLOPIDOGREL 75 MG TAB PO SCH (09:00)
[2021-11-05] MEDS ORDERED: FLUTICASONE 50MCG/SPRAY NASAL 16GM EA NOSTRIL SCH (09:00)
[2021-11-05] MEDS: APIXABAN 5 MG TAB PO SCH (09:37)
[2021-11-05] MEDS: METOPROLOL TARTRATE 25 MG TAB PO SCH (09:37)
[2021-11-05] MEDS: HYDROXYCHLOROQUINE SULFATE 200 MG TAB PO SCH (09:39)
[2021-11-05 09:49] LABS: African American GFR (CKD) 74.1 (60.0-200.0); BUN/Creat Ratio 24.33 Ratio (12.00-20.00); Blood Urea Nitrogen 29.2 mg/dL (9.0-27.0); Calcium 9.7 mg/dL (8.7-10.3)
[2021-11-05] MEDS: CHOLECALCIFEROL 125 MCG (5000 IU) TABLET PO SCH (12:30)
--- NOTE | 2021-11-05 13:26 | CONS ---
CONSULTATION CHIEF COMPLAINT: Chest pain. HISTORY OF PRESENT ILLNESS: John is a 61-year-old gentleman with history of coronary artery disease status post multiple prior angioplasties, paroxysmal atrial fibrillation, rheumatoid arthritis, dyslipidemia and [id number] diabetes, who presented to hospital complaining of chest pain. He had an episode of chest discomfort that was sharp, two episodes that happened about almost a month ago while he was at work just standing and not doing anything. He has had subsequent episodes of chest discomfort. One of them involved his left shoulder, 1 involved the right shoulder and he had to take sublingual nitroglycerin a few times. He came to the emergency room yesterday and underwent an EKG that showed sinus bradycardia without significant ST-T wave changes. He has had 3 sets of troponins that are all within normal limits. His creatinine is slightly elevated at 1.3 but this morning is down to 1.2. The patient had a cardiac catheterization in April of 2021 when he presented with symptoms of unstable angina and it showed focal 95% stenosis involving circumflex coronary artery. The previously stented ramus intermedius was patent. LAD was stented that was patent and there was a 70-80 percent restenoses in the right coronary artery. The patient underwent angioplasty with stent placement of the circ and right coronary artery and he has done fairly well over the last 6 months until these symptoms. At the time of my evaluation, he appears comfortable at rest and is free of symptoms. I talked to him about his treatment options including staying here for another day and getting a cardiac catheterization done tomorrow versus discharge him home and arrange an outpatient cath and angioplasty. He is going to think over this and let me know. PAST MEDICAL HISTORY: Significant for coronary artery disease status post multivessel angioplasty, paroxysmal atrial fibrillation, hypertension, diabetes, dyslipidemia and arthritis. MEDICATIONS: Medications at home include: Zyloprim, Protonix, sublingual nitroglycerin, Lopressor, Plaquenil, fenofibrate, Jardiance, Plavix, aspirin, Lipitor, and Eliquis along with amiodarone 50 mg daily. ALLERGIC: AMLODIPINE. FAMILY HISTORY: Negative for premature coronary artery disease. SOCIAL HISTORY: Negative for smoking, EtOH abuse or drug abuse. REVIEW OF SYSTEMS: HEENT is unremarkable. CARDIAC as described above. RESPIRATORY negative. GI negative. negative. ALLERGY/IMMUNOLOGY: Negative. SKIN negative. ENDOCRINE negative. MUSCULOSKELETAL exam significant for arthritis psychosocial negative. ONCOLOGICAL negative. 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 Rest of the system review is not relevant. EXAM: Comfortable at rest. Vital signs are stable. There is no jugular venous distention. Carotid upstroke is normal. There is no bruit. CHEST exam reveals good air entry bilaterally. HEART exam reveals first and second heart sounds. No gallop. No murmur. No rub. ABDOMEN is soft, nontender. Examination of EXTREMITIES did not reveal any edema. Peripheral pulses are felt. ASSESSMENT: Precordial chest pain, rule out significant obstructive CAD in a patient with known CAD status post multivessel angioplasty. PLAN: Patient is comfortable this morning. Optimal medical therapy. Once we make the decision whether to stay and get catheterization done or go home, I will decide on further course of action. MMODL / IJN: [id number] /
== END 2021-11-05 15:20 | disposition home or self-care (01) ==
LOC: EC 12:15 → 6NMEDSUR 15:24
PROVIDERS: ADMIT Internal Medicine; ATTEND Internal Medicine
DX: R07.2 Precordial pain (principal); N17.9 Acute kidney failure, unspecified; I25.10 Atherosclerotic heart disease of native coronary artery without angina pectoris; I48.0 Paroxysmal atrial fibrillation; I10 Essential (primary) hypertension; I25.2 Old myocardial infarction; M19.012 Primary osteoarthritis, left shoulder; K21.9 Gastro-esophageal reflux disease without esophagitis; E78.5 Hyperlipidemia, unspecified; R00.1 Bradycardia, unspecified; T82.855A Stenosis of coronary artery stent, initial encounter; K57.90 Diverticulosis of intestine, part unspecified, without perforation or abscess without bleeding; R68.84 Jaw pain; R20.0 Anesthesia of skin; M54.9 Dorsalgia, unspecified; M77.8 Other enthesopathies, not elsewhere classified; J30.2 Other seasonal allergic rhinitis; N42.9 Disorder of prostate, unspecified; E11.9 Type 2 diabetes mellitus without complications; M06.9 Rheumatoid arthritis, unspecified; Z79.01 Long term (current) use of anticoagulants; Z79.84 Long term (current) use of oral hypoglycemic drugs; Z79.02 Long term (current) use of antithrombotics/antiplatelets; Z79.899 Other long term (current) drug therapy; Z95.5 Presence of coronary angioplasty implant and graft; Z88.8 Allergy status to other drugs, medicaments and biological substances; Z91.030 Bee allergy status; Z85.828 Personal history of other malignant neoplasm of skin; Z87.442 Personal history of urinary calculi; Z86.16 Personal history of COVID-19; Z90.49 Acquired absence of other specified parts of digestive tract; Z98.890 Other specified postprocedural states; Z96.642 Presence of left artificial hip joint; Z87.891 Personal history of nicotine dependence; Z82.49 Family history of ischemic heart disease and other diseases of the circulatory system; Z80.3 Family history of malignant neoplasm of breast
CPT/HCPCS: 99285; 36415; 93005; 80053; 80048; 83735; 84484; 85025; 85610; 85730; 71046; G0378 ×2

== ENCOUNTER 2021-11-08 06:16 | Day surgery (SDC) | payer OTHER ==
[2021-11-07 13:36] VITALS: BMI 26.5
[~2021-11-08 06:16] MED LIST changes: +ALPRAZolam 0.25 MG TAB PO PRN; +ALPRAZolam 0.5 MG TAB PO PRN; +NITROGLYCERIN SL TABS 0.4 MG TAB SUBLINGUAL PRN; -SODIUM CHLORIDE 0.9% (PF) 10 ML VIAL ONE; +SODIUM CHLORIDE 0.9% 1,000 ML in EMPTY BAG 1 BAG IV SCH; -niCARdipine 25 MG/10 ML VIAL ONE
[2021-11-08] MEDS ORDERED: ASPIRIN 325 MG TAB PO ONE (07:00)
[2021-11-08] MEDS ORDERED: HEPARIN SODIUM,PORCINE 2,500 UNIT in SODIUM CHLORIDE 0.9% 250 ML IRRIGATION PRN (07:00)
[2021-11-08] MEDS ORDERED: HEPARIN SODIUM,PORCINE 10,000 UNIT in SODIUM CHLORIDE 0.9% 1,000 ML IRRIGATION PRN (07:00)
[2021-11-08 07:09] LABS: Glucose,Whole Blood 109 mg/dL (75-99)
[2021-11-08] MEDS ORDERED: HEPARIN SODIUM 1,000 UN/ML (10ML VL) ONE (07:14)
[2021-11-08] MEDS ORDERED: VERAPAMIL 2.5 MG/ML 2 ML AMP ONE (07:15)
[2021-11-08] MEDS ORDERED: LIDOCAINE 1% INJ 10MG/ML (20 ML MDV) ONE (07:17)
[2021-11-08] MEDS ORDERED: MIDAZOLAM 2 MG/2 ML VIAL IV ONE (07:37)
[2021-11-08] MEDS ORDERED: fentaNYL (PF) 50 MCG/ML 5 ML AMP IV ONE (07:38)
[2021-11-08] MEDS ORDERED: LIDOCAINE 1% INJ 10MG/ML (20 ML MDV) SQ ONE (07:40)
[2021-11-08] MEDS ORDERED: VERAPAMIL SYRINGE (5 MG/10 ML) INTRAARTER ONE (07:47)
[2021-11-08] MEDS ORDERED: HEPARIN SODIUM 1,000 UN/ML (10ML VL) IV ONE (07:55)
[2021-11-08] MEDS ORDERED: IOPAMIDOL-370 125ML BTL INJ ONE (08:18)
[2021-11-08] MEDS ORDERED: RX INFO: IV CONTRAST WAS GIVEN 1 EACH MISC MISCELLANE PRN (08:31)
[2021-11-08 08:43] VITALS: RESP 16
[2021-11-08] MEDS ORDERED: SODIUM CHLORIDE 0.9% 1,000 ML IV SCH (08:45)
--- NOTE | 2021-11-08 09:57 | CC ---
CARDIAC CATHETERIZATION REPORT INDICATION: Unstable angina. PROCEDURE NOTE: After obtaining informed consent, left heart catheterization and coronary angiogram were performed via the right radial artery using size 4 Tuan catheters. Patient tolerated the procedure well without any obvious immediate complications. Patient received moderate sedation. Total sedation time was 23 minutes. A TR band was used per standard protocol for hemostasis and adequate pulse ox was documented. Radial artery access was obtained using modified Seldinger technique and patient was given 5 mg of intravenous verapamil and 4000 units of heparin. He tolerated the procedure well without any obvious immediate complications. FINDINGS: HEMODYNAMICS: Left ventricular end-diastolic pressure is 6 mm. There is no significant gradient across the aortic valve. LEFT VENTRICULOGRAM: Left ventriculogram was not performed. ANGIOGRAPHIC DATA: The left main coronary artery. Left main coronary artery is a normal-sized vessel and is free of stenosis. It divides into left anterior descending coronary artery and circumflex coronary artery and ramus intermedius. The patient had angioplasty of ramus, LAD and the circumflex coronary artery. Circumflex coronary artery in the previously stented segment appears patent. Ramus intermedius had about a 50% stenosis, mostly in the ostial portion. LAD stent appears patent. Right coronary artery shows a 40% stenosis in the mid portion. CONCLUSIONS: Patent stents within the right coronary artery, LAD, ramus intermedius and the circumflex coronary artery. There is a 40% to 50% stenosis in the ramus intermedius and a 40% stenosis in the mid RCA. His management is going to be with optimal medical therapy. He is on Eliquis, which will be resumed tomorrow morning. MMODL / IJN: [id number] /
[2021-11-08 14:17] VITALS: BP 108/66; PULSE 54
== END 2021-11-08 12:38 | disposition home or self-care (01) ==
LOC: CATHCVL 06:16
PROVIDERS: ATTEND Internal Medicine Cardiovascular Disease
DX: I25.10 Atherosclerotic heart disease of native coronary artery without angina pectoris (principal); I48.0 Paroxysmal atrial fibrillation; E78.5 Hyperlipidemia, unspecified; E11.9 Type 2 diabetes mellitus without complications; M06.9 Rheumatoid arthritis, unspecified; Z79.899 Other long term (current) drug therapy; Z88.8 Allergy status to other drugs, medicaments and biological substances; Z79.82 Long term (current) use of aspirin; Z79.01 Long term (current) use of anticoagulants; Z95.5 Presence of coronary angioplasty implant and graft; Z79.02 Long term (current) use of antithrombotics/antiplatelets
CPT/HCPCS: 93458; 87635; J2250; J2001; J3010; J1644; Q9967

== ENCOUNTER → 2022-07-03 | Outpatient (CLI) | payer OTHER ==
[2022-07-03 14:48] LABS: African American GFR (CKD) 81.8 (60.0-200.0); Albumin 4.3 g/dL (3.8-4.9); Albumin/Globulin Ratio 1.95 (1.60-3.17); Anion Gap 11.8 mmol/L (10.00-18.00); BUN/Creat Ratio 19.55 Ratio (12.00-20.00); Blood Urea Nitrogen 21.5 mg/dL (9.0-27.0); Carbon Dioxide 22.2 mmol/L (20.0-27.5); Globulin 2.2 g/dL (1.6-3.3); Non-African American GFR(CKD) 70.6 (60.0-200.0); Potassium 3.8 mmol/L (3.5-5.5); Total Bilirubin 0.6 mg/dL (0.30-1.20); Total Protein 6.5 g/dL (6.2-8.2)
== END | disposition home or self-care (01) ==
LOC: LABWHC1 09:02
PROVIDERS: ATTEND Internal Medicine Cardiovascular Disease
DX: I48.0 Paroxysmal atrial fibrillation (principal)
CPT/HCPCS: 36415; 80053; 84443

== ENCOUNTER 2022-08-03 08:18 | Day surgery (SDC) | payer OTHER ==
[2022-08-01 15:19] VITALS: BMI 25.2
[~2022-08-03 08:18] MED LIST changes: +ACETAMINOPHEN TAB 500 MG TAB PO PRN; -ALPRAZolam 0.25 MG TAB PO PRN; -ALPRAZolam 0.5 MG TAB PO PRN; +DEXAMETHASONE SOD PHOSPHATE 10 MG/ML 1 ML VIAL IV PRN; +DOCUSATE 100 MG CAP PO PRN; +FAMOTIDINE 20 MG/2 ML VIAL IVP PRN; +HYDROmorphone 0.5 MG/0.5 ML SYRINGE IVP PRN; +KETOROLAC 15 MG/ML 1 ML VIAL IVP PRN; +MIDAZOLAM 2 MG/2 ML VIAL IV PRN; -NITROGLYCERIN SL TABS 0.4 MG TAB SUBLINGUAL PRN; +ONDANSETRON 4 MG/2 ML VIAL IVP PRN; +ROPIVACAINE/EPI/CLONIDINE/KET 50 ML SYRINGE MISCELLANE PRN; -SODIUM CHLORIDE 0.9% 1,000 ML in EMPTY BAG 1 BAG IV SCH; +TRANEXAMIC ACID IN NACL,ISO-OS 1,000 MG in SALINE 1 100ML.BAG IVPB PRN; +oxyCODONE ER 10 MG TAB.ER.12H PO PRN
[2022-08-03] MEDS: LACTATED RINGERS 1,000 ML IV SCH ×3 (08:34→20:00)
[2022-08-03] MEDS ORDERED: MIDAZOLAM 2 MG/2 ML VIAL IVP ONE (09:56)
--- NOTE | 2022-08-03 10:07 | P.ANPRN ---
Procedure Note - Anesthesia - Nerve Block Performed Right Erector Spinae Single Time Out Performed: Yes Date of Procedure: 08/03/22 Procedure Start Time: 09:55 Procedure Stop Time: 10:03 Location of Patient: PreOp Indication: Acute Post-Operative Pain, Requested by Surgeon Sedation Type: Sedate with meaningful contact maintained Preparation: Sterile Prep, Sterile Dressing Position: Prone Catheter: None Needle Types: Facet Needle Gauge: 20 Ultrasound used to visualize needle placement: Yes Ultrasound used to observe medication spread: Yes Injectate: 0.5% Ropivacaine (see comment for volume) (30 ml + decadron 4 mg) Blood Aspirated: No Pain Paresthesia on Injection Noted: No Resistance on Injection: Normal Image Stored and Saved: Yes Events: Uneventful and Well Tolerated
[2022-08-03] MEDS ORDERED: fentaNYL (PF) 50 MCG/ML 2 ML AMP ONE (10:40)
[2022-08-03] MEDS ORDERED: LIDOCAINE 2% INJ 20 MG/ML (2 ML VIAL) ONE (10:40)
[2022-08-03] MEDS ORDERED: NEOSTIGMINE 1 MG/ML 10 ML VIAL ONE (10:40)
[2022-08-03] MEDS ORDERED: WATER FOR INJECTION, STERILE 10 ML VIAL IV ONE (10:40)
[2022-08-03] MEDS ORDERED: DEXAMETHASONE SOD PHOSPHATE 4 MG/ML 1 ML VIAL ONE (10:40)
[2022-08-03] MEDS ORDERED: TRANEXAMIC ACID IN NACL,ISO-OS 1,000 MG/100 ML BAG ONE (10:40)
[2022-08-03] MEDS ORDERED: MIDAZOLAM 2 MG/2 ML VIAL ONE (10:40)
[2022-08-03] MEDS ORDERED: ROCURONIUM 10 MG/ML (5 ML VIAL) IV ONE (10:40)
[2022-08-03] MEDS ORDERED: GLYCOPYRROLATE 0.2 MG/ML 2 ML VIAL ONE (10:40)
[2022-08-03] MEDS ORDERED: PROPOFOL 10 MG/ML 20 ML VIAL IV ONE (10:40)
[2022-08-03] MEDS ORDERED: ePHEDrine 50 MG/ML 1 ML VIAL ONE (10:40)
[2022-08-03] MEDS ORDERED: HYDROmorphone (PF) 1 MG/ML ONE (10:40)
[2022-08-03] MEDS ORDERED: PHENYLEPHRINE-0.9% NACL SYG 1,000 MCG/10 ML SYRINGE ONE (10:40)
[2022-08-03] MEDS ORDERED: ROPIVACAINE 5 MG/ML 30 ML VIAL ONE (10:40)
[2022-08-03] MEDS ORDERED: TRANEXAMIC ACID 1,000 MG in SODIUM CHLORIDE 0.9% 100 ML IVPB ONE (10:43)
--- NOTE | 2022-08-03 12:45 | FL ---
EXAMINATION TYPE: FL guided pain mgmt statistic DATE OF EXAM: 08/03/2022 HISTORY: Fluoroscopy time 43 seconds of fluoroscopy provided. IMPRESSION: 1. Fluoroscopy time.
--- NOTE | 2022-08-03 12:48 | XR ---
EXAMINATION TYPE: XR Hip Limited RT DATE OF EXAM: 08/03/2022 COMPARISON: NONE HISTORY: Postop TECHNIQUE: One view submitted. FINDINGS: There is postsurgical change in near anatomic alignment. There is soft tissue edema and emphysema. IMPRESSION: 1. Postoperative change. Appears in near-anatomic alignment.
[2022-08-03] MEDS ORDERED: HYDROmorphone 0.5 MG/0.5 ML SYRINGE IVP PRN ×2 (13:04)
[2022-08-03] MEDS ORDERED: HYDROmorphone 1 MG/ML 1 ML SYRINGE IVP PRN (13:04)
[2022-08-03] MEDS ORDERED: hydrOXYzine pamoate 25 MG CAP PO PRN (13:04)
[2022-08-03] MEDS ORDERED: NALOXONE 0.4 MG/ML 1 ML VIAL IV PRN (13:04)
[2022-08-03] MEDS ORDERED: HYDROcodone/APAP 5-325MG 1 EACH TAB PO PRN (13:04)
--- NOTE | 2022-08-03 13:07 | P.OP ---
Date of Procedure: 08/03/22 Preoperative Diagnosis: 1. Severe right hip osteoarthritis 2. Prior left total hip arthroplasty by another surgeon with resultant leg length discrepancy (right long compared to left) 3. Coronary artery disease status post multiple stents on Plavix 4. Atrial fibrillation on Eliquis Postoperative Diagnosis: Same Procedure(s) Performed: Left direct anterior total hip arthroplasty Implants: 1. [place] Trident II Acetabular Cup, Size #62 2. [place] Insignia Size #9 Femoral Stem, High Offset 3. Biolox delta femoral head, 36, - 5mm neck Anesthesia: GETA Surgeon: Vasu Snow Hydroelectric Production Technician #1: Goldie Boyce Estimated Blood Loss (ml): 200 IV fluids (ml): 1,000 Pathology: none sent Condition: stable Disposition: PACU Indications for Procedure: I had a long discussion with the patient in the office on the potential risks and complications of an elective total hip replacement through a direct anterior approach. The patient had a previous left total hip replacement by another surgeon. The hip center was elevated through the cup resulting in a leg length discrepancy, with the right leg significantly longer than the left. We discussed that due to stability issues I could not shorten his right hip during surgery. The patient voiced his understanding of this. Risks discussed include, but are certainly not limited to, risks from anesthesia, superficial infection requiring local wound care or antibiotics, deep jailene-prosthetic joint infection and the treatment required to eradicate infection, intraoperative fracture, postoperative periprosthetic fracture, damage to local blood vessels or nerves particularly the lateral femoral cutaneous nerve, delayed wound healing requiring local wound care or possibly surgical debridement, hip dislocation, leg length discrepancy, soft tissue irritation around the total hip implant such as iliopsoas tendinitis or trochanteric bursitis, wear and osteolysis from the implants, squeaking or audible noises, groin pain, thigh pain, heterotopic ossification, stiffness, aseptic loosening of the implants, dissatisfaction with surgical outcome, need for revision surgery, DVT, PE, swelling of the operative extremity, acute coronary event, stroke, failure to thrive, and possibly loss of life or limb. The patient understands that while these are the most common complications after an elective hip replacement there are certainly other less common complications possible. They were given ample time to ask questions regarding the potential complications of a hip replacement. Following our discussion the patient provided their verbal and written consent to go forward with an elective total hip replacement. Operative Findings: Prior to surgery once the patient was under anesthesia I examined his leg lengths. He felt about 1 cm long on the right compared to the left which was consistent with his preoperative imaging and the patient's perception Description of Procedure: The patient was identified in the preoperative holding area and the correct hip was marked with my initials. I reviewed the procedure and consent with the patient. All of their questions were answered. The patient was then brought back into the operating room by anesthesia. While on the [facility] anesthesia was administered by the anesthesia team. Preoperative antibiotics and tranexamic acid were also given. After the patient was under anesthesia I examined their ankles to determine their preoperative leg length discrepancy. The skin over the anterior aspect of the hip was shaved to remove hair over the site of planned incision. Both feet and ankles were padded with webril and boots for the [place] were applied. The patient was then carefully transferred onto the [place] table. A perineal post was immediately placed. The arms were placed on arm holders and were well-padded. Both boots were secured to the spars on the [place] table. The patient was positioned so that the pelvis was centered over the post. Nonsterile drapes were applied. A timeout was performed identifying the correct patient, operative extremity, and procedure. At this point fluoroscopy was brought in to take preoperative images of the pelvis and operative hip. Using the standing AP pelvis from the office as a template, a comparable image was obtained with fluoroscopy. A metallic bar was used to create a bi-ischial line for use as a reference to leg length adjustments during the procedure. Global offset was also measured on both the operative and nonoperative leg. Fluoroscopy was then brought out and a pre-scrub using a chlorhexidine scrub brush was performed. The operative limb was then prepped and draped in the standard sterile fashion. An anterior longitudinal incision was made lateral and distal to the ASIS. The skin and subcutaneous tissues were incised sharply. The underlying tensor fascia was identified and incised in its midportion. The fascia was dissected free from the underlying muscle and the muscle belly was retracted. A blunt tipped cobra retractor was placed over the superior neck under the muscle fibers of the gluteus minimus. The deep enveloping fascia of the tensor was incised. The anterior leash of vessels were then identified and cauterized. The fascia between the rectus and the capsule was then incised and the pre-capsular fat was excised. A second Cobra was placed inferior to the neck. The interval between the rectus and iliocapsularis and the hip capsule was developed and a retractor was placed carefully over the anterior rim of the acetabulum. A T-shaped ante rior capsulotomy was performed. The superior capsular leaflet was left in place in the inferior capsular flap was excised. The Cobra retractors were placed intracapsularly. We then made a femoral neck osteotomy according to preoperative and intraoperative templating and confirmed the level of the osteotomy using fluoroscopic imaging. The femoral head was removed, passed off to the back table, and sized. The superior capsular flap was excised. Retractors were placed circumferentially exposing the acetabulum. We then circumferentially debrided the acetabulum free of labrum and osteophytes. The pulvinar was removed to fully visualize the cotyloid fossa. We then sequentially reamed to achieve peripheral fit and excellent bleeding subchondral bone. The socket was thoroughly irrigated. The acetabular component was impacted into the appropriate position using fluoroscopy to guide version, inclination, and depth of insertion taking care to have a comparable image of the AP pelvis to the standing image taken in the office. An excellent press-fit was achieved and final position was confirmed using fluoroscopy. The press fit was augmented with bony cancellus dome screws. The liner was then impacted into the socket. Attention was then turned to the femur. The remnant dorsal lateral capsule was excised. The short external rotators were visible and protected. A bone hook was used to confirm appropriate translation of the trochanter away from the acetabulum. The leg was then extended and adducted and the bone hook was used to elevate the femur for broaching. A box osteotome and blunt tipped canal sound was then utilized to gain access to the femoral canal. We then sequentially broached the femur in appropriate anteversion until excellent torsional stability was achieved. The neck cut was brought flush to the trial broach with a calcar planar. A trial neck and head were then placed onto the broach and the hip was atraumatically reduced under direct visualization. External rotation to 90 was performed to assess stability. Fluoroscopy was brought in. An AP and lateral fluoroscopic image of the proximal femur was obtained to assess position and fill of the trial broach. An AP of the pelvis was then obtained and matched to the preoperative image taken. A bi-ischial bar was then placed and measurements were taken to assess changes in length and offset. The hip was then carefully dislocated, the proximal femur was exposed, and the trial implants were removed. The wound and proximal femur was thoroughly irrigated using sterile saline and pulsatile lavage. The final femoral implant was dispensed and gently tapped into place generating an excellent press-fit. The trunnion was cleansed and the final head was tapped into place to engage the Dean taper. The acetabulum was irrigated and visualized to be free of debris. The hip was carefully reduced. Stability was checked clinically with external rotation to 90 and there was no evidence of instability. Final fluoroscopic images were taken. The wound was then thoroughly irrigated and soaked with a dilute Betadine rinse for 3 minutes. 3 L of sterile saline was irrigated through the wound using pulsatile lavage. Local anesthetic cocktail was injected into the soft tissues around the surgical field. A deep drain was placed. The wound was then closed in layers. A sterile dressing was placed over the surgical incision and drain site. The drapes were taken down and the patient was carefully transferred off of the [place] table. Following removal of the boots the leg lengths felt acceptable. The patient was then taken to recovery room having tolerated the procedure well. Goldie Boyce PA-C was required as a skilled assistant front office manager for patient positioning, surgical exposure, retraction, placement of implants, and closure of the surgical wound. PLAN: The patient can weight-bear as tolerated on the operative extremity. 2 doses of postoperative antibiotics. DVT prophylaxis - resume Eliquis tomorrow and can resume Plavix in 1 week. Physical therapy for gait training.
[2022-08-03] MEDS ORDERED: LACTATED RINGERS 1,000 ML IV ONE ×2 (15:15)
[2022-08-03 16:37] LABS: Glucose,Whole Blood 138 mg/dL (70-110)
[2022-08-03] MEDS ORDERED: NITROGLYCERIN SL TABS 0.4 MG TAB SUBLINGUAL PRN (17:26)
[2022-08-03] MEDS ORDERED: GABAPENTIN 300 MG CAP PO PRN (17:26)
[2022-08-03] MEDS ORDERED: methocarbamoL 500 MG TAB PO PRN (17:26)
[2022-08-03] MEDS ORDERED: AMIODARONE 50 MG TAB PO SCH (17:30)
[2022-08-03] MEDS: AMIODARONE 100 MG TAB PO SCH (18:19)
[2022-08-03] MEDS: APIXABAN 5 MG TAB PO SCH (19:43)
[2022-08-03] MEDS: METOPROLOL TARTRATE 25 MG TAB PO SCH (19:43)
[2022-08-03 20:19] LABS: Glucose,Whole Blood 169 mg/dL (70-110)
[2022-08-03] MEDS ORDERED: ATORVASTATIN 80 MG TAB PO SCH (21:00)
[2022-08-03] MEDS ORDERED: CLOPIDOGREL 75 MG TAB PO SCH (21:00)
[2022-08-03] MEDS ORDERED: allopurinoL 100 MG TAB PO SCH (21:00)
[2022-08-03] MEDS ORDERED: SENNOSIDES-DOCUSATE SODIUM 1 EACH TAB PO SCH (21:00)
[2022-08-03] MEDS: HYDROcodone/APAP 5-325MG 1 EACH TAB PO PRN (22:03)
[2022-08-03] MEDS: HYDROXYCHLOROQUINE SULFATE 200 MG TAB PO SCH (23:31)
[2022-08-04] MEDS: LACTATED RINGERS 1,000 ML IV SCH (03:12)
[2022-08-04 03:26] VITALS: BP 108/65
[2022-08-04] MEDS: HYDROcodone/APAP 5-325MG 1 EACH TAB PO PRN ×2 (04:45→12:05)
[2022-08-04 07:03] LABS: Glucose,Whole Blood 112 mg/dL (70-110)
[2022-08-04] MEDS: METOPROLOL TARTRATE 25 MG TAB PO SCH (07:51)
[2022-08-04] MEDS: HYDROXYCHLOROQUINE SULFATE 200 MG TAB PO SCH (07:51)
[2022-08-04] MEDS: APIXABAN 5 MG TAB PO SCH (07:52)
[2022-08-04 08:08] VITALS: PULSE 80; RESP 16; TEMP 98.3
[2022-08-04] MEDS: AMIODARONE 100 MG TAB PO SCH (08:19)
[2022-08-04] MEDS ORDERED: PANTOPRAZOLE 40 MG TABLET PO SCH (09:00)
[2022-08-04] MEDS ORDERED: hydroCHLOROthiazide 25 MG TAB PO SCH (09:00)
[2022-08-04] MEDS ORDERED: PATIENT'S OWN (Empagliflozin [Jardiance] 10 MG Tablet) PO SCH (09:00)
[2022-08-04] MEDS ORDERED: CHOLECALCIFEROL 125 MCG (5000 IU) TABLET PO SCH (09:00)
[2022-08-04] MEDS ORDERED: FENOFIBRATE 54 MG TAB PO SCH (09:00)
[2022-08-04] MEDS ORDERED: LOSARTAN 50 MG TAB PO SCH (09:00)
[2022-08-04] MEDS ORDERED: allopurinoL 300 MG TAB PO SCH (09:00)
--- NOTE | 2022-08-04 10:09 | P.DS ---
Providers Expected date of discharge: 08/04/22 Attending physician: Vasu Snow Consults: 08/03/22 13:08 Consult Physician Routine Consulting Provider: Guilherme Farias Consult Reason/Comments: medical management Do you want consulting provider notified?: Yes Primary care physician: Kathie Anderson [facility] Course: This is a 62-year-old male with known history of degenerative arthritis of the right hip. The patient presents for evaluation. After discussion and consideration patient elects to proceed with direct anterior right total hip arthroplasty. The patient is seen preoperatively by Dr. Anderson and Dr. Fu, and cleared for surgery. Patient is admitted to [facility] on 08/03/22 for direct anterior right total hip arthroplasty. The procedures performed without complication or sequelae. The patient is doing well postoperatively. Labs and vital signs are stable on day of discharge. Patient is examined bedside this morning. The patient states the pain in his right hip is very well-controlled at this time. He has been ambulating with a walker with minimal assistance. He has passed physical therapy to return home today. His Eliquis and Plavix were resumed last evening for DVT prophylaxis. He is overall feeling well this morning and is comfortable returning home today. He denies chest pain, shortness of breath, nausea, vomiting. On examination, patient is sitting up in the bedside chair in no apparent distress. He is alert and oriented 3. On inspection of the right hip, there is a clean, dry, intact Opsite dressing intact with no bleeding or drainage through the dressing. There is mild swelling of the thigh, thigh is soft and compressible. Motor and sensory function is intact of the right lower extremity. Femoral nervce function intact. The dorsalis pedis pulse easily palpable, right lower extremity warm and well-perfused. Calf is nontender. Patient is discharged to home today in good condition, pending medical clearance. Please see med rec for accurate list of discharge medications. Patient should follow-up in the office in [address] Snow. Plan - Discharge Summary Discharge Rx Participant: Yes New Discharge Prescriptions: New Docusate [Colace] 100 mg PO BID #60 capsule HYDROcodone/APAP 10-325MG [[place] 10-325] 1 tab PO Q6HR PRN 7 Days #28 tab PRN Reason: Pain No Action Clopidogrel [Plavix] 75 mg PO DAILY #30 tab allopurinoL [Zyloprim] 300 mg PO DAILY Metoprolol Tartrate [Lopressor] 25 mg PO BID #60 tab Amiodarone [Cordarone] 50 mg PO DAILY Fluticasone Nasal Comstock [Flonase Nasal Comstock] 2 spr EA NOSTRIL DAILY PRN PRN Reason: ALLERGY SYMPTOMS Nitroglycerin Sl Tabs [Nitrostat] 0.4 mg SUBLINGUAL Q5M PRN #30 tab PRN Reason: Chest Pain Pantoprazole Sodium [Protonix] 40 mg PO QAM Atorvastatin [Lipitor] 80 mg PO HS EPINEPHrine (Auto Inject) [Epipen] 0.3 mg IM ONCE PRN PRN Reason: Anaphylaxis Apixaban [Eliquis] 5 mg PO BID HYDROcodone/APAP 5-325MG [[place] 5-325] 1 tab PO Q4HR PRN PRN Reason: Pain Fenofibrate 54 mg PO DAILY Empagliflozin [Jardiance] 10 mg PO DAILY methocarbamoL [Methocarbamol] 500 mg PO TID PRN PRN Reason: Muscle Pain hydroCHLOROthiazide 25 mg PO DAILY Gabapentin 300 mg PO BID PRN PRN Reason: Pain Cholecalciferol [Vitamin D3 (125 Mcg = 5000 Iu)] 125 mcg PO SUTUTHSA Olmesartan Medoxomil 40 mg PO QAM Hydroxychloroquine Sulfate [Plaquenil] 200 mg PO BID allopurinoL [Zyloprim] 100 mg PO HS sulfaSALAzine [Sulfasalazine] 1,000 mg PO BID Discharge Medication List Clopidogrel [Plavix] 75 mg PO DAILY #30 tab 05/20/17 [Rx] allopurinoL [Zyloprim] 300 mg PO DAILY 03/01/19 [History] Metoprolol Tartrate [Lopressor] 25 mg PO BID #60 tab 03/06/19 [Rx] Amiodarone [Cordarone] 50 mg PO DAILY 02/08/20 [History] Fluticasone Nasal [place] [Flonase Nasal Comstock] 2 spr EA NOSTRIL DAILY PRN 02/08/20 [History] Nitroglycerin Sl Tabs [Nitrostat] 0.4 mg SUBLINGUAL Q5M PRN #30 tab 02/10/20 [Rx] Atorvastatin [Lipitor] 80 mg PO HS 04/07/21 [History] Empagliflozin [Jardiance] 10 mg PO DAILY 04/07/21 [History] Fenofibrate 54 mg PO DAILY 04/07/21 [History] Pantoprazole Sodium [Protonix] 40 mg PO QAM 04/07/21 [History] methocarbamoL [Methocarbamol] 500 mg PO TID PRN 04/07/21 [History] Gabapentin 300 mg PO BID PRN 04/21/21 [History] hydroCHLOROthiazide 25 mg PO DAILY 04/21/21 [History] Apixaban [Eliquis] 5 mg PO BID 11/04/21 [History] Cholecalciferol [Vitamin D3 (125 Mcg = 5000 Iu)] 125 mcg PO SUTUTHSA 11/04/21 [History] EPINEPHrine (Auto Inject) [Epipen] 0.3 mg IM ONCE PRN 11/04/21 [History] Hydroxychloroquine Sulfate [Plaquenil] 200 mg PO BID 11/04/21 [History] Olmesartan Medoxomil 40 mg PO QAM 11/04/21 [History] allopurinoL [Zyloprim] 100 mg PO HS 11/04/21 [History] HYDROcodone/APAP 5-325MG [[place]ap[place] 5-325] 1 tab PO Q4HR PRN 08/01/22 [History] sulfaSALAzine [Sulfasalazine] 1,000 mg PO BID 08/01/22 [History] Docusate [Colace] 100 mg PO BID #60 capsule 08/04/22 [Rx] HYDROcodone/APAP 10-325MG [[place] 10-325] 1 tab PO Q6HR PRN 7 Days #28 tab 08/04/22 [Rx] Follow up Appointment(s)/Referral(s): Vasu Snow MD [Medical Doctor] - 2 Weeks Activity/Diet/Wound Care/Special Instructions: Weight-bear to tolerance on the operative extremity with a walker. Keep operative dressing intact until follow-up appointment in the office. Call the office if dressing becomes saturated or falls off. May shower over dressing. Take pain medications as needed. Resume Eliquis and Plavix for blood clot prevention. Follow-up in the office in [address] Snow. Call the office with any questions or concerns, Discharge Disposition: HOME WITH HOME HEALTH SERVICES
[2022-08-04 11:25] LABS: Glucose,Whole Blood 105 mg/dL (70-110)
[2022-08-04 11:43] LABS: Basophils # (A) 0.01 X 10*3/uL (0.00-0.10); Basophils % (A) 0.1 %; Eosinophils # (A) 0.01 X 10*3/uL (0.04-0.35); Eosinophils % (A) 0.1 %; HCT 37.1 % (39.6-50.0); HGB 12.1 g/dL (13.0-17.0); Immature Grans, Automated 0.4 %; Lymphocytes # (A) 1.24 X 10*3/uL (0.90-5.00); Lymphocytes % (A) 8.4 %; MCH 31.3 pg (27.0-32.0); MCHC 32.6 g/dL (32.0-37.0); MCV 96.1 fL (80.0-97.0); Mean Platelet Volume 10.9 fL (9.5-12.2); Monocytes # (A) 0.86 X 10*3/uL (0.20-1.00); Monocytes % (A) 5.8 %; NRBC Per 100 WBC 0 /100 WBCS (0.0-0.0); Neutrophils # (A) 12.63 X 10*3/uL (1.80-7.70); Neutrophils % (A) 85.2 %; Platelet Count 168 X 10*3/uL (140-440); RBC 3.86 X 10*6/uL (4.40-5.60); RDW 12.5 % (11.5-14.5); WBC 14.81 X 10*3/uL (4.50-10.00)
--- NOTE | 2022-08-04 13:43 | P.CONS ---
History of Present Illness - Reason for Consult Consult date: 08/03/22 Medical management - Chief Complaint Osteoarthritis right - History of Present Illness 62-year-old male patient with past medical history of hypertension, hyperlipidemia, coronary disease, atrial fibrillation and severe osteoarthritis of right hip admitted to the hospital for elective left total hip arthroplasty Patient is status post surgery and is POD #0; reports fairly controlled Patient has extensive history of CAD, atrial fibrillation; reports no chest pain or shortness of breath or palpitations Review of Systems REVIEW OF SYSTEMS: CONSTITUTIONAL: No fever, no malaise, no fatigue. HEENT: No recent visual problems or hearing problems. Denied any sore throat. CARDIOVASCULAR: No chest pain, orthopnea, PND, no palpitations, no syncope. PULMONARY: No shortness of breath, no cough, no hemoptysis. GASTROINTESTINAL: No diarrhea, no nausea, no vomiting, no abdominal pain. NEUROLOGICAL: No headaches, no weakness, no numbness. HEMATOLOGICAL: Denies any bleeding or petechiae. GENITOURINARY: Denies any burning micturition, frequency, or urgency. MUSCULOSKELETAL/RHEUMATOLOGICAL: Denies any joint pain, swelling, or any muscle pain. ENDOCRINE: Denies any polyuria or polydipsia. The rest of the 14-point review of systems is negative. Past Medical History Past Medical History: Atrial Fibrillation, Coronary Artery Disease (CAD), Cancer, Chest Pain / Angina, GERD/Reflux, Hyperlipidemia, Hypertension, Myocardial Infarction (VT), Osteoarthritis (OA), Sleep Apnea/CPAP/BIPAP Additional Past Medical History / Comment(s): Patient concerned "Been off Ami odarone for 45 days and now off Plavix and Eliquis, worried could go into A-Fib at anytime." Hx VT's 2017,2019. Hx right toe issues(Gout?). Hx skin cancer. Seasonal allergies. Hx kidney stones. Hx diverticulitis. Lower legs discoloration. "TAKES JARDIANCE FOR CARDIAC" PROTECTION. CPAP use. Last Myocardial Infarction Date:: 02/28/19 History of Any Multi-Drug Resistant Organisms: None Reported Past Surgical History: Back Surgery, Bowel Resection, Cholecystectomy, Heart Catheterization With Stent, Joint Replacement, Orthopedic Surgery, Tonsillectomy Additional Past Surgical History / Comment(s): TOTAL OF 11 STENTS, left hip replacement, right knee replacement. Past Anesthesia/Blood Transfusion Reactions: No Reported Reaction Date of Last Stent Placement:: 2020 Past Psychological History: No Psychological Hx Reported Smoking Status: Former smoker Past Alcohol Use History: None Reported Additional Past Alcohol Use History / Comment(s): QUIT SMOKING IN 1998, SMOKED CIGARS. Past Drug Use History: None Reported - Past Family History Father Family Medical History: Hypertension Mother History Unknown: Yes Family Medical History: Cancer Additional Family Medical History / Comment(s): Breast cancer. Medications and Allergies Home Medications Medication Instructions Recorded Confirmed Type Clopidogrel [Plavix] 75 mg PO DAILY #30 tab 05/20/17 08/01/22 Rx allopurinoL [Zyloprim] 300 mg PO DAILY 03/01/19 08/03/22 History Metoprolol Tartrate [Lopressor] 25 mg PO BID #60 tab 03/06/19 08/03/22 Rx Amiodarone [Cordarone] 50 mg PO DAILY 02/08/20 08/03/22 History Fluticasone Nasal [place] [Flonase 2 spr EA NOSTRIL DAILY PRN 02/08/20 08/03/22 History Nasal [place]] Nitroglycerin Sl Tabs [Nitrostat] 0.4 mg SUBLINGUAL Q5M PRN #30 tab 02/10/20 08/01/22 Rx Atorvastatin [Lipitor] 80 mg PO HS 04/07/21 08/03/22 History Empagliflozin [Jardiance] 10 mg PO DAILY 04/07/21 08/03/22 History Fenofibrate 54 mg PO DAILY 04/07/21 08/03/22 History Pantoprazole Sodium [Protonix] 40 mg PO QAM 04/07/21 08/03/22 History methocarbamoL [Methocarbamol] 500 mg PO TID PRN 04/07/21 08/03/22 History Gabapentin 300 mg PO BID PRN 04/21/21 08/03/22 History hydroCHLOROthiazide 25 mg PO DAILY 04/21/21 08/03/22 History Apixaban [Eliquis] 5 mg PO BID 11/04/21 08/01/22 History Cholecalciferol [Vitamin D3 (125 125 mcg PO SUTUTHSA 11/04/21 08/01/22 History Mcg = 5000 Iu)] EPINEPHrine (Auto Inject) [Epipen] 0.3 mg IM ONCE PRN 11/04/21 08/03/22 History Hydroxychloroquine Sulfate 200 mg PO BID 11/04/21 08/03/22 History [Plaquenil] Olmesartan Medoxomil 40 mg PO QAM 11/04/21 08/03/22 History allopurinoL [Zyloprim] 100 mg PO HS 11/04/21 08/03/22 History HYDROcodone/APAP 5-325MG [[place] 1 tab PO Q4HR PRN 08/01/22 08/03/22 History 5-325] sulfaSALAzine [Sulfasalazine] 1,000 mg PO BID 08/01/22 08/03/22 History Docusate [Colace] 100 mg PO BID #60 capsule 08/04/22 Rx HYDROcodone/APAP 10-325MG [[place] 1 tab PO Q6HR PRN 7 Days #28 tab 08/04/22 Rx 10-325] Allergies Allergy/AdvReac Type Severity Reaction Status Date / Time amlodipine Allergy Severe LEG Verified 08/03/22 08:39 SWELLING AND RUPTURE OF ACHILLES venom-honey bee Allergy Anaphylaxis Verified 08/03/22 08:39 [bee venom (honey bee)] Physical Exam Vitals: Vital Signs Temp Pulse Resp BP Pulse Ox 08/03/22 17:15 97.8 F 82 16 102/72 96 08/03/22 16:30 64 16 113/70 97 08/03/22 15:50 70 16 110/73 98 08/03/22 15:20 71 16 112/72 99 08/03/22 14:15 67 16 106/66 96 08/03/22 14:00 59 L 16 104/64 95 08/03/22 13:45 64 16 116/74 95 08/03/22 13:30 73 16 114/68 94 L 08/03/22 13:18 71 16 105/64 96 08/03/22 13:03 97 F L 59 L 16 113/62 98 08/03/22 10:09 65 16 111/71 94 L 08/03/22 08:42 96.6 F L 58 L 18 117/81 96 Intake and Output 08/03/22 08/03/22 08/03/22 06:59 14:59 22:59 Intake Total 650 450 Output Total 200 Balance 450 450 Intake: IV 650 450 Output: Estimated Blood Loss 200 Other: Weight 90.3 kg - Constitutional General appearance: Present: average body habitus, cooperative, no acute distress - EENT Eyes: Present: anicteric sclerae, EOMI, PERRLA, normal appearance ENT: Present: hearing grossly normal, normal oropharynx Ears: bilateral: normal - Neck Neck: Present: normal ROM. Absent: lymphadenopathy, rigidity, thyromegaly Carotids: negative: bruit present Thyroid: bilateral: normal size, negative: enlarged, nodule - Respiratory Respiratory: bilateral: CTA, negative: rales, rhonchi, wheezing - Cardiovascular Rhythm: regular Heart sounds: normal: S1, S2 Abnormal Heart Sounds: Absent: systolic murmur, diastolic murmur - Gastrointestinal General gastrointestinal: Present: normal bowel sounds, soft. Absent: distended, organomegaly, tenderness - Genitourinary Genitourinary Comment(s): deferred - Integumentary Integumentary: Present: normal turgor. Absent: jaundiced, rash, ulcer - Neurologic Neurologic: Present: CNII-XII intact. Absent: focal deficits - Musculoskeletal Musculoskeletal: Present: gait normal, strength equal bilaterally - Psychiatric Psychiatric: Present: A&O x's 3, appropriate affect, intact judgment & insight Results CBC & Chem 7: 08/04/22 07:55 Labs: Abnormal Lab Results - Last 24 Hours (Table) 08/03/22 Range/Units 16:34 POC Glucose (mg/dL) 138 H (70-110) mg/dL Assessment and Plan Assessment: 1. Right hip osteoarthritis; status post total right hip arthroplasty; patient is POD #0 - Your management - Continue with optimal pain control; recommend increase activity as tolerated 2. Hypertension; continue with metoprolol 25 mg twice a day, losartan 150 mg daily; monitor blood pressure closely 3. Hyperlipidemia; Lipitor 80 mg by mouth daily at bedtime 4. Atrial fibrillation; patient is rate controlled on amiodarone 50 mg daily; continue with anticoagulation 5. Coronary artery disease; stable on aspirin, Plavix and [place]; Lipitor 80 mg daily at bedtime; metoprolol 25 mg twice a day 6. Gout/hyperuricemia; Zyloprim 300 mg daily with 100 mg by mouth daily at bed time 7. Diabetes mellitus type 2; continue home oral hypoglycemic therapy; monitor Accu-Cheks every CHF with insulin sliding scale DVT prophylaxis; SCDs/anticoagulation CODE STATUS; full code
--- NOTE | 2022-08-04 13:44 | P.PN ---
Subjective Progress Note Date: 08/04/22 Principal diagnosis: Severe osteoarthritis right hip Status post right total hip arthroplasty 62-year-old male patient with past medical history of hypertension, hyperlipidemia, coronary disease, atrial fibrillation and severe osteoarthritis of right hip admitted to the hospital for elective left total hip arthroplasty Patient is status post surgery and is POD #0; reports fairly controlled Patient has extensive history of CAD, atrial fibrillation; reports no chest pain or shortness of breath or palpitations Objective - Vital Signs Vital signs: Vital Signs Temp 98.3 F 08/04/22 08:00 Pulse 80 08/04/22 08:00 Resp 16 08/04/22 08:00 BP 108/65 08/04/22 02:22 Pulse Ox 96 08/04/22 08:00 FiO2 Intake & Output 08/03/22 08/04/22 08/04/22 18:59 06:59 18:59 Intake Total 1100 Output Total 200 Balance 900 Weight 90.3 kg Intake: IV 1100 Output: Estimated Blood Loss 200 Other: Voiding Method Toilet Toilet # Voids 1 3 - Exam - Constitutional General appearance: Present: average body habitus, cooperative, no acute distress - EENT Eyes: Present: anicteric sclerae, EOMI, PERRLA, normal appearance ENT: Present: hearing grossly normal, normal oropharynx Ears: bilateral: normal - Neck Neck: Present: normal ROM. Absent: lymphadenopathy, rigidity, thyromegaly Carotids: negative: bruit present Thyroid: bilateral: normal size, negative: enlarged, nodule - Respiratory Respiratory: bilateral: CTA, negative: rales, rhonchi, wheezing - Cardiovascular Rhythm: regular Heart sounds: normal: S1, S2 Abnormal Heart Sounds: Absent: systolic murmur, diastolic murmur - Gastrointestinal General gastrointestinal: Present: normal bowel sounds, soft. Absent: distended, organomegaly, tenderness - Genitourinary Genitourinary Comment(s): deferred - Integumentary Integumentary: Present: normal turgor. Absent: jaundiced, rash, ulcer - Neurologic Neurologic: Present: CNII-XII intact. Absent: focal deficits - Musculoskeletal Musculoskeletal: Present: gait normal, strength equal bilaterally - Psychiatric Psychiatric: Present: A&O x's 3, appropriate affect, intact judgment & insight - Labs CBC & Chem 7: 08/04/22 07:55 Labs: Abnormal Lab Results - Last 24 Hours (Table) 08/03/22 08/03/22 08/04/22 Range/Units 16:34 20:18 07:01 WBC (4.50-10.00) X 10*3/uL RBC (4.40-5.60) X 10*6/uL Hgb (13.0-17.0) g/dL Hct (39.6-50.0) % Immature Gran # (0.00-0.04) X 10*3/uL Neutrophils # (1.80-7.70) X 10*3/uL Eosinophils # (0.04-0.35) X 10*3/uL POC Glucose (mg/dL) 138 H 169 H 112 H (70-110) mg/dL 08/04/22 Range/Units 07:55 WBC 14.81 H (4.50-10.00) X 10*3/uL RBC 3.86 L (4.40-5.60) X 10*6/uL Hgb 12.1 L (13.0-17.0) g/dL Hct 37.1 L (39.6-50.0) % Immature Gran # 0.06 H (0.00-0.04) X 10*3/uL Neutrophils # 12.63 H (1.80-7.70) X 10*3/uL Eosinophils # 0.01 L (0.04-0.35) X 10*3/uL POC Glucose (mg/dL) (70-110) mg/dL Assessment and Plan Assessment: 1. Right hip osteoarthritis; status post total right hip arthroplasty; patient is POD #0 - Your management - Continue with optimal pain control; recommend increase activity as tolerated 2. Hypertension; continue with metoprolol 25 mg twice a day, losartan 150 mg daily; monitor blood pressure closely 3. Hyperlipidemia; Lipitor 80 mg by mouth daily at bedtime 4. Atrial fibrillation; patient is rate controlled on amiodarone 50 mg daily; continue with anticoagulation 5. Coronary artery disease; stable on aspirin, Plavix and Ahlquist; Lipitor 80 mg daily at bedtime; metoprolol 25 mg twice a day 6. Gout/hyperuricemia; Zyloprim 300 mg daily with 100 mg by mouth daily at bedtime 7. Diabetes mellitus type 2; continue home oral hypoglycemic therapy; monitor Accu-Cheks every CHF with insulin sliding scale DVT prophylaxis; SCDs/anticoagulation CODE STATUS; full code
== END 2022-08-04 14:13 | disposition home health service (06) ==
LOC: OR 08:18 → 4SSUR 12:50 → OR 08-04 14:13
PROVIDERS: ATTEND Orthopaedic Surgery
DX: M16.11 Unilateral primary osteoarthritis, right hip (principal); G89.18 Other acute postprocedural pain; Z96.642 Presence of left artificial hip joint; I25.10 Atherosclerotic heart disease of native coronary artery without angina pectoris; Z95.5 Presence of coronary angioplasty implant and graft; M21.70 Unequal limb length (acquired), unspecified site; I48.91 Unspecified atrial fibrillation; Z79.01 Long term (current) use of anticoagulants; E11.69 Type 2 diabetes mellitus with other specified complication; E78.5 Hyperlipidemia, unspecified; I11.9 Hypertensive heart disease without heart failure; Z85.828 Personal history of other malignant neoplasm of skin; Z79.899 Other long term (current) drug therapy; Z88.6 Allergy status to analgesic agent; Z88.8 Allergy status to other drugs, medicaments and biological substances; Z91.030 Bee allergy status; Z79.51 Long term (current) use of inhaled steroids; Z87.891 Personal history of nicotine dependence; Z80.3 Family history of malignant neoplasm of breast; Z82.49 Family history of ischemic heart disease and other diseases of the circulatory system; Z83.3 Family history of diabetes mellitus; Z79.82 Long term (current) use of aspirin; M10.9 Gout, unspecified; Z79.84 Long term (current) use of oral hypoglycemic drugs
CPT/HCPCS: 97116; 97162; 86900; 86901; 85025; 86850; 73501; 27130; 64999; 76942; J2250; J1100; J0690 ×2; J2405; J1885; J1170

== ENCOUNTER → 2023-07-29 | Outpatient (CLI) | payer MEDICARE ==
--- NOTE | 2023-08-07 22:16 | MR ---
EXAMINATION TYPE: MR elbow RT wo con DATE OF EXAM: 07/29/2023 COMPARISON: NONE HISTORY: 63-year-old male M66.321 Right elbow pain, swelling, and limited movement for 6 days due to arm being pulled. TECHNIQUE: Multiplanar, multisequence images of the right elbow were obtained without IV contrast. FINDINGS: There appears to be a partial tear of the distal biceps tendon involving the lateral long head fibers . Some balled up fibers are located 2.5 cm above the level of the radial tuberosity. Mild fluid is pr esent in this region. Refer to axial image 11 and sagittal image 22. The torn and remains below the e lbow joint line. The triceps insertion is intact. Small joint effusion is present. There is moderate degenerative change within both the radiocapitellar and ulnotrochlear joints with i rregular cartilage loss and marginal spurring. There is tear of the humeral attachment of the RCL. There also appears to be tear of most of the mirella ral attachment of the LUCL. Contiguous partial tear extending to involve the deep insertion of the common extensor tendon origin. Prominent heterogeneous signal at the common flexor tendon origin suggesting marked tendinosis. There appears to be chronic injury at the anterior band of the UCL without eli tear. There is a small ga nglion cyst measuring 1.3 x 0.6 cm that is formed at the coronoid process. Moderate generalized subcutaneous soft tissue swelling is present Thickening of the ulnar nerve at the cubital fossa with a cross-sectional area of 25 sq mm. No acute or healing fracture is seen. IMPRESSION: 1. Moderate radiocapitellar and ulnotrochlear joint OA. Small joint effusions likely reactive. 2. Partial tear of the distal biceps tendon. Tear involves the lateral long head insertion. The retra cted fibers are located 2.5 cm above the level of the radial tuberosity and remain below the elbow kika int line. The short head insertion remains intact. 3. Tear of the RCL at its humeral attachment. Most of the humeral attachment of the LUCL also appears torn. 4. Contiguous partial tear extending into the deep insertion of the common extensor tendon origin. 5. Marked tendinosis at the common flexor tendon origin. Chronic injury to the UCL without tear. A sm all 1.3 x 0.6 cm ganglion cyst has formed at the coronoid process. 6. Thickening of the ulnar nerve at the elbow which may be seen with ulnar nerve impingement or neuro cheryl.
== END | disposition home or self-care (01) ==
LOC: RADMRIMAIN 16:40
PROVIDERS: ATTEND Orthopaedic Surgery
DX: M19.021 Primary osteoarthritis, right elbow (principal); M66.321 Spontaneous rupture of flexor tendons, right upper arm; M67.823 Other specified disorders of tendon, right elbow; S46.211A Strain of muscle, fascia and tendon of other parts of biceps, right arm, initial encounter; X58.XXXA Exposure to other specified factors, initial encounter

== ENCOUNTER → 2023-08-02 | Outpatient (CLI) | payer MEDICARE ==
[2023-08-02 20:37] LABS: ALT 40 U/L (10-49); AST 54 U/L (14-35); Chol/HDL Ratio 2.98 Ratio; VLDL Calculation 17.42 mg/dL (5.00-40.00)
== END | disposition home or self-care (01) ==
LOC: LABWHC1 11:28
PROVIDERS: ATTEND Internal Medicine Cardiovascular Disease
DX: E78.2 Mixed hyperlipidemia (principal)
CPT/HCPCS: 36415; 80061; 84450; 84460

== ENCOUNTER → 2023-12-10 | Outpatient (CLI) | payer MEDICARE ==
[2023-12-10 18:43] LABS: ALT 40 U/L (10-49); AST 44 U/L (14-35); Blood Urea Nitrogen 23.1 mg/dL (9.0-27.0); C Reactive Protein <0.30 mg/dL (0.00-0.80); Uric Acid 3.2 mg/dL (3.7-8.7)
[2023-12-10 18:47] LABS: Basophils # (A) 0.04 X 10*3/uL (0.00-0.10); Basophils % (A) 0.4 %; Eosinophils # (A) 0.11 X 10*3/uL (0.04-0.35); Eosinophils % (A) 1.2 %; HCT 49.2 % (39.6-50.0); HGB 16.1 g/dL (13.0-17.0); Lymphocytes # (A) 1.47 X 10*3/uL (0.90-5.00); Lymphocytes % (A) 16.1 %; MCH 31.2 pg (27.0-32.0); MCHC 32.7 g/dL (32.0-37.0); MCV 95.3 FL (80.0-97.0); Mean Platelet Volume 11.1 FL (9.5-12.2); Monocytes # (A) 0.52 X 10*3/uL (0.20-1.00); Monocytes % (A) 5.7 %; NRBC Per 100 WBC 0 X 10*3/uL (0.00-0.01); Neutrophils # (A) 6.96 X 10*3/uL (1.80-7.70); Neutrophils % (A) 76.3 %; Platelet Count 169 X 10*3/uL (140-440); RBC 5.16 X 10*6/uL (4.40-5.60); RDW 13.6 % (11.5-14.5); WBC 9.13 X 10*3/uL (4.50-10.00)
[2023-12-10 20:04] LABS: Erythrocyte Sedimentation Rate <1 mm/Hr (0-20)
== END | disposition home or self-care (01) ==
LOC: LABWHC1 14:40
PROVIDERS: ATTEND Internal Medicine Rheumatology
DX: M05.731 Rheumatoid arthritis with rheumatoid factor of right wrist without organ or systems involvement (principal); M05.732 Rheumatoid arthritis with rheumatoid factor of left wrist without organ or systems involvement; M1A.09X0 Idiopathic chronic gout, multiple sites, without tophus (tophi)
CPT/HCPCS: 36415; 82565; 84450; 84460; 84520; 84550; 85025; 85652; 86140

== ENCOUNTER 2024-09-02 09:15 | Inpatient (IN) | payer MEDICARE ==
[2024-09-02] MEDS: HEPARIN SODIUM 1,000 UN/ML (10ML VL) IV ONE ×3 (09:24→11:42)
[2024-09-02] MEDS: ATORVASTATIN 80 MG TAB PO STA (09:25)
[2024-09-02] MEDS: SODIUM CHLORIDE 0.9% 1,000 ML IV ONE (09:25)
--- NOTE | 2024-09-02 09:28 | ED ---
General Adult HPI - General Chief complaint: Chest Pain Stated complaint: STEMI Time Seen by Provider: 09/02/24 09:15 Source: patient, EMS, RN notes reviewed, old records reviewed Mode of arrival: EMS Limitations: no limitations - History of Present Illness Initial comments: This is a 64-year-old male who presents to the emergency department complaining of some chest pressure and some shortness of breath. Patient was scheduled to have a procedure done at a surgical center today and on the way in he had some chest pressure so he took a couple nitro he thought it was secondary to his atrial fibrillation because he been off his blood thinners for a week. Patient got there and they decided that he should not be getting surgery with chest pressure so they sent him to see us in route an EKG was done which showed ST segment a patient inferiorly and laterally. Patient states the nitroglycerin did help his pain earlier today. - Related Data Home Medications Medication Instructions Recorded Confirmed allopurinoL [Zyloprim] 300 mg PO DAILY 03/01/19 08/03/22 Amiodarone [Cordarone] 50 mg PO DAILY 02/08/20 08/03/22 Fluticasone Nasal [place] [Flonase 2 spr EA NOSTRIL DAILY PRN 02/08/20 08/03/22 Nasal [place]] Atorvastatin [Lipitor] 80 mg PO HS 04/07/21 08/03/22 Empagliflozin [Jardiance] 10 mg PO DAILY 04/07/21 08/03/22 Fenofibrate 54 mg PO DAILY 04/07/21 08/03/22 Pantoprazole Sodium [Protonix] 40 mg PO QAM 04/07/21 08/03/22 methocarbamoL 500 mg PO TID PRN 04/07/21 08/03/22 Gabapentin 300 mg PO BID PRN 04/21/21 08/03/22 hydroCHLOROthiazide 25 mg PO DAILY 04/21/21 08/03/22 Apixaban [Eliquis] 5 mg PO BID 11/04/21 08/01/22 Cholecalciferol [Vitamin D3 (125 125 mcg PO SUTUTHSA 11/04/21 08/01/22 Mcg = 5000 Iu)] EPINEPHrine (Auto Inject) [Epipen] 0.3 mg IM ONCE PRN 11/04/21 08/03/22 Hydroxychloroquine Sulfate 200 mg PO BID 11/04/21 08/03/22 [Plaquenil] Olmesartan Medoxomil 40 mg PO QAM 11/04/21 08/03/22 allopurinoL [Zyloprim] 100 mg PO HS 11/04/21 08/03/22 HYDROcodone/APAP 5-325MG [[place] 1 tab PO Q4HR PRN 08/01/22 08/03/22 5-325] sulfaSALAzine [Sulfasalazine] 1,000 mg PO BID 08/01/22 08/03/22 Previous Rx's Medication Instructions Recorded Clopidogrel [Plavix] 75 mg PO DAILY #30 tab 05/20/17 Metoprolol Tartrate [Lopressor] 25 mg PO BID #60 tab 03/06/19 Nitroglycerin Sl Tabs [Nitrostat] 0.4 mg SUBLINGUAL Q5M PRN #30 tab 02/10/20 Docusate [Colace] 100 mg PO BID #60 capsule 08/04/22 HYDROcodone/APAP 10-325MG [[place] 1 tab PO Q6HR PRN 7 Days #28 tab 08/04/22 10-325] Allergies Allergy/AdvReac Type Severity Reaction Status Date / Time amlodipine Allergy Severe LEG Verified 09/02/24 09:23 SWELLING AND RUPTURE OF ACHILLES venom-honey bee Allergy Anaphylaxis Verified 09/02/24 09:23 [bee venom (honey bee)] Review of Systems ROS Statement: Those systems with pertinent positive or pertinent negative responses have been documented in the HPI. ROS Other: All systems not noted in ROS Statement are negative. Past Medical History Past Medical History: Atrial Fibrillation, Coronary Artery Disease (CAD), Cancer, Chest Pain / Angina, GERD/Reflux, Hyperlipidemia, Hypertension, Myocardial Infarction ([place]), Prostate Disorder Additional Past Medical History / Comment(s): CURRENT: TIGHTNESS IN CHEST. Rt toe issues(gout?). skin cancer. seasonal allergies. kidney stones. diverticulitis. covid in october. [place] VACCINE. "TAKES JARDIANCE FOR CARDIAC" PROTECTION Last Myocardial Infarction Date:: 02/28/19 History of Any Multi-Drug Resistant Organisms: None Reported Past Surgical History: Back Surgery, Bowel Resection, Cholecystectomy, Heart Catheterization With Stent, Joint Replacement, Orthopedic Surgery, Tonsillectomy Additional Past Surgical History / Comment(s): TOTAL OF 11 STENTS Left hip replacement. Right knee Past Anesthesia/Blood Transfusion Reactions: No Reported Reaction Date of Last Stent Placement:: 03/2019 Past Psychological History: No Psychological Hx Reported Smoking Status: Former smoker Past Alcohol Use History: None Reported Past Drug Use History: None Reported - Past Family History Father Family Medical History: Hypertension Mother History Unknown: Yes Family Medical History: Cancer Additional Family Medical History / Comment(s): Breast cancer. General Exam - General Exam Comments Initial Comments: GENERAL: Patient is well-developed and well-nourished. Patient is nontoxic and well- hydrated and is in mild distress. ENT: Neck is soft and supple. No significant lymphadenopathy is noted. Oropharynx is clear. Moist mucous membranes. Neck has full range of motion without eliciting any pain. EYES: The sclera were anicteric and conjunctiva were pink and moist. Extraocular movements were intact and pupils were equal round and reactive to light. Eyelids were unremarkable. PULMONARY: Unlabored respirations. Good breath sounds bilaterally. No audible rales rhonchi or wheezing was noted. CARDIOVASCULAR: There is a regular rate and rhythm without any murmurs gallops or rubs. ABDOMEN: Soft and nontender with normal bowel sounds. SKIN: Skin is clear with no lesions or rashes and otherwise unremarkable. NEUROLOGIC: Patient is alert and oriented x3. Cranial nerves II through XII are grossly intact. Motor and sensory are also intact. Normal speech, volume and content. Symmetrical smile. MUSCULOSKELETAL: Normal extremities with adequate strength and full range of motion. No lower extremity swelling or edema. No calf tenderness. LYMPHATICS: No significant lymphadenopathy is noted PSYCHIATRIC: Normal psychiatric evaluation. Limitations: no limitations Course Vital Signs 09/02/24 09:19 Temperature 97.4 F L Pulse Rate 70 Respiratory 18 Rate Blood Pressure 145/85 O2 Sat by Pulse 100 Oximetry Medical Decision Making - Medical Decision Making EKG is interpreted by myself read EKG shows a sinus bradycardia 52 bpm [place] interval is under 51 QRS is 105 QT interval is 448 QTc is 429. Patient's EKG shows ST segment elevation consistent with a STEMI the Elevation is in leads II, III and aVF as well as V5 V6 Was pt. sent in by a medical professional or institution (, PA, [employer] T[employer]ET TAKER, urgent care, hospital, or longterm...) When possible be specific @ -No Did you speak to anyone other than the patient for history (EMS, parent, family, police, friend...)? What history was obtained from this source @ -No Did you review nursing and triage notes (agree or disagree)? Why? @ -I reviewed and agree with nursing and triage notes Were old charts reviewed (outside hosp., previous admission, EMS record, old EKG, old radiological studies, urgent care reports/EKG's, longterm records)? Report findings @ -No old charts were reviewed Differential Diagnosis? @ -Differential Chest Pain: Stable Angina, Unstable Angina, STEMI, NSTEMI Aortic Dissection, Pneumothorax, Musculoskeletal, Esophageal Spasm GERD, Cholecystitis, Pancreatitis, Zoster, this is not meant to be an all-inclusive list. EKG interpreted by me (3pts min.). @ -As above X-rays interpreted by me (1pt min.). @ -Chest x-ray shows no acute abnormality CT interpreted by me (1pt min.). @ -None done U/S interpreted by me (1pt. min.). @ -None done What testing was considered but not performed or refused? (CT, X-rays, U/S, labs)? Why? @ -None What meds were considered but not given or refused? Why? @ -None Did you discuss the management of the patient with other professionals (professionals i.e. , PA, [employer] T[employer] TAKER, lab, RT, psych nurse, social media manager, elementary education tutor, teacher, financial aid officer, rehabilitation case coordinator)? Give summary @ -Prior to patient's arrival an EKG was transmitted to [facility] called a STEMI overhead. Cardiology arrived shortly after the patient's arrival and agreed t hat this was a STEMI will be taking the patient to catheterization lab Was smoking cessation discussed for >3mins.? @ -No Was critical care preformed (if so, how long)? @ -35 minutes Were there social determinants of health that impacted care today? How? (Homelessness, low income, unemployed, alcoholism, drug addiction, transportation, low edu. Level, literacy, decrease access to med. care, fpc, rehab)? @ -No Was there de-escalation of care discussed even if they declined (Discuss DNR or withdrawal of care, Hospice)? DNR status @ -No What co-morbidities impacted this encounter? (DM, HTN, Smoking, COPD, CAD, Cancer, CVA, ARF, Chemo, Hep., AIDS, mental health diagnosis, sleep apnea, morbid obesity)? @ -None Was patient admitted / discharged? Hospital course, mention meds given and route, prescriptions, significant lab abnormalities, going to OR and other pertinent info. @ -Patient was given 4000 bolus of heparin 80 of Lipitor and nitroglycerin sublingual. Patient was also given a bolus of fluid. Undiagnosed new problem with uncertain prognosis? @ -No Drug Therapy requiring intensive monitoring for toxicity (Heparin, Nitro, Insulin, Cardizem)? @ -No Were any procedures done? @ -No Diagnosis/symptom? @ -STEMI Acute, or Chronic, or Acute on Chronic? @ -Acute Uncomplicated (without systemic symptoms) or Complicated (systemic symptoms)? @ -Complicated Side effects of treatment? @ -No Exacerbation, Progression, or Severe Exacerbation? @ -No Poses a threat to life or bodily function? How? (Chest pain, [place], [place], pneumonia, PE, COPD, DKA, ARF, appy, cholecystitis, CVA, Diverticulitis, Homicidal, Suicidal, threat to staff... and all critical care pts) @ -Yes this could lead to significant damage to the myocardium and morbidity and/or mortality Disposition Clinical Impression: ST elevation myocardial infarction (STEMI) Disposition: ADMITTED IP TO THIS HOSP Referrals: Tyrone Kan MD [Primary Care Provider] - 1-2 days Time of Disposition: 09:27
[2024-09-02] MEDS: NITROGLYCERIN SL TABS 0.4 MG TAB SUBLINGUAL STA (09:29)
[2024-09-02] MEDS ORDERED: NITROGLYCERIN SL TABS 0.4 MG TAB SUBLINGUAL PRN (09:29)
--- NOTE | 2024-09-02 09:31 | XR ---
EXAMINATION TYPE: XR chest 1V portable DATE OF EXAM: 09/02/2024 9:26 AM CLINICAL INDICATION: Male, 64 years old with history of Chest Pain; [facility] COMPARISON: 11/04/2021 TECHNIQUE: XR chest 1V portable Frontal view of the chest. FINDINGS: Lungs/Pleura: There is no evidence of pleural effusion, focal consolidation, or pneumothorax. Pulmonary vascularity: Unremarkable. Heart/mediastinum: Cardiomediastinal silhouette is unremarkable. Musculoskeletal: No acute osseous pathology. Other findings: None IMPRESSION: No acute cardiopulmonary disease/process. [facility], , 09/02/2024 9:29 AM
[2024-09-02] MEDS: IV FLUID CONTINUATION 1,000 ML IV ONE (09:32)
[2024-09-02] MEDS: LIDOCAINE 1% INJ 10MG/ML (20 ML MDV) SQ ONE (09:40)
[2024-09-02] MEDS: fentaNYL (PF) 50 MCG/ML 2 ML AMP IVP ONE (09:40)
[2024-09-02] MEDS: MIDAZOLAM 2 MG/2 ML VIAL IVP ONE (09:40)
[2024-09-02 09:41] LABS: Basophils % (A) 0 %; Eosinophils # (A) 0.1 k/uL (0-0.7); Eosinophils % (A) 1 %; HCT 43.2 % (39.0-53.0); HGB 14.1 gm/dL (13.0-17.5); Lymphocytes # (A) 1.1 k/uL (1.0-4.8); Lymphocytes % (A) 11 %; MCHC 32.5 g/dL (31.0-37.0); MCV 101.4 fL (80.0-100.0); Monocytes # (A) 0.4 k/uL (0-1.0); Monocytes % (A) 5 %; Neutrophils % (A) 82 %; Platelet Count 146 k/uL (150-450); RBC 4.26 m/uL (4.30-5.90); RDW 12.5 % (11.5-15.5); WBC 9.7 k/uL (3.8-10.6)
[2024-09-02] MEDS: VERAPAMIL SYRINGE (5 MG/10 ML) INTRAARTER ONE (09:42)
--- NOTE | 2024-09-02 09:44 | P.CRDCN ---
History of Present Illness History of present illness: HISTORY OF PRESENT ILLNESS: This is a 64-year-old male with a past medical history significant for hypertension, hyperlipidemia, coronary artery disease with previous stenting, and paroxysmal atrial fibrillation. Patient follows in the office with Dr. Fu. We have been asked to see the patient in consultation for STEMI. Patient examined at the bedside in the emergency room. Patient was at the [facility] this morning. He was scheduled to have a carpal tunnel release. He mentioned that he was having chest discomfort. He states he felt as though his A-fib was acting up. An EKG was performed and EMS was called to bring the patient to the emergency room. EKG on arrival reveals ST elevation in inferior leads and V6 with reciprocal changes. DIAGNOSTICS: - EKG reveals ST elevation in inferior leads and V6 with reciprocal changes. - Chest xray negative for acute process - Laboratory data: Not available at the time of this dictation - Current home cardiac medication list is not updated at the time of dictation - Most recent echocardiogram obtained in 2019 revealed ejection fraction 55 to 60%, mild MR, mild TR - Cardiac catheterization history: November 2021 revealing patent stents within the RCA, LAD, ramus intermedius and circumflex coronary artery. 40 to 50% stenosis in ramus intermedius and 40% stenosis in mid RCA. REVIEW OF SYSTEMS: At the time of my exam: CONSTITUTIONAL: Denies fever or chills. HEENT: Denies blurred vision, vision changes, or eye pain. Denies hemoptysis CARDIOVASCULAR: Denies chest pain. Denies orthopnea. Denies PND. Denies palpitations RESPIRATORY: Denies shortness of breath. GASTROINTESTINAL: Denies abdominal pain. Denies nausea or vomiting. HEMATOLOGIC: Denies bleeding disorders. GENITOURINARY: Denies any blood in urine. SKIN: Denies pruitis. Denies rash. PHYSICAL EXAM: VITAL SIGNS: Reviewed. GENERAL: Well-developed in no acute distress. HEENT: Head is normocephalic. Pupils are equal, round. Sclerae anicteric. Mucous membranes of the mouth are moist. Neck supple. No JVD or thyromegaly LUNGS: Respirations even and unlabored. Lungs essentially clear to auscultation bilaterally. HEART: Regular rate and rhythm. S1 and S2 heard. ABDOMEN: Soft. Nondistended. Nontender. EXTREMITIES: Normal range of motion. No clubbing or cyanosis. Peripheral pulses intact. No lower extremity edema NEUROLOGIC: Awake and alert. Oriented x 3. ASSESSMENT: STEMI Coronary artery disease with previous stenting to the RCA, LAD, ramus intermedius, and circumflex Paroxysmal atrial fibrillation Hypertension Hyperlipidemia Former nicotine dependence PLAN: Patient received 325 mg of aspirin via EMS and route to the hospital Patient received heparin bolus and Lipitor in the emergency room Recommend emergent cardiac catheterization. Patient and his are agreeable. Resume home cardiac medications when medication list has been updated Obtain 2D echo to assess cardiac structure and function Further recommendations pending patient course Nurse practitioner note has been reviewed by physician. Signing provider agrees with the documented findings, assessment, and plan of care documented by [employer] OPERATOR as a scribe. Past Medical History Past Medical History: Atrial Fibrillation, Coronary Artery Disease (CAD), Cancer, Chest Pain / Angina, GERD/Reflux, Hyperlipidemia, Hypertension, Myocardial Infarction ([place]), Prostate Disorder Additional Past Medical History / Comment(s): CURRENT: TIGHTNESS IN CHEST. Rt toe issues(gout?). skin cancer. seasonal allergies. kidney stones. diverticulitis. covid in october. Jimubox VACCINE. "TAKES JARDIANCE FOR CARDI AC" PROTECTION Last Myocardial Infarction Date:: 02/28/19 History of Any Multi-Drug Resistant Organisms: None Reported Past Surgical History: Back Surgery, Bowel Resection, Cholecystectomy, Heart Catheterization With Stent, Joint Replacement, Orthopedic Surgery, Tonsillectomy Additional Past Surgical History / Comment(s): TOTAL OF 11 STENTS Left hip replacement. Right knee Past Anesthesia/Blood Transfusion Reactions: No Reported Reaction Date of Last Stent Placement:: 03/2019 Past Psychological History: No Psychological Hx Reported Smoking Status: Former smoker Past Alcohol Use History: None Reported Past Drug Use History: None Reported - Past Family History Father Family Medical History: Hypertension Mother History Unknown: Yes Family Medical History: Cancer Additional Family Medical History / Comment(s): Breast cancer. Medications and Allergies Home Medications Medication Instructions Recorded Confirmed Type Clopidogrel [Plavix] 75 mg PO DAILY #30 tab 05/20/17 08/01/22 Rx allopurinoL [Zyloprim] 300 mg PO DAILY 03/01/19 08/03/22 History Metoprolol Tartrate [Lopressor] 25 mg PO BID #60 tab 03/06/19 08/03/22 Rx Amiodarone [Cordarone] 50 mg PO DAILY 02/08/20 08/03/22 History Fluticasone Nasal [place] [Flonase 2 spr EA NOSTRIL DAILY PRN 02/08/20 08/03/22 History Nasal [place]] Nitroglycerin Sl Tabs [Nitrostat] 0.4 mg SUBLINGUAL Q5M PRN #30 tab 02/10/20 08/01/22 Rx Atorvastatin [Lipitor] 80 mg PO HS 04/07/21 08/03/22 History Empagliflozin [Jardiance] 10 mg PO DAILY 04/07/21 08/03/22 History Fenofibrate 54 mg PO DAILY 04/07/21 08/03/22 History Pantoprazole Sodium [Protonix] 40 mg PO QAM 04/07/21 08/03/22 History methocarbamoL 500 mg PO TID PRN 04/07/21 08/03/22 History Gabapentin 300 mg PO BID PRN 04/21/21 08/03/22 History hydroCHLOROthiazide 25 mg PO DAILY 04/21/21 08/03/22 History Apixaban [Eliquis] 5 mg PO BID 11/04/21 08/01/22 History Cholecalciferol [Vitamin D3 (125 125 mcg PO SUTUTHSA 11/04/21 08/01/22 History Mcg = 5000 Iu)] EPINEPHrine (Auto Inject) [Epipen] 0.3 mg IM ONCE PRN 11/04/21 08/03/22 History Hydroxychloroquine Sulfate 200 mg PO BID 11/04/21 08/03/22 History [Plaquenil] Olmesartan Medoxomil 40 mg PO QAM 11/04/21 08/03/22 History allopurinoL [Zyloprim] 100 mg PO HS 11/04/21 08/03/22 History HYDROcodone/APAP 5-325MG [[place] 1 tab PO Q4HR PRN 08/01/22 08/03/22 History 5-325] sulfaSALAzine [Sulfasalazine] 1,000 mg PO BID 08/01/22 08/03/22 History Docusate [Colace] 100 mg PO BID #60 capsule 08/04/22 Rx HYDROcodone/APAP 10-325MG [[place] 1 tab PO Q6HR PRN 7 Days #28 tab 08/04/22 Rx 10-325] Allergies Allergy/AdvReac Type Severity Reaction Status Date / Time amlodipine Allergy Severe LEG Verified 09/02/24 09:23 SWELLING AND RUPTURE OF ACHILLES venom-honey bee Allergy Anaphylaxis Verified 09/02/24 09:23 [bee venom (honey bee)] Physical Exam Vitals: Vital Signs Temp Pulse Pulse Resp BP Pulse Ox 09/02/24 09:31 97.6 F 74 20 153/86 100 09/02/24 09:20 70 09/02/24 09:19 97.4 F L 70 18 145/85 100 Intake and Output 09/01/24 09/02/24 09/02/24 22:59 06:59 14:59 Other: Weight 86.183 kg Results Current Medications Generic Name Dose Route Start Last Admin Trade Name Freq PRN Reason Stop Dose Admin Aspirin 325 mg 09/03/24 09:00 Aspirin 325 Mg Tab PO DAILY CADY Sodium Chloride 1,000 mls @ 999 mls/hr 09/02/24 09:22 09/02/24 09:25 Saline 0.9% IV 09/02/24 10:22 999 mls/hr .Q1H1M ONE Administration Nitroglycerin 0.4 mg 09/02/24 09:29 Nitroglycerin Sl Tabs 0.4 Mg Tab SUBLINGUAL Q5M PRN Chest Pain Intake and Output 09/01/24 09/02/24 09/02/24 22:59 06:59 14:59 Other: Weight 86.183 kg Patient Weight 09/03/24 06:59 Weight 86.183 kg
[2024-09-02] MEDS: TICAGRELOR 90 MG TAB PO ONE (09:46)
[2024-09-02 09:48] LABS: ALT 46 U/L (4-49); African American GFR (CKD) 86 (>60 ml/min/1.73 sqM); Albumin 4.1 g/dL (3.5-5.0); Anion Gap 8 mmol/L; Blood Urea Nitrogen 32 mg/dL (9-20); Calcium 10.3 mg/dL (8.4-10.2); Carbon Dioxide 24 mmol/L (22-30); Chloride 105 mmol/L (98-107); Glucose 125 mg/dL (74-99); Non-African American GFR(CKD) 74 (>60 ml/min/1.73 sqM); Sodium 137 mmol/L (137-145); Total Bilirubin 0.9 mg/dL (0.2-1.3); Total Protein 6.2 g/dL (6.3-8.2)
[2024-09-02 09:53] LABS: AST 72 U/L (17-59); Alkaline Phosphatase 64 U/L (38-126); Magnesium 1.7 mg/dL (1.6-2.3); Potassium 3.7 mmol/L (3.5-5.1)
[2024-09-02 09:55] LABS: INR 0.9 (<1.2); Prothrombin Time 10.5 sec (10.0-12.5)
[2024-09-02 09:56] LABS: Partial Thromboplastin Time 22.2 sec (22.0-30.0)
[2024-09-02] MEDS: NITROGLYCERIN 1000MCG/10ML SYRINGE INTRACORON ONE (09:56)
[2024-09-02] MEDS: IOPAMIDOL-370 100ML BTL INJ ONE ×2 (10:02→10:23)
[2024-09-02] MEDS: niCARdipine Syringe (1,000 mcg/10 mL) INTRACORON ONE (10:13)
[2024-09-02] MEDS: TIROFIBAN BOLUS 12.5MG/250 ML BAG IV ONE (10:14)
[2024-09-02] MEDS: TIROFIBAN 12.5MG-250ML NS 250 ML IV SCH (10:17)
[2024-09-02] MEDS: HEPARIN SODIUM,PORCINE (1 ML) 2,500 UNIT in SODIUM CHLORIDE 0.9% 250 ML IRRIGATION ONE (10:22)
[2024-09-02] MEDS: HEPARIN SODIUM,PORCINE 10,000 UNIT in SODIUM CHLORIDE 0.9% 1,000 ML IRRIGATION ONE (10:22)
[2024-09-02] MEDS ORDERED: RX INFO: IV CONTRAST WAS GIVEN 1 EACH MISC MISCELLANE PRN (10:48)
[2024-09-02] MEDS ORDERED: ATROPINE SULFATE 0.1 MG/ML 10ML SYRINGE IV PRN (10:48)
[2024-09-02] MEDS ORDERED: ZOLPIDEM 5 MG TAB PO PRN (10:48)
[2024-09-02] MEDS ORDERED: MAG HYDROX/AL HYDROX/SIMETH 30 ML CUP PO PRN (10:48)
[2024-09-02] MEDS: SODIUM CHLORIDE 0.9% 1,000 ML in EMPTY BAG 1 BAG IV SCH (11:40)
[2024-09-02] MEDS: HEPARIN SOD,PORK IN 0.45% NACL 25,000 UNIT in 0.45% NACL 1 250ML.BAG IV SCH (11:40)
[2024-09-02 15:01] VITALS: BMI 23.7
[2024-09-02] MEDS ORDERED: FLECAINIDE 50 MG TAB PO PRN (15:20)
[2024-09-02] MEDS ORDERED: DEXTROSE 50% SYRINGE 50 ML IVP PRN ×2 (15:31)
--- NOTE | 2024-09-02 15:31 | P.HPIM ---
History of Present Illness H&P Date: 09/02/24 Chief Complaint: chest pain Patient is a 64-year-old male with a past medical history of hypertension, hyperlipidemia, coronary disease status post multiple stents and last stent placed in 2021, atrial fibrillation, Rheumatoid arthritis who was sent to the ED from outpatient surgical center for ST elevation [place]. Patient states that he woke up this morning and he had some chest discomfort. He thought it was due to his atrial fibrillation. He states that he took nitro and flecainide with minimal relief. He then went to the outpatient surgical center because he really wanted to have the surgery done which was for carpal tunnel release. He mentioned to the staff that he was having chest discomfort. EKG revealed ST elevation [place] in the inferior leads and V6 so he was sent to our emergency room. Patient was emergently taken for heart catheterization. Report from heart cath is pending. I did speak with the geothermal powerplant mechanic helper who said he did balloon angioplasty of the left circumflex and patient likely had stenosis of his previous cardiac stent. Patient states that he was off Plavix for 7 days and Eliquis for 2 days for the surgery. Patient currently denying any chest pain and he feels well. ROS: 10 ROS reviewed and are negative except as noted in HPI Physical exam General: [Alert and oriented, well nourished, no acute distress]. Eye: [PERRL, EOMI, normal conjunctiva]. HENT: [Normocephalic, clear tympanic membranes, normal hearing, moist oral mucosa, no scleral icterus, no sinus tenderness]. Neck: [Supple, non-tender, no carotid bruits, no JVD, no lymphadenopathy]. Lungs: [Clear to auscultation and percussion, non-labored respiration]. Heart: [Normal rate, regular rhythm, no murmur, gallop or edema]. Abdomen: [Soft, non-tender, non-distended, normal bowel sounds, no masses]. Musculoskeletal: [Normal range of motion and strength, no tenderness or swelling]. Skin: [Skin is warm, dry and pink, no rashes or lesions]. Neurologic: [Awake, alert, and oriented X3, CN II-XII intact]. Psychiatric: [Cooperative, appropriate mood and affect]. Assessment and plan ST elevation [place] History of coronary artery disease status post multiple stents Likely caused by being off Plavix and Eliquis Status post left heart catheterization. Report is pending Continue with aspirin 81 mg daily, atorvastatin 80 mg at bedtime. Cardiology switched the patient from Plavix to Brilinta 90 mg p.o. twice daily. Resume beta-norberto and PATTI inhibitor Cardiology following Echocardiogram ordered Atrial fibrillation Patient is on flecainide 50 mg p.o. BID as needed? Patient currently on heparin drip so we will hold Eliquis Resume metoprolol 25 mg p.o. twice daily Diabetes mellitus Continue with Jardiance Sliding scale insulin Hypertension Resume medications as mentioned above Resume hydrochlorothiazide 25 mg p.o. daily Hyperlipidemia Resume statin Rheumatoid arthritis Continue with sulfasalazine 1000 mg p.o. twice daily, prednisone 5 mg p.o. daily, hydroxychloroquine 200 mg p.o. twice daily DVT prophylaxis: Heparin drip Past Medical History Past Medical History: Atrial Fibrillation, Coronary Artery Disease (CAD), Ca ncer, Chest Pain / Angina, GERD/Reflux, Hyperlipidemia, Hypertension, Myocardial Infarction ([place]), Prostate Disorder Additional Past Medical History / Comment(s): CURRENT: TIGHTNESS IN CHEST. Rt toe issues(gout?). skin cancer. seasonal allergies. kidney stones. diverticuliti s. covid in october. EGEN VACCINE. "TAKES JARDIANCE FOR CARDIAC" PROTECTION Last Myocardial Infarction Date:: 02/28/19 History of Any Multi-Drug Resistant Organisms: None Reported Past Surgical History: Back Surgery, Bowel Resection, Cholecystectomy, Heart Catheterization With Stent, Joint Replacement, Orthopedic Surgery, Tonsillectomy Additional Past Surgical History / Comment(s): TOTAL OF 11 STENTS Left hip replacement. Right knee, right arm carpal tunnel. Past Anesthesia/Blood Transfusion Reactions: No Reported Reaction Date of Last Stent Placement:: 03/2019 Past Psychological History: No Psychological Hx Reported Smoking Status: Never smoker Past Alcohol Use History: None Reported Additional Past Alcohol Use History / Comment(s): QUIT SMOKING 1998, SMOKED CIGARS. Past Drug Use History: None Reported - Past Family History Father Family Medical History: Hypertension Mother History Unknown: Yes Family Medical History: Cancer Additional Family Medical History / Comment(s): Breast cancer. Medications and Allergies Home Medications Medication Instructions Recorded Confirmed Type Clopidogrel [Plavix] 75 mg PO DAILY #30 tab 05/20/17 09/02/24 Rx allopurinoL [Zyloprim] 300 mg PO DAILY 03/01/19 09/02/24 History Metoprolol Tartrate [Lopressor] 25 mg PO BID #60 tab 03/06/19 09/02/24 Rx Nitroglycerin Sl Tabs [Nitrostat] 0.4 mg SUBLINGUAL Q5M PRN #30 tab 02/10/20 09/02/24 Rx Atorvastatin [Lipitor] 80 mg PO HS 04/07/21 09/02/24 History Empagliflozin [Jardiance] 10 mg PO DAILY 04/07/21 09/02/24 History Fenofibrate 54 mg PO HS 04/07/21 09/02/24 History Pantoprazole Sodium [Protonix] 40 mg PO DAILY 04/07/21 09/02/24 History hydroCHLOROthiazide 25 mg PO DAILY 04/21/21 09/02/24 History Apixaban [Eliquis] 5 mg PO BID 11/04/21 09/02/24 History Cholecalciferol [Vitamin D3 (125 125 mcg PO SUMOWEFR 11/04/21 09/02/24 History Mcg = 5000 Iu)] EPINEPHrine (Auto Inject) [Epipen] 0.3 mg IM ONCE PRN 11/04/21 09/02/24 History Hydroxychloroquine Sulfate 200 mg PO BID 11/04/21 09/02/24 History [Plaquenil] Olmesartan Medoxomil 40 mg PO DAILY 11/04/21 09/02/24 History sulfaSALAzine [Sulfasalazine] 1,000 mg PO BID 08/01/22 09/02/24 History Flecainide [Tambocor] 50 mg PO BID PRN 09/02/24 09/02/24 History predniSONE 5 mg PO DAILY 09/02/24 09/02/24 History Allergies Allergy/AdvReac Type Severity Reaction Status Date / Time amlodipine Allergy Severe LEG Verified 09/02/24 11:56 SWELLING AND RUPTURE OF ACHILLES venom-honey bee Allergy Anaphylaxis Verified 09/02/24 11:56 [bee venom (honey bee)] Physical Exam Osteopathic Statement: *. No significant issues noted on an osteopathic structural exam other than those noted in the History and Physical/Consult. Vitals: Vital Signs Temp Pulse Pulse Resp BP Pulse Ox 09/02/24 12:45 60 18 145/92 97 09/02/24 12:30 60 18 151/84 98 09/02/24 12:15 61 18 148/84 97 09/02/24 12:00 98.5 F 57 L 12 137/79 98 09/02/24 11:45 57 L 18 140/80 97 09/02/24 11:30 57 L 16 128/71 98 09/02/24 11:15 54 L 16 132/76 98 09/02/24 11:00 64 14 132/74 97 09/02/24 10:45 98.2 F 60 13 132/74 98 09/02/24 10:36 56 L 28 H 09/02/24 09:31 97.6 F 74 20 153/86 100 09/02/24 09:29 96 09/02/24 09:20 70 09/02/24 09:19 97.4 F L 70 18 145/85 100 Intake and Output 09/02/24 09/02/24 09/02/24 06:59 14:59 22:59 Intake Total 907 Balance 907 Intake: IV 907 0.9 105 Other: Weight 86.183 kg Results CBC & Chem 7: 09/02/24 09:27 09/02/24 09:27 Labs: Abnormal Lab Results - Last 24 Hours (Table) 09/02/24 09/02/24 09/02/24 Range/Units 09:27 09:27 09:27 RBC 4.26 L (4.30-5.90) m/uL MCV 101.4 H (80.0-100.0) fL Plt Count 146 L (150-450) k/uL Neutrophils # 8.0 H (1.3-7.7) k/uL BUN 32 H (9-20) mg/dL Glucose 125 H (74-99) mg/dL Calcium 10.3 H (8.4-10.2) mg/dL AST 72 H (17-59) U/L Troponin I 0.038 H* (0.000-0.034) ng/mL Total Protein 6.2 L (6.3-8.2) g/dL 09/02/24 Range/Units 12:17 RBC (4.30-5.90) m/uL MCV (80.0-100.0) fL Plt Count (150-450) k/uL Neutrophils # (1.3-7.7) k/uL BUN (9-20) mg/dL Glucose (74-99) mg/dL Calcium (8.4-10.2) mg/dL AST (17-59) U/L Troponin I 13.700 H* (0.000-0.034) ng/mL Total Protein (6.3-8.2) g/dL Thrombosis Risk Factor Assmnt - Choose All That Apply Any of the Below Risk Factors Present?: Yes Each Risk Factor Represents 2 Points: Age 61-74 years Thrombosis Risk Factor Assessment Total Risk Factor Score: 2 Thrombosis Risk Factor Assessment Level: Low Risk
--- NOTE | 2024-09-02 17:22 | P.PRCINT ---
Percutaneous Coronary Int. - Percutaneous Coronary Intervention Percutaneous Coronary Intervention: PROCEDURES PERFORMED: Left heart catheterization, bilateral coronary angiography, ultrasound guided arterial access, IVUS circumflex, PTCA mid circumflex with a 3.25mm NC balloon INDICATION: STEMI CONSENT:I have discussed the risks, benefits and alternative therapies for the above-mentioned procedure and for both sedation/analgesia as well as necessary blood product administration, if indicated, as they pertain to this patient. The patient has indicated understanding and acceptance of the risks and procedures discussed. PROCEDURE: After the risks, benefits and alternatives of the above mentioned procedure explained in detail with the patient, informed consent was obtained. Patient was taken to the catheterization lab and prepped and draped in usual fashion. Ultrasound guidance was used to assess for arterial access. 1% lidocaine was used to anesthetize the right radial artery. A 6-Liberian sheath was placed in the right radial artery using modified Seldinger technique and ultrasound guidance. Left coronary angiography was performed with a 5-Liberian JL 3.5 catheter and right coronary angiography was performed with a 5-Liberian FR5 catheter in various views. A 5-Liberian FL3.5 catheter was inserted into the left ventricle and pressure measurements were obtained. The decision was made to perform PCI of the circumflex. A 6-Liberian CLS 4.0 guide was used to engage the left main. A 0.014 BMW wire was advanced to the distal circumflex. Aspiration thrombectomy was attempted however unable to advance catheter past the ostial circumflex with some concern of prior ramus stent sticking out the ostial circumflex. Therefore balloon angioplasty was performed. Balloon angioplasty was initially performed with 2.5 x 12 mm balloon. Intravascular ultrasound was performed which showed reference vessel 3.0-3.25 mm. Therefore balloon agent past was performed with a 3.25 mm noncompliant balloon. There was some wasting of the mid circumflex lesion and increased atmospheres up to 16mm. There was some distal clot embolization and therefore Aggrastat drip was used. The aspiration thrombectomy device was unable to be advanced distally. The distal circumflex lesion was dilated with a 2.0 balloon with some movement of the thrombus and some improvement in blood flow of the small caliber distal circumflex. There was initially some AMBER 2 flow of the OM2 branch however this improved by the end of the case. Given increased risk of stent thrombosis with patient's main mechanism of stent thrombosis related to stopping his Plavix, further stenting was deferred. Final angiograms were performed. Preintervention there was 100% stenosis and AMBER 0 flow and postintervention there was less than 10% stenosis and AMBER-3 flow with some AMBER 1 flow and small caliber OM 3 branch. The right radial sheath was removed and a TR band was placed with hemostasis achieved. The patient tolerated the procedure well. Patient was transported back to the post catheterization holding area in stable condition. Conscious Sedation: Patient was monitored under the direct supervision of myself for conscious sedation using Versed and fentanyl for a total duration of 40 minutes HEMODYNAMICS: Aorta: 143/63 LV: 147/14, LVEDP 32 SELECTIVE CORONARY ARTERIOGRAPHY: LEFT MAIN: The left main is a large caliber vessel which trifurcates into the LAD, rmus and circumflex. There is no significant stenosis. LEFT ANTERIOR DESCENDING CORONARY ARTERY: LAD is a large caliber vessel which wraps around to the apex. There is a proximal LAD stent with 20-30% stenosis. There is mid LAD bridging with 40% stenosis. The diagonal 1 is small to moderate caliber with a 70% ostial diagonal stenosis. RAMUS INTERMEDIUS: The ramus is a moderate caliber vesselw tih a patent ostial stent with 40% ostial stenosis and otherwise mild luminal irregularities LEFT CIRCUMFLEX CORONARY ARTERY: Left circumflex is a moderate to large caliber vessel with ostial 60-70% stenosis, proximal 30% stenosis, OM1 40% stenosis, mid circumflex 100% stenosis RIGHT CORONARY ARTERY: The right coronary artery is a large caliber vessel which gives off a PDA and PLV branch and is the dominant vessel. There is a long proximal to distal RCA stent with 30% proximal, 50% mid RCA stenosis FINAL IMPRESSION: 1. CAD as described above including mid LAD 40% stenosis with bridging, ostial diagonal 1 70% stenosis, 40% instent ostial ramus stenosis, ostial circumflex 60-70% stenosis, 100% mid circumflex stenosis, 50% mid RCA instent stenosis 2. Elevated left sided filling pressures 3. S/p PTCA mid circumflex with a 3.25mm NC balloon PLAN: 1. Aggressive risk factor modification per most recent ACC/AHA guidelines. 2. Continue triple therapy with aspirin, Brillinta and Eliquis for 1 week then likely transition to Plavix and Eliquis. During transition would recommend addition of aspirin. Would recommend lifelong antiplatelet likely with Plavix and Eliquis given mulitple stents and instent thrombosis 3. Given multiple progression of CAD and stents with instent stenosis, disease involving bifurcation of circumflex and ramus, may consider evaluation for CABG if continues to have progressive disease. 4. If stopping antiplatelets in the future, recommend an aspirin minimum however likely lifelong Plavix.
[2024-09-02] MEDS: INSULIN ASPART (NovoLOG) 100 UNIT/ML VIAL SQ SCH (18:34)
[2024-09-02] MEDS: ATORVASTATIN 80 MG TAB PO SCH (20:39)
[2024-09-02] MEDS: TICAGRELOR 90 MG TAB PO SCH (20:39)
[2024-09-02] MEDS: METOPROLOL TARTRATE 25 MG TAB PO SCH (20:40)
[2024-09-02] MEDS: FENOFIBRATE 54 MG TAB PO SCH (20:40)
[2024-09-02] MEDS: HYDROXYCHLOROQUINE SULFATE 200 MG TAB PO SCH (20:41)
[2024-09-02] MEDS: sulfaSALAzine 500 MG TAB PO SCH (20:41)
[2024-09-02] MEDS ORDERED: ATORVASTATIN 20 MG TAB PO SCH (21:00)
[2024-09-03 06:19] LABS: Basophils % (A) 0 %; Eosinophils # (A) 0.1 k/uL (0-0.7); Eosinophils % (A) 1 %; HCT 40.2 % (39.0-53.0); HGB 13.4 gm/dL (13.0-17.5); Lymphocytes # (A) 1.1 k/uL (1.0-4.8); Lymphocytes % (A) 12 %; MCH 33.3 pg (25.0-35.0); MCHC 33.4 g/dL (31.0-37.0); MCV 99.9 fL (80.0-100.0); Mean Platelet Volume 8.3; Monocytes # (A) 0.5 k/uL (0-1.0); Monocytes % (A) 5 %; Neutrophils # (A) 7.5 k/uL (1.3-7.7); Neutrophils % (A) 81 %; Platelet Count 139 k/uL (150-450); RBC 4.03 m/uL (4.30-5.90); RDW 12.9 % (11.5-15.5); WBC 9.2 k/uL (3.8-10.6)
[2024-09-03 06:28] LABS: Partial Thromboplastin Time 39.1 sec (22.0-30.0)
--- NOTE | 2024-09-03 06:41 | CA ---
Transthoracic Echo Report Name: John Solitario Age: 64 Gender: M : 1960 Exam Date: 09/02/2024 11:03 Exam Location: [facility] Ht (in): 75 Wt (lb): 190 Ordering Physician: Esperanza Wright Attending/Referring Phys: [id number], Adriana Clothing Man Luz Morales RDCS Procedure CPT: Indications: STEMI, LV function, ST elevation (STEMI) myocardial infarction involving left main coronary artery Cardiac Hx: Technical Quality: Technically difficult study Contrast 1: Definity Total Dose (mL): 1 Contrast 2: Total Dose (mL): MEASUREMENTS (Male / Female) Normal Values 2D ECHO LVOT Diameter 2.1 cm LV Diastolic Volume MOD BP 181.9 cm??? 67 - 155 / 56 - 104 cm??? LV Systolic Volume MOD BP 92.5 cm??? 22 - 58 / 19 - 49 cm??? LV Ejection Fraction MOD BP 49.1 % >= 55 % LV Cardiac Index MOD BP 2217.1 cm???/min???m??? LV Diastolic Volume MOD 4C 182.5 cm??? LV Systolic Volume MOD 4C 91.1 cm??? LV Ejection Fraction MOD 4C 50.1 % LV Cardiac Index MOD 4C 2266.7 cm???/min???m??? LV Diastolic Length 4C 9.1 cm LV Systolic Length 4C 7.6 cm LV Diastolic Volume MOD 2C 181.4 cm??? LV Systolic Volume MOD 2C 94.4 cm??? LV Ejection Fraction MOD 2C 47.9 % LV Cardiac Index MOD 2C 2158.0 cm???/min???m??? LV Diastolic Length 2C 9.1 cm LV Systolic Length 2C 7.5 cm LA Volume 61.4 cm??? 18 - 58 / 22 - 52 cm??? LA Volume Index 28.7 cm???/m??? 16 - 28 cm???/m??? DOPPLER AV Peak Velocity 97.6 cm/s AV Peak Gradient 3.8 mmHg AV Mean Velocity 66.9 cm/s AV Mean Gradient 2.0 mmHg AV Velocity Time Integral 21.6 cm LVOT Peak Velocity 76.7 cm/s LVOT Peak Gradient 2.4 mmHg LVOT Velocity Time Integral 18.7 cm LVOT Stroke Volume 65.4 cm??? LVOT Stroke Volume Index 30.5 ml/m??? LVOT Cardiac Index 1623.5 cm???/min???m??? AV Area Cont Eq vti 3.0 cm??? AV Area Cont Eq pk 2.8 cm??? MV Area PHT 3.8 cm??? Mitral E Point Velocity 49.9 cm/s Mitral A Point Velocity 32.0 cm/s Mitral E to A Ratio 1.6 MV Deceleration Time 197.1 ms PV Peak Velocity 85.3 cm/s PV Peak Gradient 2.9 mmHg FINDINGS Left Ventricle Left ventricular ejection fraction is estimated at 45-50 %. Moderately increased left ventricular diastolic volume. Severely increased left ventricular systolic volume. Mildly decreased left ventricular ejection fraction. Mid to distal anterolateral wall hypokinesia. no LV thrombus Right Ventricle Right ventricle not well visualized. Unable to estimate the right ventricular systolic pressure. Right Atrium Right atrium not well visualized. Left Atrium Mildly increased left atrial volume. Mitral Valve Structurally normal mitral valve. No mitral stenosis, regurgitation or prolapse. Aortic Valve Trileaflet aortic valve. Aortic valve sclerosis. No aortic valve stenosis or regurgitation. Tricuspid Valve Structurally normal tricuspid valve. No tricuspid stenosis. No tricuspid regurgitation. Pulmonic Valve Structurally normal pulmonic valve. No pulmonic stenosis. No pulmonic regurgitation. Pericardium No pericardial effusion. Aorta Aortic root and proximal ascending aorta not well visualized. CONCLUSIONS LVEF 45% Moderately dilated LV cavity. Moderately reduced LV systolic function Mid to distal anterolateral wall hypokinesia No significant valvular dysfunction Previewed by: Dr Aaron Edgar (Electronically Signed) Final Date: 03 September 2024 06:40
[2024-09-03] MEDS: PANTOPRAZOLE 40 MG TABLET PO SCH (06:52)
[2024-09-03] MEDS: HEPARIN SODIUM 1,000 UN/ML (10ML VL) IV PRN (07:34)
[2024-09-03 08:50] LABS: LDL Cholesterol,Calculated 61.6 mg/dL (0.0-131.0); VLDL Calculation 13.98 mg/dL (5.00-40.00)
[2024-09-03] MEDS ORDERED: ASPIRIN 325 MG TAB PO SCH (09:00)
[2024-09-03] MEDS: LOSARTAN 25 MG TAB PO SCH (09:20)
[2024-09-03] MEDS: TICAGRELOR 90 MG TAB PO SCH (09:20)
[2024-09-03] MEDS: ASPIRIN 81 MG PO SCH (09:20)
[2024-09-03] MEDS: hydroCHLOROthiazide 25 MG TAB PO SCH (09:20)
[2024-09-03] MEDS: DAPAGLIFLOZIN PROPANEDIOL 5 MG TABLET PO SCH (09:20)
[2024-09-03] MEDS: allopurinoL 300 MG TAB PO SCH (09:20)
[2024-09-03] MEDS: predniSONE 5 MG TAB PO SCH (09:21)
--- NOTE | 2024-09-03 13:54 | P.PN ---
Subjective HISTORY OF PRESENT ILLNESS: This is a 64-year-old male with a past medical history significant for hypertension, hyperlipidemia, coronary artery disease with previous stenting, and paroxysmal atrial fibrillation. Patient follows in the office with Dr. Fu. We have been asked to see the patient in consultation for STEMI. Patient examined at the bedside in the emergency room. Patient was at the [facility] this morning. He was scheduled to have a carpal tunnel release. He mentioned that he was having chest discomfort. He states he felt as though his A-fib was acting up. An EKG was performed and EMS was called to bring the patient to the emergency room. EKG on arrival reveals ST elevation in inferior leads and V6 with reciprocal changes. DIAGNOSTICS: - EKG reveals ST elevation in inferior leads and V6 with reciprocal changes. - Chest xray negative for acute process - Laboratory data: Not available at the time of this dictation - Current home cardiac medication list is not updated at the time of dictation - Most recent echocardiogram obtained in 2018 revealed ejection fraction 55 to 60%, mild MR, mild TR - Cardiac catheterization history: November 2021 revealing patent stents within the RCA, LAD, ramus intermedius and circumflex coronary artery. 40 to 50% stenosis in ramus intermedius and 40% stenosis in mid RCA 09/03 Patient seen and examined. Patient underwent catheterization with PCI of the circumflex, angioplasty and intravascular ultrasound. There was a more distal thrombus noted in the OM branch and therefore patient was left on heparin drip as well as Aggrastat. He denies any further chest pain or pressure today. He did have a delayed small hematoma on his right radial site 11 AM with pressure in TR band placed back on with no extension and stable since putting TR band on. echocardiogram performed with left ventricular ejection fraction 45-50% PHYSICAL EXAM: VITAL SIGNS: Reviewed. GENERAL: Well-developed in no acute distress. HEENT: Head is normocephalic. Pupils are equal, round. Sclerae anicteric. Mucous membranes of the mouth are moist. Neck supple. No JVD or thyromegaly LUNGS: Respirations even and unlabored. Lungs essentially clear to auscultation bilaterally. HEART: Regular rate and rhythm. S1 and S2 heard. ABDOMEN: Soft. Nondistended. Nontender. EXTREMITIES: Normal range of motion. No clubbing or cyanosis. Peripheral pulses intact. No lower extremity edema NEUROLOGIC: Awake and alert. Oriented x 3. ASSESSMENT: STEMI with in-stent thrombosis related to discontinuation of Plavix and Eliquis was status post balloon angioplasty circumflex Coronary artery disease with previous stenting to the RCA, LAD, ramus intermedius, and circumflex Paroxysmal atrial fibrillation Hypertension Hyperlipidemia Former nicotine dependence PLAN: Continue aspirin, Brilinta and Eliquis. Restart Eliquis once small hematoma stable. Stop heparin drip and Aggrastat with no residual chest pain. Continue to monitor for additional 24 hours. Patient stable for transfer out of ICU. Objective - Vital Signs Vital signs: Vital Signs Temp 98.0 F 09/03/24 08:00 Pulse 89 09/03/24 10:00 Resp 18 09/03/24 10:00 BP 140/82 09/03/24 10:00 Pulse Ox 96 09/03/24 09:00 FiO2 Intake & Output 09/02/24 09/03/24 09/03/24 18:59 06:59 18:59 Intake Total 1295.5 610.5 366.849 Output Total 1600 1400 Balance -304.5 -789.5 366.849 Weight 86.183 kg 82.1 kg Intake: IV 1295.5 610.5 145.5 0.9 315 330 120 Heparin Sod,Pork in 0.45% 70 110 10 NaCl 25,000 unit In 0.45 % NaCl 1 250ml.bag @ 11.6 UNITS/KG/HR 9.997 mls/hr IV .Q24H [facility] Rx#: [id number] Tirofiban 12.5MG-250Ml Ns 108.5 170.5 15.5 250 ml @ 0.15 MCG/KG/MIN 15.513 mls/hr IV .Q16H7M [facility] Rx#:[id number] Intake, IV Titration 221.349 Amount Heparin Sod,Pork in 0.45% 221.349 NaCl 25,000 unit In 0.45 % NaCl 1 250ml.bag @ 11.6 UNITS/KG/HR 9.997 mls/hr IV .Q24H [facility] Rx#: [id number] Output: Urine 1600 1400 Other: Voiding Method Toilet Toilet Toilet # Voids 1 # Bowel Movements 1 - Labs CBC & Chem 7: 09/03/24 05:32 09/02/24 09:27 Labs: Abnormal Lab Results - Last 24 Hours (Table) 09/02/24 09/02/24 09/03/24 Range/Units 15:18 17:28 05:32 RBC 4.03 L (4.30-5.90) m/uL Plt Count 139 L (150-450) k/uL APTT 60.9 H (22.0-30.0) sec Troponin I 28.800 H* (0.000-0.034) ng/mL 09/03/24 Range/Units 05:32 RBC (4.30-5.90) m/uL Plt Count (150-450) k/uL APTT 39.1 H (22.0-30.0) sec Troponin I (0.000-0.034) ng/mL
--- NOTE | 2024-09-03 14:51 | P.PN ---
Subjective Progress Note Date: 09/03/24 Hospital course Patient is a 64-year-old male with a past medical history of hypertension, hyperlipidemia, coronary disease status post multiple stents and last stent placed in 2021, atrial fibrillation, Rheumatoid arthritis who was sent to the ED from outpatient surgical center for ST elevation AK. Patient states that he woke up this morning and he had some chest discomfort. He thought it was due to his atrial fibrillation. He states that he took nitro and flecainide with minimal relief. He then went to the outpatient surgical center because he really wanted to have the surgery done which was for carpal tunnel release. He mentioned to the staff that he was having chest discomfort. EKG revealed ST elevation AK in the inferior leads and V6 so he was sent to our emergency room. Patient was emergently taken for heart catheterization that showed 100% occlusion of the left mid circumflex likely likely due to stenosis of previous stent that was treated with PTCA. Patient reported that he was off Plavix for 7 days and Eliquis for 2 days for the surgery which may have caused the stenosis of the previous stent. After the heart catheterization patient chest pain had resolved. Patient was started on aspirin and Brilinta. Patient seen this morning. He is denying any chest pain. He states that he feels well. He is hoping to go home soon Physical exam General examination - Alert and Oriented 3 in NAD Heart - + S1S2 no murmurs Lungs - Clear to auscultation Abdomen soft NT ND +ve BS Extremities - No edema TRAVELING REPRESENTATIVE - Moving all 4 extremities spontaneously Psych - Calm and cooperative Assessment and plan ST elevation AK History of coronary artery disease status post multiple stents Status post left heart catheterization with PTCA of the left mid circumflex Resume aspirin 81 mg daily, atorvastatin 80 mg at bedtime. Cardiology switched the patient from Plavix to Brilinta 90 mg p.o. twice daily. Cardiology recommends to hold the Eliquis for now due to the small hematoma Resume beta-norberto and PATTI inhibitor I reviewed the echocardiogram that shows LVEF 45% with anterolateral hypokinesis Ischemic cardiomyopathy Patient is on beta-norberto and PATTI inhibitor Patient on Farxiga 5 mg p.o. daily Atrial fibrillation Patient is on flecainide 50 mg p.o. BID as needed Resume Eliquis once cleared by cardiology Resume metoprolol 25 mg p.o. twice daily Hypertension Resume medications as mentioned above Resume hydrochlorothiazide 25 mg p.o. daily Hyperlipidemia Resume statin Rheumatoid arthritis Continue with sulfasalazine 1000 mg p.o. twice daily, prednisone 5 mg p.o. daily, hydroxychloroquine 200 mg p.o. twice daily DVT prophylaxis: Patient off anticoagulation due to the small hematoma Objective - Vital Signs Vital signs: Vital Signs Temp 98.0 F 09/03/24 08:00 Pulse 89 09/03/24 10:00 Resp 18 09/03/24 10:00 BP 140/82 09/03/24 10:00 Pulse Ox 96 09/03/24 09:00 FiO2 Intake & Output 09/02/24 09/03/24 09/03/24 18:59 06:59 18:59 Intake Total 1295.5 610.5 366.849 Output Total 1600 1400 Balance -304.5 -789.5 366.849 Weight 86.183 kg 82.1 kg Intake: IV 1295.5 610.5 145.5 0.9 315 330 120 Heparin Sod,Pork in 0.45% 70 110 10 NaCl 25,000 unit In 0.45 % NaCl 1 250ml.bag @ 11.6 UNITS/KG/HR 9.997 mls/hr IV .Q24H [facility] Rx#: [id number] Tirofiban 12.5MG-250Ml Ns 108.5 170.5 15.5 250 ml @ 0.15 MCG/KG/MIN 15.513 mls/hr IV .Q16H7M [facility] Rx#:[id number] Intake, IV Titration 221.349 Amount Heparin Sod,Pork in 0.45% 221.349 NaCl 25,000 unit In 0.45 % NaCl 1 250ml.bag @ 11.6 UNITS/KG/HR 9.997 mls/hr IV .Q24H [facility] Rx#: [id number] Output: Urine 1600 1400 Other: Voiding Method Toilet Toilet Toilet # Voids 1 # Bowel Movements 1 - Labs CBC & Chem 7: 09/03/24 05:32 09/02/24 09:27 Labs: Abnormal Lab Results - Last 24 Hours (Table) 09/02/24 09/02/24 09/03/24 Range/Units 15:18 17:28 05:32 RBC 4.03 L (4.30-5.90) m/uL Plt Count 139 L (150-450) k/uL APTT 60.9 H (22.0-30.0) sec Troponin I 28.800 H* (0.000-0.034) ng/mL 09/03/24 Range/Units 05:32 RBC (4.30-5.90) m/uL Plt Count (150-450) k/uL APTT 39.1 H (22.0-30.0) sec Troponin I (0.000-0.034) ng/mL
[2024-09-03 16:17] LABS: Glucose,Whole Blood 125 mg/dL (70-110)
[2024-09-03 19:32] LABS: Glucose,Whole Blood 117 mg/dL (70-110)
[2024-09-04 04:13] VITALS: RESP 18
[2024-09-04 06:02] LABS: Glucose,Whole Blood 109 mg/dL (70-110)
[2024-09-04 06:59] LABS: Glucose,Whole Blood 111 mg/dL (70-110)
[2024-09-04 07:18] LABS: Glucose,Whole Blood 128 mg/dL (70-110)
[2024-09-04 08:23] VITALS: TEMP 98.1
[2024-09-04] MEDS: APIXABAN 5 MG TAB PO SCH (08:25)
[2024-09-04 11:17] LABS: Glucose,Whole Blood 119 mg/dL (70-110)
--- NOTE | 2024-09-04 12:33 | P.PN ---
Subjective HISTORY OF PRESENT ILLNESS: This is a 64-year-old male with a past medical history significant for hypertension, hyperlipidemia, coronary artery disease with previous stenting, and paroxysmal atrial fibrillation. Patient follows in the office with Dr. Fu. We have been asked to see the patient in consultation for STEMI. Patient examined at the bedside in the emergency room. Patient was at the [facility] this morning. He was scheduled to have a carpal tunnel release. He mentioned that he was having chest discomfort. He states he felt as though his A-fib was acting up. An EKG was performed and EMS was called to bring the patient to the emergency room. EKG on arrival reveals ST elevation in inferior leads and V6 with reciprocal changes. DIAGNOSTICS: - EKG reveals ST elevation in inferior leads and V6 with reciprocal changes. - Chest xray negative for acute process - Laboratory data: Not available at the time of this dictation - Current home cardiac medication list is not updated at the time of dictation - Most recent echocardiogram obtained in 2018 revealed ejection fraction 55 to 60%, mild MR, mild TR - Cardiac catheterization history: November 2021 revealing patent stents within the RCA, LAD, ramus intermedius and circumflex coronary artery. 40 to 50% stenosis in ramus intermedius and 40% stenosis in mid RCA. 09/03 Patient seen and examined. Patient underwent catheterization with PCI of the circumflex, angioplasty and intravascular ultrasound. There was a more distal thrombus noted in the OM branch and therefore patient was left on heparin drip as well as Aggrastat. He denies any further chest pain or pressure today. He did have a delayed small hematoma on his right radial site 11 AM with pressure in TR band placed back on with no extension and stable since putting TR band on. echocardiogram performed with left ventricular ejection fraction 45-50% 09/04/2024 Patient examined this morning the bedside. Patient denies chest pain or pressure. He denies shortness of breath. Right radial cath site stable with no increase in hematoma. Telemetry Veals sinus mechanism. Vital signs are stable. PHYSICAL EXAM: VITAL SIGNS: Reviewed. GENERAL: Well-developed in no acute distress. HEENT: Head is normocephalic. Pupils are equal, round. Sclerae anicteric. Mucous membranes of the mouth are moist. Neck supple. No JVD or thyromegaly LUNGS: Respirations even and unlabored. Lungs essentially clear to auscultation bilaterally. HEART: Regular rate and rhythm. S1 and S2 heard. ABDOMEN: Soft. Nondistended. Nontender. EXTREMITIES: Normal range of motion. No clubbing or cyanosis. Peripheral pulses intact. No lower extremity edema NEUROLOGIC: Awake and alert. Oriented x 3. ASSESSMENT: STEMI with in-stent thrombosis related to discontinuation of Plavix and Eliquis was status post balloon angioplasty circumflex Coronary artery disease with previous stenting to the RCA, LAD, ramus intermedius, and circumflex Paroxysmal atrial fibrillation Hypertension Hyperlipidemia Former nicotine dependence PLAN: Continue triple therapy with aspirin, Brilinta, and Eliquis for 1 week. After 1 week, discontinue aspirin and continue with Brilinta and Eliquis Continue additional cardiac medications Patient may return to work on Saturday. He was instructed to limit motion of his right arm. Patient is stable for discharge home today from a cardiac standpoint He is to follow-up postdischarge in the office Nurse practitioner note has been reviewed by physician. Signing provider agrees with the documented findings, assessment, and plan of care documented by WATER SAFETY TEACHER as a scribe. Objective - Vital Signs Vital signs: Vital Signs Temp 98.1 F 09/04/24 08:00 Pulse 86 09/04/24 08:00 Resp 18 09/04/24 08:00 BP 118/62 09/04/24 08:00 Pulse Ox 96 09/04/24 08:00 FiO2 Intake & Output 09/03/24 09/04/24 09/04/24 18:59 06:59 18:59 Intake Total 366.849 200 Output Total 1825 Balance -1458.151 200 Weight 78 kg Intake: IV 145.5 0.9 120 Heparin Sod,Pork in 0.45% 10 NaCl 25,000 unit In 0.45 % NaCl 1 250ml.bag @ 11.6 UNITS/KG/HR 9.997 mls/hr IV .Q24H [facility] Rx#: [id number] Tirofiban 12.5MG-250Ml Ns 15.5 250 ml @ 0.15 MCG/KG/MIN 15.513 mls/hr IV .Q16H7M [facility] Rx#:[id number] Intake, IV Titration 221.349 Amount Heparin Sod,Pork in 0.45% 221.349 NaCl 25,000 unit In 0.45 % NaCl 1 250ml.bag @ 11.6 UNITS/KG/HR 9.997 mls/hr IV .Q24H [facility] Rx#: [id number] Oral 200 Output: Urine 1825 Other: Voiding Method Toilet Toilet # Voids 1 1 - Labs CBC & Chem 7: 09/03/24 05:32 09/02/24 09:27 Labs: Abnormal Lab Results - Last 24 Hours (Table) 09/02/24 09/03/24 09/03/24 Range/Units 10:36 11:12 16:15 POC Glucose (mg/dL) 128 H 111 H 125 H (70-110) mg/dL 09/03/24 09/04/24 Range/Units 19:31 11:15 POC Glucose (mg/dL) 117 H 119 H (70-110) mg/dL
[2024-09-04 13:57] VITALS: BP 107/68; PULSE 70
--- NOTE | 2024-09-04 15:03 | P.DS ---
Providers Date of admission: 09/02/24 09:30 Attending physician: Fei Gonzales Consults: 09/02/24 09:29 Consult Physician Urgent Consulting Provider: Nikhil Browne Consult Reason/Comments: STEMI Do you want consulting provider notified?: Yes 09/02/24 10:48 Consult Physician Routine Consulting Provider: Nikhil Browne Consult Reason/Comments: Post Interventional Patient Do you want consulting provider notified?: Already Contacted Primary care physician: [facility] Hospital Course: Discharge Diagnosis: ST elevation CT History of coronary disease status post multiple stents Ischemic cardiomyopathy Atrial fibrillation Hypertension Hyperlipidemia Rheumatoid arthritis Hospital Course: Patient is a 64-year-old male with a past medical history of hypertension, hyperlipidemia, coronary disease status post multiple stents and last stent placed in 2021, atrial fibrillation, Rheumatoid arthritis who was sent to the ED from outpatient surgical center for ST elevation [place]. Patient states that he woke up this morning and he had some chest discomfort. He thought it was due to his atrial fibrillation. He states that he took nitro and flecainide with minimal relief. He then went to the outpatient surgical center because he really wanted to have the surgery done which was for carpal tunnel release. He mentioned to the staff that he was having chest discomfort. EKG revealed ST elevation CT in the inferior leads and V6 so he was sent to our emergency room. Patient was emergently taken for heart catheterization that showed 100% occlusion of the left mid circumflex likely due to stenosis of previous stent that was treated with PTCA. Patient reported that he was off Plavix for 7 days and Eliquis for 2 days for the surgery which may have caused the stenosis of the previous stent. After the heart catheterization patient chest pain had resolved. Patient was started on aspirin and Brilinta. Patient echocardiogram showed EF of 45% with anterolateral hypokinesis. At the time of discharge cardiology recommended aspirin, Brilinta and Eliquis for 1 week and then to stop aspirin and to continue Brilinta and Eliquis. Patient deemed stable for discharge home. Patient seen and examined at bedside.[] Vital signs reviewed and stable. General: [non toxic], [no distress], [appears at stated age] Derm: [warm], [dry] Head: [atraumatic], [normocephalic], [symmetric] Eyes: [EOMI], [no lid lag], [anicteric sclera] Mouth: [no lip lesion], [mucus membranes moist] Cardiovascular: [S1S2 reg], [no murmur], [positive posterior tibial pulse bilateral], Lungs: [CTA bilateral], [no rhonchi, no rales] , [no accessory muscle use] Abdominal: [soft], [ nontender to palpation], [no guarding], [no appreciable organomegaly] Ext: [no gross muscle atrophy], [no edema], [no contractures] Neuro: [ CN II-XI grossly intact], [no focal neuro deficits] Psych: [Alert], [oriented], [appropriate affect] A total of [33] minutes of time were spent preparing this complex discharge summary . Patient discharged on 09/04/2024. Patient Condition at Discharge: Stable Plan - Discharge Summary New Discharge Prescriptions: New Aspirin 81 mg PO DAILY 7 Days #7 tab Ticagrelor [Brilinta] 90 mg PO BID 30 Days #60 tab Continue allopurinoL [Zyloprim] 300 mg PO DAILY Metoprolol Tartrate [Lopressor] 25 mg PO BID #60 tab Nitroglycerin Sl Tabs [Nitrostat] 0.4 mg SUBLINGUAL Q5M PRN #30 tab PRN Reason: Chest Pain Pantoprazole Sodium [Protonix] 40 mg PO DAILY Atorvastatin [Lipitor] 80 mg PO HS EPINEPHrine (Auto Inject) [Epipen] 0.3 mg IM ONCE PRN PRN Reason: Anaphylaxis Apixaban [Eliquis] 5 mg PO BID Flecainide [Tambocor] 50 mg PO BID PRN PRN Reason: afib predniSONE 5 mg PO DAILY Fenofibrate 54 mg PO HS Empagliflozin [Jardiance] 10 mg PO DAILY hydroCHLOROthiazide 25 mg PO DAILY Cholecalciferol [Vitamin D3 (125 Mcg = 5000 Iu)] 125 mcg PO SUMOWEFR Olmesartan Medoxomil 40 mg PO DAILY Hydroxychloroquine Sulfate [Plaquenil] 200 mg PO BID sulfaSALAzine 1,000 mg PO BID Discontinued Clopidogrel [Plavix] 75 mg PO DAILY #30 tab Discharge Medication List allopurinoL [Zyloprim] 300 mg PO DAILY 03/01/19 [History] Metoprolol Tartrate [Lopressor] 25 mg PO BID #60 tab 03/06/19 [Rx] Nitroglycerin Sl Tabs [Nitrostat] 0.4 mg SUBLINGUAL Q5M PRN #30 tab 02/10/20 [Rx] Atorvastatin [Lipitor] 80 mg PO HS 04/07/21 [History] Empagliflozin [Jardiance] 10 mg PO DAILY 04/07/21 [History] Fenofibrate 54 mg PO HS 04/07/21 [History] Pantoprazole Sodium [Protonix] 40 mg PO DAILY 04/07/21 [History] hydroCHLOROthiazide 25 mg PO DAILY 04/21/21 [History] Apixaban [Eliquis] 5 mg PO BID 11/04/21 [History] Cholecalciferol [Vitamin D3 (125 Mcg = 5000 Iu)] 125 mcg PO SUMOWEFR 11/04/21 [History] EPINEPHrine (Auto Inject) [Epipen] 0.3 mg IM ONCE PRN 11/04/21 [History] Hydroxychloroquine Sulfate [Plaquenil] 200 mg PO BID 11/04/21 [History] Olmesartan Medoxomil 40 mg PO DAILY 11/04/21 [History] sulfaSALAzine 1,000 mg PO BID 08/01/22 [History] Flecainide [Tambocor] 50 mg PO BID PRN 09/02/24 [History] predniSONE 5 mg PO DAILY 09/02/24 [History] Aspirin 81 mg PO DAILY 7 Days #7 tab 09/04/24 [Rx] Ticagrelor [Brilinta] 90 mg PO BID 30 Days #60 tab 09/04/24 [Rx] Follow up Appointment(s)/Referral(s): Tyrone Kan MD [Primary Care Provider] - 1-2 days Dave Ramírez DO [STAFF PHYSICIAN] - 1 Week Plan of Treatment: Cardiology recommended that you take aspirin Brilinta and Eliquis for 1 week and then stop the aspirin and continue with the Brilinta and Eliquis
== END 2024-09-04 17:50 | disposition home or self-care (01) | DRG 251 ==
LOC: EC 09:15 → 2SICU 09:30 → 3SCARD 09-03 23:22
PROVIDERS: ADMIT Student in an Organized Health Care Education/Training Program; ATTEND Student in an Organized Health Care Education/Training Program
PROC: B2051ZZ Plain Radiography of Left Heart using Low Osmolar Contrast (ICD-10-PCS; 2024-09-02)
PROC: 02703ZZ Dilation of Coronary Artery, One Artery, Percutaneous Approach (ICD-10-PCS; principal; 2024-09-02 09:21)
PROC: 4A023N7 Measurement of Cardiac Sampling and Pressure, Left Heart, Percutaneous Approach (ICD-10-PCS; 2024-09-02 09:21)
PROC: B2011ZZ Plain Radiography of Multiple Coronary Arteries using Low Osmolar Contrast (ICD-10-PCS; 2024-09-02 09:21)
DX: I21.19 ST elevation (STEMI) myocardial infarction involving other coronary artery of inferior wall (principal); T82.855A Stenosis of coronary artery stent, initial encounter; I25.10 Atherosclerotic heart disease of native coronary artery without angina pectoris; I10 Essential (primary) hypertension; E78.5 Hyperlipidemia, unspecified; E11.9 Type 2 diabetes mellitus without complications; I48.0 Paroxysmal atrial fibrillation; I25.5 Ischemic cardiomyopathy; M06.9 Rheumatoid arthritis, unspecified; Y83.1 Surgical operation with implant of artificial internal device as the cause of abnormal reaction of the patient, or of later complication, without mention of misadventure at the time of the procedure; Z95.5 Presence of coronary angioplasty implant and graft; I25.2 Old myocardial infarction; Z79.01 Long term (current) use of anticoagulants; Z79.02 Long term (current) use of antithrombotics/antiplatelets; Z79.82 Long term (current) use of aspirin; Z79.84 Long term (current) use of oral hypoglycemic drugs; Z79.899 Other long term (current) drug therapy; Z87.891 Personal history of nicotine dependence; Z82.49 Family history of ischemic heart disease and other diseases of the circulatory system
CPT/HCPCS: 36415; 71045; 80053; 80061; 83036; 83735; 84484; 85025; 85610; 85730; 92920; 92978; 93005; 93306; 93458; 96374; 99291

== ENCOUNTER 2024-09-05 14:21 | Emergency (ER) | payer MEDICARE ==
--- NOTE | 2024-09-05 15:01 | ED ---
General Adult HPI - General Chief complaint: Arrhythmia/Palpitations Stated complaint: Afib Time Seen by Provider: 09/05/24 14:25 Source: patient, family, RN notes reviewed, old records reviewed Mode of arrival: ambulatory - History of Present Illness Initial comments: Patient is a 64-year-old who is here few days ago and had a heart attack. Patient states he had angioplasty but no stent placement patient also states his Plavix was replaced with Brilinta. Patient comes in today because he states that when he was doing his blood pressure at home his pressure was low and his pulse ox was having a hard time picking up so he decided to come in. Patient states his systolic pressure at 1 point was 88. Patient denies chest pain palpitations difficulty breathing shortness of breath. Patient denies being lightheaded or dizzy. Patient denies any nausea vomiting. Patient states he is just being very cautious because of his recent issues. Patient states in the past he has had 11 stents - Related Data Home Medications Medication Instructions Recorded Confirmed allopurinoL [Zyloprim] 300 mg PO DAILY 03/01/19 09/05/24 Atorvastatin [Lipitor] 80 mg PO HS 04/07/21 09/05/24 Empagliflozin [Jardiance] 10 mg PO DAILY 04/07/21 09/05/24 Fenofibrate 54 mg PO HS 04/07/21 09/05/24 Pantoprazole Sodium [Protonix] 40 mg PO DAILY 04/07/21 09/05/24 hydroCHLOROthiazide 25 mg PO DAILY 04/21/21 09/05/24 Apixaban [Eliquis] 5 mg PO BID 11/04/21 09/05/24 Cholecalciferol [Vitamin D3 (125 125 mcg PO SUMOWEFR 11/04/21 09/05/24 Mcg = 5000 Iu)] EPINEPHrine (Auto Inject) [Epipen] 0.3 mg IM ONCE PRN 11/04/21 09/05/24 Hydroxychloroquine Sulfate 200 mg PO BID 11/04/21 09/05/24 [Plaquenil] Olmesartan Medoxomil 40 mg PO DAILY 11/04/21 09/05/24 sulfaSALAzine 1,000 mg PO BID 08/01/22 09/05/24 Flecainide [Tambocor] 50 mg PO BID PRN 09/02/24 09/05/24 predniSONE 5 mg PO DAILY 09/02/24 09/05/24 Previous Rx's Medication Instructions Recorded Metoprolol Tartrate [Lopressor] 25 mg PO BID #60 tab 03/06/19 Nitroglycerin Sl Tabs [Nitrostat] 0.4 mg SUBLINGUAL Q5M PRN #30 tab 02/10/20 Aspirin 81 mg PO DAILY 7 Days #7 tab 09/04/24 Ticagrelor [Brilinta] 90 mg PO BID 30 Days #60 tab 09/04/24 Allergies Allergy/AdvReac Type Severity Reaction Status Date / Time amlodipine Allergy Severe LEG Verified 09/05/24 14:27 SWELLING AND RUPTURE OF ACHILLES venom-honey bee Allergy Anaphylaxis Verified 09/05/24 14:27 [bee venom (honey bee)] Review of Systems ROS Statement: Those systems with pertinent positive or pertinent negative responses have been documented in the HPI. ROS Other: All systems not noted in ROS Statement are negative. Past Medical History Past Medical History: Atrial Fibrillation, Coronary Artery Disease (CAD), Cancer, Chest Pain / Angina, GERD/Reflux, Hyperlipidemia, Hypertension, Myocardial Infarction ([place]), Prostate Disorder Additional Past Medical History / Comment(s): CURRENT: TIGHTNESS IN CHEST. Rt toe issues(gout?). skin cancer. seasonal allergies. kidney stones. diverticulitis. covid in october. [place] VACCINE. "TAKES JARDIANCE FOR CARDIAC" PROTECTION Last Myocardial Infarction Date:: 02/28/19 History of Any Multi-Drug Resistant Organisms: None Reported Past Surgical History: Back Surgery, Bowel Resection, Cholecystectomy, Heart Catheterization With Stent, Joint Replacement, Orthopedic Surgery, Tonsillectomy Additional Past Surgical History / Comment(s): TOTAL OF 11 STENTS Left hip replacement. Right knee, right arm carpal tunnel. 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 General Exam - General Exam Comments Initial Comments: GENERAL: Patient is well-developed and well-nourished. Patient is nontoxic and well- hydrated and is in no acute distress. ENT: Neck is soft and supple. No significant lymphadenopathy is noted. Oropharynx is clear. Moist mucous membranes. Neck has full range of motion without eliciting any pain. EYES: The sclera were anicteric and conjunctiva were pink and moist. Extraocular movements were intact and pupils were equal round and reactive to light. Eyelids were unremarkable. PULMONARY: Unlabored respirations. Good breath sounds bilaterally. No audible rales rhonchi or wheezing was noted. CARDIOVASCULAR: There is a regular rate and rhythm without any murmurs gallops or rubs. ABDOMEN: Soft and nontender with normal bowel sounds. SKIN: Skin is clear with no lesions or rashes and otherwise unremarkable. NEUROLOGIC: Patient is alert and oriented x3. Cranial nerves II through XII are grossly int act. Motor and sensory are also intact. Normal speech, volume and content. Symmetrical smile. MUSCULOSKELETAL: Normal extremities with adequate strength and full range of motion. No lower extremity swelling or edema. No calf tenderness. LYMPHATICS: No significant lymphadenopathy is noted PSYCHIATRIC: Normal psychiatric evaluation. Course Vital Signs 09/05/24 09/05/24 09/05/24 14:24 14:43 15:00 Temperature 97.5 F L Pulse Rate 66 81 Respiratory 18 16 22 Rate Blood Pressure 107/68 92/54 92/54 O2 Sat by Pulse 99 100 97 Oximetry 09/05/24 09/05/24 09/05/24 16:00 16:30 17:00 Temperature Pulse Rate 66 68 Respiratory 12 12 Rate Blood Pressure 97/69 102/70 104/67 O2 Sat by Pulse 97 97 Oximetry 09/05/24 17:11 Temperature Pulse Rate 70 Respiratory Rate Blood Pressure 117/64 O2 Sat by Pulse 100 Oximetry Medical Decision Making - Medical Decision Making EKG is interpreted by myself. EKG shows atrial fibrillation at 77 bpm QRS is 111 QT interval 393 QTc is 425. Was pt. sent in by a medical professional or institution (, PA, PROFESSOR OF ART, urgent care, hospital, or residential...) When possible be specific @ -No Did you speak to anyone other than the patient for history (EMS, parent, family, police, friend...)? What history was obtained from this source @ -No Did you review nursing and triage notes (agree or disagree)? Why? @ -I reviewed and agree with nursing and triage notes Were old charts reviewed (outside hosp., previous admission, EMS record, old EKG, old radiological studies, urgent care reports/EKG's, residential records)? Report findings @ -No old charts were reviewed Differential Diagnosis? @ -Differential Weakness: Hypoglycemia, shock, sepsis, hyponatremia, anemia, infection, [place], ETOH, adverse medicine reaction, overdose, stroke, this is not meant to be an all-inclusive list. EKG interpreted by me (3pts min.). @ -As above X-rays interpreted by me (1pt min.). @ -X-ray shows no acute abnormality CT interpreted by me (1pt min.). @ -None done U/S interpreted by me (1pt. min.). @ -None done What testing was considered but not performed or refused? (CT, X-rays, U/S, labs)? Why? @ -None What meds were considered but not given or refused? Why? @ -None Did you discuss the management of the patient with other professionals (professionals i.e. , PA, PROFESSOR OF ART, lab, RT, psych nurse, public health social worker, dry ice maker, teacher, real estate utilization officer, case management specialist)? Give summary @ -No Was smoking cessation discussed for >3mins.? @ -No Was critical care preformed (if so, how long)? @ -No Were there social determinants of health that impacted care today? How? (Homelessness, low income, unemployed, alcoholism, drug addiction, transportation, low edu. Level, literacy, decrease access to med. care, group home, rehab)? @ -No Was there de-escalation of care discussed even if they declined (Discuss DNR or withdrawal of care, Hospice)? DNR status @ -No What co-morbidities impacted this encounter? (DM, HTN, Smoking, COPD, CAD, Cancer, CVA, ARF, Chemo, Hep., AIDS, mental health diagnosis, sleep apnea, morbid obesity)? @ -None Was patient admitted / discharged? Hospital course, mention meds given and route, prescriptions, significant lab abnormalities, going to OR and other pertinent info. @ -Patient was given a liter bolus and lab work was done the troponin was elevated but considerably lower than it was a couple days ago when he came in with heart attack. Patient never had any chest pain difficulty breathing shortness of breath or palpitations today. Patient was in A-fib but it was not rapid. Patient states he was just concerned today because his blood pressure was low so he came in. Patient states has not been taking his blood pressure at home before he has been taking his metoprolol. Patient states he took 2 flecainide this morning as opposed to 1. Patient states he was doing that just to keep his A-fib under control hopefully. Patient is able to ambulate throughout the ER without any problem blood pressure is back to her baseline of systolic greater than 100. Patient feels good and is willing to go home and in fact not want to stay. Undiagnosed new problem with uncertain prognosis? @ -No Drug Therapy requiring intensive monitoring for toxicity (Heparin, Nitro, Insulin, Cardizem)? @ -No Were any procedures done? @ -No Diagnosis/symptom? @ -Default Acute, or Chronic, or Acute on Chronic? @ -Acute Uncomplicated (without systemic symptoms) or Complicated (systemic symptoms)? @ -Complicate Side effects of treatment? @ -No Exacerbation, Progression, or Severe Exacerbation? @ -No Poses a threat to life or bodily function? How? (Chest pain, [place], [place], pneumonia, PE, COPD, DKA, ARF, appy, cholecystitis, CVA, Diverticulitis, Homicidal, Suicidal, threat to staff... and all critical care pts) @ -No - Lab Data Result diagrams: 09/05/24 15:25 09/05/24 15:25 Lab Results 09/05/24 09/05/24 09/05/24 Range/Units 15:25 15:25 15:25 WBC 11.5 H (3.8-10.6) k/uL RBC 4.65 (4.30-5.90) m/uL Hgb 15.2 (13.0-17.5) gm/dL Hct 46.7 (39.0-53.0) % MCV 100.5 H (80.0-100.0) fL MCH 32.7 (25.0-35.0) pg MCHC 32.6 (31.0-37.0) g/dL RDW 12.4 (11.5-15.5) % Plt Count 195 (150-450) k/uL MPV 8.2 Neutrophils % 85 % Lymphocytes % 9 % Monocytes % 5 % Eosinophils % 0 % Basophils % 0 % Neutrophils # 9.8 H (1.3-7.7) k/uL Lymphocytes # 1.0 (1.0-4.8) k/uL Monocytes # 0.5 (0-1.0) k/uL Eosinophils # 0.0 (0-0.7) k/uL Basophils # 0.0 (0-0.2) k/uL PT 11.7 (10.0-12.5) sec INR 1.1 (<1.2) APTT 24.9 (22.0-30.0) sec Sodium 135 L (137-145) mmol/L Potassium 4.1 (3.5-5.1) mmol/L Chloride 105 (98-107) mmol/L Carbon Dioxide 22 (22-30) mmol/L Anion Gap 8 mmol/L BUN 38 H (9-20) mg/dL Creatinine 1.60 H (0.66-1.25) mg/dL Est GFR (CKD-EPI)AfAm 51 (>60 ml/min/1.73 sqM) Est GFR (CKD-EPI)NonAf 44 (>60 ml/min/1.73 sqM) Glucose 141 H (74-99) mg/dL Calcium 10.7 H (8.4-10.2) mg/dL Magnesium 1.7 (1.6-2.3) mg/dL Total Bilirubin 1.2 (0.2-1.3) mg/dL AST 70 H (17-59) U/L ALT 42 (4-49) U/L Alkaline Phosphatase 72 (38-126) U/L Troponin I (0.000-0.034) ng/mL Total Protein 6.6 (6.3-8.2) g/dL Albumin 4.4 (3.5-5.0) g/dL 09/05/24 Range/Units 15:25 WBC (3.8-10.6) k/uL RBC (4.30-5.90) m/uL Hgb (13.0-17.5) gm/dL Hct (39.0-53.0) % MCV (80.0-100.0) fL MCH (25.0-35.0) pg MCHC (31.0-37.0) g/dL RDW (11.5-15.5) % Plt Count (150-450) k/uL MPV Neutrophils % % Lymphocytes % % Monocytes % % Eosinophils % % Basophils % % Neutrophils # (1.3-7.7) k/uL Lymphocytes # (1.0-4.8) k/uL Monocytes # (0-1.0) k/uL Eosinophils # (0-0.7) k/uL Basophils # (0-0.2) k/uL PT (10.0-12.5) sec INR (<1.2) APTT (22.0-30.0) sec Sodium (137-145) mmol/L Potassium (3.5-5.1) mmol/L Chloride (98-107) mmol/L Carbon Dioxide (22-30) mmol/L Anion Gap mmol/L BUN (9-20) mg/dL Creatinine (0.66-1.25) mg/dL Est GFR (CKD-EPI)AfAm (>60 ml/min/1.73 sqM) Est GFR (CKD-EPI)NonAf (>60 ml/min/1.73 sqM) Glucose (74-99) mg/dL Calcium (8.4-10.2) mg/dL Magnesium (1.6-2.3) mg/dL Total Bilirubin (0.2-1.3) mg/dL AST (17-59) U/L ALT (4-49) U/L Alkaline Phosphatase (38-126) U/L Troponin I 7.250 H* (0.000-0.034) ng/mL Total Protein (6.3-8.2) g/dL Albumin (3.5-5.0) g/dL Disposition Clinical Impression: Hypotension Disposition: HOME SELF-CARE Additional Instructions: He should take his blood pressure and pulse prior to his metoprolol and documented the results. Is patient prescribed a controlled substance at d/c from ED?: No Referrals: Kathie Anderson III, MD [Primary Care Provider] - 1-2 days Time of Disposition: 17:32
[2024-09-05] MEDS: SODIUM CHLORIDE 0.9% 1,000 ML IV ONE (15:20)
[2024-09-05 15:33] LABS: Basophils % (A) 0 %; Eosinophils % (A) 0 %; HCT 46.7 % (39.0-53.0); HGB 15.2 gm/dL (13.0-17.5); Lymphocytes % (A) 9 %; MCH 32.7 pg (25.0-35.0); MCHC 32.6 g/dL (31.0-37.0); MCV 100.5 fL (80.0-100.0); Mean Platelet Volume 8.2; Monocytes # (A) 0.5 k/uL (0-1.0); Monocytes % (A) 5 %; Neutrophils # (A) 9.8 k/uL (1.3-7.7); Neutrophils % (A) 85 %; Platelet Count 195 k/uL (150-450); RBC 4.65 m/uL (4.30-5.90); RDW 12.4 % (11.5-15.5); WBC 11.5 k/uL (3.8-10.6)
[2024-09-05 15:44] LABS: ALT 42 U/L (4-49); AST 70 U/L (17-59); African American GFR (CKD) 51 (>60 ml/min/1.73 sqM); Albumin 4.4 g/dL (3.5-5.0); Alkaline Phosphatase 72 U/L (38-126); Anion Gap 8 mmol/L; Blood Urea Nitrogen 38 mg/dL (9-20); Calcium 10.7 mg/dL (8.4-10.2); Carbon Dioxide 22 mmol/L (22-30); Chloride 105 mmol/L (98-107); Glucose 141 mg/dL (74-99); INR 1.1 (<1.2); Magnesium 1.7 mg/dL (1.6-2.3); Non-African American GFR(CKD) 44 (>60 ml/min/1.73 sqM); Partial Thromboplastin Time 24.9 sec (22.0-30.0); Potassium 4.1 mmol/L (3.5-5.1); Prothrombin Time 11.7 sec (10.0-12.5); Sodium 135 mmol/L (137-145); Total Bilirubin 1.2 mg/dL (0.2-1.3); Total Protein 6.6 g/dL (6.3-8.2)
--- NOTE | 2024-09-05 16:36 | XR ---
EXAMINATION TYPE: XR chest 2V DATE OF EXAM: 09/05/2024 4:00 PM CLINICAL INDICATION: Male, 64 years old with history of Chest Pain; [facility] COMPARISON: Chest radiographs from 09/02/2024 TECHNIQUE: XR chest 2V Frontal view of the chest. FINDINGS: Lungs/Pleura: There is no evidence of pleural effusion, focal consolidation, or pneumothorax. Pulmonary vascularity: Unremarkable. Heart/mediastinum: Cardiomediastinal silhouette is unremarkable. Musculoskeletal: No acute osseous pathology. Other findings: None IMPRESSION: No acute cardiopulmonary disease/process. [facility], , 09/05/2024 4:34 PM
[2024-09-05 18:17] VITALS: BP 108/68; PULSE 71; RESP 18; TEMP 98.3
== END 2024-09-05 18:17 | disposition home or self-care (01) ==
LOC: EC 14:21
CPT/HCPCS: 36415; 71046; 80053; 83735; 84484; 85025; 85610; 85730; 93005; 96360; 99285

== ENCOUNTER 2024-11-18 23:11 | Emergency (ER) | payer MEDICARE ==
[2024-11-18 23:18] VITALS: RESP 16; TEMP 97.7
--- NOTE | 2024-11-19 00:23 | CT ---
EXAM: CT Head Without Intravenous Contrast CLINICAL HISTORY: Pt presents with head injury . Pt fell when he was putting his garbage car away. PT is on eliquis and brillenta. TECHNIQUE: Axial computed tomography images of the head/brain without intravenous contrast. CTDI is 49.1 mGy and DLP is 1198.1 mGy-cm. This CT exam was performed using one or more of the following dose reduction techniques: automated exposure control, adjustment of the mA and/or kV according to patient size, and/or use of iterative reconstruction technique. COMPARISON: No relevant prior studies available. FINDINGS: Brain: No hemorrhage, extra-axial fluid collection, mass effect, or edema. Ventricles: Unremarkable. Bones/joints: Unremarkable. No fracture. Soft tissues: Left-sided scalp injury. Sinuses: No acute sinusitis. Mastoid air cells: Unremarkable as visualized. IMPRESSION: 1. No acute intracranial abnormality. 2. Left-sided scalp injury.
--- NOTE | 2024-11-19 00:40 | ED ---
General Adult HPI - General Chief complaint: Head Injury Stated complaint: Fall- head injury Time Seen by Provider: 11/18/24 23:21 Source: patient Mode of arrival: ambulatory Limitations: no limitations - History of Present Illness Initial comments: 64-year-old male presenting with chief complaint of head injury. Patient had a slip and fall outside when he was putting his garbage can away, he hit his head on the garbage can and now has a laceration to the scalp. Patient is on Eliquis and Brilinta. No loss of consciousness. No other injuries. No neck pain, extremity pain, chest pain, difficulty breathing, abdominal pain, nausea, vomiting, dizziness, vision or hearing changes, numbness, tingling, weakness. Patient states he had tetanus shot within the last 2 years - Related Data Home Medications Medication Instructions Recorded Confirmed allopurinoL [Zyloprim] 300 mg PO DAILY 03/01/19 09/05/24 Atorvastatin [Lipitor] 80 mg PO HS 04/07/21 09/05/24 Empagliflozin [Jardiance] 10 mg PO DAILY 04/07/21 09/05/24 Fenofibrate 54 mg PO HS 04/07/21 09/05/24 Pantoprazole Sodium [Protonix] 40 mg PO DAILY 04/07/21 09/05/24 hydroCHLOROthiazide 25 mg PO DAILY 04/21/21 09/05/24 Apixaban [Eliquis] 5 mg PO BID 11/04/21 09/05/24 Cholecalciferol [Vitamin D3 (125 125 mcg PO SUMOWEFR 11/04/21 09/05/24 Mcg = 5000 Iu)] EPINEPHrine (Auto Inject) [Epipen] 0.3 mg IM ONCE PRN 11/04/21 09/05/24 Hydroxychloroquine Sulfate 200 mg PO BID 11/04/21 09/05/24 [Plaquenil] Olmesartan Medoxomil 40 mg PO DAILY 11/04/21 09/05/24 sulfaSALAzine 1,000 mg PO BID 08/01/22 09/05/24 Flecainide [Tambocor] 50 mg PO BID PRN 09/02/24 09/05/24 predniSONE 5 mg PO DAILY 09/02/24 09/05/24 Previous Rx's Medication Instructions Recorded Metoprolol Tartrate [Lopressor] 25 mg PO BID #60 tab 03/06/19 Nitroglycerin Sl Tabs [Nitrostat] 0.4 mg SUBLINGUAL Q5M PRN #30 tab 02/10/20 Aspirin 81 mg PO DAILY 7 Days #7 tab 09/04/24 Ticagrelor [Brilinta] 90 mg PO BID 30 Days #60 tab 09/04/24 Allergies Allergy/AdvReac Type Severity Reaction Status Date / Time amlodipine Allergy Severe LEG Verified 09/05/24 14:27 SWELLING AND RUPTURE OF ACHILLES venom-honey bee Allergy Anaphylaxis Verified 09/05/24 14:27 [bee venom (honey bee)] Review of Systems ROS Statement: Those systems with pertinent positive or pertinent negative responses have been documented in the HPI. ROS Other: All systems not noted in ROS Statement are negative. Past Medical History Past Medical History: Atrial Fibrillation, Coronary Artery Disease (CAD), Cancer, Chest Pain / Angina, GERD/Reflux, Hyperlipidemia, Hypertension, Myocardial Infarction ([place]), Prostate Disorder Additional Past Medical History / Comment(s): CURRENT: TIGHTNESS IN CHEST. Rt toe issues(gout?). skin cancer. seasonal allergies. kidney stones. diverticulitis. covid in october. [place] VACCINE. "TAKES JARDIANCE FOR CARDI AC" PROTECTION Last Myocardial Infarction Date:: 02/28/19 History of Any Multi-Drug Resistant Organisms: None Reported Past Surgical History: Back Surgery, Bowel Resection, Cholecystectomy, Heart Catheterization With Stent, Joint Replacement, Orthopedic Surgery, Tonsillectomy Additional Past Surgical History / Comment(s): TOTAL OF 11 STENTS Left hip replacement. Right knee, right arm carpal tunnel. 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 General Exam Limitations: no limitations General appearance: alert, in no apparent distress Expanded Head exam: Present: laceration (3) Eye exam: Present: normal appearance, PERRL, EOMI Neck exam: Present: normal inspection, full ROM. Absent: tenderness Respiratory exam: Present: normal lung sounds bilaterally. Absent: respiratory distress, wheezes, rales, rhonchi, stridor Cardiovascular Exam: Present: regular rate, normal rhythm, normal heart sounds. Absent: systolic murmur, diastolic murmur, rubs, gallop, clicks Extremities exam: Present: normal inspection, full ROM Neurological exam: Present: alert, oriented X3 Expanded Eye Response: (4) open spontaneously Motor Response: (6) obeys commands Verbal Response: (5) oriented [place] Total: 15 Psychiatric exam: Present: normal affect, normal mood Course Vital Signs 11/18/24 11/19/24 23:15 00:56 Temperature 97.7 F Pulse Rate 68 61 Respiratory 16 16 Rate Blood Pressure 143/75 146/89 O2 Sat by Pulse 97 97 Oximetry Procedures - Laceration Laceration #1 Consent Obtained: verbal consent Indication: laceration Site: scalp Size (cm): 3 Description: linear Depth: simple, single layer Anesthetic Used: lidocaine 1%, without epi Anesthesia Technique: local infiltration Pre-repair: wound explored Type of Sutures: other ([place]) Number of Sutures: 4 Patient Tolerated Procedure: well, no complications Medical Decision Making - Medical Decision Making Was pt. sent in by a medical professional or institution (NAYE López, KETTLE LOADER, urgent care, hospital, or longterm...) When possible be specific @ -No Did you speak to anyone other than the patient for history (EMS, parent, family, police, friend...)? What history was obtained from this source @ -No Did you review nursing and triage notes (agree or disagree)? Why? @ -I reviewed and agree with nursing and triage notes Were old charts reviewed (outside hosp., previous admission, EMS record, old EKG, old radiological studies, urgent care reports/EKG's, longterm records)? Report findings @ -No old charts were reviewed Differential Diagnosis (chest pain, altered mental status, abdominal pain women, abdominal pain men, vaginal bleeding, weakness, fever, dyspnea, syncope, headache, dizziness, GI bleed, back pain, seizure, CVA, palpatations, mental health, musculoskeletal)? @ -Differential includes uncomplicated head injury, concussion, fracture, hemorrhage, this is not an all-inclusive list EKG interpreted by me (3pts min.). @ -As above X-rays interpreted by me (1pt min.). @ -None done CT interpreted by me (1pt min.). @ -CT shows no acute intracranial abnormality. Left-sided scalp injury U/S interpreted by me (1pt. min.). @ -None done What testing was considered but not performed or refused? (CT, X-rays, U/S, labs)? Why? @ -None What meds were considered but not given or refused? Why? @ -None Did you discuss the management of the patient with other professionals (professionals i.e. , PA, KETTLE LOADER, lab, RT, psych nurse, social worker health services, packaging machine operator, teacher, motor equipment commanding officer, home health care case manager)? Give summary @ -No Was smoking cessation discussed for >3mins.? @ -No Was critical care preformed (if so, how long)? @ -No Were there social determinants of health that impacted care today? How? (Homelessness, low income, unemployed, alcoholism, drug addiction, transportation, low edu. Level, literacy, decrease access to med. care, skilled nursing, rehab)? @ -No Was there de-escalation of care discussed even if they declined (Discuss DNR or withdrawal of care, Hospice)? DNR status @ -No What co-morbidities impacted this encounter? (DM, HTN, Smoking, COPD, CAD, Cancer, CVA, ARF, Chemo, Hep., AIDS, mental health diagnosis, sleep apnea, morbid obesity)? @ -None Was patient admitted / discharged? Hospital course, mention meds given and route, prescriptions, significant lab abnormalities, going to OR and other pertinent info. @ -64-year-old male presenting with chief complaint of head injury. Patient had a slip and fall. He is on Eliquis and Brilinta, no loss of consciousness. He has a laceration to his scalp that is 3 cm in length. His tetanus is up-to-date. Code coag was called and CT was obtained which shows no acute intracranial process. Patient has no other injury and complains of no other pain. Laceration was repaired. Patient is educated on today's findings, wound care, signs of infection, red flag symptoms after head injury. Follow-up with PCP. Report back to ER with any new or worsening symptoms. Discussed return naye alejandro and answered all questions. Patient conveyed verbal understanding and agreed to the plan. I discussed this case in detail with my attending Dr. Jeff Undiagnosed new problem with uncertain prognosis? @ -No Drug Therapy requiring intensive monitoring for toxicity (Heparin, Nitro, Insulin, Cardizem)? @ -No Were any procedures done? @ -Laceration repair Diagnosis/symptom? @ -Head injury, scalp laceration Acute, or Chronic, or Acute on Chronic? @ -Acute Uncomplicated (without systemic symptoms) or Complicated (systemic symptoms)? @ -Uncomplicated Side effects of treatment? @ -No Exacerbation, Progression, or Severe Exacerbation? @ -No Poses a threat to life or bodily function? How? (Chest pain, [place], [place], pneumonia, PE, COPD, DKA, ARF, appy, cholecystitis, CVA, Diverticulitis, Homicidal, Suicidal, threat to staff... and all critical care pts) @ -Low likelihood Disposition Clinical Impression: Head injury, Scalp laceration Disposition: HOME SELF-CARE Condition: Good Instructions (If sedation given, give patient instructions): Head Injury (ED), Head Laceration (ED) Additional Instructions: Follow-up with PCP. Report back to ER with any new or worsening symptoms. Keep the wound clean dry and covered. Do not get the wound wet for 24 hours, afterwards wash regularly with soap and water. Avoid fully submerging the wound in water for prolonged periods of time. Monitor for signs of infection, including but not limited to redness, swelling, warmth, tenderness, discharge, fever. [place] may be removed in 7 to 10 days Is patient prescribed a controlled substance at d/c from ED?: No Referrals: Kathie Anderson III, MD [Primary Care Provider] - 1-2 days Time of Disposition: 00:40
[2024-11-19 00:57] VITALS: BP 146/89; PULSE 61
== END 2024-11-19 00:57 | disposition home or self-care (01) ==
LOC: EC 23:11
DX: S01.01XA Laceration without foreign body of scalp, initial encounter (principal); Z88.8 Allergy status to other drugs, medicaments and biological substances; Z91.030 Bee allergy status; W01.0XXA Fall on same level from slipping, tripping and stumbling without subsequent striking against object, initial encounter
CPT/HCPCS: 12002; 70450; 99283

== ENCOUNTER 2025-05-16 22:55 | Emergency (ER) | payer MEDICARE ==
[2025-05-16 23:04] VITALS: RESP 18; TEMP 97.8
--- NOTE | 2025-05-17 00:19 | ED ---
Chest Pain HPI - General Chief Complaint: Chest Pain Stated Complaint: Shoulder discomfort Time Seen by Provider: 05/16/25 23:49 Source: patient Mode of arrival: ambulatory - History of Present Illness Initial Comments: This patient is a 65-year-old man with history of previous CA and stents, who arrives to have evaluation for left shoulder and arm pain. Patient states that the pain came on tonight. He again has significant cardiac history so he felt he should have evaluation for this pain. The patient did try taking nitroglycerin without change in his symptoms. He has not had associated symptoms, no dyspnea, diaphoresis, nausea or vomiting. Patient denies known injury to the extremity. No neck pain. MD Complaint: other -: hour(s) Onset: during rest Pain Location: other (Left shoulder and into the arm) Pain Radiation: LUE Severity: moderate Quality: aching Consistency: constant Improves With: nothing Worsens With: movement Treatments Prior to Arrival: nitroglycerin - Related Data Home Medications Medication Instructions Recorded Confirmed allopurinoL [Zyloprim] 300 mg PO DAILY 03/01/19 09/05/24 Atorvastatin [Lipitor] 80 mg PO HS 04/07/21 09/05/24 Empagliflozin [Jardiance] 10 mg PO DAILY 04/07/21 09/05/24 Fenofibrate 54 mg PO HS 04/07/21 09/05/24 Pantoprazole Sodium [Protonix] 40 mg PO DAILY 04/07/21 09/05/24 hydroCHLOROthiazide 25 mg PO DAILY 04/21/21 09/05/24 Apixaban [Eliquis] 5 mg PO BID 11/04/21 09/05/24 Cholecalciferol [Vitamin D3 (125 125 mcg PO SUMOWEFR 11/04/21 09/05/24 Mcg = 5000 Iu)] EPINEPHrine (Auto Inject) [Epipen] 0.3 mg IM ONCE PRN 11/04/21 09/05/24 Hydroxychloroquine Sulfate 200 mg PO BID 11/04/21 09/05/24 [Plaquenil] Olmesartan Medoxomil 40 mg PO DAILY 11/04/21 09/05/24 sulfaSALAzine 1,000 mg PO BID 08/01/22 09/05/24 Flecainide [Tambocor] 50 mg PO BID PRN 10/02/24 10/05/24 predniSONE 5 mg PO DAILY 09/02/24 09/05/24 Previous Rx's Medication Instructions Recorded Metoprolol Tartrate [Lopressor] 25 mg PO BID #60 tab 03/06/19 Nitroglycerin Sl Tabs [Nitrostat] 0.4 mg SUBLINGUAL Q5M PRN #30 tab 02/10/20 Aspirin 81 mg PO DAILY 7 Days #7 tab 09/04/24 Ticagrelor [Brilinta] 90 mg PO BID 30 Days #60 tab 09/04/24 Allergies Allergy/AdvReac Type Severity Reaction Status Date / Time amlodipine Allergy Severe LEG Verified 09/05/24 14:27 SWELLING AND RUPTURE OF ACHILLES venom-honey bee Allergy Anaphylaxis Verified 09/05/24 14:27 [bee venom (honey bee)] Review of Systems ROS Statement: Those systems with pertinent positive or pertinent negative responses have been documented in the HPI. ROS Other: All systems not noted in ROS Statement are negative. Constitutional: Denies: fever, chills, weakness Respiratory: Denies: cough, dyspnea Cardiovascular: Denies: chest pain, palpitations, dyspnea on exertion, edema, syncope Gastrointestinal: Denies: abdominal pain, nausea, vomiting Genitourinary: Denies: dysuria, hematuria Musculoskeletal: Reports: as per HPI, arthralgia. Denies: back pain Skin: Denies: rash Neurological: Denies: headache, weakness, numbness EKG Findings - EKG Results: EKG: interpreted by ERMD, sinus rhythm, normal axis, normal QRS EKG shows: bradycardia (Rate 52 bpm) - Blocks, [place], Hypertrophy, ST Abn: Repolarization changes or abnormalities: nonspecific abnormality, ST segment, and/or T wave Past Medical History Past Medical History: Atrial Fibrillation, Coronary Artery Disease (CAD), Cancer, Chest Pain / Angina, GERD/Reflux, Hyperlipidemia, Hypertension, Myocardial Infarction (CA), Prostate Disorder Additional Past Medical History / Comment(s): CURRENT: TIGHTNESS IN CHEST. Rt toe issues(gout?). skin cancer. seasonal allergies. kidney stones. diverticulitis. covid in october. PFIZER VACCINE. "TAKES JARDIANCE FOR CARDIAC" PROTECTION Last Myocardial Infarction Date:: 02/28/19 History of Any Multi-Drug Resistant Organisms: None Reported Past Surgical History: Back Surgery, Bowel Resection, Cholecystectomy, Heart Catheterization With Stent, Joint Replacement, Orthopedic Surgery, Tonsillectomy Additional Past Surgical History / Comment(s): TOTAL OF 11 STENTS Left hip replacement. Right knee, right arm carpal tunnel. 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 General Exam General appearance: alert, in no apparent distress Head exam: Present: atraumatic, normocephalic Eye exam: Present: normal appearance. Absent: scleral icterus, conjunctival injection ENT exam: Present: normal oropharynx Neck exam: Present: normal inspection, full ROM. Absent: tenderness Respiratory exam: Present: normal lung sounds bilaterally. Absent: respiratory distress, wheezes, rales, rhonchi, stridor, chest wall tenderness, accessory muscle use Cardiovascular Exam: Present: regular rate, normal rhythm, normal heart sounds. Absent: systolic murmur, diastolic murmur, rubs, gallop GI/Abdominal exam: Present: soft. Absent: distended, tenderness, guarding, rebound, rigid, mass Extremities exam: Present: normal inspection, normal capillary refill. Absent: pedal edema, calf tenderness Back exam: Present: normal inspection. Absent: vertebral tenderness Neurological exam: Present: alert. Absent: motor sensory deficit Skin exam: Present: warm, dry, intact, normal color. Absent: rash Course Vital Signs 05/16/25 05/17/25 05/17/25 23:00 01:55 02:38 Temperature 97.8 F Pulse Rate 65 56 L 53 L Respiratory 18 18 18 Rate Blood Pressure 120/73 124/78 130/72 O2 Sat by Pulse 96 96 97 Oximetry Chest Pain MDM - MDM This patient is a 65-year-old man here with left shoulder and arm pain. Given the patient's history, acute coronary syndrome is considered and the patient had workup that was unremarkable. The patient did have improvement in symptoms following Toradol here. The patient is offered admission but at this point is feeling better and wants to go home and follow-up. We did discuss that the workup thus far does not entirely rule out cardiac source. Discussed appropriate further care and follow-up as well as return parameters Was pt. sent in by a medical professional or institution (, PASCUAL, RADIATION TECHNICIAN, urgent care, hospital, or jail...) When possible be specific @ -[No] Did you speak to anyone other than the patient for history (EMS, parent, family, police, friend...)? What history was obtained from this source @ -[No] Did you review nursing and triage notes (agree or disagree)? Why? @ -[I reviewed and agree with nursing and triage notes] Were old charts reviewed (outside hosp., previous admission, EMS record, old EKG, old radiological studies, urgent care reports/EKG's, jail records)? Report findings @ -[No old charts were reviewed] Differential Diagnosis (chest pain, altered mental status, abdominal pain women, abdominal pain men, vaginal bleeding, weakness, fever, dyspnea, syncope, headache, dizziness, GI bleed, back pain, seizure, CVA, palpatations, mental h ealth, musculoskeletal)? @ -[Differential Musculoskeletal Muscular strain, contusion, ligament sprain, fracture, arthritis, septic arthritis, bursitis, cellulitis, muscle spasm, nerve compression, DVT, arterial occlusion, herpes zoster, electrolyte abnormality, tumor.... This is not meant to be in all inclusive list Differential Chest Pain: Stable Angina, Unstable Angina, STEMI, NSTEMI Aortic Dissection, Pneumothorax, Musculoskeletal, Esophageal Spasm GERD, Cholecystitis, Pancreatitis, Zoster, this is not meant to be an all-inclusive list. EKG interpreted by me (3pts min.). @ -[I interpreted as above] X-rays interpreted by me (1pt min.). @ -[None done] CT interpreted by me (1pt min.). @ -[None done] U/S interpreted by me (1pt. min.). @ -[None done] What testing was considered but not performed or refused? (CT, X-rays, U/S, labs)? Why? @ -[None] What meds were considered but not given or refused? Why? @ -[None] Did you discuss the management of the patient with other professionals (professionals i.e. , PASCUAL, RADIATION TECHNICIAN, lab, RT, psych nurse, administrator social welfare, fruit coordinator, teacher, flight deck officer, nurse case manager)? Give summary @ -[No] Was smoking cessation discussed for >3mins.? @ -[No] Was critical care preformed (if so, how long)? @ -[No] Were there social determinants of health that impacted care today? How? (Homelessness, low income, unemployed, alcoholism, drug addiction, transp ortation, low edu. Level, literacy, decrease access to med. care, senior living, rehab)? @ -[No] Was there de-escalation of care discussed even if they declined (Discuss DNR or withdrawal of care, Hospice)? DNR status @ -[No] What co-morbidities impacted this encounter? (DM, HTN, Smoking, COPD, CAD, Cancer, CVA, ARF, Chemo, Hep., AIDS, mental health diagnosis, sleep apnea, morbid obesity)? @ -[None] Was patient admitted / discharged? Hospital course, mention meds given and route, prescriptions, significant lab abnormalities, going to OR and other pertinent info. @ -[As above Undiagnosed new problem with uncertain prognosis? @ -[No] Drug Therapy requiring intensive monitoring for toxicity (Heparin, Nitro, Insulin, Cardizem)? @ -[No] Were any procedures done? @ -[No] Diagnosis/symptom? @ -Left arm pain Acute, or Chronic, or Acute on Chronic? @ -[Acute Uncomplicated (without systemic symptoms) or Complicated (systemic symptoms)? @ -[Uncomplicated Side effects of treatment? @ -[No] Exacerbation, Progression, or Severe Exacerbation? @ -[No] Poses a threat to life or bodily function? How? (Chest pain, [place], CA, pneumonia, PE, COPD, DKA, ARF, appy, cholecystitis, CVA, Diverticulitis, Homicidal, Suicidal, threat to staff... and all critical care pts) @ -[There is a chance that this is related to cardiac disease, this was discussed with the patient and he declined admission and wanted to follow with his radiation technician but will return if the symptoms recur, new symptoms develop or he is not feeling right in any way All treatments are based on ideal body weight as in ED triage Disposition Clinical Impression: Left arm pain Disposition: HOME SELF-CARE Condition: Good Instructions (If sedation given, give patient instructions): Arm Pain (ED) Additional Instructions: As we discussed, your lipase level is mildly elevated. I suspect that this is due to some of the medications that you are taking. If you start experiencing any of the symptoms discussed, return. Otherwise have the lab value rechecked to ensure that it is not continuing to increase. Call your radiation technician regarding follow-up. Is patient prescribed a controlled substance at d/c from ED?: No Referrals: Kathie Anderson III, MD [Primary Care Provider] - 1-2 days
[2025-05-17] MEDS: NITROGLYCERIN SL TABS 0.4 MG TAB SUBLINGUAL STA (00:22)
[2025-05-17] MEDS: ASPIRIN 81 MG PO STA (00:23)
[2025-05-17] MEDS: MORPHINE SULFATE 4 MG/ML SYRINGE IV STA (00:25)
[2025-05-17 00:27] LABS: Basophils # (A) 0.05 10*3/uL (0.00-0.10); Basophils % (A) 0.6 %; Eosinophils % (A) 2.2 %; HCT 40.8 % (39.6-50.0); HGB 14.3 g/dL (13.0-17.0); Immature Platelet Fraction 4.6 % (1.1-6.1); Lymphocytes % (A) 23.6 %; MCH 33.5 pg (27.0-32.0); MCV 95.6 fL (80.0-97.0); Mean Platelet Volume 10.5 fL (9.5-12.2); Monocytes % (A) 7.9 %; Neutrophils # (A) 5.84 10*3/uL (1.80-7.70); Neutrophils % (A) 65.5 %; Platelet Count 135 10*3/uL (140-440); RBC 4.27 10*6/uL (4.40-5.60); RDW 12.5 % (11.5-14.5); WBC 8.91 10*3/uL (4.50-10.00)
[2025-05-17 00:53] LABS: Prothrombin Time 11.1 sec (10.0-12.5)
[2025-05-17 00:54] LABS: ALT 42 U/L (4-49); AST 59 U/L (17-59); African American GFR (CKD) >90 (>60 ml/min/1.73 sqM); Albumin 4.5 g/dL (3.5-5.0); Alkaline Phosphatase 64 U/L (38-126); Amylase 106 U/L (30-110); Anion Gap 10 mmol/L; Blood Urea Nitrogen 22 mg/dL (9-20); Calcium 10.3 mg/dL (8.4-10.2); Carbon Dioxide 22 mmol/L (22-30); Chloride 105 mmol/L (98-107); Glucose 94 mg/dL (74-99); Lipase 540 U/L (23-300); Magnesium 1.9 mg/dL (1.6-2.3); Non-African American GFR(CKD) >90 (>60 ml/min/1.73 sqM); Potassium 3.7 mmol/L (3.5-5.1); Sodium 137 mmol/L (137-145); Total Protein 6.6 g/dL (6.3-8.2)
[2025-05-17] MEDS: KETOROLAC 15 MG/ML 1 ML VIAL IVP STA (02:01)
[2025-05-17 02:40] VITALS: BP 130/72; PULSE 53
--- NOTE | 2025-05-17 03:43 | XR ---
EXAM: XR Chest, 2 Views CLINICAL HISTORY: ITS.REASON XR Reason: Chest Pain TECHNIQUE: Frontal and lateral views of the chest. COMPARISON: No relevant prior studies available. FINDINGS: Lungs: No consolidation or mass. Pleural space: No effusion. Heart: No cardiomegaly. Bones/joints: No acute findings. IMPRESSION: No acute cardiopulmonary process.
== END 2025-05-17 02:54 | disposition home or self-care (01) ==
LOC: EC 22:55
DX: M79.602 Pain in left arm (principal); Z91.030 Bee allergy status; Z88.8 Allergy status to other drugs, medicaments and biological substances
CPT/HCPCS: 36415; 93005; 85379; 80053; 82150; 83690; 83735; 84484; 85025; 85610; 85730; 71046; 99285; 96374; J1885